=== PATIENT | female | born 1975 | race Two or more races ===

== ENCOUNTER 2020-05-28 09:29 | Outpatient (REF) | payer MEDICARE, MEDICAID, SELFPAY ==
--- NOTE | 2020-05-28 | US_ITS ---
EXAMINATION: US ABDOMEN COMPLETE CLINICAL INFORMATION: Epigastric pain. COMPARISON: Renal ultrasound dated 04/13/2018 and abdominal ultrasound dated 03/16/2017. CT abdomen and pelvis dated 02/19/2017 TECHNIQUE: Real-time imaging of the abdominal viscera. FINDINGS: PANCREAS: Normal. ABDOMINAL AORTA: The proximal, mid, and distal segments are normal in caliber. INFERIOR VENA CAVA: Visualized portions are normal. LIVER: Normal. The liver is normal in size. The liver contour is normal. Parenchymal echogenicity is normal. No focal hepatic lesion. There is no intrahepatic biliary duct dilatation seen. GALLBLADDER: The gallbladder is physiologically distended without evidence of stones, wall thickening or pericholecystic fluid. There are small echogenic lesions along the inner gallbladder wall without shadowing suspicious of adenomyomatosis. COMMON BILE DUCT: Normal in caliber measuring 0.5 cm in diameter. RIGHT KIDNEY: No hydronephrosis or renal calculi. The kidney measures 11.4 cm in maximum dimension. There is an anechoic cyst midpole measuring 1.6 x 1.5 x 1.4 cm. LEFT KIDNEY: Normal. No hydronephrosis. No renal calculi or focal parenchymal lesions. The kidney measures 11.8 cm in maximum dimension. SPLEEN: Normal. The spleen measures 10.4 cm in maximum dimension. FREE FLUID: None. US/US abdomen complete IMPRESSION: Anechoic 1.6 cm cyst midpole right kidney. No echogenic renal calculi on either kidney. Adenomyomatosis of gallbladder.
== END 2020-05-28 09:30 | disposition home or self-care (01) ==
LOC: HO.US 09:29
PROVIDERS: Visit Provider Internal Medicine Geriatric Medicine
DX: R10.13 Epigastric pain (principal); R14.0 Abdominal distension (gaseous)
CPT/HCPCS: 76700

== ENCOUNTER → 2020-07-02 13:37 | Outpatient (BNVA) | payer MEDICARE, MEDICAID, SELFPAY | PROVIDERS: PCP Internal Medicine Geriatric Medicine; Visit Provider Physician Assistant | DX: R10.10 Upper abdominal pain, unspecified (principal) | CPT/HCPCS: Q3014 ==

== ENCOUNTER 2020-12-13 11:31 | Emergency (ER) | payer MEDICARE, MEDICAID, SELFPAY ==
--- NOTE | ~2020-12-13 | CT_ITS ---
EXAMINATION: CT ABDOMEN AND PELVIS WITHOUT CONTRAST CLINICAL INFORMATION: Left lower quadrant abdominal pain COMPARISON: CT of February 19, 2017 TECHNIQUE: Multidetector volumetric imaging was performed from the superior aspect of the liver through the pubic symphysis. Sagittal and coronal reformatted images were obtained on the technologist's workstation. This CT examination was performed using dose optimization techniques as appropriate, variously including the following: *Automated exposure control *Adjustment of mA and/or kV according to patient size (this includes techniques or standardized protocols for targeted exams where dose is matched to indication/reason for exam; i.e. extremities or head) *Use of iterative reconstruction technique DLP: 741 mGy-cm FINDINGS: LUNG BASES: The visualized lung bases are unremarkable. No pleural or pericardial effusion. LIVER, GALLBLADDER, AND BILIARY TREE: The liver is normal in size, shape, and attenuation. No focal hepatic lesion or biliary ductal dilatation is present. The gallbladder is unremarkable with no evidence of radiopaque gallstones, gallbladder wall thickening, or obvious pericholecystic inflammatory changes. PANCREAS: Unremarkable. SPLEEN: Unremarkable. ADRENAL GLANDS: Unremarkable. KIDNEYS AND URETERS: The kidneys are normal in size, shape, and attenuation. No hydronephrosis, hydroureter, or calculi seen. No perinephric stranding. BLADDER: Unremarkable. GASTROINTESTINAL TRACT: No dilated loops of large or small bowel are evident. No free air or free fluid. There is pericolonic inflammatory changes seen along a region of moderate diverticular disease within the sigmoid colon consistent with acute diverticulitis. No drainable fluid collection is identified. There is mild diverticulosis of the remainder of the colon. The appendix is visualized and appears unremarkable. ABDOMINAL WALL: No significant hernia is appreciated. LYMPH NODES: No lymphadenopathy is appreciated. VASCULAR: Small amount of calcified plaque within the aortoiliac system. PELVIC VISCERA: No suspicious pelvic mass appreciated. OSSEOUS STRUCTURES: No suspicious destructive bony lesions identified. Degenerative disc disease is seen at the L4-L5 and L5-S1 levels. CT/CT abdomen pelvis wo con IMPRESSION: Acute sigmoid diverticulitis without drainable abscess.
[2020-12-13 11:44] VITALS: BP 175/99; PULSE 86; RESP 20; TEMP 36.2; O2SAT 98; BMI 31.3
--- NOTE | 2020-12-13 13:00 | ED_ITS ---
HPI - Abdominal Pain General Chief Complaint: Abdominal Pain Stated Complaint: ABD PAIN Time Seen by Provider: 12/13/20 12:33 Source: patient Mode of arrival: ambulatory History of Present Illness HPI narrative: 45-year-old female with a past medical history of hemorrhoidectomy, hypertension, presenting to the ED complaining of 3 days of p eriumbilical/lower abdominal pain > left with radiation to back. Admits to similar symptoms in the past. Denies fever, chills, nausea, vomiting, diarrhea, dysuria/hematuria, vaginal bleeding/discharge, constipation, suspicious food intake MD elicited complaint: abdominal pain Related Data Home Medications Medication Instructions Recorded Confirmed albuterol sulfate 90 mcg/actuation 2 puff INHALATION Q6H PRN 07/02/20 07/02/20 aerosol inhaler lisinopril 10 1 tab PO DAILY 07/02/20 07/02/20 mg-hydrochlorothiazide 12.5 mg tablet oxycodone-acetaminophen 5 mg-325 1 tab PO Q8H PRN 07/02/20 07/02/20 mg tablet simvastatin 10 mg tablet 10 mg PO DAILY 07/02/20 07/02/20 Previous Rx's Medication Instructions Recorded famotidine 40 mg tablet 40 mg PO DAILY #30 tab 07/02/20 ketorolac 10 mg PO Q6H PRN 5 Days #14 tab 12/13/20 levofloxacin 750 mg PO DAILY 7 Days #7 tab 12/13/20 metoclopramide HCl [Reglan] 10 mg PO Q6H PRN #10 tab 12/13/20 metronidazole 500 mg PO Q8H 7 Days #21 tab 12/13/20 Allergies Allergy/AdvReac Type Severity Reaction Status Date / Time amoxicillin [From AUGMENTIN] Allergy Intermediate FACIAL Verified 12/13/20 13:12 SWELLING, HIVES clavulanic acid Allergy Intermediate FACIAL Verified 12/13/20 13:12 [From AUGMENTIN] SWELLING, HIVES Iodinated Contrast Media Allergy Intermediate ITCHING, Verified 12/13/20 13:12 [IV CONTRAST] FACIAL SWELLING, HIVES oral contrast Allergy Unknown facial Uncoded 02/20/20 00:00 swellling Review of Systems Review of Systems Constitutional: No Fever, No Chills Cardiovascular: No Chest Pain, No SOB Respiratory: No Cough, No Dyspnea Gastrointestinal: No Nausea, No Vomiting, No Diarrhea, No Constipation, +Abdominal pain Genitourinary: No irregular bleeding, No Dysuria, No Urinary Frequency, No Hematuria, No Flank Pain, No Urinary Flow Changes Musculoskeletal: No joint pain, No Myalgias Skin: No Skin Lesions, No rash Yes all other systems are reviewed and are negative Physical Exam Vital Signs: Vital Signs: Last Vital Signs Temp 97.2 F 12/13/20 11:44 Pulse 67 12/13/20 15:15 Resp 16 12/13/20 15:15 BP 178/96 H 12/13/20 15:15 Pulse Ox 100 12/13/20 15:15 Body Mass Index 31.3 Const: General: cooperative and healthy appearing Orientation/consciousness: patient oriented x3 Limitations: no limitations HENMT: Head: Yes normal to inspection Ears: hearing grossly normal bilaterally General nose exam: Normal external nose present Face and sinus: Yes normal facial exam Eyes: General: appearance normal, both eyes and all related structures EOM: EOMs intact bilaterally Neck: Neck: Yes normal visual inspection and Yes no meningeal signs Resp: Effort & Inspection: normal respiratory effort Cardio: Rate: regular rate GI: Inspection: Yes normal to inspection Palpation (GI): Soft to palpation, Tenderness to palpation present (GI) in the LLQ, no guarding and not rigid : General: Yes no CVA tenderness Back/Spine/Pelvis: Back: no CVA tenderness Skin: Rashes: no rashes Wounds: no wounds Neuro: General: patient oriented x3 and no meningeal signs Gait exam (Neuro): Normal gait present Extrem: General: Yes normal to inspection Course Course Course Narrative: -1403-- noted leukocytosis of 15.4, labs otherwise unremarkable. UA with wbc's 2+ bacteria and 1+ blood > empiric IV abx ordered. Low concern for severe sepsis > lactic/blood cultures ordered -1443--CT abdomen pelvis wo con IMPRESSION: Acute sigmoid diverticulitis without drainable abscess. > IV Levaquin ordered to cover diverticulitis and UTI -1613--lactic acid negative. Patient tolerating p.o. in the ED without nausea or vomiting. Plan to DC home with p.o. antibiotics and close GI follow-up. Worrisome signs and symptoms and strict return precautions discussed, she verbalized understanding feel safe for discharge home MDM - Abdominal Pain MDM Narrative Medical decision making narrative: 45-year-old female with a past medical history of hemorrhoidectomy, hypertension, presenting to the ED complaining of 3 days of periumbilical/lower abdominal pain > left with radiation to back. On exam VSS, NAD/appearing, abdomen soft with +LLQ ttp, no rebound or guarding, no CVAT. Concern for diverticulitis vs colitis vs ? Renal stone. Lower concern for appendicitis/pancreatitis/cholecystitis/lithiasis or UTI Plan: Labs, UA, CT AP without contrast due to patient's allergy, IVF, reassess Lab Data Result diagrams: 12/13/20 13:24 12/13/20 13:24 Labs: Lab Results 12/13/20 12/13/20 12/13/20 Range/Units 13:24 13:24 13:24 WBC 15.4 H (4.8-10.8) X10*3/uL RBC 5.27 (4.20-5.50) X10*6/uL Hgb 15.9 (12.0-16.0) g/dl Hct 48.7 H (37-47) % MCV 92.4 (80-98) fL MCH 30.2 (27.0-33.0) pg MCHC 32.6 (31.0-35.0) g/dl RDW 14.6 (11.0-16.0) % Plt Count 246 (160-400) X10*3/uL MPV 10.8 (9.4-12.3) fL Immature Gran % (Auto) 0.7 H (0.0-0.4) % Neut % (Auto) 76.1 H (45-73) % Lymph % (Auto) 14.5 L (20-40) % [place] % (Auto) 6.4 (2-11) % Eos % (Auto) 1.6 (0-4) % Baso % (Auto) 0.7 (0-2) % Lymph # (Auto) 2.2 (1.2-4.9) X10*3/uL [place] # (Auto) 1.0 (0.1-1.2) X10*3/uL Eos # (Auto) 0.3 (0.0-0.4) X10*3/uL Baso # (Auto) 0.1 (0.0-0.2) X10*3/uL Abs Immat Gran (auto) 0.10 H (0.00-0.03) X10*3/uL Absolute Neuts (auto) 11.7 H (2.0-8.3) X10*3/uL Absolute Nucleated RBC 0.000 (0.0-0.012) X10*3/uL Nucleated RBC % (auto) 0.0 (0.0-0.2) /100WBC Hold Blue Top SEE NOTE Sodium 134 L (135-145) mmol/L Potassium 4.3 (3.3-5.1) mmol/L Chloride 102 (96-108) mmol/L Carbon Dioxide 22 (22-29) mmol/L Anion Gap 14 (12-20) BUN 10 (9-16) mg/dL Creatinine 0.72 (0.5-1.4) mg/dL Estim Creat Clear Calc 115.3 Estimated GFR > 60 Random Glucose 106 (60-115) mg/dL Lactic Acid (0.5-2.0) mmol/L Calcium 9.4 (8.4-10.2) mg/dL Magnesium 2.2 (1.6-2.6) mg/dL Total Bilirubin 0.5 (0.0-1.0) mg/dL Direct Bilirubin 0.2 (0.0-0.5) mg/dL AST 11 (5-31) U/L ALT 11 (0-31) U/L Alkaline Phosphatase 75 (39-117) U/L Total Protein 7.1 (6.5-8.0) g/dL Albumin 4.3 (3.5-5.0) g/dL Lipase 26 (8-78) U/L Urine Color Urine Appearance Urine pH (5.0-8.0) Ur Specific [place] (1.005-1.025) Urine Protein (NEG-TRACE) MG/DL Urine Glucose (UA) (NEG) MG/DL Urine Ketones (NEG) MG/DL Urine Blood (NEG) Urine Nitrite (NEG) Ur Leukocyte Esterase (NEG) Urine RBC (0) /HPF Urine WBC (0-4) /HPF Ur Squamous Epith Cells /LPF Urine Bacteria /LPF Urine Test (NEGATIVE) 12/13/20 12/13/20 12/13/20 Range/Units 13:24 13:24 14:52 WBC (4.8-10.8) X10*3/uL RBC (4.20-5.50) X10*6/uL Hgb (12.0-16.0) g/dl Hct (37-47) % MCV (80-98) fL MCH (27.0-33.0) pg MCHC (31.0-35.0) g/dl RDW (11.0-16.0) % Plt Count (160-400) X10*3/uL MPV (9.4-12.3) fL Immature Gran % (Auto) (0.0-0.4) % Neut % (Auto) (45-73) % Lymph % (Auto) (20-40) % [place] % (Auto) (2-11) % Eos % (Auto) (0-4) % Baso % (Auto) (0-2) % Lymph # (Auto) (1.2-4.9) X10*3/uL [place] # (Auto) (0.1-1.2) X10*3/uL Eos # (Auto) (0.0-0.4) X10*3/uL Baso # (Auto) (0.0-0.2) X10*3/uL Abs Immat Gran (auto) (0.00-0.03) X10*3/uL Absolute Neuts (auto) (2.0-8.3) X10*3/uL Absolute Nucleated RBC (0.0-0.012) X10*3/uL Nucleated RBC % (auto) (0.0-0.2) /100WBC Hold Blue Top Sodium (135-145) mmol/L Potassium (3.3-5.1) mmol/L Chloride (96-108) mmol/L Carbon Dioxide (22-29) mmol/L Anion Gap (12-20) BUN (9-16) mg/dL Creatinine (0.5-1.4) mg/dL Estim Creat Clear Calc Estimated GFR Random Glucose (60-115) mg/dL Lactic Acid 1.0 (0.5-2.0) mmol/L Calcium (8.4-10.2) mg/dL Magnesium (1.6-2.6) mg/dL Total Bilirubin (0.0-1.0) mg/dL Direct Bilirubin (0.0-0.5) mg/dL AST (5-31) U/L ALT (0-31) U/L Alkaline Phosphatase (39-117) U/L Total Protein (6.5-8.0) g/dL Albumin (3.5-5.0) g/dL Lipase (8-78) U/L Urine Color YELLOW Urine Appearance CLEAR Urine pH 6.0 (5.0-8.0) Ur Specific [place] <= 1.005 (1.005-1.025) Urine Protein NEG (NEG-TRACE) MG/DL Urine Glucose (UA) NEG (NEG) MG/DL Urine Ketones NEG (NEG) MG/DL Urine Blood 1+ H (NEG) Urine Nitrite NEG (NEG) Ur Leukocyte Esterase NEG (NEG) Urine RBC 1-4 (0) /HPF Urine WBC 5-9 H (0-4) /HPF Ur Squamous Epith Cells 2+ /LPF Urine Bacteria 2+ /LPF Urine Test NEGATIVE (NEGATIVE) Discharge Plan Discharge Clinical Impression: Diverticulitis, UTI (urinary tract infection) Patient Disposition: Home, Self-Care Instructions: Diverticulitis (ED), Diverticulitis Diet (ED) Additional Instructions: You have diverticulitis which is an infection of her colon. You also have a urinary tract infection Levaquin and metronidazole are antibiotics, take as prescribed Reglan as an anti nausea medication, take as needed Ketorolac as an anti-inflammatory pain medication, take with food It is important to practice a clear liquid diet for the next 48 hours, avoid spicy, sweet, chocolate, and caffeine Follow up with her doctor and GI If her symptoms persist or worsen, pain becomes unbearable, fevers, are unable to eat or drink please return to the ED immediately Prescriptions: New levofloxacin 750 mg tablet 750 mg PO DAILY 7 Days Qty: 7 RF: 0 metronidazole 500 mg tablet 500 mg PO Q8H 7 Days Qty: 21 RF: 0 metoclopramide HCl [Reglan] 10 mg tablet 10 mg PO Q6H PRN (Reason: nausea and vomiting) Qty: 10 RF: 0 ketorolac 10 mg tablet 10 mg PO Q6H PRN (Reason: pain) 5 Days Qty: 14 RF: 0 No Action simvastatin 10 mg tablet 10 mg PO DAILY RF: 0 lisinopril-hydrochlorothiazide 10-12.5 mg tablet 1 tab PO DAILY RF: 0 oxycodone-acetaminophen [Percocet] 5-325 mg tablet 1 tab PO Q8H PRNRF: 0 albuterol sulfate 90 mcg/actuation HFA aerosol inhaler 2 puff inhalation Q6H PRNRF: 0 famotidine 40 mg tablet 40 mg PO DAILY Qty: 30 RF: 5 Referrals: Surya Torres MD [Physician] - 5 days Name,MD Vincenzo [Primary Care Provider] - 2 days PMF Past Medical History Attestation statement: The following information was validated with the patient. Medical History (Updated 12/13/20 @ 14:49 by ELIZABET Madrigal) Abdominal pain HTN (hypertension) Surgical History (Updated 07/02/20 @ 14:29 by July Whitaker PA-C) H/O hemorrhoidectomy Family History Family History (Updated 07/02/20 @ 14:30 by July Whitaker PA-C) Father Prostate cancer Social History Social History (Updated 07/02/20 @ 14:29 by July Whitaker PA-C) Household Members: Children Household Members Other:: 3 Alcohol intake: current Alcohol intake frequency: holidays/special occasions only Alcohol type: beer Smoking Status: Current every day smoker Smoked in Last 30 Days: Yes Use of substances other than those prescribed or required for medical reasons: No Advance Directives: No Advance Directives Information Provided: No Patient : No Current occupational status: unemployed
[2020-12-13 13:10] VITALS: BP 152/95; PULSE 80; RESP 18; O2SAT 96
[2020-12-13 13:31] LABS: MANUAL DIFF FLAG NO
[2020-12-13 13:37] LABS: Basophils Absolute Auto 0.1 X10*3/uL (0.0-0.2); Basophils Percent Auto 0.7 % (0-2); Eosinophils Absolute Auto 0.3 X10*3/uL (0.0-0.4); Eosinophils Percent Auto 1.6 % (0-4); Hematocrit 48.7 % (37-47); Hemoglobin 15.9 g/dl (12.0-16.0); Imm Gran Pct Auto 0.7 % (0.0-0.4); Lymphocytes Absolute Auto 2.2 X10*3/uL (1.2-4.9); Lymphocytes Percent Auto 14.5 % (20-40); Mean Corpuscular HGB Conc 32.6 g/dl (31.0-35.0); Mean Corpuscular Hemoglobin 30.2 pg (27.0-33.0); Mean Corpuscular Volume 92.4 fL (80-98); Mean Platelet Volume 10.8 fL (9.4-12.3); Monocytes Percent Auto 6.4 % (2-11); Neutrophils Absolute Auto 11.7 X10*3/uL (2.0-8.3); Neutrophils Percent Auto 76.1 % (45-73); Platelet Count 246 X10*3/uL (160-400); Red Blood Count 5.27 X10*6/uL (4.20-5.50); Red Cell Distribution Width 14.6 % (11.0-16.0); White Blood Count 15.4 X10*3/uL (4.8-10.8)
[2020-12-13] MEDS: ondansetron HCL 4 MG/2 ML VIAL IVPUSH (13:37)
[2020-12-13 13:38] LABS: Glucose Urine UA NEG (NEG); Leukocyte Esterase Urine NEG (NEG); Nitrite Urine NEG (NEG); Specific Gravity - Urine <= 1.005 (1.005-1.025); Urine Blood 1+ (NEG); Urine Ketones NEG (NEG); Urine Protein NEG (NEG-TRACE)
[2020-12-13] MEDS: 0.9 % Sodium Chloride 1,000 ML 999 ML IVCONT ×2 (13:38→15:00)
[2020-12-13] MEDS: Ketorolac Tromethamine 15 MG/ML VIAL IVPUSH ×2 (13:39→15:06)
--- NOTE | 2020-12-13 13:40 | PC.NURSE ---
Pt medicated for pain and nausea. IV in place and bloodwork/urine sent to lab. Pt resting in bed at this time.
[2020-12-13 13:41] LABS: Color Urine YELLOW
[2020-12-13 13:42] LABS: Appearance Urine CLEAR; UPreg QC Valid YES; Urine Pregnancy NEGATIVE (NEGATIVE)
[2020-12-13 13:48] LABS: Bacteria Urine 2+ /LPF; Squamous Epithelial Cell Urine 2+ /LPF; UACC CULT YES
[2020-12-13 14:00] LABS: Alanine Aminotransferase 11 U/L (0-31); Albumin Level 4.3 g/dL (3.5-5.0); Alkaline Phosphatase 75 U/L (39-117); Anion Gap 14 (12-20); Aspartate Amino Transferase 11 U/L (5-31); Bilirubin Direct 0.2 mg/dL (0.0-0.5); Bilirubin Total 0.5 mg/dL (0.0-1.0); Blood Urea Nitrogen 10 mg/dL (9-16); Calcium 9.4 mg/dL (8.4-10.2); Carbon Dioxide 22 mmol/L (22-29); Chloride 102 mmol/L (96-108); Creatinine Clr Calc Pharmacy 115.3; Estimated Glomerular Filt Rate > 60; Glucose Random 106 mg/dL (60-115); Lipase 26 U/L (8-78); Magnesium 2.2 mg/dL (1.6-2.6); Potassium 4.3 mmol/L (3.3-5.1); Sodium 134 mmol/L (135-145); Total Protein 7.1 g/dL (6.5-8.0)
[2020-12-13] MEDS: levoFLOXacin/D5W 750 MG/150 ML PIGGYBACK 100 MG IV (15:09)
[2020-12-13] MEDS: Acetaminophen 325 MG TABLET 650 MG PO (15:12)
--- NOTE | 2020-12-13 15:13 | PC.NURSE ---
Pt medicated for pain. Blood cultures drawn and IV antibiotic infusing
[2020-12-13 15:15] VITALS: BP 178/96; PULSE 67; RESP 16; O2SAT 100
[2020-12-13] MEDS: metroNIDAZOLE 500 MG TABLET PO (16:41)
== END 2020-12-13 16:43 | disposition home or self-care (01) ==
PROVIDERS: Physician Assistant; Emergency Provider Emergency Medicine; PCP Internal Medicine Geriatric Medicine
DX: K57.32 Diverticulitis of large intestine without perforation or abscess without bleeding (principal); N39.0 Urinary tract infection, site not specified; R11.0 Nausea; I10 Essential (primary) hypertension
CPT/HCPCS: 36415; 74176; 80048; 80076; 81001; 81025; 83605; 83690; 83735; 85025; 87040; 87086; 87147; 96361; 96365; 96367; 96375; 96376; 99284; J1885; J1956; J2405

== ENCOUNTER 2021-07-09 09:01 | Emergency (ER) | payer MEDICARE, MEDICAID, SELFPAY ==
--- NOTE | ~2021-07-09 | CT_ITS ---
EXAMINATION: CT ABDOMEN AND PELVIS WITHOUT CONTRAST CLINICAL INFORMATION: Abdominal pain centrally and tenderness COMPARISON: Previous CT of the abdomen and pelvis most recent December 2020 and abdominal ultrasound May 2020 TECHNIQUE: Multidetector volumetric imaging was performed from the superior aspect of the liver through the pubic symphysis. Sagittal and coronal reformatted images were obtained on the technologist's workstation. This CT examination was performed using dose optimization techniques as appropriate, variously including the following: *Automated exposure control *Adjustment of mA and/or kV according to patient size (this includes techniques or standardized protocols for targeted exams where dose is matched to indication/reason for exam; i.e. extremities or head) *Use of iterative reconstruction technique DLP: 657 mGy-cm FINDINGS: LUNG BASES: The visualized lung bases are unremarkable. LIVER, GALLBLADDER, AND BILIARY TREE: The liver is normal in size, shape, and attenuation. No focal hepatic lesion or biliary ductal dilatation is present. The gallbladder is unremarkable with no evidence of radiopaque gallstones, gallbladder wall thickening, or obvious pericholecystic inflammatory changes. PANCREAS: Unremarkable. SPLEEN: Unremarkable. ADRENAL GLANDS: Unremarkable. KIDNEYS AND URETERS: The kidneys are normal in size, shape, and attenuation. No hydronephrosis, hydroureter, or calculi seen. No perinephric stranding. BLADDER: Unremarkable. GASTROINTESTINAL TRACT: There is diverticulosis of the colon. There is wall thickening of the splenic for shoulder and proximal left colon and stranding of the surrounding fat suggestive of mild diverticulitis. No evidence of obstruction, perforation or abscess is seen. The small and large bowel is otherwise unremarkable. The appendix is unremarkable. The stomach is unremarkable. ABDOMINAL WALL: There is a small umbilical hernia containing fat. LYMPH NODES: Normal. VASCULAR: Unremarkable. PELVIC VISCERA: Unremarkable. OSSEOUS STRUCTURES: There are degenerative changes of the lower lumbar spine. CT/CT abdomen pelvis wo con IMPRESSION: Diverticulitis of the splenic flexure and proximal left colon. Small umbilical hernia containing fat. Fleischner guidelines were followed.
[2021-07-09 09:08] VITALS: BP 170/98; PULSE 88; RESP 18; TEMP 36.9; O2SAT 100
--- NOTE | 2021-07-09 09:18 | ED_ITS ---
HPI - Abdominal Pain General Chief Complaint: Abdominal Pain Stated Complaint: Abd pain Time Seen by Provider: 07/09/21 09:16 Source: patient Mode of arrival: ambulatory Limitations: no limitations History of Present Illness HPI narrative: 45 yo female with history of diverticulitis, hypertension, hemorrhoids who presents to the ER with 5 days of intermittent sharp stabbing central abdominal pain that comes and goes. She states that the pain feels similar to the last time she had diverticulitis back in December. She had loose stool at 04:00 but no blood in her stool. She has no nausea or vomiting. She has no fever or chills. She denies chance of . She states her last menstrual cycle was 2 weeks ago. She has no pelvic pain or vaginal discharge. She describes the pain as sharp and like someone is twisting her intestines. MD elicited complaint: abdominal pain Pertinent past history: diverticulitis Onset (ago): day(s) (5) Pain Consistency: intermittent Location: periumbilical Severity: severe Pain scale (0-10): 8 Quality: stabbing Radiation: none Migration to: no migration Exacerbating factors: nothing Relieving factors: nothing Context: history of similar episodes Associated symptoms: denies other symptoms Related Data Date of Last Menstrual Period: 06/24/21 Patient : No Home Medications Medication Instructions Recorded Confirmed albuterol sulfate 90 mcg/actuation 2 puff INHALATION Q6H PRN 07/02/20 07/02/20 aerosol inhaler lisinopril 10 1 tab PO DAILY 07/02/20 07/02/20 mg-hydrochlorothiazide 12.5 mg tablet oxycodone-acetaminophen 5 mg-325 1 tab PO Q8H PRN 07/02/20 07/02/20 mg tablet (Percocet) simvastatin 10 mg tablet 10 mg PO DAILY 07/02/20 07/02/20 Previous Rx's Medication Instructions Recorded famotidine 40 mg tablet 40 mg PO DAILY #30 tab 07/02/20 ketorolac 10 mg tablet 10 mg PO Q6H PRN 5 Days #14 tab 12/13/20 levofloxacin 750 mg tablet 750 mg PO DAILY 7 Days #7 tab 12/13/20 metoclopramide HCl 10 mg tablet 10 mg PO Q6H PRN #10 tab 12/13/20 (Reglan) metronidazole 500 mg tablet 500 mg PO Q8H 7 Days #21 tab 12/13/20 ibuprofen 600 mg tablet 600 mg PO Q8H PRN #14 tab 07/09/21 levofloxacin 750 mg tablet 750 mg PO DAILY #9 tab 07/09/21 metronidazole 500 mg tablet 500 mg PO Q8H 10 Days #30 tab 07/09/21 oxycodone 5 mg tablet 5 mg PO Q6H PRN #10 tab 07/09/21 Allergies Allergy/AdvReac Type Severity Reaction Status Date / Time amoxicillin [From AUGMENTIN] Allergy Intermediate FACIAL Verified 07/09/21 09:08 SWELLING, HIVES clavulanic acid Allergy Intermediate FACIAL Verified 07/09/21 09:08 [From AUGMENTIN] SWELLING, HIVES Iodinated Contrast Media Allergy Intermediate ITCHING, Verified 07/09/21 09:08 [IV CONTRAST] FACIAL SWELLING, HIVES oral contrast Allergy Unknown facial Uncoded 02/20/20 00:00 swellling Review of Systems Review of Systems Constitutional: No Fever, No Chills ENT/Mouth: No sore throat, No Rhinorrhea, No Swallowing Difficulty Cardiovascular: No Chest Pain, No SOB, No Orthopnea, No Edema Respiratory: No Cough, No Sputum, No Wheezing, No dyspnea Gastrointestinal: No Nausea, No Vomiting, No Diarrhea, + abdominal Pain, No Hematochezia, No Melena Genitourinary: No Dysuria, No Urinary Frequency, No Hematuria Musculoskeletal: No joint pain, No Myalgias Skin: No Skin Lesions, No rash Neuro: No Weakness, No Numbness, No Dizziness, No Headache Psych: + Anxiety/Panic, No Depression Heme/Lymph: No Bruising, No Lymphadenopathy Endocrine: No Polyuria, No Polydipsia Physical Exam Vital Signs: Vital Signs: Last Vital Signs Temp 98 F 07/09/21 11:52 Pulse 65 07/09/21 11:52 Resp 16 07/09/21 11:52 BP 160/94 H 07/09/21 11:52 Pulse Ox 98 07/09/21 11:52 BMI result Body Mass Index 30.0 Appearance: Alert. Oriented X3. No acute distress. Eyes: Pupils equal, round and reactive to light. ENT: Pharynx normal. Neck: Normal inspection. Neck supple. CVS: Normal heart rate and rhythm. Pulses normal. Respiratory: No respiratory distress. Breath sounds normal. Abdomen: Normal inspection, Soft with periumbilical tenderness and guarding, no rebound tenderness, Normal BS x4 Skin: Skin warm and dry. Normal skin color. Normal skin turgor. No rashes. Extremities: No lower extremity edema. Neuro: Oriented X 3. No motor deficit. No sensory deficit. Course Course Course Narrative: 45 y/o female presenting to the ER with central abdominal pains for the last 5 days. She reports it feels similar to prior episode of diverticulitis. Tenderness and guarding in central abdomen. She is otherwise nontoxic appearing and has no fever or tachycardia on arrival. Will get labs and CT scan for further evaluation. Will give a dose of IV morphine and reassess. Reevaluation(s) Reevaluation #1: Labs show WBC 15K but are otherwise unremarkable. CT scan is showing diverticulitis of the splenic flexure and proximal left colon. Described as mild. No obstruction or abscess seen. She continues to have some abdominal pain but overall improved. Will give a dose of IV Toradol, oxycodone and oral antibiotics in anticipation of discharge home. Will reassess her pain and ability to tolerate p.o.. Reevaluation #2: Patient improved after meds. She is stable for discharge home with supportive care, oral antibiotics, pain control and plan to follow-up with GI. Patient is in agreement with plan and understands she should come back to the ER if she has worsening pain. Stable for DC. MDM - Abdominal Pain Lab Data Result diagrams: 07/09/21 09:56 07/09/21 09:56 Labs: Lab Results 07/09/21 07/09/21 07/09/21 Range/Units 09:56 09:56 09:56 WBC 15.5 H (4.8-10.8) X10*3/uL RBC 4.91 (4.20-5.50) X10*6/uL Hgb 15.1 (12.0-16.0) g/dl Hct 45.1 (37.0-47.0) % MCV 91.9 (80.0-98.0) fL MCH 30.8 (27.0-33.0) pg MCHC 33.5 (31.0-35.0) g/dl RDW 14.7 (11.0-16.0) % Plt Count 231 (160-400) X10*3/uL MPV 10.9 (9.4-12.3) fL Immature Gran % (Auto) 0.5 H (0.0-0.4) % Neut % (Auto) 79.0 H (45-73) % Lymph % (Auto) 12.7 L (20-40) % [place] % (Auto) 6.1 (2-11) % Eos % (Auto) 1.2 (0-4) % Baso % (Auto) 0.5 (0-2) % Lymph # (Auto) 2.0 (1.2-4.9) X10*3/uL [place] # (Auto) 1.0 (0.1-1.2) X10*3/uL Eos # (Auto) 0.2 (0.0-0.4) X10*3/uL Baso # (Auto) 0.1 (0.0-0.2) X10*3/uL Abs Immat Gran (auto) 0.08 H (0.00-0.03) X10*3/uL Absolute Neuts (auto) 12.3 H (2.0-8.3) x10*3/uL Absolute Nucleated RBC 0.000 (0.0-0.012) X10*3/uL Nucleated RBC % (auto) 0.0 (0.0-0.2) /100WBC Sodium 136 (135-145) mmol/L Potassium 3.8 (3.3-5.1) mmol/L Chloride 104 (96-108) mmol/L Carbon Dioxide 22 (22-29) mmol/L Anion Gap 14 (12-20) BUN 9 (9-16) mg/dL Creatinine 0.74 (0.5-1.4) mg/dL Estim Creat Clear Calc 109.9 Estimated GFR > 60 Random Glucose 154 H (60-115) mg/dL Calcium 9.2 (8.4-10.2) mg/dL Magnesium 1.9 (1.6-2.6) mg/dL Total Bilirubin 0.8 (0.0-1.0) mg/dL Direct Bilirubin 0.2 (0.0-0.5) mg/dL AST 10 (5-31) U/L ALT 9 (0-31) U/L Alkaline Phosphatase 77 (39-117) U/L Total Protein 6.8 (6.5-8.0) g/dL Albumin 4.1 (3.5-5.0) g/dL Urine Color YELLOW Urine Appearance HAZY Urine pH 5.5 (5.0-8.0) Ur Specific [place] 1.025 (1.005-1.025) Urine Protein NEG (NEG-TRACE) MG/DL Urine Glucose (UA) NEG (NEG) MG/DL Urine Ketones NEG (NEG) MG/DL Urine Blood 2+ H (NEG) Urine Nitrite NEG (NEG) Ur Leukocyte Esterase NEG (NEG) Urine RBC 5-9 H (0) /HPF Urine WBC 1-4 (0-4) /HPF Ur Squamous Epith Cells 3+ /LPF Urine Bacteria 3+ /LPF Urine Test (NEGATIVE) 07/09/21 Range/Units 09:56 WBC (4.8-10.8) X10*3/uL RBC (4.20-5.50) X10*6/uL Hgb (12.0-16.0) g/dl Hct (37.0-47.0) % MCV (80.0-98.0) fL MCH (27.0-33.0) pg MCHC (31.0-35.0) g/dl RDW (11.0-16.0) % Plt Count (160-400) X10*3/uL MPV (9.4-12.3) fL Immature Gran % (Auto) (0.0-0.4) % Neut % (Auto) (45-73) % Lymph % (Auto) (20-40) % [place] % (Auto) (2-11) % Eos % (Auto) (0-4) % Baso % (Auto) (0-2) % Lymph # (Auto) (1.2-4.9) X10*3/uL [place] # (Auto) (0.1-1.2) X10*3/uL Eos # (Auto) (0.0-0.4) X10*3/uL Baso # (Auto) (0.0-0.2) X10*3/uL Abs Immat Gran (auto) (0.00-0.03) X10*3/uL Absolute Neuts (auto) (2.0-8.3) x10*3/uL Absolute Nucleated RBC (0.0-0.012) X10*3/uL Nucleated RBC % (auto) (0.0-0.2) /100WBC Sodium (135-145) mmol/L Potassium (3.3-5.1) mmol/L Chloride (96-108) mmol/L Carbon Dioxide (22-29) mmol/L Anion Gap (12-20) BUN (9-16) mg/dL Creatinine (0.5-1.4) mg/dL Estim Creat Clear Calc Estimated GFR Random Glucose (60-115) mg/dL Calcium (8.4-10.2) mg/dL Magnesium (1.6-2.6) mg/dL Total Bilirubin (0.0-1.0) mg/dL Direct Bilirubin (0.0-0.5) mg/dL AST (5-31) U/L ALT (0-31) U/L Alkaline Phosphatase (39-117) U/L Total Protein (6.5-8.0) g/dL Albumin (3.5-5.0) g/dL Urine Color Urine Appearance Urine pH (5.0-8.0) Ur Specific [place] (1.005-1.025) Urine Protein (NEG-TRACE) MG/DL Urine Glucose (UA) (NEG) MG/DL Urine Ketones (NEG) MG/DL Urine Blood (NEG) Urine Nitrite (NEG) Ur Leukocyte Esterase (NEG) Urine RBC (0) /HPF Urine WBC (0-4) /HPF Ur Squamous Epith Cells /LPF Urine Bacteria /LPF Urine Test NEGATIVE (NEGATIVE) Critical Care Time Critical Care Time Critical Care Time: Yes Total Critical Care Time: 36 Attestation: I have personally provided critical care time exclusive of time spent on separately billable procedures. Time includes review of lab data, radiology results, discussion with consultants, and monitoring for potential decompensation. Intervention performed as documented. Discharge Plan Discharge Clinical Impression: Diverticulitis Patient Disposition: Home, Self-Care Instructions: Diverticulitis (ED), Diverticulitis Diet (ED) Additional Instructions: Your CT scan showed mild diverticulitis of your colon. Recommend taking the prescribed antibiotics as directed and the pain medication as needed. Do not start the levofloxacin until tomorrow, you were given the 1st dose today in the ER. Start the metronidazole in 8 hours. Stick to a liquid diet for the next 2 days, see information listed below. Recommend following up with GI specialist-name and number below. If you develop new or worsening symptoms call 911 or come back to the ER for further evaluation. Prescriptions: New levofloxacin 750 mg tablet 750 mg PO DAILY Qty: 9 RF: 0 ibuprofen 600 mg tablet 600 mg PO Q8H PRN (Reason: pain) Qty: 14 RF: 0 metronidazole 500 mg tablet 500 mg PO Q8H 10 Days Qty: 30 RF: 0 oxycodone 5 mg tablet 5 mg PO Q6H PRN (Reason: pain) Qty: 10 RF: 0 No Action levofloxacin 750 mg tablet 750 mg PO DAILY 7 Days Qty: 7 RF: 0 metronidazole 500 mg tablet 500 mg PO Q8H 7 Days Qty: 21 RF: 0 metoclopramide HCl [Reglan] 10 mg tablet 10 mg PO Q6H PRN (Reason: nausea and vomiting) Qty: 10 RF: 0 ketorolac 10 mg tablet 10 mg PO Q6H PRN (Reason: pain) 5 Days Qty: 14 RF: 0 simvastatin 10 mg tablet 10 mg PO DAILY RF: 0 lisinopril-hydrochlorothiazide 10-12.5 mg tablet 1 tab PO DAILY RF: 0 oxycodone-acetaminophen [Percocet] 5-325 mg tablet 1 tab PO Q8H PRNRF: 0 albuterol sulfate 90 mcg/actuation HFA aerosol inhaler 2 puff inhalation Q6H PRNRF: 0 famotidine 40 mg tablet 40 mg PO DAILY Qty: 30 RF: 5 Referrals: Yanira Sharp MD [Physician] - 2 days (Recurrent diverticulitis) [facility] Past Medical History Medical History (Updated 07/09/21 @ 11:36 by ELIZABET Leal) Abdominal pain HTN (hypertension) Surgical History (Updated 07/02/20 @ 14:29 by July Whitaker PA-C) H/O hemorrhoidectomy Date of Last Menstrual Period: 06/24/21 Family History Family History (Updated 07/02/20 @ 14:30 by July Whitaker PA-C) Father Prostate cancer Social History Social History (Updated 07/02/20 @ 14:29 by July Whitaker PA-C) Household Members: Children Household Members Other:: 3 Alcohol intake: current Alcohol intake frequency: holidays/special occasions on ly Alcohol type: beer Advance Directives: No Advance Directives Information Provided: Yes Patient : No Current occupational status: unemployed
[2021-07-09 10:04] LABS: MANUAL DIFF FLAG NO
[2021-07-09 10:06] LABS: Appearance Urine HAZY; Color Urine YELLOW; Glucose Urine UA NEG (NEG); Leukocyte Esterase Urine NEG (NEG); Nitrite Urine NEG (NEG); PH 5.5 (5.0-8.0); Specific Gravity - Urine 1.025 (1.005-1.025); UACC Culture Trigger NO; Urine Blood 2+ (NEG); Urine Ketones NEG (NEG); Urine Protein NEG (NEG-TRACE)
[2021-07-09 10:07] LABS: UPreg QC Valid YES
[2021-07-09 10:09] LABS: Urine Pregnancy NEGATIVE (NEGATIVE)
[2021-07-09 10:10] LABS: Basophils Absolute Auto 0.1 X10*3/uL (0.0-0.2); Basophils Percent Auto 0.5 % (0-2); Eosinophils Absolute Auto 0.2 X10*3/uL (0.0-0.4); Eosinophils Percent Auto 1.2 % (0-4); Hematocrit 45.1 % (37.0-47.0); Hemoglobin 15.1 g/dl (12.0-16.0); Imm Gran Abs Auto 0.08 X10*3/uL (0.00-0.03); Imm Gran Pct Auto 0.5 % (0.0-0.4); Lymphocytes Percent Auto 12.7 % (20-40); Mean Corpuscular HGB Conc 33.5 g/dl (31.0-35.0); Mean Corpuscular Hemoglobin 30.8 pg (27.0-33.0); Mean Corpuscular Volume 91.9 fL (80.0-98.0); Mean Platelet Volume 10.9 fL (9.4-12.3); Monocytes Percent Auto 6.1 % (2-11); Neutrophils Absolute Auto 12.3 x10*3/uL (2.0-8.3); Platelet Count 231 X10*3/uL (160-400); Red Blood Count 4.91 X10*6/uL (4.20-5.50); Red Cell Distribution Width 14.7 % (11.0-16.0); White Blood Count 15.5 X10*3/uL (4.8-10.8)
[2021-07-09] MEDS: 0.9 % Sodium Chloride 1,000 ML 999 ML IVCONT (10:12)
[2021-07-09] MEDS: Morphine Sulfate 4 MG/ML CARTRIDGE IVPUSH (10:12)
[2021-07-09 10:13] LABS: Bacteria Urine 3+ /LPF; Squamous Epithelial Cell Urine 3+ /LPF
[2021-07-09 10:22] LABS: Alanine Aminotransferase 9 U/L (0-31); Albumin Level 4.1 g/dL (3.5-5.0); Alkaline Phosphatase 77 U/L (39-117); Anion Gap 14 (12-20); Aspartate Amino Transferase 10 U/L (5-31); Bilirubin Direct 0.2 mg/dL (0.0-0.5); Bilirubin Total 0.8 mg/dL (0.0-1.0); Blood Urea Nitrogen 9 mg/dL (9-16); Calcium 9.2 mg/dL (8.4-10.2); Carbon Dioxide 22 mmol/L (22-29); Chloride 104 mmol/L (96-108); Creatinine Clr Calc Pharmacy 109.9; Estimated Glomerular Filt Rate > 60; Glucose Random 154 mg/dL (60-115); Magnesium 1.9 mg/dL (1.6-2.6); Potassium 3.8 mmol/L (3.3-5.1); Sodium 136 mmol/L (135-145); Total Protein 6.8 g/dL (6.5-8.0)
[2021-07-09] MEDS: metroNIDAZOLE 500 MG TABLET PO (11:48)
[2021-07-09] MEDS: Ketorolac Tromethamine 30 MG/ML VIAL IVPUSH (11:48)
[2021-07-09] MEDS: levoFLOXacin 750 MG TABLET PO (11:48)
[2021-07-09] MEDS: oxyCODONE HCl Immed Release 5 MG TABLET PO (11:48)
--- NOTE | 2021-07-09 11:50 | PC.NURSE ---
MEDICATED FOR PAIN FOR ANTICIPATED DISCHARGE HOME
[2021-07-09 11:52] VITALS: BP 160/94; PULSE 65; RESP 16; TEMP 36.6; O2SAT 98
== END 2021-07-09 12:38 | disposition home or self-care (01) ==
PROVIDERS: Physician Assistant; Emergency Provider Emergency Medicine; PCP Internal Medicine Geriatric Medicine
DX: K57.32 Diverticulitis of large intestine without perforation or abscess without bleeding (principal); R10.33 Periumbilical pain; Z79.899 Other long term (current) drug therapy
CPT/HCPCS: 36415; 74176; 80048; 80076; 81001; 81025; 83735; 85025; 96361; 96374; 96375; 99284; 99291; J1885; J2270

== ENCOUNTER 2021-08-14 10:38 | Emergency (ER) | payer MEDICARE, MEDICAID, SELFPAY ==
[2021-08-14 10:47] VITALS: BP 162/98; PULSE 100; RESP 19; TEMP 37.6; O2SAT 99; BMI 27.3
== END 2021-08-14 14:59 | disposition left against medical advice (07) ==
PROVIDERS: Emergency Provider Emergency Medicine; PCP Internal Medicine Geriatric Medicine
DX: U07.1 COVID-19 (principal); L50.9 Urticaria, unspecified
CPT/HCPCS: 99281; 99282

== ENCOUNTER 2022-01-15 09:12 | Inpatient (IN) | payer MEDICARE, MEDICAID, SELFPAY ==
--- NOTE | ~2022-01-15 | CT_ITS ---
EXAMINATION: CT ABDOMEN AND PELVIS WITHOUT CONTRAST CLINICAL INFORMATION: Lower abdominal pain. History of diverticulitis. COMPARISON: Previous CT of the abdomen and pelvis most recent July 2021 TECHNIQUE: Multidetector volumetric imaging was performed from the superior aspect of the liver through the pubic symphysis. Sagittal and coronal reformatted images were obtained on the technologist's workstation. This CT examination was performed using dose optimization techniques as appropriate, variously including the following: *Automated exposure control *Adjustment of mA and/or kV according to patient size (this includes techniques or standardized protocols for targeted exams where dose is matched to indication/reason for exam; i.e. extremities or head) *Use of iterative reconstruction technique DLP: 622 mGy-cm FINDINGS: LUNG BASES: The visualized lung bases are unremarkable. LIVER, GALLBLADDER, AND BILIARY TREE: The liver is normal in size, shape, and attenuation. No focal hepatic lesion or biliary ductal dilatation is present. The gallbladder is unremarkable with no evidence of radiopaque gallstones, gallbladder wall thickening, or obvious pericholecystic inflammatory changes. PANCREAS: Unremarkable. SPLEEN: Unremarkable. ADRENAL GLANDS: Unremarkable. KIDNEYS AND URETERS: The kidneys are normal in size, shape, and attenuation. No hydronephrosis, hydroureter, or calculi seen. No perinephric stranding. BLADDER: Unremarkable. GASTROINTESTINAL TRACT: There is diverticulosis of the colon. There is a 3.5 x 5 cm fluid collection adjacent to the sigmoid colon with slightly thickened wall and containing small pockets of air suggestive of an abscess. This may represent an intramural abscess. The left ovary is not identified separate from this and it is possible this represents a left adnexal ovarian abscess. ABDOMINAL WALL: No focal hernia containing fat. LYMPH NODES: Normal. VASCULAR: Unremarkable. PELVIC VISCERA: The uterus is normal appearing. The ovaries are not clearly identified. Again it is possible the left pelvic abscess could involve the left ovary/adnexa. There is a small amount of fluid in the pelvis. OSSEOUS STRUCTURES: Degenerative changes of the lower lumbar spine. CT/CT abdomen pelvis wo con IMPRESSION: Diverticulosis. 3.5 x 5 cm focal fluid collection containing some air in the left pelvis suggestive of an abscess adjacent to the sigmoid colon. Differential would include intramural abscess in the sigmoid colon related to diverticulitis and left ovarian/adnexal abscess. Small amount of fluid in the pelvis. Fleischner guidelines were followed. Findings will be communicated by the [facility] work flow plastic press molder.
[2022-01-15 09:38] VITALS: BP 192/95; PULSE 80; RESP 19; TEMP 36.6; O2SAT 98; BMI 27.3
[2022-01-15 10:00] LABS: MANUAL DIFF FLAG NO
[2022-01-15 10:01] LABS: Basophils Absolute Auto 0.1 X10*3/uL (0.0-0.2); Basophils Percent Auto 0.7 % (0-2); Eosinophils Absolute Auto 0.2 X10*3/uL (0.0-0.4); Eosinophils Percent Auto 1.6 % (0-4); Hematocrit 48.8 % (37.0-47.0); Hemoglobin 15.9 g/dl (12.0-16.0); Imm Gran Abs Auto 0.13 X10*3/uL (0.00-0.03); Imm Gran Pct Auto 0.9 % (0.0-0.4); Lymphocytes Absolute Auto 2.2 X10*3/uL (1.2-4.9); Lymphocytes Percent Auto 14.9 % (20-40); Mean Corpuscular HGB Conc 32.6 g/dl (31.0-35.0); Mean Corpuscular Hemoglobin 30.1 pg (27.0-33.0); Mean Corpuscular Volume 92.4 fL (80.0-98.0); Mean Platelet Volume 10.6 fL (9.4-12.3); Monocytes Absolute Auto 0.7 X10*3/uL (0.1-1.2); Monocytes Percent Auto 4.8 % (2-11); Neutrophils Absolute Auto 11.5 x10*3/uL (2.0-8.3); Neutrophils Percent Auto 77.1 % (45-73); Platelet Count 340 X10*3/uL (160-400); Red Blood Count 5.28 X10*6/uL (4.20-5.50); Red Cell Distribution Width 14.2 % (11.0-16.0); White Blood Count 14.9 X10*3/uL (4.8-10.8)
[2022-01-15 10:02] LABS: Appearance Urine HAZY; Color Urine YELLOW; Glucose Urine UA NEG (NEG); Leukocyte Esterase Urine NEG (NEG); Nitrite Urine NEG (NEG); PH 5.5 (5.0-8.0); Specific Gravity - Urine >= 1.030 (1.005-1.025); UACC Culture Trigger NO; Urine Blood 1+ (NEG); Urine Ketones NEG (NEG); Urine Protein NEG (NEG-TRACE)
[2022-01-15 10:04] LABS: UPreg QC Valid YES; Urine Pregnancy NEGATIVE (NEGATIVE)
[2022-01-15 10:16] LABS: Bacteria Urine 2+ /LPF; Squamous Epithelial Cell Urine 3+ /LPF; UACC CULT YES
[2022-01-15 10:23] LABS: Alanine Aminotransferase 15 U/L (0-31); Albumin Level 4.3 g/dL (3.5-5.0); Alkaline Phosphatase 99 U/L (39-117); Anion Gap 15 (12-20); Aspartate Amino Transferase 12 U/L (5-31); Bilirubin Direct 0.2 mg/dL (0.0-0.5); Bilirubin Total 0.6 mg/dL (0.0-1.0); Blood Urea Nitrogen 15 mg/dL (9-16); Calcium 9.5 mg/dL (8.4-10.2); Carbon Dioxide 23 mmol/L (22-29); Chloride 102 mmol/L (96-108); Creatinine Clr Calc Pharmacy 102.7; Estimated Glomerular Filt Rate > 60; Glucose Random 192 mg/dL (60-115); Lipase 19 U/L (8-78); Sodium 136 mmol/L (135-145); Total Protein 7.6 g/dL (6.5-8.0)
--- NOTE | 2022-01-15 10:41 | ED_ITS ---
HPI - Abdominal Pain General Chief Complaint: Abdominal Pain Stated Complaint: abd pain Time Seen by Provider: 01/15/22 10:39 Source: patient and old records reviewed Mode of arrival: ambulatory Limitations: no limitations History of Present Illness MD elicited complaint: abdominal pain Pertinent past history: diverticulitis and other (constipation) Onset (ago): day(s) (4) Pain Consistency: intermittent Location: periumbilical and suprapubic Severity: moderate Quality: aching and fullness Radiation: none Migration to: no migration Exacerbating factors: nothing Relieving factors: nothing Context: history of similar episodes Associated symptoms: nausea and constipation (no BM in 2 days) Related Data Home Medications Medication Instructions Recorded Confirmed albuterol sulfate 90 mcg/actuation 2 puff inhalation Q6H PRN 07/02/20 07/02/20 aerosol inhaler lisinopril 10 1 tab PO DAILY 07/02/20 07/02/20 mg-hydrochlorothiazide 12.5 mg tablet oxycodone-acetaminophen 5 mg-325 1 tab PO Q8H PRN 07/02/20 07/02/20 mg tablet (Percocet) simvastatin 10 mg tablet 10 mg PO DAILY 07/02/20 07/02/20 Previous Rx's Medication Instructions Recorded famotidine 40 mg tablet 40 mg PO DAILY #30 tabs 07/02/20 ketorolac 10 mg tablet 10 mg PO Q6H PRN pain 5 days #14 12/13/20 tabs levofloxacin 750 mg tablet 750 mg PO DAILY 7 days #7 tabs 12/13/20 metoclopramide HCl 10 mg tablet 10 mg PO Q6H PRN nausea and 12/13/20 (Reglan) vomiting #10 tabs metronidazole 500 mg tablet 500 mg PO Q8H 7 days #21 tabs 12/13/20 ibuprofen 600 mg tablet 600 mg PO Q8H PRN pain #14 tabs 07/09/21 levofloxacin 750 mg tablet 750 mg PO DAILY #9 tabs 07/09/21 metronidazole 500 mg tablet 500 mg PO Q8H 10 days #30 tabs 07/09/21 oxycodone 5 mg tablet 5 mg PO Q6H PRN pain #10 tabs 07/09/21 Allergies Allergy/AdvReac Type Severity Reaction Status Date / Time amoxicillin [From AUGMENTIN] Allergy Intermediate FACIAL Verified 07/09/21 09:08 SWELLING, HIVES clavulanic acid Allergy Intermediate FACIAL Verified 07/09/21 09:08 [From AUGMENTIN] SWELLING, HIVES Iodinated Contrast Media Allergy Intermediate ITCHING, Verified 07/09/21 09:08 [IV CONTRAST] FACIAL SWELLING, HIVES oral contrast Allergy Unknown facial Uncoded 02/20/20 00:00 swellling Review of Systems Review of Systems Constitutional : No Weight loss, No Fever, No Chills ENT/Mouth : No sore throat, No Rhinorrhea Eyes: No Swelling, No Redness Cardiovascular : No Chest Pain, No SOB, NoEdema Respiratory : No Cough, No Sputum, No Wheezing Gastrointestinal : Positive Nausea, no Vomiting, no Diarrhea, positive abdominal Pain, No Hematochezia, No Melena, pos constipation Genitourinary : No Dysuria, No Urinary Frequency, No Hematuria, No Urgency Musculoskeletal : No joint pain, No Myalgias, No Joint Swelling Skin : No Skin Lesions, No rash Neuro : No Weakness, No Numbness, No Dizziness, No Headache Psych : No Anxiety/Panic, No Depression Heme/Lymph: No Bruising, No Lymphadenopathy Endocrine : No Polyuria, No Polydipsia All other systems reviewed and are negative. [facility] Past Medical History Attestation statement: The following information was validated with the patient. Medical History Diverticulitis HTN (hypertension) Surgical History H/O hemorrhoidectomy Family History Family History (Updated 07/02/20 @ 14:30 by July Whitaker PA-C) Father Prostate cancer Social History Social History (Updated 01/15/22 @ 10:42 by Virginie Valderrama DO) Household Members: Children Household Members Other:: 3 Alcohol intake: current Alcohol intake frequency: holidays/special occasions only Alcohol type: beer Patient Tobacco Use Status: Current everyday Tobacco user Smoked in Last 30 Days: Yes Advance Directives: No Advance Directives Information Provided: No Current occupational status: unemployed Physical Exam ED Vital Signs: Vital Signs - 24 hr 01/15/22 09:38 01/15/22 11:22 Temperature 98 F 98.5 F Pulse Rate 80 80 Respiratory Rate 19 16 Blood Pressure 192/95 H 159/99 H Pulse Oximetry 98 98 Oxygen Delivery Method Room Air Room Air BMI result Body Mass Index 27.3 Appearance: Alert. Oriented X3. No acute distress. Eyes: Pupils equal, round and reactive to light. ENT: Pharynx normal. Neck: Normal inspection. Neck supple. CVS: Normal heart rate and rhythm. Pulses normal. Respiratory: No respiratory distress. Breath sounds normal. Abdomen: Soft and moderate ttp in lower abdomen no rebound or guarding Skin: Skin warm and dry. Normal skin color. Normal skin turgor. Extremities: No lower extremity edema. No calf ttp Neuro: Oriented X 3. No motor deficit. No sensory deficit. Course Course Course Narrative: at this time infection suspected 1139 am - cultures, lactic acid, levofloxacin/flagyl ordered planned admit message sent to Dr. toño Guzman to admit MDM - Abdominal Pain MDM Narrative Medical decision making narrative: 46 yo female with hx of diverticulitis here with c/o lower abdominal pain and constipation x 2 days at this time will need labs, UA, CT scan for diverticultis - PO medications ordered. Differential Diagnosis Differential diagnosis: Likely abdominal pain, constipation, diverticulitis and renal colic Lab Data Result diagrams: 01/15/22 09:48 01/15/22 09:48 Labs: Lab Results 01/15/22 01/15/22 01/15/22 Range/Units 09:48 09:48 09:48 WBC 14.9 H (4.8-10.8) X10*3/uL RBC 5.28 (4.20-5.50) X10*6/uL Hgb 15.9 (12.0-16.0) g/dl Hct 48.8 H (37.0-47.0) % MCV 92.4 (80.0-98.0) fL MCH 30.1 (27.0-33.0) pg MCHC 32.6 (31.0-35.0) g/dl RDW 14.2 (11.0-16.0) % Plt Count 340 D (160-400) X10*3/uL MPV 10.6 (9.4-12.3) fL Immature Gran % (Auto) 0.9 H (0.0-0.4) % Neut % (Auto) 77.1 H (45-73) % Lymph % (Auto) 14.9 L (20-40) % [place] % (Auto) 4.8 (2-11) % Eos % (Auto) 1.6 (0-4) % Baso % (Auto) 0.7 (0-2) % Lymph # (Auto) 2.2 (1.2-4.9) X10*3/uL [place] # (Auto) 0.7 (0.1-1.2) X10*3/uL Eos # (Auto) 0.2 (0.0-0.4) X10*3/uL Baso # (Auto) 0.1 (0.0-0.2) X10*3/uL Abs Immat Gran (auto) 0.13 H (0.00-0.03) X10*3/uL Absolute Neuts (auto) 11.5 H (2.0-8.3) x10*3/uL Absolute Nucleated RBC 0.000 (0.0-0.012) X10*3/uL Nucleated RBC % (auto) 0.0 (0.0-0.2) /100WBC Sodium 136 (135-145) mmol/L Potassium 4.0 (3.3-5.1) mmol/L Chloride 102 (96-108) mmol/L Carbon Dioxide 23 (22-29) mmol/L Anion Gap 15 (12-20) BUN 15 D (9-16) mg/dL Creatinine 0.80 (0.5-1.4) mg/dL Estim Creat Clear Calc 102.7 Estimated GFR > 60 Random Glucose 192 H (60-115) mg/dL Calcium 9.5 (8.4-10.2) mg/dL Total Bilirubin 0.6 (0.0-1.0) mg/dL Direct Bilirubin 0.2 (0.0-0.5) mg/dL AST 12 (5-31) U/L ALT 15 (0-31) U/L Alkaline Phosphatase 99 D (39-117) U/L Total Protein 7.6 (6.5-8.0) g/dL Albumin 4.3 (3.5-5.0) g/dL Lipase 19 (8-78) U/L Urine Color YELLOW Urine Appearance HAZY Urine pH 5.5 (5.0-8.0) Ur Specific [place] >= 1.030 H (1.005-1.025) Urine Protein NEG (NEG-TRACE) MG/DL Urine Glucose (UA) NEG (NEG) MG/DL Urine Ketones NEG (NEG) MG/DL Urine Blood 1+ H (NEG) Urine Nitrite NEG (NEG) Ur Leukocyte Esterase NEG (NEG) Urine RBC 5-9 H (0) /HPF Urine WBC 5-9 H (0-4) /HPF Ur Squamous Epith Cells 3+ /LPF Urine Bacteria 2+ /LPF Urine Test (NEGATIVE) 01/15/22 Range/Units 09:48 WBC (4.8-10.8) X10*3/uL RBC (4.20-5.50) X10*6/uL Hgb (12.0-16.0) g/dl Hct (37.0-47.0) % MCV (80.0-98.0) fL MCH (27.0-33.0) pg MCHC (31.0-35.0) g/dl RDW (11.0-16.0) % Plt Count (160-400) X10*3/uL MPV (9.4-12.3) fL Immature Gran % (Auto) (0.0-0.4) % Neut % (Auto) (45-73) % Lymph % (Auto) (20-40) % [place] % (Auto) (2-11) % Eos % (Auto) (0-4) % Baso % (Auto) (0-2) % Lymph # (Auto) (1.2-4.9) X10*3/uL [place] # (Auto) (0.1-1.2) X10*3/uL Eos # (Auto) (0.0-0.4) X10*3/uL Baso # (Auto) (0.0-0.2) X10*3/uL Abs Immat Gran (auto) (0.00-0.03) X10*3/uL Absolute Neuts (auto) (2.0-8.3) x10*3/uL Absolute Nucleated RBC (0.0-0.012) X10*3/uL Nucleated RBC % (auto) (0.0-0.2) /100WBC Sodium (135-145) mmol/L Potassium (3.3-5.1) mmol/L Chloride (96-108) mmol/L Carbon Dioxide (22-29) mmol/L Anion Gap (12-20) BUN (9-16) mg/dL Creatinine (0.5-1.4) mg/dL Estim Creat Clear Calc Estimated GFR Random Glucose (60-115) mg/dL Calcium (8.4-10.2) mg/dL Total Bilirubin (0.0-1.0) mg/dL Direct Bilirubin (0.0-0.5) mg/dL AST (5-31) U/L ALT (0-31) U/L Alkaline Phosphatase (39-117) U/L Total Protein (6.5-8.0) g/dL Albumin (3.5-5.0) g/dL Lipase (8-78) U/L Urine Color Urine Appearance Urine pH (5.0-8.0) Ur Specific [place] (1.005-1.025) Urine Protein (NEG-TRACE) MG/DL Urine Glucose (UA) (NEG) MG/DL Urine Ketones (NEG) MG/DL Urine Blood (NEG) Urine Nitrite (NEG) Ur Leukocyte Esterase (NEG) Urine RBC (0) /HPF Urine WBC (0-4) /HPF Ur Squamous Epith Cells /LPF Urine Bacteria /LPF Urine Test NEGATIVE (NEGATIVE) Discharge Plan Discharge Clinical Impression: Colonic diverticular abscess Abdominal pain Qualifiers: Abdominal location: lower abdomen, unspecified Qualified Code(s): R10.30 - Lower abdominal pain, unspecified Patient Disposition: Admitted As Inpatient
[2022-01-15] MEDS: HYDROcodone Bit/Acetam 5/325 TABLET 1 TAB PO (11:19)
[2022-01-15] MEDS: Ondansetron ODT 4 MG TAB.RAPDIS TRANSLINGU (11:19)
[2022-01-15 11:22] VITALS: BP 159/99; PULSE 80; RESP 16; TEMP 36.9; O2SAT 98
[2022-01-15] MEDS: levoFLOXacin/D5W 500 MG/100 ML PIGGYBACK 100 MG IV (12:00)
[2022-01-15] MEDS: Morphine Sulfate 4 MG/ML CARTRIDGE IVPUSH (12:04)
[2022-01-15 12:24] LABS: Lactic Acid 1.2 mmol/L (0.5-2.0)
[2022-01-15 12:32] LABS: COVID-19 Test Negative (Negative); IDNOW Serial# 9DB6401D
--- NOTE | 2022-01-15 13:07 | PM.HPGS ---
History of Present Illness History of Present Illness Date of Service: 01/15/22 Chief complaint: Diverticulitis w abscess Narrative: Laura Pruitt is a 46 year old female presenting with complaints of abdominal pain in the lower abdomen. Pain began approximately 5 days ago and increased in severity over the last 24 hours. She reports nausea without vomiting denies fever or chills. She has had several previous episodes of similar pain was previously diagnosed with sigmoid diverticulitis. The most recent episode of diverticulitis occurred approximately 5 months ago. The episodes generally improved with oral antibiotics. Upon presentation she reported her abdominal pain to be 9 to 10/10 however now she is on approximately 5 to 6/10. Workup in the emergency department revealed an elevated WBC of [address] of the abdomen and pelvis confirmed probable sigmoid diverticulitis with a fluid collection possibly an abscess within the mesentery of the sigmoid colon. Ovarian cyst was also possibility (patient has a history of polycystic ovary disease). Review of Systems Review of Systems: Yes all other systems are reviewed and are negative Constitutional: Constitutional: Denies chills, Denies fever(s), Denies night sweats and Reports poor appetite Eyes: Eyes: Denies change in vision ENT: Reports Normal hearing present Cardiovascular: Cardiovascular: Reports no additional cardiovascular complaints Respiratory: Respiratory: Reports no additional respiratory complaints Gastrointestinal: Gastrointestinal: Reports as per HPI, Reports abdominal pain, Reports nausea and Denies vomiting Neurologic: Reports Normal hearing present [facility] Past Medical History Medical History Diverticulitis HTN (hypertension) Family History Family History Father Prostate cancer Surgical History Surgical History H/O hemorrhoidectomy History of tubal ligation Social History Social History Household Members: Children Household Members Other:: 3 Alcohol intake: current Alcohol intake frequency: holidays/special occasions only Alcohol type: beer Patient Tobacco Use Status: Current everyday Tobacco user Smoked in Last 30 Days: Yes Advance Directives: No Advance Directives Information Provided: No Current occupational status: unemployed Meds Allergies Allergy/AdvReac Type Severity Reaction Status Date / Time amoxicillin [From AUGMENTIN] Allergy Intermediate FACIAL Verified 07/09/21 09:08 SWELLING, HIVES clavulanic acid Allergy Intermediate FACIAL Verified 07/09/21 09:08 [From AUGMENTIN] SWELLING, HIVES Iodinated Contrast Media Allergy Intermediate ITCHING, Verified 07/09/21 09:08 [IV CONTRAST] FACIAL SWELLING, HIVES oral contrast Allergy Unknown facial Uncoded 02/20/20 00:00 swellling Active Medications: Current Medications Hydromorphone HCl (Hydromorphone Hcl 1 Mg/Ml Syringe) 0.5 mg IVPUSH Q4H PRN; Protocol PRN Reason: Pain, Severe (Pain Scale 7-10) Lactated Ringer's (Lr) 1,000 mls @ 125 mls/hr IVCONT .Q8H [facility] Acetaminophen (Ofirmev) 1,000 mg in 100 mls @ 400 mls/hr IV Q6H [facility] Dextrose/Lactated Ringer's (D5lr) 1,000 mls @ 125 mls/hr IVCONT .Q8H [facility] Metronidazole (Flagyl) 500 mg in 100 mls @ 100 mls/hr IV Q8H [facility] Levofloxacin (Levaquin) 500 mg in 100 mls @ 100 mls/hr IV Q24H [facility] Ondansetron HCl (Ondansetron Hcl 4 Mg/2 Ml Vial) 4 mg IVPUSH QID PRN PRN Reason: Nausea Oxycodone HCl (Oxycodone Hcl Immed Release 5 Mg Tablet) 5 mg PO Q6H PRN PRN Reason: Pain, Severe (Pain Scale 7-10) Pharmacy Consult (Consult Rx Perform Med Rec) 1 each MISCELLANE ONCE PRN PRN Reason: Consult order Pharmacy Consult (Consult Rx Perform Med Rec) 1 each MISCELLANE ONCE PRN PRN Reason: Consult order Sodium Chloride (0.9 % Sodium Chloride Flush 3 Ml Syringe) 3 ml IVFLUSH QSHIFT [facility] Zolpidem Tartrate (Zolpidem Tartrate 5 Mg Tablet) 5 mg PO BEDTIME PRN PRN Reason: Insomnia Home Medications Medication Instructions Recorded Confirmed Last Taken Type albuterol sulfate 90 mcg/actuation 2 puff inhalation Q6H PRN Wheezing 07/02/20 01/15/22 Unknown History aerosol inhaler lisinopril 10 1 tab PO DAILY 07/02/20 01/15/2201/14/22 History mg-hydrochlorothiazide 12.5 mg tablet oxycodone-acetaminophen 5 mg-325 1 tab PO Q12H PRN Pain 07/02/20 01/15/22 01/14/22 History mg tablet (Percocet) buspirone 5 mg tablet 1 tab PO BID 01/15/22 01/15/22 01/14/22 History fluticasone propionate 50 1 spray intranasal TID PRN Allergy 01/15/22 01/15/22 01/14/22 History mcg/actuation nasal Symptoms spray,suspension ibuprofen 200 mg tablet 400 mg PO Q6H PRN Pain 01/15/22 01/15/22 Unknown History rosuvastatin 10 mg tablet 1 tab PO BEDTIME 01/15/22 01/15/22 01/14/22 History Physical Exam Vital Signs: Vital Signs: Last Vital Signs Temp 98.5 F 01/15/22 11:22 Pulse 80 01/15/22 11:22 Resp 16 01/15/22 11:22 BP 159/99 H 01/15/22 11:22 Pulse Ox 98 01/15/22 11:22 O2 Del Method 01/15/22 11:22 BMI result Body Mass Index 27.3 Const: General: no acute distress and well developed Nutritional Appearance: well nourished Orientation/consciousness: patient oriented x3 Limitations: no limitations Neck: Neck: Yes full ROM, Yes trachea midline and Yes no JVD Resp: Effort & Inspection: normal respiratory effort, no audible wheezes, no cough and no respiratory distress GI: Inspection: Yes normal to inspection Palpation (GI): Soft to palpation, Tenderness to palpation present (GI) in the LLQ and suprapubicly, no guarding and not rigid Auscultation: normal bowel sounds Rectal Exam - Female: deferred Skin: General skin exam: no rashes or lesions noted Neuro: General: patient oriented x3 Cranial nerves: Yes Normal hearing present Extrem: General: Yes normal to inspection and Yes no clubbing, cyanosis or edema Results Results Labs: Short CBC 01/15/22 Range/Units 09:48 WBC 14.9 H (4.8-10.8) X10*3/uL Hgb 15.9 (12.0-16.0) g/dl Hct 48.8 H (37.0-47.0) % Plt Count 340 D (160-400) X10*3/uL BMP 01/15/22 09:48 Sodium 136 Potassium 4.0 Chloride 102 Carbon Dioxide 23 BUN 15 D Creatinine 0.80 Calcium 9.5 Liver Function 01/15/22 Range/Units 09:48 Total Bilirubin 0.6 (0.0-1.0) mg/dL Direct Bilirubin 0.2 (0.0-0.5) mg/dL AST 12 (5-31) U/L ALT 15 (0-31) U/L Alkaline Phosphatase 99 D (39-117) U/L Albumin 4.3 (3.5-5.0) g/dL Urine 01/15/22 01/15/22 Range/Units 09:48 09:48 Urine Color YELLOW Urine Appearance HAZY Urine pH 5.5 (5.0-8.0) Ur Specific [place] >= 1.030 H (1.005-1.025) Urine Protein NEG (NEG-TRACE) MG/DL Urine Glucose (UA) NEG (NEG) MG/DL Urine Test NEGATIVE (NEGATIVE) Assessment and Plan (1) Colonic diverticular abscess: Status: Acute Plan 46-year-old female presenting with complaints of abdominal pain in the lower abdomen and a previous history of diverticulitis presenting today with a several day history of abdominal pain. Workup revealed tenderness in the left lower quadrant and suprapubic region. Laboratories revealed an elevated WBC and CT of the abdomen and pelvis confirmed a recurrent sigmoid diverticulitis with possible abscess within the mesentery. Patient is admitted to the surgical service for parental antibiotics. She will be kept NPO and laboratories rechecked in a.m.. Patient may require elective sigmoid colectomy for recurrent episodes of diverticulitis. Quality Stroke Does the patient have a stroke diagnosis?: No VTE Prior VTE?: No VTE Risk Level:: Surgical - moderate VTE Device Contraindication: N/A - Device Ordered VTE Drug Contraindication: Treatment Not Indicated Procedures Date of Service Date of Service: 01/15/22
[2022-01-15 13:09] VITALS: BP 133/84; PULSE 64; RESP 18; TEMP 36.7; O2SAT 98
[2022-01-15] MEDS: metroNIDAZOLE/NS 500 MG/100 ML PIGGYBACK 100 MG IV ×2 (13:28→21:13)
--- NOTE | 2022-01-15 13:45 | PHA.MEDREC ---
Pharmacy Consult ? Medication Reconciliation Pharmacy has completed the medication reconciliation. Patient confirmed medications. She thought she was on antoehr medication for anxiety but the only medication in her claim history is buspirone. Sabiha Reyes, Miguel AD
[2022-01-15 15:04] VITALS: BP 145/78; PULSE 63; RESP 20; TEMP 36.8; O2SAT 99
[2022-01-15] MEDS: Dextrose 5 % and Lactated Ring 1,000 ML 125 ML IVCONT (16:06)
[2022-01-15 19:41] VITALS: BP 131/71; PULSE 64; RESP 18; TEMP 37.6; O2SAT 96
[2022-01-15] MEDS: 0.9 % Sodium Chloride Flush 3 ML SYRINGE IVFLUSH (21:13)
[2022-01-16] VITALS: BP 141/69; PULSE 57; RESP 18; TEMP 36.4; O2SAT 99
[2022-01-16] MEDS: Dextrose 5 % and Lactated Ring 1,000 ML 125 ML IVCONT (02:24)
[2022-01-16 04:00] VITALS: BP 135/62; PULSE 60; RESP 18; TEMP 36.4; O2SAT 100
[2022-01-16] MEDS: metroNIDAZOLE/NS 500 MG/100 ML PIGGYBACK 100 MG IV (04:15)
[2022-01-16 06:30] LABS: MANUAL DIFF FLAG NO
[2022-01-16 06:39] LABS: Basophils Absolute Auto 0.1 X10*3/uL (0.0-0.2); Basophils Percent Auto 0.9 % (0-2); Eosinophils Absolute Auto 0.2 X10*3/uL (0.0-0.4); Eosinophils Percent Auto 2.2 % (0-4); Hematocrit 43.4 % (37.0-47.0); Hemoglobin 14.1 g/dl (12.0-16.0); Imm Gran Pct Auto 0.9 % (0.0-0.4); Lymphocytes Absolute Auto 2.4 X10*3/uL (1.2-4.9); Lymphocytes Percent Auto 21.4 % (20-40); Mean Corpuscular HGB Conc 32.5 g/dl (31.0-35.0); Mean Corpuscular Hemoglobin 29.9 pg (27.0-33.0); Mean Corpuscular Volume 92.1 fL (80.0-98.0); Mean Platelet Volume 10.8 fL (9.4-12.3); Monocytes Absolute Auto 0.7 X10*3/uL (0.1-1.2); Monocytes Percent Auto 6.6 % (2-11); Neutrophils Absolute Auto 7.6 x10*3/uL (2.0-8.3); Platelet Count 288 X10*3/uL (160-400); Red Blood Count 4.71 X10*6/uL (4.20-5.50); Red Cell Distribution Width 14.1 % (11.0-16.0); White Blood Count 11.1 X10*3/uL (4.8-10.8)
[2022-01-16 07:06] LABS: Anion Gap 12 (12-20); Blood Urea Nitrogen 10 mg/dL (9-16); Calcium 9.1 mg/dL (8.4-10.2); Carbon Dioxide 25 mmol/L (22-29); Chloride 103 mmol/L (96-108); Creatinine Clr Calc Pharmacy 109.6; Estimated Glomerular Filt Rate > 60; Glucose Random 116 mg/dL (60-115); Potassium 4.3 mmol/L (3.3-5.1); Sodium 136 mmol/L (135-145)
[2022-01-16 08:00] VITALS: BP 146/70; PULSE 60; RESP 18; TEMP 36.3; O2SAT 98
--- NOTE | 2022-01-16 08:19 | P.PNGS_ITS ---
Subjective Subjective Date of Service: 01/16/22 Interval history: Patient reports decreased abdominal pain this morning, was not able to sleep well. Would like to try liquids po this morning. Physical Exam Vital Signs: Vital Signs: Last Vital Signs Temp 97.5 F 01/16/22 04:00 Pulse 60 01/16/22 04:00 Resp 18 01/16/22 04:00 BP 135/62 01/16/22 04:00 Pulse Ox 100 01/16/22 04:00 O2 Del Method 01/16/22 04:00 BMI result Body Mass Index 27.3 Const: General: healthy appearing, comfortable and no acute distress Resp: Effort & Inspection: normal respiratory effort and no respiratory distress GI: Inspection: Yes normal to inspection Palpation (GI): Soft to palpation and Tenderness to palpation present (GI) in the LLQ (less tender this morning) Extrem: General: Yes no pedal edema Objective Data Active Medications Hydromorphone HCl (Hydromorphone Hcl 1 Mg/Ml Syringe) 0.5 mg IVPUSH Q4H PRN; Protocol PRN Reason: Pain, Severe (Pain Scale 7-10) Dextrose/Lactated Ringer's (D5lr) 1,000 mls @ 125 mls/hr IVCONT .Q8H [facility] Last Infusion: 01/16/22 05:23 Dose: 125 mls/hr Documented By: KOFFI Metronidazole (Flagyl) 500 mg in 100 mls @ 100 mls/hr IV Q8H [facility] Last Infusion: 01/16/22 05:23 Dose: 0 mls/hr Documented By: KOFFI Levofloxacin (Levaquin) 500 mg in 100 mls @ 100 mls/hr IV Q24H [facility] Acetaminophen (Ofirmev) 1,000 mg in 100 mls @ 400 mls/hr IV Q6H [facility] Last Infusion: 01/16/22 04:18 Dose: 0 mls/hr Documented By: KOFFI Ondansetron HCl (Ondansetron Hcl 4 Mg/2 Ml Vial) 4 mg IVPUSH QID PRN PRN Reason: Nausea Oxycodone HCl (Oxycodone Hcl Immed Release 5 Mg Tablet) 5 mg PO Q6H PRN PRN Reason: Pain, Severe (Pain Scale 7-10) Pharmacy Consult (Consult Rx Perform Med Rec) 1 each MISCELLANE ONCE PRN PRN Reason: Consult order Sodium Chloride (0.9 % Sodium Chloride Flush 3 Ml Syringe) 3 ml IVFLUSH QSHIFT [facility] Last Admin: 01/16/22 06:37 Dose: Not Given Documented By: KATHRYN Non-Admin Reason: IV Running Zolpidem Tartrate (Zolpidem Tartrate 5 Mg Tablet) 5 mg PO BEDTIME PRN PRN Reason: Insomnia Labs CBC & Chem 7: 01/16/22 06:11 01/16/22 06:11 Labs: Laboratory Results - last 24 hr 01/15/22 01/15/22 01/15/22 09:48 09:48 09:48 MCV 92.4 MCH 30.1 MCHC 32.6 RDW 14.2 Plt Count 340 D MPV 10.6 Immature Gran % (Auto) 0.9 H Neut % (Auto) 77.1 H Lymph % (Auto) 14.9 L [place] % (Auto) 4.8 Eos % (Auto) 1.6 Baso % (Auto) 0.7 Lymph # (Auto) 2.2 [place] # (Auto) 0.7 Eos # (Auto) 0.2 Baso # (Auto) 0.1 Abs Immat Gran (auto) 0.13 H Absolute Neuts (auto) 11.5 H Absolute Nucleated RBC 0.000 Nucleated RBC % (auto) 0.0 Anion Gap 15 Estim Creat Clear Calc 102.7 Estimated GFR > 60 Random Glucose 192 H Lactic Acid Calcium 9.5 Total Bilirubin 0.6 Direct Bilirubin 0.2 AST 12 ALT 15 Alkaline Phosphatase 99 D Total Protein 7.6 Albumin 4.3 Lipase 19 Urine Color YELLOW Urine Appearance HAZY Urine pH 5.5 Ur Specific [place] >= 1.030 H Urine Protein NEG Urine Glucose (UA) NEG Urine Ketones NEG Urine Blood 1+ H Urine Nitrite NEG Ur Leukocyte Esterase NEG Urine RBC 5-9 H Urine WBC 5-9 H Ur Squamous Epith Cells 3+ Urine Bacteria 2+ Urine Test COVID-19 ([facility]I) COVID-19 Clin Com 01/15/22 01/15/22 01/15/22 09:48 11:55 11:56 MCV MCH MCHC RDW Plt Count MPV Immature Gran % (Auto) Neut % (Auto) Lymph % (Auto) [place] % (Auto) Eos % (Auto) Baso % (Auto) Lymph # (Auto) [place] # (Auto) Eos # (Auto) Baso # (Auto) Abs Immat Gran (auto) Absolute Neuts (auto) Absolute Nucleated RBC Nucleated RBC % (auto) Anion Gap Estim Creat Clear Calc Estimated GFR Random Glucose Lactic Acid 1.2 Calcium Total Bilirubin Direct Bilirubin AST ALT Alkaline Phosphatase Total Protein Albumin Lipase Urine Color Urine Appearance Urine pH Ur Specific [place] Urine Protein Urine Glucose (UA) Urine Ketones Urine Blood Urine Nitrite Ur Leukocyte Esterase Urine RBC Urine WBC Ur Squamous Epith Cells Urine Bacteria Urine Test NEGATIVE COVID-19 (NEFTALI) Negative COVID-19 Clin Com See Note 01/16/22 01/16/22 06:11 06:11 MCV 92.1 MCH 29.9 MCHC 32.5 RDW 14.1 Plt Count 288 MPV 10.8 Immature Gran % (Auto) 0.9 H Neut % (Auto) 68.0 Lymph % (Auto) 21.4 [place] % (Auto) 6.6 Eos % (Auto) 2.2 Baso % (Auto) 0.9 Lymph # (Auto) 2.4 [place] # (Auto) 0.7 Eos # (Auto) 0.2 Baso # (Auto) 0.1 Abs Immat Gran (auto) 0.10 H Absolute Neuts (auto) 7.6 Absolute Nucleated RBC 0.000 Nucleated RBC % (auto) 0.0 Anion Gap 12 Estim Creat Clear Calc 109.6 Estimated GFR > 60 Random Glucose 116 H Lactic Acid Calcium 9.1 Total Bilirubin Direct Bilirubin AST ALT Alkaline Phosphatase Total Protein Albumin Lipase Urine Color Urine Appearance Urine pH Ur Specific [place] Urine Protein Urine Glucose (UA) Urine Ketones Urine Blood Urine Nitrite Ur Leukocyte Esterase Urine RBC Urine WBC Ur Squamous Epith Cells Urine Bacteria Urine Test COVID-19 (NEFTALI) COVID-19 Clin Com Procedures Date of Service Date of Service: 01/16/22 Progress Note: A&P Assessment and plan (1) Colonic diverticular abscess: Status: Acute Plan Patient is improved with decreased abdominal pain and improved WBC. She reports passing lots of flatus. Will start clear liquids. Continue IV antibiotics. Anticipate discharge either later today or tomorrow AM. Time Spent With Patient Time: Total time spent is greater than 50% in coordination of care (as documented) at patient's floor/unit and/or counseling patient: Quality Stroke Does the patient have a stroke diagnosis?: No VTE Prior VTE?: No VTE Risk Level:: Surgical - moderate VTE Device Contraindication: N/A - Device Ordered VTE Drug Contraindication: Treatment Not Indicated
--- NOTE | 2022-01-16 11:35 | MHC.CM.PN ---
IMM 01/16/22, EMR REVIEWED, PT ADMITTED W/ DIVERTICULITIS AND POSSIBLE ABSCESS, CM MET W/PT WHO IS A&O, PT REPORTS SHE LIVES W/HER 3 CHILDREN, IS INDEP W/ALL CARE AND NO HOME SERVICES, PT VERIFIES PCP IS TANYA RUIZ, DENIES RECEIVING COVID VACCINE, PT HAS BEEN EDUCATED ON HCP'S AND CURRENTLY DECLINES. D/C PLAN: HOME NO SERVICES W/EITHER FAMILY OR SELF FOR TRANSPORT, CAR IN [facility] LOT.
[2022-01-16 12:00] VITALS: BP 146/84; PULSE 66; RESP 18; TEMP 36.5; O2SAT 99
[2022-01-16] MEDS: levoFLOXacin/D5W 500 MG/100 ML PIGGYBACK 100 MG IV (12:04)
--- NOTE | 2022-01-16 12:56 | P.DS_ITS ---
DS: Providers Provider Date of Service: 01/16/22 Date of admission: 01/15/22 12:50 Date of discharge: 01/16/22 Primary care physician: Vincenzo Fernandez MD Admitting clinician: Kp Guzman Discharging clinician: Kp Guzman DS: Diagnosis Discharge Diagnosis (1) Colonic diverticular abscess: Status: Acute DS: Summary Hospital Course Hospital Course: Laura Pruitt is a 46 year old female presenting with complaints of abdominal pain in the lower abdomen. Pain began approximately 5 days prior to admission and increased in severity over the last 24 hours. She reports nausea without vomiting denies fever or chills. She had several previous episodes of similar pain and was previously diagnosed with sigmoid diverticulitis. The most recent episode of diverticulitis occurred approximately 5 months ago. The episodes generally improved with oral antibiotics. Upon presentation she reported her abdominal pain to be 9 to 10/10. Workup in the emergency department revealed an elevated WBC of [address] of the abdomen and pelvis confirmed probable sigmoid diverticulitis with a fluid collection possibly an abscess within the mesentery of the sigmoid colon. Ovarian cyst was also possibility (patient has a history of polycystic ovary disease). On examination the patient is well-nourished and well-developed in no acute distress. She is breathing comfortably on room air without respiratory distress. Abdominal examination was soft but tender in the right lower and left lower quadrants without rebound, guarding, or rigidity. Palpable masses appreciated. Findings were consistent with acute sigmoid diverticulitis. She was placed on IV antibiotics including Levaquin 500 mg IV Q 24 hours and metronidazole 500 mg IV t.i.d.. She was kept NPO until hospital day 2. When she was started on clear liquids. A hospital day 2. She felt improved with decreased abdominal pain and passing a significant amount of flatus. She reported decreased abdominal distension as well. Repeat WBC revealed improvement down to 11,000. As the patient was awaiting her son's graduation from [employer] school on 01/17/2022 she requested discharge to home with oral antibiotics. She was significantly improved from the previous 24 hours therefore she was discharged to home. She was given a prescription for Levaquin 500 mg p.o. q.day and metronidazole 500 mg t.i.d. for the next 7 days. I have asked her to return to the office in approximately 1 week, sooner p.r.n.. She may resume a normal diet and normal activity. She was given no prescription for pain medication. Status at Discharge Functional status at discharge: independent ambulation Overall status at discharge: patient is back to baseline Time Spent with Patient Time attestation: Total time spent providing and/or coordinating discharge services: Discharge coordination time: Less than 30 minutes Quality: Safe Use of Opioids Does Pt have an Active Cancer Diagnosis on the Problem List?: No Quality: Stroke Does the patient have a stroke diagnosis?: No Physical Exam Vital Signs: Vital Signs: Last Vital Signs Temp 97.7 F 01/16/22 12:00 Pulse 66 01/16/22 12:00 Resp 18 01/16/22 12:00 BP 146/84 H 01/16/22 12:00 Pulse Ox 99 01/16/22 12:00 O2 Del Method 01/16/22 12:00 BMI result Body Mass Index 27.3 Const: General: healthy appearing, comfortable and no acute distress Resp: Effort & Inspection: normal respiratory effort and no respiratory distress GI: Inspection: Yes normal to inspection Palpation (GI): Soft to palpation and Tenderness to palpation present (GI) in the LLQ (less tender this morning) Extrem: General: Yes no pedal edema DS: Data Data Completed and Pending Labs on day of discharge: Laboratory Results - last 24 hr 01/16/22 01/16/22 06:11 06:11 WBC 11.1 H RBC 4.71 Hgb 14.1 Hct 43.4 MCV 92.1 MCH 29.9 MCHC 32.5 RDW 14.1 Plt Count 288 MPV 10.8 Immature Gran % (Auto) 0.9 H Neut % (Auto) 68.0 Lymph % (Auto) 21.4 [place] % (Auto) 6.6 Eos % (Auto) 2.2 Baso % (Auto) 0.9 Lymph # (Auto) 2.4 [place] # (Auto) 0.7 Eos # (Auto) 0.2 Baso # (Auto) 0.1 Abs Immat Gran (auto) 0.10 H Absolute Neuts (auto) 7.6 Absolute Nucleated RBC 0.000 Nucleated RBC % (auto) 0.0 Sodium 136 Potassium 4.3 Chloride 103 Carbon Dioxide 25 Anion Gap 12 BUN 10 Creatinine 0.75 Estim Creat Clear Calc 109.6 Estimated GFR > 60 Random Glucose 116 H Calcium 9.1 Discharge Plan Discharge Patient Disposition: Home, Self-Care Discharge Diagnosis: Sigmoid Diverticulitis with microperforation Referrals: Kp Guzman MD [Physician] - 1 Week Name,MD Vincenzo [Primary Care Provider] - 1 Week Discharge Medications: New levofloxacin 500 mg tablet 500 mg PO DAILY 7 Days Qty: 7 0RF metronidazole 500 mg tablet 500 mg PO Q8H Qty: 21 0RF Continued buspirone 5 mg tablet 1 tab PO BID fluticasone propionate 50 mcg/actuation spray,suspension 1 spray intranasal TID PRN (Reason: Allergy Symptoms) rosuvastatin 10 mg tablet 1 tab PO BEDTIME ibuprofen 200 mg Tablet 400 mg PO Q6H PRN (Reason: Pain) lisinopril-hydrochlorothiazide 10-12.5 mg tablet 1 tab PO DAILY oxycodone-acetaminophen [Percocet] 5-325 mg tablet 1 tab PO Q12H PRN (Reason: Pain) albuterol sulfate 90 mcg/actuation HFA aerosol inhaler 2 puff inhalation Q6H PRN (Reason: Wheezing) Discharge Orders: Discharge Order (Routine); Ordered 01/16/22 Ordered By: Kp Guzman Diet: advance to usual diet Activity on Discharge: As tolerated Stand Alone Forms: Patient Portal Discharge page Care Plan Goals: Return to normal diet and activity Health Concerns: Abdominal pain in lower abdomen Plan of Treatment: IV converted to oral antibiotics Assessment: Sigmoid diverticutlitis with microperforation Discharge Date/Time: 01/16/22 14:01
== END 2022-01-16 14:01 | disposition home or self-care (01) | DRG 392 ==
LOC: HO.ED 11:39 → HO.EDOVER 13:14 → HO.S3 13:58
PROVIDERS: Admitting Provider Surgery; Emergency Provider Emergency Medicine; PCP Internal Medicine Geriatric Medicine; Visit Provider Surgery
DX: K57.20 Diverticulitis of large intestine with perforation and abscess without bleeding (principal); F17.210 Nicotine dependence, cigarettes, uncomplicated; Z71.6 Tobacco abuse counseling; Z20.822 Contact with and (suspected) exposure to COVID-19; Z98.51 Tubal ligation status; Z91.041 Radiographic dye allergy status; Z88.0 Allergy status to penicillin; Z88.1 Allergy status to other antibiotic agents; Z79.51 Long term (current) use of inhaled steroids; Z79.899 Other long term (current) drug therapy
CPT/HCPCS: 36415; 74176; 80048; 80076; 81001; 81003; 81025; 83605; 83690; 85025; 87040; 87086; 87147; 87205; 87635; 96365; 96375; 99285; J0131; J1956; J2270

== ENCOUNTER → 2022-01-21 13:16 | Outpatient (BNVA) | payer MEDICARE, MEDICAID, SELFPAY | PROVIDERS: PCP Internal Medicine Geriatric Medicine; Visit Provider Surgery | DX: K57.20 Diverticulitis of large intestine with perforation and abscess without bleeding (principal); K59.00 Constipation, unspecified | CPT/HCPCS: 99212 ==

== ENCOUNTER 2022-01-27 08:43 | Outpatient (REF) | payer MEDICARE, MEDICAID, SELFPAY ==
--- NOTE | ~2022-01-27 | CT_ITS ---
EXAMINATION: CT ABDOMEN AND PELVIS WITHOUT CONTRAST CLINICAL INFORMATION: Diverticulitis COMPARISON: Previous CT of the abdomen and pelvis most recent 01/15/2022 TECHNIQUE: Multidetector volumetric imaging was performed from the superior aspect of the liver through the pubic symphysis. Sagittal and coronal reformatted images were obtained on the technologist's workstation. This CT examination was performed using dose optimization techniques as appropriate, variously including the following: *Automated exposure control *Adjustment of mA and/or kV according to patient size (this includes techniques or standardized protocols for targeted exams where dose is matched to indication/reason for exam; i.e. extremities or head) *Use of iterative reconstruction technique DLP: 495 mGy-cm FINDINGS: LUNG BASES: The visualized lung bases are unremarkable. LIVER, GALLBLADDER, AND BILIARY TREE: The liver is normal in size, shape, and attenuation. No focal hepatic lesion or biliary ductal dilatation is present. The gallbladder is unremarkable with no evidence of radiopaque gallstones, gallbladder wall thickening, or obvious pericholecystic inflammatory changes. PANCREAS: Unremarkable. SPLEEN: Unremarkable. ADRENAL GLANDS: Unremarkable. KIDNEYS AND URETERS: The kidneys are normal in size, shape, and attenuation. No hydronephrosis, hydroureter, or calculi seen. No perinephric stranding. BLADDER: Unremarkable. GASTROINTESTINAL TRACT: There is diverticulosis of the colon. There is a 3.5 x 5 cm fluid collection to the left of the proximal sigmoid colon. This has a slightly thickened wall and small pockets of air. This is otherwise unchanged from 01/15/2022 exam. No evidence of obstruction. No evidence of free air. Small and large bowel are otherwise normal. The appendix is normal. The stomach is normal. No free air. No obstruction. ABDOMINAL WALL: No significant hernia is appreciated. LYMPH NODES: Normal. VASCULAR: Unremarkable. PELVIC VISCERA: Normal-appearing uterus. Ovaries not clearly visualized. OSSEOUS STRUCTURES: Degenerative disc disease at L4-L5 and L5-S1. CT/CT abdomen pelvis wo con IMPRESSION: Sigmoid diverticulosis. Stable 3.5 x 5 cm left pelvic fluid collection containing a small amount of air adjacent to the lateral proximal sigmoid colon. Differential would include intramural abscess or contained perforation related to sigmoid diverticulitis and ovarian abscess. 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 Fleischner guidelines were followed.
[2022-01-27] MEDS: Diatrizoate Meglumine, Sodium 120 ML SOLUTION PR (10:23)
== END 2022-01-27 08:44 | disposition home or self-care (01) ==
LOC: HO.CT 08:43
PROVIDERS: PCP Internal Medicine Geriatric Medicine; Visit Provider Surgery
DX: K57.20 Diverticulitis of large intestine with perforation and abscess without bleeding (principal); K59.00 Constipation, unspecified
CPT/HCPCS: 74176

== ENCOUNTER → 2022-02-04 13:05 | Outpatient (BNVA) | payer MEDICARE, MEDICAID, SELFPAY | PROVIDERS: PCP Internal Medicine Geriatric Medicine; Visit Provider Surgery | DX: K57.20 Diverticulitis of large intestine with perforation and abscess without bleeding (principal) | CPT/HCPCS: 99212 ==

== ENCOUNTER 2022-04-11 10:35 | Outpatient (REF) | payer MEDICARE, MEDICAID, SELFPAY ==
--- NOTE | ~2022-04-11 | US_ITS ---
EXAMINATION: US PELVIS CLINICAL INFORMATION: Left lower quadrant pain. History of diverticulitis with abscess. COMPARISON: Pelvic CT from 01/27/2022. Pelvic ultrasound from 05/22/2018. TECHNIQUE: Ultrasound of the pelvis is performed using both transabdominal and transvaginal transducers. UTERUS AND CERVIX The anteflexed, anteverted uterus measures approximately 9.7 x 3 x 4.7 cm ([id number] x AP x transverse dimension). No evidence of leiomyoma. There are a few somewhat linear echogenic foci in the junctional zone of myometrium. Query if there is any remote history of dilatation and curettage. The cervix is approximately 2.5 cm in length. The endometrium measures up to 0.8 cm AP. No endometrial mass or endometrial fluid. ADNEXA: Color Doppler images with spectral waveforms show presence of normal arterial and venous flow within each ovary. The right ovary is normal, measures 3.4 x 1.6 x 1.5 cm. The large left ovary is 6.2 x 4.6 x 5.1 cm. Within the left ovary, there is a heterogeneous 5.3 x 4.8 x 3.4 cm focus that lacks internal flow on Doppler imaging. This could represent a hemorrhagic cyst or some debris within a residual cyst in this patient who had imaging findings of a left adnexal abscess on CT exams of 01/15/2022 and 01/27/2022. The area of fluid and gas involving the left ovary measured approximately 3.1 x 4.3 x 3.8 cm on 01/27/2022. Also, there is a 2.3 cm heterogeneous structure without internal flow within the left ovary, suspicious for hemorrhagic cyst. FREE FLUID: No free fluid in the cul-de-sac. US/US pelvic and transvaginal IMPRESSION: The left ovary remains abnormal. More specifically, there are two heterogeneous lesions within the left ovary that could represent hemorrhagic cysts or perhaps residual abscesses that lack internal flow on Doppler imaging. There is no evidence of ovarian torsion. No pelvic free fluid.
== END 2022-04-11 10:36 | disposition home or self-care (01) ==
LOC: HO.US 10:35
PROVIDERS: Visit Provider Surgery
DX: R10.9 Unspecified abdominal pain (principal); K57.20 Diverticulitis of large intestine with perforation and abscess without bleeding
CPT/HCPCS: 76830; 76856

== ENCOUNTER → 2022-04-17 11:01 | Outpatient (BNVA) | payer MEDICARE, MEDICAID, SELFPAY | PROVIDERS: PCP Internal Medicine Geriatric Medicine; Referring Provider Internal Medicine Geriatric Medicine; Visit Provider Surgery | DX: N70.92 Oophoritis, unspecified (principal); K57.20 Diverticulitis of large intestine with perforation and abscess without bleeding | CPT/HCPCS: 99212 ==

== ENCOUNTER 2022-04-22 11:33 | Outpatient (REF) | payer MEDICARE, MEDICAID, SELFPAY | END 2022-04-22 11:34 | disposition home or self-care (01) | LOC: HO.LNP 11:33 | PROVIDERS: Visit Provider Obstetrics & Gynecology | DX: N70.92 Oophoritis, unspecified (principal) | CPT/HCPCS: 85027; 87491; 87591; 99202 ==

== ENCOUNTER 2022-04-22 11:48 | Outpatient (REF) | payer MEDICARE, MEDICAID, SELFPAY ==
[2022-04-22 13:25] LABS: Hematocrit 44.9 % (37.0-47.0); Hemoglobin 14.6 g/dl (12.0-16.0); Mean Corpuscular HGB Conc 32.5 g/dl (31.0-35.0); Mean Corpuscular Volume 92.2 fL (80.0-98.0); Mean Platelet Volume 11.4 fL (9.4-12.3); Platelet Count 354 X10*3/uL (160-400); Red Blood Count 4.87 X10*6/uL (4.20-5.50); Red Cell Distribution Width 14.4 % (11.0-16.0); White Blood Count 18.3 X10*3/uL (4.8-10.8)
[2022-04-22 15:06] LABS: CT PCR NOT DETECTED (Not Detect.); NG PCR NOT DETECTED (Not Detect.)
== END 2022-04-22 11:49 | disposition home or self-care (01) ==
LOC: HO.LAB 11:48
PROVIDERS: PCP Internal Medicine Geriatric Medicine; Visit Provider Obstetrics & Gynecology
DX: Z13.89 Encounter for screening for other disorder (principal)
CPT/HCPCS: 85027; 87491; 87591

== ENCOUNTER 2022-04-23 13:49 | Outpatient (REF) | payer MEDICARE, MEDICAID, SELFPAY ==
--- NOTE | ~2022-04-23 | US_ITS ---
EXAMINATION: US PELVIS CLINICAL INFORMATION: Oophoritis COMPARISON: Previous pelvic ultrasound 04/11/[address] of the abdomen and pelvis January 2022 TECHNIQUE: Ultrasound of the pelvis is performed using both transabdominal and transvaginal transducers along with Doppler. Transvaginal imaging is performed due to inadequate visualization transabdominally. FINDINGS: The uterus is anteverted and measures 7.6 x 4.1 x 4.3 cm in dimension. Endometrial thickness measures 1.1 cm. There are small echogenic foci seen in or adjacent to the endometrium is similar to previous exam. No other focal uterine lesion is seen. There is a small nabothian cyst in the cervix. The right ovary measures 3.8 x 1.7 x 2 cm. There is a 1.2 x 1.5 x 1.4 cm complex cyst in the right ovary that is new. The left ovary is enlarged and measures 6.5 x 5 x 7.2 cm, volume 1 to 3 mL. This is slightly increased from previous exam. There are several complex cystic left ovarian lesions, largest measuring 5.3 x 5.4 x 3.3 cm and 4.7 x 4.1 x 3.2 cm. These appear increased from previous exam. There is no fluid in the pelvis. US/US pelvic and transvaginal IMPRESSION: Interval increase in size in the left ovary and complex cystic left ovarian lesions questionable for abscesses versus complex cysts. New small complex cystic lesion in the right ovary questionable for abscess versus complex cyst.
== END 2022-04-23 13:50 | disposition home or self-care (01) ==
LOC: HO.US 13:49
PROVIDERS: PCP Internal Medicine Geriatric Medicine; Visit Provider Obstetrics & Gynecology
DX: N70.92 Oophoritis, unspecified (principal)
CPT/HCPCS: 76830; 76856

== ENCOUNTER 2022-04-24 14:28 | Outpatient (REF) | payer MEDICARE, MEDICAID, SELFPAY ==
--- NOTE | ~2022-04-24 | CT_ITS ---
EXAMINATION: CT ABDOMEN AND PELVIS WITHOUT CONTRAST CLINICAL INFORMATION: oophoritis COMPARISON: CT abdomen and pelvis 01/27/2022 TECHNIQUE: Multidetector volumetric imaging was performed from the superior aspect of the liver through the pubic symphysis. Sagittal and coronal reformatted images were obtained on the technologist's workstation. Oral contrast was administered. This CT examination was performed using dose optimization techniques as appropriate, variously including the following: *Automated exposure control *Adjustment of mA and/or kV according to patient size (this includes techniques or standardized protocols for targeted exams where dose is matched to indication/reason for exam; i.e. extremities or head) *Use of iterative reconstruction technique DLP: 664 mGy-cm FINDINGS: LUNG BASES: The visualized lung bases are unremarkable. LIVER, GALLBLADDER, AND BILIARY TREE: The liver is normal in size, shape, and attenuation. No focal hepatic lesion or biliary ductal dilatation is present. The gallbladder is unremarkable with no evidence of radiopaque gallstones, gallbladder wall thickening, or obvious pericholecystic inflammatory changes. PANCREAS: Unremarkable. SPLEEN: Unremarkable. ADRENAL GLANDS: Unremarkable. KIDNEYS AND URETERS: 1.5 cm low-density exophytic cyst projecting from the medial right mid to lower pole, unchanged. No other renal lesion. No renal calculi. No hydronephrosis or perinephric stranding/collections. BLADDER: Unremarkable. GASTROINTESTINAL TRACT: Colonic diverticulosis. No evidence of acute diverticulitis. Normal appendix. No dilated bowel loops or bowel wall thickening. No ascites or free air. ABDOMINAL WALL: Tiny fat-containing umbilical hernia. LYMPH NODES: No lymphadenopathy. VASCULAR: Normal caliber abdominal aorta. Mild atherosclerotic vascular calcifications. PELVIC VISCERA: Multi septated thick-walled left adnexal cystic structure measuring approximately 7.4 x 6.7 x 6 cm in size, previously approximately 4 cm in maximal size. No gross right adnexal cystic mass. Uterus is tipped to the right, otherwise grossly unremarkable-limited assessment. No free pelvic fluid. OSSEOUS STRUCTURES: No acute fracture or suspicious osseous lesion. Multilevel degenerative disc disease most advanced at L4-L5. CT/CT abdomen pelvis wo IV con IMPRESSION: 1. Large multiloculated left adnexal cystic mass, significantly enlarged since prior CT, and concerning for tubo-ovarian abscess given the history. The lesion currently measures approximately 7.4 x 6.7 x 6 cm in conglomerate size.
== END 2022-04-24 14:29 | disposition home or self-care (01) ==
LOC: HO.CT 14:28
PROVIDERS: Visit Provider Obstetrics & Gynecology
DX: N70.92 Oophoritis, unspecified (principal)
CPT/HCPCS: 74176; 99212

== ENCOUNTER 2022-06-20 17:21 | Emergency (ER) | payer MEDICARE, MEDICAID, SELFPAY ==
--- NOTE | ~2022-06-20 | CT_ITS ---
EXAMINATION: CT ABDOMEN AND PELVIS WITHOUT CONTRAST CLINICAL INFORMATION: Right lower quadrant abdominal pain and fever COMPARISON: CT abdomen pelvis 04/22/2022 TECHNIQUE: Multidetector volumetric imaging was performed from the superior aspect of the liver through the pubic symphysis. Sagittal and coronal reformatted images were obtained on the technologist's workstation. This CT examination was performed using dose optimization techniques as appropriate, variously including the following: *Automated exposure control *Adjustment of mA and/or kV according to patient size (this includes techniques or standardized protocols for targeted exams where dose is matched to indication/reason for exam; i.e. extremities or head) *Use of iterative reconstruction technique DLP: 671 mGy-cm FINDINGS: LUNG BASES: Unremarkable. ABDOMINAL AND PELVIC WALL: Unremarkable. LIVER AND BILIARY TREE: Unremarkable. GALLBLADDER: Unremarkable. PANCREAS: Unremarkable. SPLEEN: Unremarkable. ADRENAL GLANDS: Unremarkable. KIDNEYS AND URETERS: Mild dilation of the distal left ureter with mild urothelial thickening proximal to the complex left pelvic collection without saúl hydronephrosis. GASTROINTESTINAL TRACT: Colonic diverticulosis without other additional findings to suggest diverticulitis. Normal appendix. VASCULAR: Unremarkable. LYMPH NODES/PERITONEUM: Mildly enlarged left periaortic node measuring 0.8 cm short axis diameter, previously 0.8 cm, and few additional prominent left external iliac chain nodes and internal iliac chain lymph nodes, not pathologically enlarged, which may be reactive in the setting of underlying infection. FREE FLUID: None. BLADDER: Unremarkable. PELVIC VISCERA: Interval increase in size of a thick-walled multiseptated collection in the left adnexa measuring 8.6 x 8.6 cm, previously 7.3 x 6.3 cm and remains suspicious for tubo-ovarian abscess/complex with multiple new foci of intraluminal gas raising suspicion for fistulous communication with the adjacent sigmoid colon, the other potential etiology would be gas forming infection. Right ovary is inseparable from the right aspect of the uterus however may also be increased in size with respect to prior however without saúl fluid collections. OSSEOUS STRUCTURES: Sclerosis of the sacroiliac joints which could be seen in the setting of osteitis condensans ilii. CT/CT abdomen pelvis wo IV con IMPRESSION: Interval increase in size of a thick-walled multiseptated collection in the left adnexa measuring 8.6 cm which remains suspicious for tubo-ovarian abscess/complex with multiple new foci of intraluminal gas raising suspicion for fistulous communication with the adjacent sigmoid colon. The other potential etiology would be gas forming infection. Right ovary is inseparable from the right aspect of the uterus however may also be increased in size with respect to prior however without saúl fluid collections. A pelvic ultrasound may be useful for further elucidation if warranted to assess for any right-sided ovarian pathology. Mild dilation of the distal left ureter and mild urothelial thickening proximal to the complex left pelvic collection without saúl hydronephrosis, for which ascending urinary tract infection or developing obstruction cannot be excluded. Mildly enlarged retroperitoneal nodes which may be reactive in the setting of underlying infection.
[2022-06-20 18:04] VITALS: BP 235/120; PULSE 124; RESP 22; TEMP 38.5; O2SAT 98; BMI 29.5
--- NOTE | 2022-06-20 18:06 | ED.ABDPAIN ---
HPI - Abdominal Pain General Chief Complaint: Abdominal Pain <ELIZABET Higuera - Last Filed: 06/20/22 18:12> Stated Complaint: abd pain <ELIZABET Higuera - Last Filed: 06/20/22 18:12> Time Seen by Provider: 06/20/22 18:18 <ELIZABET Higuera - Last Filed: 06/20/22 18:12> Source: patient <Millicent Rutledge NP - Last Filed: 06/20/22 22:54> Mode of arrival: ambulatory <Millicent Rutledge NP - Last Filed: 06/20/22 22:54> Limitations: no limitations <Millicent Rutledge NP - Last Filed: 06/20/22 22:54> History of Present Illness HPI narrative: 46-year-old female with history of diverticulitis, hypertension here with complaints of abdominal pain since Thursday around the belly button down the right lower quadrant with some nausea and chills. No vomiting, diarrhea, constipation, urinary symptoms. <Millicent Rutledge NP - Last Filed: 06/20/22 22:54> Related Data Home Medications: Home Medications Medication Instructions Recorded Confirmed albuterol sulfate 90 mcg/actuation 2 puff inhalation Q6H PRN Wheezing 07/02/20 04/18/22 aerosol inhaler buspirone 5 mg tablet 1 tab PO BID 01/15/22 02/04/22 fluticasone propionate 50 1 spray intranasal TID PRN Allergy 01/15/22 02/04/22 mcg/actuation nasal Symptoms spray,suspension rosuvastatin 10 mg tablet 1 tab PO BEDTIME 01/15/22 02/04/22 blood pressure test kit-large #1 ea 01/21/22 01/21/22 ibuprofen 800 mg tablet 800 mg PO TID 01/21/22 02/04/22 lisinopril 20 1 tab PO DAILY 01/21/22 02/04/22 mg-hydrochlorothiazide 12.5 mg tablet Previous Rx's Medication Instructions Recorded polyethylene glycol 3350 17 17 g PO DAILY constipation #119 01/21/22 gram/dose oral powder (Miralax) grams levofloxacin 500 mg tablet 500 mg PO DAILY 10 days #10 tabs 04/17/22 metronidazole 500 mg tablet 500 mg PO Q8H #30 tabs 04/17/22 oxycodone-acetaminophen 5 mg-325 1 tab PO Q12H PRN pain (scale 04/17/22 mg tablet (Percocet) score 7-10) #10 tabs levofloxacin 500 mg tablet 500 mg PO DAILY 4 days #4 tabs 04/22/22 metronidazole 500 mg tablet 500 mg PO BID 4 days #8 tabs 04/22/22 <ELIZABET Higuera - Last Filed: 06/20/22 18:12> Allergies/Adverse Reactions: Allergies Allergy/AdvReac Type Severity Reaction Status Date / Time amoxicillin [From AUGMENTIN] Allergy Intermediate FACIAL Verified 06/20/22 18:07 SWELLING, HIVES clavulanic acid Allergy Intermediate FACIAL Verified 06/20/22 18:07 [From AUGMENTIN] SWELLING, HIVES Iodinated Contrast Media Allergy Intermediate ITCHING, Verified 06/20/22 18:07 [IV CONTRAST] FACIAL SWELLING, HIVES oral contrast Allergy Unknown facial Uncoded 06/20/22 18:07 swellling <ELIZABET Higuera - Last Filed: 06/20/22 18:12> Review of Systems Review of Systems Yes all other systems are reviewed and are negative <TEJAL Saeed Last Filed: 06/20/22 22:54> Constitutional: Reports no additional constitutional complaints, Denies body ache(s), Reports chills, Denies fever(s), Denies headache(s) and Denies weakness <TEJAL Saeed Last Filed: 06/20/22 22:54> Eyes: Reports no additional eye complaints and Denies change in vision <Millicent Rutledge NP - Last Filed: 06/20/22 22:54> Reports system reviewed and no additional complaints, except as documented, Denies dizziness, Denies headache(s), Denies nasal congestion, Denies nasal discharge and Denies neck pain <TEJAL Saeed Last Filed: 06/20/22 22:54> Cardiovascular: Reports no additional cardiovascular complaints, Denies chest pain, Denies leg edema and Denies dyspnea <TEJAL Saeed Last Filed: 06/20/22 22:54> Respiratory: Reports no additional respiratory complaints, Denies cough and Denies dyspnea <Millicent Rutledge NP - Last Filed: 06/20/22 22:54> Gastrointestinal: Reports no additional gastrointestinal complaints, Reports abdominal pain, Denies diarrhea, Reports nausea and Denies vomiting <Millicent Rutledge NP - Last Filed: 06/20/22 22:54> Genitourinary: Reports no additional female genitourinary complaints and Denies urinary incontinence <Millicent Rutledge NP - Last Filed: 06/20/22 22:54> Musculoskeletal: Reports no additional musculoskeletal complaints, Denies back pain, Denies arthralgias, Denies joint swelling, Denies neck pain, Denies numbness and Denies tingling <Millicent Rutledge NP - Last Filed: 06/20/22 22:54> Skin/Breast: Reports system reviewed and no additional complaints, except as docu and Denies rash <Millicent Rutledge NP - Last Filed: 06/20/22 22:54> Reports system reviewed and no additional complaints, except as documented, Denies dizziness, Denies headache(s), Denies numbness, Denies tingling and Denies weakness <Millicent Rutledge NP - Last Filed: 06/20/22 22:54> [facility] Past Medical History Attestation statement: The following information was validated with the patient. <Millicent Rutledge NP - Last Filed: 06/20/22 22:54> Source: old records reviewed and nursing notes reviewed <Millicent Rutledge NP - Last Filed: 06/20/22 22:54> Medical History: Medical History Abdominal pain Diverticulitis HTN (hypertension) <ELIZABET Higuera - Last Filed: 06/20/22 18:12> Surgical History: Surgical History H/O hemorrhoidectomy History of tubal ligation Hx of carpal tunnel repair <ELIZABET Higuera - Last Filed: 06/20/22 18:12> Family History Family History: Family History Father Prostate cancer <ELIZABET Higuera - Last Filed: 06/20/22 18:12> Social History Social History: Social History Household Members: Family Household Members Other:: 3 Housing: Apartment Do you presently have visiting nurse or other home services: No Alcohol intake: current Alcohol intake frequency: holidays/special occasions only Alcohol type: beer Patient Tobacco Use Status: Current everyday Tobacco user Tobacco use type: Cigarette Cigarettes Per Day: 7 e-Cigarette/Vaping Use: Former Use Second Hand Smoke Exposure: No Advance Directives: No Advance Directives Information Provided: No service: No Current occupational status: unemployed <ELIZABET Higuera - Last Filed: 06/20/22 18:12> Physical Exam ED Vital Signs: Vital Signs - 24 hr 06/20/22 18:04 06/20/22 19:45 06/20/22 22:23 Temperature 101.3 F H Pulse Rate 124 H Respiratory Rate 22 H 16 18 Blood Pressure 235/120 H Pulse Oximetry 98 Oxygen Delivery Method Room Air 06/20/22 22:33 Temperature 99.2 F Pulse Rate 98 Respiratory Rate 18 Blood Pressure 140/76 H Pulse Oximetry 99 Oxygen Delivery Method Room Air BMI result Body Mass Index 29.5 <ELIZABET Higuera - Last Filed: 06/20/22 18:12> Vital Signs - 24 hr 06/20/22 18:04 06/20/22 19:45 06/20/22 22:23 Temperature 101.3 F H Pulse Rate 124 H Respiratory Rate 22 H 16 18 Blood Pressure 235/120 H Pulse Oximetry 98 Oxygen Delivery Method Room Air 06/20/22 22:33 Temperature 99.2 F Pulse Rate 98 Respiratory Rate 18 Blood Pressure 140/76 H Pulse Oximetry 99 Oxygen Delivery Method Room Air BMI result Body Mass Index 29.5 <Millicent Rutledge NP - Last Filed: 06/20/22 22:54> Const General: cooperative and alert <Millicent Rutledge NP - Last Filed: 06/20/22 22:54> Orientation/consciousness: patient oriented x3 <Millicent Rutledge NP - Last Filed: 06/20/22 22:54> Limitations: no limitations <Millicent Rutledge NP - Last Filed: 06/20/22 22:54> HENMT Head: Yes normal to inspection <Millicent Rutledge NP - Last Filed: 06/20/22 22:54> Ears: hearing grossly normal bilaterally <Millicent Rutledge NP - Last Filed: 06/20/22 22:54> Eyes General: appearance normal, both eyes and all related structures <Millicent Rutledge NP - Last Filed: 06/20/22 22:54> Pupils: Equal, round and reactive pupils present <Millicent Rutledge PUPPY TRAINER - Last Filed: 06/20/22 22:54> Neck Neck: Yes normal visual inspection, Yes full ROM, Yes no lymphadenopathy and Yes no meningeal signs <Millicent Rutledge NP - Last Filed: 06/20/22 22:54> Chest Chest palpation & inspection: normal inspection of the chest <Millicent Rutledge NP - Last Filed: 06/20/22 22:54> Resp Effort & Inspection: normal respiratory effort <Millicent Rutledge NP - Last Filed: 06/20/22 22:54> Auscultation: clear to auscultation bilaterally <Millicent Rutledge NP - Last Filed: 06/20/22 22:54> Cardio Rate: regular rate <Millicent Rutledge NP - Last Filed: 06/20/22 22:54> Rhythm: regular rhythm <Millicent Rutledge NP - Last Filed: 06/20/22 22:54> Peripheral pulses: Peripheral pulses 2+ throughout <Millicent Rutledge NP - Last Filed: 06/20/22 22:54> GI Inspection: Yes normal to inspection <Millicent Rutledge NP - Last Filed: 06/20/22 22:54> Palpation (GI): Soft to palpation, Tenderness to palpation present (GI) in the RLQ and with rebound tenderness and Guarding due to palpation present (GI) <Millicent Rutledge NP - Last Filed: 06/20/22 22:54> Auscultation: normal bowel sounds <Millicent Rutledge NP - Last Filed: 06/20/22 22:54> Other: information technology auditor radio journalist present <Millicent Rutledge NP - Last Filed: 06/20/22 22:54> General: Yes no CVA tenderness <Millicent Rutledge NP - Last Filed: 06/20/22 22:54> External Female Exam: normal external appearance <Millicent Rutledge NP - Last Filed: 06/20/22 22:54> Speculum Exam - Vagina: normal appearance of the vagina <Millicent Rutledge NP - Last Filed: 06/20/22 22:54> Speculum Exam - Cervix: normal appearance of the cervix <Millicent Rutledge NP - Last Filed: 06/20/22 22:54> Back/Spine/Pelvis Back: no CVA tenderness <Millicent Rutledge NP - Last Filed: 06/20/22 22:54> Thoracic/Lumbar Spine: thoracic and lumbar spine normal to inspection <Millicent Rutledge NP - Last Filed: 06/20/22 22:54> Skin General skin exam: no rashes or lesions noted <Millicent Rutledge NP - Last Filed: 06/20/22 22:54> Neuro General: patient oriented x3, moves all extremities and no meningeal signs <Millicent Rutledge NP - Last Filed: 06/20/22 22:54> Cranial nerves: Yes Equal, round and reactive pupils present <TEJAL Saeed Last Filed: 06/20/22 22:54> Cognition (Neuro): normal cognition <Millicent Rutledge NP - Last Filed: 06/20/22 22:54> Gait exam (Neuro): Normal gait present <TEJAL Saeed Last Filed: 06/20/22 22:54> Course Course Course Narrative: RME--46yo w/pmhx HTN, diverticulitis c/o RLQ abd pain since this AM with assoc nausea. Took Motrin at 2pm. Also reports chills and diarrhea. Denies urinary sx, constipation, vomiting, vaginal bleeding/discharge Abdomen soft with right lower quadrant tenderness. No CVA tenderness Patient hypertensive, tachycardic, febrile in triage, tearful, and pain Labs, UA, CT, IVF, lactic/blood cultures and empiric IV cefepime ordered <ELIZABET Higuera - Last Filed: 06/20/22 18:12> Reevaluation(s) Reevaluation #1: 0365- IMPRESSION: ? Interval increase in size of a thick-walled multiseptated collection in the left adnexa measuring 8.6 cm which remains suspicious for tubo-ovarian abscess/complex with multiple new foci of intraluminal gas raising suspicion for fistulous communication with the adjacent sigmoid colon. The other potential etiology would be gas forming infection. ? Right ovary is inseparable from the right aspect of the uterus however may also be increased in size with respect to prior however without saúl fluid collections. A pelvic ultrasound may be useful for further elucidation if warranted to assess for any right-sided ovarian pathology. ? Mild dilation of the distal left ureter and mild urothelial thickening proximal to the complex left pelvic collection without saúl hydronephrosis, for which ascending urinary tract infection or developing obstruction cannot be excluded. ? Mildly enlarged retroperitoneal nodes which may be reactive in the setting of underlying infection. 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 Patient with fever and leukocytosis. Will discuss with rating clerk and General surgery. Additional antibiotics ordered <Millicent Rutledge NP - Last Filed: 06/20/22 22:54> Reevaluation #2: 2140-I did speak to our OBGYN Dr. Dafne King who is on-call. He is familiar with this patient. She has a history of a smaller tubo-ovarian abscess in at that time had been transferred to [facility] but she left against medical advice. He feels the patient should be transferred back to [facility] as she may need IR drainage of this abscess which we cannot perform at [facility] [place] [place] <Millicent Rutledge NP - Last Filed: 06/20/22 22:54> Reevaluation #3: 0175-spoke to Dr. Munoz at [facility]. Accepted transfer <Millicent Rutledge NP - Last Filed: 06/20/22 22:54> Medications Administered Discontinued Medications Generic Name Dose Route Start Last Admin Trade Name Freq PRN Reason Stop Dose Admin Acetaminophen 650 mg 06/20/22 18:09 06/20/22 18:18 Acetaminophen 325 Mg Tablet PO 06/20/22 18:10 650 mg ONCE ONE Administration Hydrochlorothiazide 12.5 mg 06/20/22 18:08 06/20/22 18:18 Hydrochlorothiazide 12.5 Mg Tablet PO 06/20/22 18:09 12.5 mg ONCE ONE Administration Protocol Sodium Chloride 1,000 mls @ 999 mls/hr 06/20/22 18:15 06/20/22 22:34 Ns IV 06/20/22 19:15 Infused .Q1H1M TREVER Infusion Cefepime HCl 2 gm/ Sodium 50 mls @ 100 mls/hr 06/20/22 18:10 06/20/22 20:30 Chloride IV 06/20/22 18:39 Infused ONCE ONE Infusion Metronidazole 500 mg in 100 mls @ 100 mls/hr 06/20/22 21:26 06/20/22 22:24 Flagyl IV 06/20/22 22:25 100 mls/hr ONCE ONE Administration Lisinopril 20 mg 06/20/22 18:08 06/20/22 18:18 Lisinopril 20 Mg Tablet PO 06/20/22 18:09 20 mg ONCE ONE Administration Protocol Morphine Sulfate 2 mg 06/20/22 18:06 06/20/22 19:45 Morphine Sulfate 2 Mg/Ml Cartridge IVPUSH 06/20/22 18:07 2 mg ONCE ONE Administration Protocol Morphine Sulfate 4 mg 06/20/22 21:26 06/20/22 22:23 Morphine Sulfate 4 Mg/Ml Cartridge IVPUSH 06/20/22 21:27 4 mg ONCE ONE Administration Protocol Ondansetron HCl 4 mg 06/20/22 18:06 06/20/22 19:45 Ondansetron Hcl 4 Mg/2 Ml Vial IVPUSH 06/20/22 18:07 4 mg ONCE ONE Administration <ELIZABET Higuera - Last Filed: 06/20/22 18:12> Medications Administered Discontinued Medications Generic Name Dose Route Start Last Admin Trade Name Freq PRN Reason Stop Dose Admin Acetaminophen 650 mg 06/20/22 18:09 06/20/22 18:18 Acetaminophen 325 Mg Tablet PO 06/20/22 18:10 650 mg ONCE ONE Administration Hydrochlorothiazide 12.5 mg 06/20/22 18:08 06/20/22 18:18 Hydrochlorothiazide 12.5 Mg Tablet PO 06/20/22 18:09 12.5 mg ONCE ONE Administration Protocol Sodium Chloride 1,000 mls @ 999 mls/hr 06/20/22 18:15 06/20/22 22:34 Ns IV 06/20/22 19:15 Infused .Q1H1M TREVER Infusion Cefepime HCl 2 gm/ Sodium 50 mls @ 100 mls/hr 06/20/22 18:10 06/20/22 20:30 Chloride IV 06/20/22 18:39 Infused ONCE ONE Infusion Metronidazole 500 mg in 100 mls @ 100 mls/hr 06/20/22 21:26 06/20/22 22:24 Flagyl IV 06/20/22 22:25 100 mls/hr ONCE ONE Administration Lisinopril 20 mg 06/20/22 18:08 06/20/22 18:18 Lisinopril 20 Mg Tablet PO 06/20/22 18:09 20 mg ONCE ONE Administration Protocol Morphine Sulfate 2 mg 06/20/22 18:06 06/20/22 19:45 Morphine Sulfate 2 Mg/Ml Cartridge IVPUSH 06/20/22 18:07 2 mg ONCE ONE Administration Protocol Morphine Sulfate 4 mg 06/20/22 21:26 06/20/22 22:23 Morphine Sulfate 4 Mg/Ml Cartridge IVPUSH 06/20/22 21:27 4 mg ONCE ONE Administration Protocol Ondansetron HCl 4 mg 06/20/22 18:06 06/20/22 19:45 Ondansetron Hcl 4 Mg/2 Ml Vial IVPUSH 06/20/22 18:07 4 mg ONCE ONE Administration <Millicent Rutledge NP - Last Filed: 06/20/22 22:54> MDM - Abdominal Pain MDM Narrative Medical decision making narrative: 46yo w/pmhx HTN, diverticulitis c/o RLQ abd pain since this AM with assoc nausea. Will need labs including blood cultures and lactic acid, UA, CT, COVID screen. Empiric antibiotics already ordered. Consider appendicitis, diverticulitis w/o perf <Millicent Rutledge NP - Last Filed: 06/20/22 22:54> Medical Records Attestation: I reviewed the patient's medical records. <Millicent Rutledge NP - Last Filed: 06/20/22 22:54> Lab Data Attestation: I reviewed the patient's lab results. <Millicent Rutledge NP - Last Filed: 06/20/22 22:54> Result diagrams: : 06/20/22 18:32 06/20/22 19:51 <ELIZABET Higuera - Last Filed: 06/20/22 18:12> Labs: Lab Results 06/20/22 06/20/22 06/20/22 Range/Units 18:32 18:32 18:32 WBC 32.8 H* (4.8-10.8) X10*3/uL RBC 5.15 (4.20-5.50) X10*6/uL Hgb 14.7 (12.0-16.0) g/dl Hct 45.9 (37.0-47.0) % MCV 89.1 (80.0-98.0) fL MCH 28.5 (27.0-33.0) pg MCHC 32.0 (31.0-35.0) g/dl RDW 13.7 (11.0-16.0) % Plt Count 332 (160-400) X10*3/uL MPV 10.7 (9.4-12.3) fL Immature Gran % (Auto) 1.0 H (0.0-0.4) % Neut % (Auto) 90.9 H (45-73) % Lymph % (Auto) 3.8 L (20-40) % [place] % (Auto) 3.6 (2-11) % Eos % (Auto) 0.2 (0-4) % Baso % (Auto) 0.5 (0-2) % Lymph # (Auto) 1.3 (1.2-4.9) X10*3/uL [place] # (Auto) 1.2 (0.1-1.2) X10*3/uL Eos # (Auto) 0.1 (0.0-0.4) X10*3/uL Baso # (Auto) 0.2 (0.0-0.2) X10*3/uL Abs Immat Gran (auto) 0.34 H (0.00-0.03) X10*3/uL Absolute Neuts (auto) 29.8 H (2.0-8.3) x10*3/uL Absolute Nucleated RBC 0.000 (0.0-0.012) X10*3/uL Nucleated RBC % (auto) 0.0 (0.0-0.2) /100WBC Smear Tech's Comments VERIFIED PT 14.0 H (10.0-13.1) SEC INR 1.2 H (0.9-1.1) Sodium (135-145) mmol/L Potassium (3.3-5.1) mmol/L Chloride (96-108) mmol/L Carbon Dioxide (22-29) mmol/L Anion Gap (12-20) BUN (9-16) mg/dL Creatinine (0.5-1.4) mg/dL Estim Creat Clear Calc Estimated GFR Random Glucose (60-115) mg/dL Lactic Acid 1.4 (0.5-2.0) mmol/L Calcium (8.4-10.2) mg/dL Magnesium (1.6-2.6) mg/dL Total Bilirubin (0.0-1.0) mg/dL Direct Bilirubin (0.0-0.5) mg/dL AST (5-31) U/L ALT (0-31) U/L Alkaline Phosphatase (39-117) U/L Total Protein (6.5-8.0) g/dL Albumin (3.5-5.0) g/dL Lipase (8-78) U/L Urine Color Urine Appearance Urine pH (5.0-9.0) Ur Specific [place] (1.005-1.025) Urine Protein (Neg-Trace) mg/dL Urine Glucose (UA) (Negative) mg/dL Urine Ketones (Negative) mg/dL Urine Blood (Negative) Urine Nitrite (Negative) Ur Leukocyte Esterase (Negative) Urine RBC (0-2) /HPF Urine WBC (0-5) /HPF Ur Squamous Epith Cells (0-2) /HPF Urine Bacteria (None Seen) Hyaline Casts (0-2) /LPF Urine Test (NEGATIVE) COVID-19 (NEFTALI) (Negative) COVID-19 Clin Com 06/20/22 06/20/22 06/20/22 Range/Units 19:18 19:20 19:20 WBC (4.8-10.8) X10*3/uL RBC (4.20-5.50) X10*6/uL Hgb (12.0-16.0) g/dl Hct (37.0-47.0) % MCV (80.0-98.0) fL MCH (27.0-33.0) pg MCHC (31.0-35.0) g/dl RDW (11.0-16.0) % Plt Count (160-400) X10*3/uL MPV (9.4-12.3) fL Immature Gran % (Auto) (0.0-0.4) % Neut % (Auto) (45-73) % Lymph % (Auto) (20-40) % [place] % (Auto) (2-11) % Eos % (Auto) (0-4) % Baso % (Auto) (0-2) % Lymph # (Auto) (1.2-4.9) X10*3/uL [place] # (Auto) (0.1-1.2) X10*3/uL Eos # (Auto) (0.0-0.4) X10*3/uL Baso # (Auto) (0.0-0.2) X10*3/uL Abs Immat Gran (auto) (0.00-0.03) X10*3/uL Absolute Neuts (auto) (2.0-8.3) x10*3/uL Absolute Nucleated RBC (0.0-0.012) X10*3/uL Nucleated RBC % (auto) (0.0-0.2) /100WBC Smear Tech's Comments PT (10.0-13.1) SEC INR (0.9-1.1) Sodium (135-145) mmol/L Potassium (3.3-5.1) mmol/L Chloride (96-108) mmol/L Carbon Dioxide (22-29) mmol/L Anion Gap (12-20) BUN (9-16) mg/dL Creatinine (0.5-1.4) mg/dL Estim Creat Clear Calc Estimated GFR Random Glucose (60-115) mg/dL Lactic Acid (0.5-2.0) mmol/L Calcium (8.4-10.2) mg/dL Magnesium (1.6-2.6) mg/dL Total Bilirubin (0.0-1.0) mg/dL Direct Bilirubin (0.0-0.5) mg/dL AST (5-31) U/L ALT (0-31) U/L Alkaline Phosphatase (39-117) U/L Total Protein (6.5-8.0) g/dL Albumin (3.5-5.0) g/dL Lipase (8-78) U/L Urine Color Dark Yellow Urine Appearance Clear Urine pH 5.5 (5.0-9.0) Ur Specific [place] 1.025 (1.005-1.025) Urine Protein 30 (1+) H (Neg-Trace) mg/dL Urine Glucose (UA) Negative (Negative) mg/dL Urine Ketones Negative (Negative) mg/dL Urine Blood Moderate (2+) H (Negative) Urine Nitrite Negative (Negative) Ur Leukocyte Esterase Negative (Negative) Urine RBC 3-5 H (0-2) /HPF Urine WBC 6-10 H (0-5) /HPF Ur Squamous Epith Cells 3-5 (0-2) /HPF Urine Bacteria 2+ (None Seen) Hyaline Casts 0-2 (0-2) /LPF Urine Test NEGATIVE (NEGATIVE) COVID-19 (NEFTALI) Negative (Negative) COVID-19 Clin Com See Note 06/20/22 Range/Units 19:51 WBC (4.8-10.8) X10*3/uL RBC (4.20-5.50) X10*6/uL Hgb (12.0-16.0) g/dl Hct (37.0-47.0) % MCV (80.0-98.0) fL MCH (27.0-33.0) pg MCHC (31.0-35.0) g/dl RDW (11.0-16.0) % Plt Count (160-400) X10*3/uL MPV (9.4-12.3) fL Immature Gran % (Auto) (0.0-0.4) % Neut % (Auto) (45-73) % Lymph % (Auto) (20-40) % [place] % (Auto) (2-11) % Eos % (Auto) (0-4) % Baso % (Auto) (0-2) % Lymph # (Auto) (1.2-4.9) X10*3/uL [place] # (Auto) (0.1-1.2) X10*3/uL Eos # (Auto) (0.0-0.4) X10*3/uL Baso # (Auto) (0.0-0.2) X10*3/uL Abs Immat Gran (auto) (0.00-0.03) X10*3/uL Absolute Neuts (auto) (2.0-8.3) x10*3/uL Absolute Nucleated RBC (0.0-0.012) X10*3/uL Nucleated RBC % (auto) (0.0-0.2) /100WBC Smear Tech's Comments PT (10.0-13.1) SEC INR (0.9-1.1) Sodium 132 L (135-145) mmol/L Potassium 4.3 (3.3-5.1) mmol/L Chloride 103 (96-108) mmol/L Carbon Dioxide 17 L (22-29) mmol/L Anion Gap 16 (12-20) BUN 8 L (9-16) mg/dL Creatinine 0.70 (0.5-1.4) mg/dL Estim Creat Clear Calc 114.0 Estimated GFR > 60 Random Glucose 161 H (60-115) mg/dL Lactic Acid (0.5-2.0) mmol/L Calcium 8.8 (8.4-10.2) mg/dL Magnesium 1.9 (1.6-2.6) mg/dL Total Bilirubin 0.6 (0.0-1.0) mg/dL Direct Bilirubin < 0.2 (0.0-0.5) mg/dL AST 15 (5-31) U/L ALT 12 (0-31) U/L Alkaline Phosphatase 116 (39-117) U/L Total Protein 7.3 (6.5-8.0) g/dL Albumin 3.7 (3.5-5.0) g/dL Lipase 10 (8-78) U/L Urine Color Urine Appearance Urine pH (5.0-9.0) Ur Specific [place] (1.005-1.025) Urine Protein (Neg-Trace) mg/dL Urine Glucose (UA) (Negative) mg/dL Urine Ketones (Negative) mg/dL Urine Blood (Negative) Urine Nitrite (Negative) Ur Leukocyte Esterase (Negative) Urine RBC (0-2) /HPF Urine WBC (0-5) /HPF Ur Squamous Epith Cells (0-2) /HPF Urine Bacteria (None Seen) Hyaline Casts (0-2) /LPF Urine Test (NEGATIVE) COVID-19 (NEFTALI) (Negative) COVID-19 Clin Com <ELIZABET Higuera - Last Filed: 06/20/22 18:12> Lab Results 06/20/22 06/20/22 06/20/22 Range/Units 18:32 18:32 18:32 WBC 32.8 H* (4.8-10.8) X10*3/uL RBC 5.15 (4.20-5.50) X10*6/uL Hgb 14.7 (12.0-16.0) g/dl Hct 45.9 (37.0-47.0) % MCV 89.1 (80.0-98.0) fL MCH 28.5 (27.0-33.0) pg MCHC 32.0 (31.0-35.0) g/dl RDW 13.7 (11.0-16.0) % Plt Count 332 (160-400) X10*3/uL MPV 10.7 (9.4-12.3) fL Immature Gran % (Auto) 1.0 H (0.0-0.4) % Neut % (Auto) 90.9 H (45-73) % Lymph % (Auto) 3.8 L (20-40) % [place] % (Auto) 3.6 (2-11) % Eos % (Auto) 0.2 (0-4) % Baso % (Auto) 0.5 (0-2) % Lymph # (Auto) 1.3 (1.2-4.9) X10*3/uL [place] # (Auto) 1.2 (0.1-1.2) X10*3/uL Eos # (Auto) 0.1 (0.0-0.4) X10*3/uL Baso # (Auto) 0.2 (0.0-0.2) X10*3/uL Abs Immat Gran (auto) 0.34 H (0.00-0.03) X10*3/uL Absolute Neuts (auto) 29.8 H (2.0-8.3) x10*3/uL Absolute Nucleated RBC 0.000 (0.0-0.012) X10*3/uL Nucleated RBC % (auto) 0.0 (0.0-0.2) /100WBC Smear Tech's Comments VERIFIED PT 14.0 H (10.0-13.1) SEC INR 1.2 H (0.9-1.1) Sodium (135-145) mmol/L Potassium (3.3-5.1) mmol/L Chloride (96-108) mmol/L Carbon Dioxide (22-29) mmol/L Anion Gap (12-20) BUN (9-16) mg/dL Creatinine (0.5-1.4) mg/dL Estim Creat Clear Calc Estimated GFR Random Glucose (60-115) mg/dL Lactic Acid 1.4 (0.5-2.0) mmol/L Calcium (8.4-10.2) mg/dL Magnesium (1.6-2.6) mg/dL Total Bilirubin (0.0-1.0) mg/dL Direct Bilirubin (0.0-0.5) mg/dL AST (5-31) U/L ALT (0-31) U/L Alkaline Phosphatase (39-117) U/L Total Protein (6.5-8.0) g/dL Albumin (3.5-5.0) g/dL Lipase (8-78) U/L Urine Color Urine Appearance Urine pH (5.0-9.0) Ur Specific [place] (1.005-1.025) Urine Protein (Neg-Trace) mg/dL Urine Glucose (UA) (Negative) mg/dL Urine Ketones (Negative) mg/dL Urine Blood (Negative) Urine Nitrite (Negative) Ur Leukocyte Esterase (Negative) Urine RBC (0-2) /HPF Urine WBC (0-5) /HPF Ur Squamous Epith Cells (0-2) /HPF Urine Bacteria (None Seen) Hyaline Casts (0-2) /LPF Urine Test (NEGATIVE) COVID-19 (NEFTALI) (Negative) COVID-19 Clin Com 06/20/22 06/20/22 06/20/22 Range/Units 19:18 19:20 19:20 WBC (4.8-10.8) X10*3/uL RBC (4.20-5.50) X10*6/uL Hgb (12.0-16.0) g/dl Hct (37.0-47.0) % MCV (80.0-98.0) fL MCH (27.0-33.0) pg MCHC (31.0-35.0) g/dl RDW (11.0-16.0) % Plt Count (160-400) X10*3/uL MPV (9.4-12.3) fL Immature Gran % (Auto) (0.0-0.4) % Neut % (Auto) (45-73) % Lymph % (Auto) (20-40) % [place] % (Auto) (2-11) % Eos % (Auto) (0-4) % Baso % (Auto) (0-2) % Lymph # (Auto) (1.2-4.9) X10*3/uL [place] # (Auto) (0.1-1.2) X10*3/uL Eos # (Auto) (0.0-0.4) X10*3/uL Baso # (Auto) (0.0-0.2) X10*3/uL Abs Immat Gran (auto) (0.00-0.03) X10*3/uL Absolute Neuts (auto) (2.0-8.3) x10*3/uL Absolute Nucleated RBC (0.0-0.012) X10*3/uL Nucleated RBC % (auto) (0.0-0.2) /100WBC Smear Tech's Comments PT (10.0-13.1) SEC INR (0.9-1.1) Sodium (135-145) mmol/L Potassium (3.3-5.1) mmol/L Chloride (96-108) mmol/L Carbon Dioxide (22-29) mmol/L Anion Gap (12-20) BUN (9-16) mg/dL Creatinine (0.5-1.4) mg/dL Estim Creat Clear Calc Estimated GFR Random Glucose (60-115) mg/dL Lactic Acid (0.5-2.0) mmol/L Calcium (8.4-10.2) mg/dL Magnesium (1.6-2.6) mg/dL Total Bilirubin (0.0-1.0) mg/dL Direct Bilirubin (0.0-0.5) mg/dL AST (5-31) U/L ALT (0-31) U/L Alkaline Phosphatase (39-117) U/L Total Protein (6.5-8.0) g/dL Albumin (3.5-5.0) g/dL Lipase (8-78) U/L Urine Color Dark Yellow Urine Appearance Clear Urine pH 5.5 (5.0-9.0) Ur Specific [place] 1.025 (1.005-1.025) Urine Protein 30 (1+) H (Neg-Trace) mg/dL Urine Glucose (UA) Negative (Negative) mg/dL Urine Ketones Negative (Negative) mg/dL Urine Blood Moderate (2+) H (Negative) Urine Nitrite Negative (Negative) Ur Leukocyte Esterase Negative (Negative) Urine RBC 3-5 H (0-2) /HPF Urine WBC 6-10 H (0-5) /HPF Ur Squamous Epith Cells 3-5 (0-2) /HPF Urine Bacteria 2+ (None Seen) Hyaline Casts 0-2 (0-2) /LPF Urine Test NEGATIVE (NEGATIVE) COVID-19 (NEFTALI) Negative (Negative) COVID-19 Clin Com See Note 06/20/22 Range/Units 19:51 WBC (4.8-10.8) X10*3/uL RBC (4.20-5.50) X10*6/uL Hgb (12.0-16.0) g/dl Hct (37.0-47.0) % MCV (80.0-98.0) fL MCH (27.0-33.0) pg MCHC (31.0-35.0) g/dl RDW (11.0-16.0) % Plt Count (160-400) X10*3/uL MPV (9.4-12.3) fL Immature Gran % (Auto) (0.0-0.4) % Neut % (Auto) (45-73) % Lymph % (Auto) (20-40) % [place] % (Auto) (2-11) % Eos % (Auto) (0-4) % Baso % (Auto) (0-2) % Lymph # (Auto) (1.2-4.9) X10*3/uL [place] # (Auto) (0.1-1.2) X10*3/uL Eos # (Auto) (0.0-0.4) X10*3/uL Baso # (Auto) (0.0-0.2) X10*3/uL Abs Immat Gran (auto) (0.00-0.03) X10*3/uL Absolute Neuts (auto) (2.0-8.3) x10*3/uL Absolute Nucleated RBC (0.0-0.012) X10*3/uL Nucleated RBC % (auto) (0.0-0.2) /100WBC Smear Tech's Comments PT (10.0-13.1) SEC INR (0.9-1.1) Sodium 132 L (135-145) mmol/L Potassium 4.3 (3.3-5.1) mmol/L Chloride 103 (96-108) mmol/L Carbon Dioxide 17 L (22-29) mmol/L Anion Gap 16 (12-20) BUN 8 L (9-16) mg/dL Creatinine 0.70 (0.5-1.4) mg/dL Estim Creat Clear Calc 114.0 Estimated GFR > 60 Random Glucose 161 H (60-115) mg/dL Lactic Acid (0.5-2.0) mmol/L Calcium 8.8 (8.4-10.2) mg/dL Magnesium 1.9 (1.6-2.6) mg/dL Total Bilirubin 0.6 (0.0-1.0) mg/dL Direct Bilirubin < 0.2 (0.0-0.5) mg/dL AST 15 (5-31) U/L ALT 12 (0-31) U/L Alkaline Phosphatase 116 (39-117) U/L Total Protein 7.3 (6.5-8.0) g/dL Albumin 3.7 (3.5-5.0) g/dL Lipase 10 (8-78) U/L Urine Color Urine Appearance Urine pH (5.0-9.0) Ur Specific [place] (1.005-1.025) Urine Protein (Neg-Trace) mg/dL Urine Glucose (UA) (Negative) mg/dL Urine Ketones (Negative) mg/dL Urine Blood (Negative) Urine Nitrite (Negative) Ur Leukocyte Esterase (Negative) Urine RBC (0-2) /HPF Urine WBC (0-5) /HPF Ur Squamous Epith Cells (0-2) /HPF Urine Bacteria (None Seen) Hyaline Casts (0-2) /LPF Urine Test (NEGATIVE) COVID-19 (NEFTALI) (Negative) COVID-19 Clin Com <Millicent Rutledge NP - Last Filed: 06/20/22 22:54> Imaging Data CT scan - abdomen: Attestation: I personally reviewed and interpreted this imaging study as follows: <Millicent Rutledge NP - Last Filed: 06/20/22 22:54> Radiologist's impression: FINDINGS: LUNG BASES: Unremarkable.? ABDOMINAL AND PELVIC WALL:? Unremarkable.? LIVER AND BILIARY TREE: Unremarkable.? GALLBLADDER: Unremarkable.? PANCREAS: Unremarkable.? SPLEEN: Unremarkable.? ADRENAL GLANDS: Unremarkable.? KIDNEYS AND URETERS: Mild dilation of the distal left ureter with mild urothelial thickening proximal to the complex left pelvic collection without saúl hydronephrosis.? GASTROINTESTINAL TRACT: Colonic diverticulosis without other additional findings to suggest diverticulitis.? Normal appendix. VASCULAR: Unremarkable. LYMPH NODES/PERITONEUM: Mildly enlarged left periaortic node measuring 0.8 cm short axis diameter, previously 0.8 cm, and few additional prominent left external iliac chain nodes and internal iliac chain lymph nodes, not pathologically enlarged, which may be reactive in the setting of underlying infection. FREE FLUID: None. BLADDER: Unremarkable.? PELVIC VISCERA: Interval increase in size of a thick-walled multiseptated collection in the left adnexa measuring 8.6 x 8.6 cm, previously 7.3 x 6.3 cm and remains suspicious for tubo-ovarian abscess/complex with multiple new foci of intraluminal gas raising suspicion for fistulous communication with the adjacent sigmoid colon, the other potential etiology would be gas forming infection. Right ovary is inseparable from the right aspect of the uterus however may also be increased in size with respect to prior however without saúl fluid collections. OSSEOUS STRUCTURES: Sclerosis of the sacroiliac joints which could be seen in the setting of osteitis condensans ilii.? CT/CT abdomen pelvis wo IV con IMPRESSION: ? Interval increase in size of a thick-walled multiseptated collection in the left adnexa measuring 8.6 cm which remains suspicious for tubo-ovarian abscess/complex with multiple new foci of intraluminal gas raising suspicion for fistulous communication with the adjacent sigmoid colon. The other potential etiology would be gas forming infection. ? Right ovary is inseparable from the right aspect of the uterus however may also be increased in size with respect to prior however without saúl fluid collections. A pelvic ultrasound may be useful for further elucidation if warranted to assess for any right-sided ovarian pathology. ? Mild dilation of the distal left ureter and mild urothelial thickening proximal to the complex left pelvic collection without saúl hydronephrosis, for which ascending urinary tract infection or developing obstruction cannot be excluded. ? Mildly enlarged retroperitoneal nodes which may be reactive in the setting of underlying infection. <Millicent Rutledge NP - Last Filed: 06/20/22 22:54> Critical Care Time Critical Care Time Critical Care Time: Yes <Millicent Rutledge NP - Last Filed: 06/20/22 22:54> Total Critical Care Time: 45 <Millicent Rutledge NP - Last Filed: 06/20/22 22:54> Attestation: Discussion was specialist, transfer to tertiary care center <Millicent Rutledge NP - Last Filed: 06/20/22 22:54> Discharge Plan Discharge Clinical Impression: Tubo-ovarian abscess, Fistula, Leukocytosis, Fever <ELIZABET Higuera - Last Filed: 06/20/22 18:12> Patient Disposition: [facility] <ELIZABET Higuera Last Filed: 06/20/22 18:12> Transfer Details: [facility] <ELIZABET Higuera Last Filed: 06/20/22 18:12> [facility] <Millicent Rutledge NP - Last Filed: 06/20/22 22:54> Prescriptions: No Action buspirone 5 mg tablet 1 tab PO BID fluticasone propionate 50 mcg/actuation spray,suspension 1 spray intranasal TID PRN (Reason: Allergy Symptoms) rosuvastatin 10 mg tablet 1 tab PO BEDTIME albuterol sulfate 90 mcg/actuation HFA aerosol inhaler 2 puff inhalation Q6H PRN (Reason: Wheezing) lisinopril-hydrochlorothiazide 20-12.5 mg tablet 1 tab PO DAILY ibuprofen 800 mg tablet 800 mg PO TID (DME) blood pressure test kit-large Kit See Rx Instructions .ROUTE BID Qty: 1 Rx Instructions: As directed polyethylene glycol 3350 [Miralax] 17 gram/dose powder 17 g PO DAILY Qty: 119 0RF levofloxacin 500 mg tablet 500 mg PO DAILY 10 Days Qty: 10 0RF metronidazole 500 mg tablet 500 mg PO Q8H Qty: 30 0RF oxycodone-acetaminophen [Percocet] 5-325 mg tablet 1 tab PO Q12H PRN (Reason: pain (scale score 7-10)) Qty: 10 0RF levofloxacin 500 mg tablet 500 mg PO DAILY 4 Days Qty: 4 0RF metronidazole 500 mg tablet 500 mg PO BID 4 Days Qty: 8 0RF <ELIZABET Higuera - Last Filed: 06/20/22 18:12>
[2022-06-20] MEDS: hydroCHLOROthiazide 12.5 MG TABLET PO (18:18)
[2022-06-20] MEDS: Acetaminophen 325 MG TABLET 650 MG PO (18:18)
[2022-06-20] MEDS: lisinopriL 20 MG TABLET PO (18:18)
[2022-06-20 18:42] LABS: Basophils Absolute Auto 0.2 X10*3/uL (0.0-0.2); Basophils Percent Auto 0.5 % (0-2); Eosinophils Absolute Auto 0.1 X10*3/uL (0.0-0.4); Eosinophils Percent Auto 0.2 % (0-4); Hematocrit 45.9 % (37.0-47.0); Hemoglobin 14.7 g/dl (12.0-16.0); Imm Gran Abs Auto 0.34 X10*3/uL (0.00-0.03); Lymphocytes Absolute Auto 1.3 X10*3/uL (1.2-4.9); Lymphocytes Percent Auto 3.8 % (20-40); MANUAL DIFF FLAG SCAN; Mean Corpuscular Hemoglobin 28.5 pg (27.0-33.0); Mean Corpuscular Volume 89.1 fL (80.0-98.0); Mean Platelet Volume 10.7 fL (9.4-12.3); Monocytes Absolute Auto 1.2 X10*3/uL (0.1-1.2); Monocytes Percent Auto 3.6 % (2-11); Neutrophils Absolute Auto 29.8 x10*3/uL (2.0-8.3); Neutrophils Percent Auto 90.9 % (45-73); Platelet Count 332 X10*3/uL (160-400); Red Blood Count 5.15 X10*6/uL (4.20-5.50); Red Cell Distribution Width 13.7 % (11.0-16.0); SCAN SMEAR FLAG 1
[2022-06-20 18:47] LABS: INTERNATIONAL NORM RATIO 1.2 (0.9-1.1); White Blood Count 32.8 X10*3/uL (4.8-10.8)
[2022-06-20 18:51] LABS: Lactic Acid 1.4 mmol/L (0.5-2.0)
[2022-06-20 19:04] LABS: SLIDE REVIEW VERIFIED
[2022-06-20 19:33] LABS: Appearance Urine Clear; Color Urine Dark Yellow; Glucose Urine UA Negative (Negative); Leukocyte Esterase Urine Negative (Negative); Nitrite Urine Negative (Negative); PH 5.5 (5.0-9.0); Specific Gravity - Urine 1.025 (1.005-1.025); UMIC TRIGGER UACC YES; Urine Blood Moderate (2+) (Negative); Urine Ketones Negative (Negative); Urine Protein 30 (1+) mg/dL (Neg-Trace)
[2022-06-20 19:36] LABS: UPreg QC Valid YES; Urine Pregnancy NEGATIVE (NEGATIVE)
[2022-06-20 19:45] VITALS: RESP 16
[2022-06-20] MEDS: Morphine Sulfate 2 MG/ML CARTRIDGE IVPUSH (19:45)
[2022-06-20] MEDS: ondansetron HCL 4 MG/2 ML VIAL IVPUSH (19:45)
[2022-06-20] MEDS: 0.9 % Sodium Chloride 1,000 ML 999 ML IV (19:46)
[2022-06-20] MEDS: cefEPime HCl 2 GM in 0.9 % Sodium Chloride 50 ML IV (19:46)
[2022-06-20 19:49] LABS: COVID-19 Test Negative (Negative); IDNOW Serial# 55D5AD1C
[2022-06-20 19:56] LABS: Bacteria Urine 2+ (None Seen); Hyaline Casts Urine 0-2 /LPF (0-2); UACC Culture Trigger YES
[2022-06-20 20:16] LABS: Alanine Aminotransferase 12 U/L (0-31); Albumin Level 3.7 g/dL (3.5-5.0); Alkaline Phosphatase 116 U/L (39-117); Anion Gap 16 (12-20); Aspartate Amino Transferase 15 U/L (5-31); Bilirubin Direct < 0.2 mg/dL (0.0-0.5); Bilirubin Total 0.6 mg/dL (0.0-1.0); Blood Urea Nitrogen 8 mg/dL (9-16); Calcium 8.8 mg/dL (8.4-10.2); Carbon Dioxide 17 mmol/L (22-29); Chloride 103 mmol/L (96-108); Estimated Glomerular Filt Rate > 60; Glucose Random 161 mg/dL (60-115); Lipase 10 U/L (8-78); Magnesium 1.9 mg/dL (1.6-2.6); Potassium 4.3 mmol/L (3.3-5.1); Sodium 132 mmol/L (135-145); Total Protein 7.3 g/dL (6.5-8.0)
--- NOTE | 2022-06-20 21:38 | P.CONOB_ITS ---
WINDCHILL ADMINISTRATOR - CN: HPI Data of Consult Consult date: 06/20/22 Primary Care Provider: Vincenzo Fernandez MD Consult Narrative Narrative: I was consulted on Laura Pruitt who is a 46 year old female who presented emergency room complaining of abdominal pain over the last 5 days mainly in right lower quadrant associated with some nausea, fever and chills.? No vomiting, diarrhea, constipation, urinary symptoms. The patient history dates back to few months ago when she was admitted in January 2022 for sigmoid diverticulitis with mesenteric abscess, and was treated with IV Levaquin and Flagyl and was discharged home on p.o. antibiotics, she was seen in April in the office with worsening abdominal pain, a pelvic ultrasound showed: Interval increase in size in the left ovary and complex cystic left ovarian lesions questionable for abscesses versus complex cysts. New small complex cystic lesion in the right ovary questionable for abscess versus complex cyst. Repeat CBC few days afterwards showed increase in leukocytosis and a CT scan of abdomen pelvis showed the following: Multi septated thick-walled left adnexal cystic structure measuring approximately 7.4 x 6.7 x 6 cm in size, previously approximately 4 cm in maximal size. No gross right adnexal cystic mass. Uterus is tipped to the right, otherwise grossly unremarkable-limited assessment. No free pelvic fluid.? Interventional radiology service was consulted regarding this case and felt that patient needed resources available at a tertiary care center, so the patient was sent to [facility], where she was admitted on the resource recovery engineer service, she was started IV antibiotic, CT scan was interpreted as a possible adnexal mass, a pelvic ultrasound was requested it but the patient signed against medical advise. The patient was contacted afterwards and was referred for [facility] OBGYN for an outpatient appointment which was scheduled on 05/28/22. No records are available regarding this visit and any additional workup /treatment done. cc:: CC: OB [facility] Past Medical History Medical History Abdominal pain Diverticulitis HTN (hypertension) Family History Family History Father Prostate cancer Surgical History Surgical History H/O hemorrhoidectomy History of tubal ligation Hx of carpal tunnel repair Social History Social History Household Members: Family Household Members Other:: 3 Housing: Apartment Do you presently have visiting nurse or other home services: No Alcohol intake: current Alcohol intake frequency: holidays/special occasions only Alcohol type: beer Patient Tobacco Use Status: Current everyday Tobacco user Tobacco use type: Cigarette Cigarettes Per Day: 7 e-Cigarette/Vaping Use: Former Use Second Hand Smoke Exposure: No Advance Directives: No Advance Directives Information Provided: No service: No Current occupational status: unemployed Meds Allergies Allergy/AdvReac Type Severity Reaction Status Date / Time amoxicillin [From AUGMENTIN] Allergy Intermediate FACIAL Verified 06/20/22 18:07 SWELLING, HIVES clavulanic acid Allergy Intermediate FACIAL Verified 06/20/22 18:07 [From AUGMENTIN] SWELLING, HIVES Iodinated Contrast Media Allergy Intermediate ITCHING, Verified 06/20/22 18:07 [IV CONTRAST] FACIAL SWELLING, HIVES oral contrast Allergy Unknown facial Uncoded 06/20/22 18:07 swellling Active Medications: Current Medications Metronidazole (Flagyl) 500 mg in 100 mls @ 100 mls/hr IV ONCE ONE Stop: 06/20/22 22:25 Doxycycline Hyclate 100 mg/ (Sodium Chloride) 250 mls @ 166.67 mls/hr IV ONCE ONE Stop: 06/20/22 22:55 Home Medications Medication Instructions Recorded Confirmed Last Taken Type albuterol sulfate 90 mcg/actuation 2 puff inhalation Q6H PRN Wheezing 07/02/20 04/18/22 Unknown History aerosol inhaler buspirone 5 mg tablet 1 tab PO BID 01/15/22 02/04/22 01/14/22 History fluticasone propionate 50 1 spray intranasal TID PRN Allergy 01/15/22 02/04/22 01/14/22 History mcg/actuation nasal Symptoms spray,suspension rosuvastatin 10 mg tablet 1 tab PO BEDTIME 01/15/22 02/04/22 01/14/22 History blood pressure test kit-large #1 ea 01/21/22 01/21/22 Unknown History ibuprofen 800 mg tablet 800 mg PO TID 01/21/22 02/04/22 Unknown History lisinopril 20 1 tab PO DAILY 01/21/22 02/04/22 Unknown History mg-hydrochlorothiazide 12.5 mg tablet WINDCHILL ADMINISTRATOR Physical Exam Vitals Vital signs: Temp Pulse Resp BP Pulse Ox O2 Del Method 101.3 F H 124 H 16 235/120 H 98 06/20/22 18:04 06/20/22 18:04 06/20/22 19:45 06/20/22 18:04 06/20/22 18:04 06/20/22 18:04 BMI result Body Mass Index 29.5 Additional Comments: Abdominal exam reported by Millicent Rutledge NP as the following: Soft , right lower quadrant tenderness with rebound tenderness and Guarding Pelvic exam : Cervix and vagina within normal WINDCHILL ADMINISTRATOR - Results Labs CBC & Chem 7: 06/20/22 18:32 06/20/22 19:51 Labs: Short CBC 06/20/22 Range/Units 18:32 WBC 32.8 H* (4.8-10.8) X10*3/uL Hgb 14.7 (12.0-16.0) g/dl Hct 45.9 (37.0-47.0) % Plt Count 332 (160-400) X10*3/uL BMP 06/20/22 19:51 Sodium 132 L Potassium 4.3 Chloride 103 Carbon Dioxide 17 L BUN 8 L Creatinine 0.70 Calcium 8.8 Liver Function 06/20/22 Range/Units 19:51 Total Bilirubin 0.6 (0.0-1.0) mg/dL Direct Bilirubin < 0.2 (0.0-0.5) mg/dL AST 15 (5-31) U/L ALT 12 (0-31) U/L Alkaline Phosphatase 116 (39-117) U/L Albumin 3.7 (3.5-5.0) g/dL Urine 06/20/22 06/20/22 Range/Units 19:20 19:20 Urine Color Dark Yellow Urine Appearance Clear Urine pH 5.5 (5.0-9.0) Ur Specific [place] 1.025 (1.005-1.025) Urine Protein 30 (1+) H (Neg-Trace) mg/dL Urine Glucose (UA) Negative (Negative) mg/dL Urine Test NEGATIVE (NEGATIVE) Imaging CT scan - pelvis: Radiologist's impression: ITS Impressions Abdomen/Pelvis CT 06/20/22 20:11 IMPRESSION: Interval increase in size of a thick-walled multiseptated collection in the left adnexa measuring 8.6 cm which remains suspicious for tubo-ovarian abscess/complex with multiple new foci of intraluminal gas raising suspicion for fistulous communication with the adjacent sigmoid colon. The other potential etiology would be gas forming infection. Right ovary is inseparable from the right aspect of the uterus however may also be increased in size with respect to prior however without saúl fluid collections. A pelvic ultrasound may be useful for further elucidation if warranted to assess for any right-sided ovarian pathology. Mild dilation of the distal left ureter and mild urothelial thickening proximal to the complex left pelvic collection without saúl hydronephrosis, for which ascending urinary tract infection or developing obstruction cannot be excluded. Mildly enlarged retroperitoneal nodes which may be reactive in the setting of underlying infection. Assessment and Plan (1) Tubo-ovarian abscess: Status: Acute Suspicious of fistulous communication with the adjacent colon Plan Recommended to Millicent Rutledge NP the following : Sepsis protocol, GC/CT, BV panel and Trichomonas to be collected, Ceftriaxone 1 g Q 24, Flagyl 500 mg q. 12 and doxycycline 100 IV q.12 or Triple antibiotic: ampicillin/gentamicin/gentamicin Consult general surgery and Urology Since the finding of on CT scan shows a large abscess, the patient would benefit from interventional radiology drainage of the abscess in addition to IV antibiotics; interventional radiology was previously consulted on that case in April of 2022 and felt that this patient's case would benefit more from expertise of a tertiary care center IR service rather than at [facility], therefore, I recommend transfer to [facility]. I spent a total of 20 minutes reviewing the chart, communicating with the emergency room provider a nd documenting in the medical record
[2022-06-20 22:23] VITALS: RESP 18
[2022-06-20] MEDS: Morphine Sulfate 4 MG/ML CARTRIDGE IVPUSH (22:23)
[2022-06-20] MEDS: metroNIDAZOLE/NS 500 MG/100 ML PIGGYBACK 100 MG IV (22:24)
[2022-06-20 22:33] VITALS: BP 140/76; PULSE 98; RESP 18; TEMP 37.3; O2SAT 99
--- NOTE | 2022-06-20 23:50 | PC.NURSE ---
Doxyxycline V not administered d/t patient taken to [facility] via [facility].
--- NOTE | 2022-06-21 00:10 | PC.NURSE ---
Nurse to nurse report given to [facility] ANGELICA Holman, RN. Patient taken to [facility] via [facility].
[2022-06-21 15:02] LABS: BV Int Neg Control Negative (Negative); BV Int Pos Control Positive (Positive)
[2022-06-21 16:51] LABS: CT PCR NOT DETECTED (Not Detect.); NG PCR NOT DETECTED (Not Detect.)
== END 2022-06-21 00:17 | disposition short-term general hospital (02) ==
PROVIDERS: Nurse Practitioner Family; Physician Assistant; Emergency Provider Emergency Medicine; PCP Internal Medicine Geriatric Medicine
DX: N70.93 Salpingitis and oophoritis, unspecified (principal); R10.9 Unspecified abdominal pain; R50.9 Fever, unspecified; D72.829 Elevated white blood cell count, unspecified; F17.210 Nicotine dependence, cigarettes, uncomplicated; I10 Essential (primary) hypertension; Z20.822 Contact with and (suspected) exposure to COVID-19; Z71.6 Tobacco abuse counseling; Z79.899 Other long term (current) drug therapy
CPT/HCPCS: 36415; 74176; 80048; 80076; 81001; 81025; 83605; 83690; 83735; 85025; 85610; 87040; 87086; 87480; 87491; 87510; 87591; 87635; 87660; 96361; 96365; 96375; 96376; 99285; J0692; J2270; J2405

== ENCOUNTER 2022-09-10 22:04 | Emergency (ER) | payer MEDICARE, MEDICAID, SELFPAY ==
--- NOTE | ~2022-09-10 | XR_ITS ---
EXAMINATION: XR CHEST CLINICAL INFORMATION: vfib COMPARISON: 08/11/2018 TECHNIQUE: Frontal view of the chest was obtained. FINDINGS: Lung volumes are low with bibasilar atelectasis. No consolidation, pneumothorax, or pleural effusion. Cardiac and meniscal contours are normal. Pulmonary vasculature is unremarkable. No acute osseous findings. Defibrillator pad overlies the right hemithorax. XR/XR chest 1V IMPRESSION: Low lung volumes with bibasilar atelectasis. No acute pulmonary findings.
[2022-09-10 22:05] VITALS: BP 146/106; PULSE 87; RESP 22; O2SAT 100; BMI 26.2
--- NOTE | 2022-09-10 22:09 | ECG_ITS ---
Test Reason : CHEST PAIN Blood Pressure : / mmHG Vent. 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
[2022-09-10 22:32] VITALS: BP 155/91; PULSE 85; RESP 20
[2022-09-10 22:35] LABS: Glucose, Whole Blood 171 mg/dL (60-115)
[2022-09-10 22:44] VITALS: BMI 28.1
[2022-09-10] MEDS: Aspirin 81 MG TAB.CHEW 324 MG PO (22:44)
[2022-09-10] MEDS: fentaNYL citrate/PF 100 MCG/2 ML VIAL 50 MCG IVPUSH ×2 (22:46→22:54)
[2022-09-10] MEDS: Atorvastatin Calcium 80 MG TABLET PO (22:47)
[2022-09-10] MEDS: Heparin Sodium,Porcine 5,000 UNIT/ML VIAL 4000 UNIT IVPUSH (22:47)
--- NOTE | 2022-09-10 22:47 | MHC.EDTECH ---
[facility]'s Stemi-Line called at [phone] per awaiting a call back. [facility] called at [phone] for a Stemi-[place] per . Client Service And Consulting Manager called at [phone] accepted by , patient going straight to the Client Service And Consulting Manager.Rn aware
[2022-09-10 22:49] VITALS: BMI 28.2
--- NOTE | 2022-09-10 22:53 | ED.CHESTPAIN ---
HPI - Chest Pain General Chief Complaint: Chest Pain Stated Complaint: chest pain Time Seen by Provider: 09/10/22 22:21 Source: patient Mode of arrival: ambulatory Limitations: no limitations History of Present Illness HPI narrative: 47-year-old female who presents emergency department for evaluation of chest pain. The patient states she developed chest pain on her birthday 08/30/2021. She states that she was at [facility] overnight and was discharged home. The patient did not have a cardiac catheterization at that time since she has an allergy to IV contrast-she states she gets a rash and hives. The patient followed up with her doctor and she is continuing to have chest pain and was started on nitroglycerin. She states that today at 14:00 hours she developed pain in her chest. She points to her center of her chest when asked to localize the pain. She states the pain is a pressure-like pain which was 8/10 at its worst. She initially went back to [facility] but apparently there was a very long line and it is unclear to me if she was even triage. She went home and took a shower and was feeling better however the pain came back therefore her brought her to [facility] for evaluation. At triage the patient had an EKG which appeared to be abnormal, the patient had ST segment depression in [address] segment elevation the to through V4. After seen is EKG I asked the nursing staff to bring the patient back to the emergency department. The patient was brought to a room by wheelchair pain. The nurse noted that the patient was very diaphoretic and the patient was placed on a site monitor. The nurse then states that the patient's eyes rolled back in her head and on the monitor she was in ventricular fibrillation. When I came into the room the patient was on oxygen and CPR was in progress. The patient was ordered to get amiodarone 300 mg IV and leak cardiac pads were placed on the patient's chest. Patient's ventilations were being assisted by a bag-valve mask. The patient was defibrillated with 200 joules and came back with a sinus rhythm. Patient was awake and able to talk after defibrillation. Related Data Home Medications Medication Instructions Recorded Confirmed albuterol sulfate 90 mcg/actuation 2 puff inhalation Q6H PRN Wheezing 07/02/20 04/18/22 aerosol inhaler buspirone 5 mg tablet 1 tab PO BID 01/15/22 02/04/22 fluticasone propionate 50 1 spray intranasal TID PRN Allergy 01/15/22 02/04/22 mcg/actuation nasal Symptoms spray,suspension rosuvastatin 10 mg tablet 1 tab PO BEDTIME 01/15/22 02/04/22 blood pressure test kit-large #1 ea 01/21/22 01/21/22 ibuprofen 800 mg tablet 800 mg PO TID 01/21/22 02/04/22 lisinopril 20 1 tab PO DAILY 01/21/22 02/04/22 mg-hydrochlorothiazide 12.5 mg tablet Previous Rx's Medication Instructions Recorded polyethylene glycol 3350 17 17 g PO DAILY constipation #119 01/21/22 gram/dose oral powder (Miralax) grams levofloxacin 500 mg tablet 500 mg PO DAILY 10 days #10 tabs 04/17/22 metronidazole 500 mg tablet 500 mg PO Q8H #30 tabs 04/17/22 oxycodone-acetaminophen 5 mg-325 1 tab PO Q12H PRN pain (scale 04/17/22 mg tablet (Percocet) score 7-10) #10 tabs levofloxacin 500 mg tablet 500 mg PO DAILY 4 days #4 tabs 04/22/22 metronidazole 500 mg tablet 500 mg PO BID 4 days #8 tabs 04/22/22 Allergies Allergy/AdvReac Type Severity Reaction Status Date / Time amoxicillin [From AUGMENTIN] Allergy Intermediate FACIAL Verified 06/20/22 18:07 SWELLING, HIVES clavulanic acid Allergy Intermediate FACIAL Verified 06/20/22 18:07 [From AUGMENTIN] SWELLING, HIVES Iodinated Contrast Media Allergy Intermediate ITCHING, Verified 06/20/22 18:07 [IV CONTRAST] FACIAL SWELLING, HIVES oral contrast Allergy Unknown facial Uncoded 06/20/22 18:07 swellling Review of Systems Review of Systems: Yes Unobtainable due to mental condition PMFSH Past Medical History [facility] Narrative: Past medical history: Reviewed below, patient also states she has hyperlipidemia. Medical History Abdominal pain Diverticulitis HTN (hypertension) Surgical History H/O hemorrhoidectomy History of tubal ligation Hx of carpal tunnel repair Family History Family History Father Prostate cancer Social History Social History Household Members: Family Household Members Other:: 3 Housing: Apartment Do you presently have visiting nurse or other home services: No Alcohol intake: current Alcohol intake frequency: holidays/special occasions only Alcohol type: beer Patient Tobacco Use Status: Current everyday Tobacco user Tobacco use type: Cigarette Cigarettes Per Day: 7 e-Cigarette/Vaping Use: Former Use Second Hand Smoke Exposure: No Advance Directives: No Advance Directives Information Provided: No service: No Current occupational status: unemployed Physical Exam Vital Signs: Vital Signs: Last Vital Signs Pulse 85 09/10/22 22:32 Resp 20 09/10/22 22:32 BP 155/91 H 09/10/22 22:32 Pulse Ox 100 09/10/22 22:05 O2 Del Method 09/10/22 22:05 BMI result Body Mass Index 28.2 Vital signs were normal General: Diaphoretic, ill-appearing female patient, awake, answering questions appropriately, in distress secondary to her chest HEENT: Head normal cephalic, atraumatic, pupils equal round reactive light, sclera contact however normal, mouth throat moist member Neck: Supple, no adenopathy Lungs: Clear to auscultation breath sounds symmetric bilateral Heart: Regular rate rhythm, normal S1-S2 Abdomen: Soft, nontender nondistended, obese Back: No CVA tender Extremities: Normal Neuro: Nonfocal Medications Administered Discontinued Medications Generic Name Dose Route Start Last Admin Trade Name Pawanq PRN Reason Stop Dose Admin Aspirin 324 mg 09/10/22 22:33 09/10/22 22:44 Aspirin 81 Mg Tab.Chew PO 09/10/22 22:34 324 mg ONCE ONE Administration Atorvastatin Calcium 80 mg 09/10/22 22:33 09/10/22 22:47 Atorvastatin Calcium 80 Mg Tablet PO 09/10/22 22:34 80 mg ONCE ONE Administration Fentanyl 50 mcg 09/10/22 22:33 09/10/22 22:46 Fentanyl Citrate/Pf 100 Mcg/2 Ml Vial IVPUSH 09/10/22 22:34 50 mcg ONCE ONE Administration Protocol Heparin Sodium (Porcine) 4,000 unit 09/10/22 22:41 09/10/22 22:47 Heparin Sodium,Porcine 5,000 Unit/Ml Vial IVPUSH 09/10/22 22:42 4,000 unit ONCE ONE Administration Medical Decision Making Medical Decision Making [facility] Narrative: 47-year-old female who presents emergency department for evaluation of intermittent chest pain since 08/30/2022, pain started today at 16:00 hours. On presentation to the emergency department the patient was diaphoretic and her EKG was abnormal. When she was brought back to in ED room she had a ventricular fibrillation cardiac arrest which was treated with amiodarone 300 mg IV and she was defibrillated with 200 joules. The patient did have CPR for approximately 2 minutes prior to being defibrillated. Patient's EKG is concerning for an anterior wall myocardial infarction. I did discuss the patient's presentation with the day camp counselor, Dr. Juárez and he was able to review the patient's EKGs and rhythm strip. He was concerned that the patient was having anterior wall myocardial infarction any did accept the patient as a transfer from our ED to the [facility] for emergent cardiac catheterization The patient was treated with aspirin 324 mg to chew, atorvastatin 80 mg orally, heparin 4000 unit bolus, heparin drip, amiodarone drip, fentanyl 50 mcg IV x2, fentanyl 100 mcg IV x1. She is also given Benadryl 50 mg IV and Solu-Medrol 125 mg IV pre cardiac catheterization to try to prevent an allergic reaction from the contrast dye. The patient was transferred by ALS ambulance to [facility] for further management. 2322: My independent interpretation of the patient's labs: WBC elevated 24,000, H&H normal 13.9 and 42.6, platelet count elevated 429,000. Potassium low 3.1, bicarb low 15, glucose elevated 163. PT/INR, PTT pending. Troponin pending. Chest x-ray revealed low lung volumes with bibasilar atelectasis no acute pulmonary findings. The mediastinum does not appear to be wide on my interpretation of this x-ray Differential Diagnosis Differential diagnosis includes but is not limited to acute myocardial infarction, ventricular fibrillation Consult Healthcare Provider Management of the patient was discussed with: Lapidary Apprentice (supervisor carpenters at [facility]) Lab Data [facility] Lab Attestation statement: I reviewed the patient's lab results. Please see [facility] for my interpretation 09/10/22 22:35 09/10/22 22:35 Labs: Lab Results 09/10/22 Range/Units 22:31 POC Glucose 171 H (60-115) mg/dL Independent Interpretation I performed an independent interpretation of an: Plain X-Ray Interpretation: My independent interpretation of the patient's one-view chest x-ray: No widening of the mediastinum no acute process My independent interpretation of the patient's EKGs are as follows: 2213: Sinus rhythm with a rate of 78, normal CO, QRS and QTC durations, [address] segment depression leads 1 and 2, ST segment elevation V1, V2, V3 and V4 with peaked T-waves in these leads. 2228: EKG obtained after the patient was defibrillated. Wide complex rhythm with a rate of 67, new right bundle-branch block. 2226: Rhythm strip-ventricular fibrillation Radiology Impression Discussion of test interpretation with radiology: I have reviewed the radiologist's reading. Radiologist Impression: EXAMINATION: XR CHEST CLINICAL INFORMATION: vfib COMPARISON: 08/11/2018 TECHNIQUE: Frontal view of the chest was obtained. FINDINGS: Lung volumes are low with bibasilar atelectasis. No consolidation, pneumothorax, or pleural effusion. Cardiac and meniscal contours are normal. Pulmonary vasculature is unremarkable. No acute osseous findings. Defibrillator pad overlies the right hemithorax. XR/XR chest 1V IMPRESSION: Low lung volumes with bibasilar atelectasis. No acute pulmonary findings. Dictated By:nSigned By:<Electronically signed by n in OV>09/10/22 2248 Critical Care Time Critical Care Time Total Critical Care Time: 45 Attestation: Critical Care: The patient was critically ill with a high probability of imminent or life threatening deterioration. I spent greater than 30 minutes of discontinuous time evaluating the patient,delivering critical care at the bedside, discussing and evaluating pertinent data with consultants. Critical care time does not include time spent performing separately billable procedures or teaching. Total time spent performing critical care was 45 minutes. Discharge Plan Discharge Clinical Impression: Acute anterior myocardial infarction, Cardiac arrest with ventricular fibrillation Patient Disposition: [facility] Transfer Details: [facility] cardiac catheterization lab Prescriptions: No Action buspirone 5 mg tablet 1 tab PO BID fluticasone propionate 50 mcg/actuation spray,suspension 1 spray intranasal TID PRN (Reason: Allergy Symptoms) rosuvastatin 10 mg tablet 1 tab PO BEDTIME albuterol sulfate 90 mcg/actuation HFA aerosol inhaler 2 puff inhalation Q6H PRN (Reason: Wheezing) lisinopril-hydrochlorothiazide 20-12.5 mg tablet 1 tab PO DAILY ibuprofen 800 mg tablet 800 mg PO TID (DME) blood pressure test kit-large Kit See Rx Instructions .ROUTE BID Qty: 1 Rx Instructions: As directed polyethylene glycol 3350 [Miralax] 17 gram/dose powder 17 g PO DAILY Qty: 119 0RF levofloxacin 500 mg tablet 500 mg PO DAILY 10 Days Qty: 10 0RF metronidazole 500 mg tablet 500 mg PO Q8H Qty: 30 0RF oxycodone-acetaminophen [Percocet] 5-325 mg tablet 1 tab PO Q12H PRN (Reason: pain (scale score 7-10)) Qty: 10 0RF levofloxacin 500 mg tablet 500 mg PO DAILY 4 Days Qty: 4 0RF metronidazole 500 mg tablet 500 mg PO BID 4 Days Qty: 8 0RF
[2022-09-10] MEDS: diphenhydrAMINE HCL 50 MG/ML VIAL IVPUSH (22:54)
[2022-09-10 22:55] LABS: Basophils Absolute Auto 0.2 X10*3/uL (0.0-0.2); Basophils Percent Auto 0.8 % (0-2); Eosinophils Absolute Auto 0.3 X10*3/uL (0.0-0.4); Eosinophils Percent Auto 1.4 % (0-4); Hematocrit 42.6 % (37.0-47.0); Hemoglobin 13.9 g/dl (12.0-16.0); Imm Gran Abs Auto 0.78 X10*3/uL (0.00-0.03); Imm Gran Pct Auto 3.2 % (0.0-0.4); Lymphocytes Percent Auto 31.7 % (20-40); MANUAL DIFF FLAG SCAN; Mean Corpuscular HGB Conc 32.6 g/dl (31.0-35.0); Mean Corpuscular Hemoglobin 28.1 pg (27.0-33.0); Mean Corpuscular Volume 86.2 fL (80.0-98.0); Mean Platelet Volume 10.6 fL (9.4-12.3); Monocytes Absolute Auto 1.3 X10*3/uL (0.1-1.2); Monocytes Percent Auto 5.6 % (2-11); NRBC Pct Auto 0.1 /100WBC (0.0-0.2); Neutrophils Absolute Auto 13.8 x10*3/uL (2.0-8.3); Neutrophils Percent Auto 57.3 % (45-73); Platelet Count 429 X10*3/uL (160-400); Red Blood Count 4.94 X10*6/uL (4.20-5.50); Red Cell Distribution Width 15.9 % (11.0-16.0); SCAN SMEAR FLAG 1
[2022-09-10] MEDS: methylPREDNISolone Sod Succ 125 MG/2 ML VIAL IVPUSH (22:55)
[2022-09-10] MEDS: Amiodarone HCL 900 MG in 0.9 % Sodium Chloride 500 ML 34.53 MG IVCONT (22:58)
[2022-09-10 23:02] LABS: Lymphocytes Absolute Auto 7.6 X10*3/uL (1.2-4.9)
[2022-09-10] MEDS: Heparin Sodium,Porcine/1/2NS 25,000 UNIT/250 ML IV.SOLN 8.64 UNIT IVCONT (23:02)
[2022-09-10] MEDS: fentaNYL citrate/PF 100 MCG/2 ML VIAL IVPUSH (23:11)
[2022-09-10 23:14] LABS: SLIDE REVIEW VERIFIED
[2022-09-10 23:18] LABS: Anion Gap 19 (12-20); Blood Urea Nitrogen 14 mg/dL (9-16); Calcium 8.1 mg/dL (8.4-10.2); Carbon Dioxide 15 mmol/L (22-29); Chloride 106 mmol/L (96-108); Creatinine Clr Calc Pharmacy 100.6; Estimated Glomerular Filt Rate > 60; Glucose Random 163 mg/dL (60-115); Potassium 3.1 mmol/L (3.3-5.1); Sodium 137 mmol/L (135-145)
--- NOTE | 2022-09-10 23:32 | PC.NURSE ---
Addendum entered by Gabby Horan RN 09/10/22 23:53: Rosc was acheived at 2228. Addendum entered by Gabby Horan RN 09/10/22 23:46: Veronica at [facility] called for Nurse to Nurse report at [phone]. Cardiac laborer mine RN called HH for report at [phone]. Trop-121.9- K-3.1, CA-8.1, WBC 24.0, Plts- 429. Original Note: Patient arrived to ed 11 at 2220pm. Patient crying and diaphoretic c/o 10/10 chest pain. Patient put on quality assurance monitor final was in VFIB when I look at her face she had become unresponsive. Called Code at 2225, CPR started at 2224, applied pads at 6. Amiodarone 300mg given at 0. 2 ivs placed in both AC's 20g. Patient placed on Non-rebreather 2226. POC-171 223. tele: sinus rythym 80's
[2022-09-10 23:38] LABS: Troponin-I High Sensitivity 121.9 ng/L (<3.5-17.0)
== END 2022-09-10 23:53 | disposition short-term general hospital (02) ==
PROVIDERS: Internal Medicine; Emergency Provider Emergency Medicine Emergency Medical Services
DX: I21.9 Acute myocardial infarction, unspecified (principal); I46.2 Cardiac arrest due to underlying cardiac condition; I49.01 Ventricular fibrillation; I10 Essential (primary) hypertension; F17.210 Nicotine dependence, cigarettes, uncomplicated; Z79.899 Other long term (current) drug therapy; Z79.02 Long term (current) use of antithrombotics/antiplatelets
CPT/HCPCS: 36415; 71045; 80048; 82947; 84484; 85025; 92960; 93005; 96365; 96375; 96376; 99285; J0171; J0282; J1200; J1643; J2930; J3010

== ENCOUNTER 2023-01-13 15:06 | Emergency (ER) | payer MEDICARE, MEDICAID, SELFPAY ==
--- NOTE | ~2023-01-13 | XR_ITS ---
EXAMINATION: XR CHEST CLINICAL INFORMATION: Chest pain. COMPARISON: Chest radiograph 09/10/2022. TECHNIQUE: AP view of the chest was obtained. FINDINGS: No significant abnormality is noted involving the heart, lungs, mediastinum, bony thorax or soft tissues. XR/XR chest 1V IMPRESSION: Unremarkable examination.
--- NOTE | 2023-01-13 15:08 | ECG_ITS ---
Test Reason : CP Blood Pressure : / mmHG Vent. Rate : 069 BPM Atrial Rate : 069 BPM P-R Int : 154 ms QRS Dur : 088 ms QT Int : 396 ms P-R-T Axes : 039 -22 110 degrees QTc Int : 424 ms Normal sinus rhythm Possible Left atrial enlargement Left ventricular hypertrophy ( R in aVL , Ivan product ) Cannot rule out Septal infarct , age undetermined T wave abnormality, consider lateral ischemia Abnormal ECG When compared with ECG of 10-SEP-2022 22:13, Minimal criteria for Septal infarct are now Present ST no longer elevated in Anterior leads T wave inversion now evident in Lateral leads Referred By: Josi Arroyo Electronically Signed By:WHITNEY COOPER MD
[2023-01-13 15:17] VITALS: BP 143/83; PULSE 65; RESP 16; TEMP 36; O2SAT 95; BMI 28.1
--- NOTE | 2023-01-13 15:17 | ED_ITS ---
HPI - Chest Pain General Chief Complaint: Chest Pain Stated Complaint: chest pain since this morning Time Seen by Provider: 01/13/23 16:14 Source: patient and family Mode of arrival: ambulatory Limitations: no limitations History of Present Illness HPI narrative: [age] year female history of acute NE complicated with vFib cardiac arrest presented with left-sided chest pain started 11:00 this morning pain has intermittent feels pressure,, patient admitted that the pain is similar to the pain when she had NE, declined any recent travel, no lower extremity swelling or edema, no shortness of breath but patient feels her breathing is heavier than normal. Pain is not radiating, no other associated symptoms. Related Data Home Medications Medication Instructions Recorded Confirmed albuterol sulfate 90 mcg/actuation 2 puff inhalation Q6H PRN Wheezing 07/02/20 04/18/22 aerosol inhaler buspirone 5 mg tablet 1 tab PO BID 01/15/22 02/04/22 fluticasone propionate 50 1 spray intranasal TID PRN Allergy 01/15/22 02/04/22 mcg/actuation nasal Symptoms spray,suspension rosuvastatin 10 mg tablet 1 tab PO BEDTIME 01/15/22 02/04/22 blood pressure test kit-large #1 ea 01/21/22 01/21/22 ibuprofen 800 mg tablet 800 mg PO TID 01/21/22 02/04/22 lisinopril 20 1 tab PO DAILY 01/21/22 02/04/22 mg-hydrochlorothiazide 12.5 mg tablet Previous Rx's Medication Instructions Recorded polyethylene glycol 3350 17 17 g PO DAILY constipation #119 01/21/22 gram/dose oral powder (Miralax) grams levofloxacin 500 mg tablet 500 mg PO DAILY 10 days #10 tabs 04/17/22 metronidazole 500 mg tablet 500 mg PO Q8H #30 tabs 04/17/22 oxycodone-acetaminophen 5 mg-325 1 tab PO Q12H PRN pain (scale 04/17/22 mg tablet (Percocet) score 7-10) #10 tabs levofloxacin 500 mg tablet 500 mg PO DAILY 4 days #4 tabs 04/22/22 metronidazole 500 mg tablet 500 mg PO BID 4 days #8 tabs 04/22/22 Allergies Allergy/AdvReac Type Severity Reaction Status Date / Time amoxicillin [From AUGMENTIN] Allergy Intermediate FACIAL Verified 01/13/23 15:17 SWELLING, HIVES clavulanic acid Allergy Intermediate FACIAL Verified 01/13/23 15:17 [From AUGMENTIN] SWELLING, HIVES Iodinated Contrast Media Allergy Intermediate ITCHING, Verified 01/13/23 15:17 [IV CONTRAST] FACIAL SWELLING, HIVES oral contrast Allergy Unknown facial Uncoded 06/20/22 18:07 swellling Review of Systems Review of Systems: All other systems are reviewed and are negative Constitutional: Reports as per HPI and Reports no additional constitutional complaints Eyes: Reports as per HPI and Reports no additional eye complaints Reports system reviewed and no additional complaints, except as documented Cardiovascular: Reports as per HPI and Reports no additional cardiovascular complaints Respiratory: Reports as per HPI and Reports no additional respiratory complaints Gastrointestinal: Reports as per HPI and Reports no additional gastrointestinal complaints Genitourinary: Reports no additional female genitourinary complaints Musculoskeletal: Reports no additional musculoskeletal complaints Skin/Breast: Reports system reviewed and no additional complaints, except as docu Psychiatric: Reports no additional psychiatric complaints Endocrine: Reports no additional endocrine complaints Hematologic/Lymphatic: Reports no additional hematologic/lymphatic complaints Allergic/Immunologic: Reports no additional allergic/immunologic complaints Reports system reviewed and no additional complaints, except as documented and Reports Abnormal speech present [facility] Past Medical History Medical History Abdominal pain Diverticulitis HTN (hypertension) Surgical History H/O hemorrhoidectomy History of tubal ligation Hx of carpal tunnel repair Family History Family History Father Prostate cancer Social History Social History Household Members: Family Household Members Other:: 3 Housing: Apartment Do you presently have visiting nurse or other home services: No Alcohol intake: current Alcohol intake frequency: a few times a week Alcohol type: beer Patient Tobacco Use Status: Current everyday Tobacco user Tobacco use type: Cigarette Cigarettes Per Day: 7 Smoked in Last 30 Days: Yes e-Cigarette/Vaping Use: Former Use Second Hand Smoke Exposure: No Use of substances other than those prescribed or required for medical reasons: No Advance Directives: No Advance Directives Information Provided: Yes service: No Current occupational status: unemployed Physical Exam Vital Signs: Vital Signs: Last Vital Signs Temp 97.7 F 01/13/23 18:00 Pulse 51 01/13/23 18:32 Resp 18 01/13/23 18:00 BP 127/78 01/13/23 18:32 Pulse Ox 99 01/13/23 18:00 O2 Del Method Room Air 01/13/23 18:00 BMI result Body Mass Index 28.1 Vital signs have been reviewed as appeared to be correct. Blood pressure normal. Heart rate normal. Respiration rate normal. Temperature normal. Oxygen saturation normal. Appearance: Alert. Oriented X3. No acute distress. Head: Normal external exam. Normocephalic. Atraumatic. No Lau signs noted. No raccoon eyes noted Eyes: PERRLA. EOMI. Conjunctiva and sclera normal. Eyelids normal. ENT: TM's Normal. Pharynx normal. Uvula midline. Moist mucous membranes. No trismus noted. No drooling noted. No muffled voice noted. Neck: Normal inspection. Neck supple. FROM. No adenopathy. Thyroid Normal. No meningeal signs. No neck mass noted. CVS: Normal heart rate and rhythm. Heart sound normal. No murmurs noted. Pulses normal throughout. Respiratory: No respiratory distress. Painless inspiration. Breath sounds normal. No wheezes/rales/rhonchi noted. Chest nontender. No accessory muscle usage noted or decreased air movement noted. Abdomen: Soft and nontender. Bowel sounds normal in all 4 quadrants. No distention noted. No organomegaly noted. No visible injury noted. Back: No CVA tenderness. Full range of motion noted. Skin: Skin warm and dry. Normal skin color. Normal skin turgor. No rashes/lesions/lacerations noted. Extremities: No lower extremity edema. Extremities exhibit normal range of motion. Extremities nontender. Neuro: Oriented X 3. Cranial nerve exam: II-XII are grossly intact No motor deficit. No sensory deficit. Reflexes normal. Course Course Course Narrative: RME: 47-year-old female with a past medical history NE with VFib arrest s/p stent and balloon placement in September presenting to the ED complaining of inte rmittent substernal/left-sided chest pain since 10:30. Admits symptoms are similar to prior NE EKG, labs ordered. Charge nurse aware Full HPI, ROS and PE to be performed by primary ED provider. Reevaluation(s) Reevaluation #1: 47-year-old female with history of MIs that require 1 stent placed, came in with chest pain that is intermittent since this morning, patient has unremarkable/unchanged EKG with negative serial troponin. Patient also at low risk for pulmonary embolism with negative D-dimer. Discharge home to follow-up with PCP. Time: 19:11 Medications Administered Discontinued Medications Generic Name Dose Route Start Last Admin Trade Name Freumesh PRN Reason Stop Dose Admin Acetaminophen 650 mg 01/13/23 17:15 01/13/23 17:51 Acetaminophen 325 Mg Tablet PO 01/13/23 17:16 650 mg ONCE ONE Administration Morphine Sulfate 1 mg 01/13/23 16:46 01/13/23 17:51 Morphine Sulfate 2 Mg/Ml Cartridge IVPUSH 01/13/23 16:47 Not Given ONCE ONE Protocol Nitroglycerin 0.5 inch 01/13/23 16:46 01/13/23 18:32 Nitroglycerin 2 % Oint 1 Gm Packet TRANSDERMA 01/13/23 16:47 0.5 inch ONCE ONE Administration Medical Decision Making Differential Diagnosis Differential Diagnoses: The differential diagnosis associated with the presentation includes (ACS, pneumonia, pneumothorax, rib fracture, pulmonary embolism, electrolytes abnormalities, severe anemia.) Admission/Observation Consideration of admission/observation: Escalation of care including admi ssion/observation considered Lab Data MDM Lab Attestation statement: I reviewed the patient's lab results. 01/13/23 15:26 01/13/23 15:26 Labs: Lab Results 01/13/23 01/13/23 01/13/23 Range/Units 15:26 15:26 15:26 WBC 11.3 H (4.8-10.8) X10*3/uL RBC 5.15 (4.20-5.50) X10*6/uL Hgb 15.5 (12.0-16.0) g/dl Hct 47.7 H (37.0-47.0) % MCV 92.6 (80.0-98.0) fL MCH 30.1 (27.0-33.0) pg MCHC 32.5 (31.0-35.0) g/dl RDW 14.7 (11.0-16.0) % Plt Count 310 D (160-400) X10*3/uL MPV 11.0 (9.4-12.3) fL Immature Gran % (Auto) 0.4 (0.0-0.4) % Neut % (Auto) 73.1 H (45-73) % Lymph % (Auto) 20.0 (20-40) % [place] % (Auto) 3.9 (2-11) % Eos % (Auto) 1.8 (0-4) % Baso % (Auto) 0.8 (0-2) % Lymph # (Auto) 2.3 (1.2-4.9) X10*3/uL [place] # (Auto) 0.4 (0.1-1.2) X10*3/uL Eos # (Auto) 0.2 (0.0-0.4) X10*3/uL Baso # (Auto) 0.1 (0.0-0.2) X10*3/uL Abs Immat Gran (auto) 0.05 H (0.00-0.03) X10*3/uL Absolute Neuts (auto) 8.2 (2.0-8.3) x10*3/uL Absolute Nucleated RBC 0.000 (0.0-0.012) X10*3/uL Nucleated RBC % (auto) 0.0 (0.0-0.2) /100WBC PT (10.0-13.1) SEC INR (0.9-1.1) D-Dimer High Sensitivty NG/ML Sodium 138 (135-145) mmol/L Potassium 4.2 D (3.3-5.1) mmol/L Chloride 106 (96-108) mmol/L Carbon Dioxide 22 (22-29) mmol/L Anion Gap 14 (12-20) BUN 13 (9-16) mg/dL Creatinine 0.80 (0.5-1.4) mg/dL Estim Creat Clear Calc 102.9 Estimated GFR > 60 Random Glucose 155 H (60-115) mg/dL Calcium 9.8 D (8.4-10.2) mg/dL Magnesium 2.1 (1.6-2.6) mg/dL Total Bilirubin 0.7 (0.0-1.0) mg/dL Direct Bilirubin 0.2 (0.0-0.5) mg/dL AST 12 (5-31) U/L ALT 13 (0-31) U/L Alkaline Phosphatase 97 (39-117) U/L Troponin I High Sens 10.6 D (<3.5-17.0) ng/L B-Natriuretic Peptide (<100) pg/mL Total Protein 7.9 (6.5-8.0) g/dL Albumin 4.4 (3.5-5.0) g/dL 01/13/23 01/13/23 01/13/23 Range/Units 15:26 15:26 Unknown WBC (4.8-10.8) X10*3/uL RBC (4.20-5.50) X10*6/uL Hgb (12.0-16.0) g/dl Hct (37.0-47.0) % MCV (80.0-98.0) fL MCH (27.0-33.0) pg MCHC (31.0-35.0) g/dl RDW (11.0-16.0) % Plt Count (160-400) X10*3/uL MPV (9.4-12.3) fL Immature Gran % (Auto) (0.0-0.4) % Neut % (Auto) (45-73) % Lymph % (Auto) (20-40) % [place] % (Auto) (2-11) % Eos % (Auto) (0-4) % Baso % (Auto) (0-2) % Lymph # (Auto) (1.2-4.9) X10*3/uL [place] # (Auto) (0.1-1.2) X10*3/uL Eos # (Auto) (0.0-0.4) X10*3/uL Baso # (Auto) (0.0-0.2) X10*3/uL Abs Immat Gran (auto) (0.00-0.03) X10*3/uL Absolute Neuts (auto) (2.0-8.3) x10*3/uL Absolute Nucleated RBC (0.0-0.012) X10*3/uL Nucleated RBC % (auto) (0.0-0.2) /100WBC PT 11.3 (10.0-13.1) SEC INR 1.0 (0.9-1.1) D-Dimer High Sensitivty < 150 NG/ML Sodium (135-145) mmol/L Potassium (3.3-5.1) mmol/L Chloride (96-108) mmol/L Carbon Dioxide (22-29) mmol/L Anion Gap (12-20) BUN (9-16) mg/dL Creatinine (0.5-1.4) mg/dL Estim Creat Clear Calc Estimated GFR Random Glucose (60-115) mg/dL Calcium (8.4-10.2) mg/dL Magnesium (1.6-2.6) mg/dL Total Bilirubin (0.0-1.0) mg/dL Direct Bilirubin (0.0-0.5) mg/dL AST (5-31) U/L ALT (0-31) U/L Alkaline Phosphatase (39-117) U/L Troponin I High Sens (<3.5-17.0) ng/L B-Natriuretic Peptide 238 H (<100) pg/mL Total Protein (6.5-8.0) g/dL Albumin (3.5-5.0) g/dL 01/13/23 Range/Units Unknown WBC (4.8-10.8) X10*3/uL RBC (4.20-5.50) X10*6/uL Hgb (12.0-16.0) g/dl Hct (37.0-47.0) % MCV (80.0-98.0) fL MCH (27.0-33.0) pg MCHC (31.0-35.0) g/dl RDW (11.0-16.0) % Plt Count (160-400) X10*3/uL MPV (9.4-12.3) fL Immature Gran % (Auto) (0.0-0.4) % Neut % (Auto) (45-73) % Lymph % (Auto) (20-40) % [place] % (Auto) (2-11) % Eos % (Auto) (0-4) % Baso % (Auto) (0-2) % Lymph # (Auto) (1.2-4.9) X10*3/uL [place] # (Auto) (0.1-1.2) X10*3/uL Eos # (Auto) (0.0-0.4) X10*3/uL Baso # (Auto) (0.0-0.2) X10*3/uL Abs Immat Gran (auto) (0.00-0.03) X10*3/uL Absolute Neuts (auto) (2.0-8.3) x10*3/uL Absolute Nucleated RBC (0.0-0.012) X10*3/uL Nucleated RBC % (auto) (0.0-0.2) /100WBC PT (10.0-13.1) SEC INR (0.9-1.1) D-Dimer High Sensitivty NG/ML Sodium (135-145) mmol/L Potassium (3.3-5.1) mmol/L Chloride (96-108) mmol/L Carbon Dioxide (22-29) mmol/L Anion Gap (12-20) BUN (9-16) mg/dL Creatinine (0.5-1.4) mg/dL Estim Creat Clear Calc Estimated GFR Random Glucose (60-115) mg/dL Calcium (8.4-10.2) mg/dL Magnesium (1.6-2.6) mg/dL Total Bilirubin (0.0-1.0) mg/dL Direct Bilirubin (0.0-0.5) mg/dL AST (5-31) U/L ALT (0-31) U/L Alkaline Phosphatase (39-117) U/L Troponin I High Sens 13.5 (<3.5-17.0) ng/L B-Natriuretic Peptide (<100) pg/mL Total Protein (6.5-8.0) g/dL Albumin (3.5-5.0) g/dL Independent Interpretation I performed an independent interpretation of an: EKG (Normal sinus rhythm at 69 beats per minutes, left axis deviation, no ST-T changes.) and Plain X-Ray (Chest: Unremarkable exam.) Radiology Impression Discussion of test interpretation with radiology: I have reviewed the radiologist's reading. Discharge Plan Discharge Clinical Impression: Atypical chest pain Patient Disposition: Home, Self-Care Instructions: Chest Pain (ED) Prescriptions: No Action buspirone 5 mg tablet 1 tab PO BID fluticasone propionate 50 mcg/actuation spray,suspension 1 spray intranasal TID PRN (Reason: Allergy Symptoms) rosuvastatin 10 mg tablet 1 tab PO BEDTIME albuterol sulfate 90 mcg/actuation HFA aerosol inhaler 2 puff inhalation Q6H PRN (Reason: Wheezing) lisinopril-hydrochlorothiazide 20-12.5 mg tablet 1 tab PO DAILY ibuprofen 800 mg tablet 800 mg PO TID (DME) blood pressure test kit-large Kit See Rx Instructions .ROUTE BID Qty: 1 Rx Instructions: As directed polyethylene glycol 3350 [Miralax] 17 gram/dose powder 17 g PO DAILY Qty: 119 0RF levofloxacin 500 mg tablet 500 mg PO DAILY 10 Days Qty: 10 0RF metronidazole 500 mg tablet 500 mg PO Q8H Qty: 30 0RF oxycodone-acetaminophen [Percocet] 5-325 mg tablet 1 tab PO Q12H PRN (Reason: pain (scale score 7-10)) Qty: 10 0RF levofloxacin 500 mg tablet 500 mg PO DAILY 4 Days Qty: 4 0RF metronidazole 500 mg tablet 500 mg PO BID 4 Days Qty: 8 0RF Referrals: Name,MD Vincenzo [Primary Care Provider] -
[2023-01-13 15:32] LABS: MANUAL DIFF FLAG NO
[2023-01-13 15:38] LABS: Basophils Absolute Auto 0.1 X10*3/uL (0.0-0.2); Basophils Percent Auto 0.8 % (0-2); Eosinophils Absolute Auto 0.2 X10*3/uL (0.0-0.4); Eosinophils Percent Auto 1.8 % (0-4); Hematocrit 47.7 % (37.0-47.0); Hemoglobin 15.5 g/dl (12.0-16.0); Imm Gran Abs Auto 0.05 X10*3/uL (0.00-0.03); Imm Gran Pct Auto 0.4 % (0.0-0.4); Lymphocytes Absolute Auto 2.3 X10*3/uL (1.2-4.9); Mean Corpuscular HGB Conc 32.5 g/dl (31.0-35.0); Mean Corpuscular Hemoglobin 30.1 pg (27.0-33.0); Mean Corpuscular Volume 92.6 fL (80.0-98.0); Monocytes Absolute Auto 0.4 X10*3/uL (0.1-1.2); Monocytes Percent Auto 3.9 % (2-11); Neutrophils Absolute Auto 8.2 x10*3/uL (2.0-8.3); Neutrophils Percent Auto 73.1 % (45-73); Platelet Count 310 X10*3/uL (160-400); Red Blood Count 5.15 X10*6/uL (4.20-5.50); Red Cell Distribution Width 14.7 % (11.0-16.0); White Blood Count 11.3 X10*3/uL (4.8-10.8)
[2023-01-13 15:40] VITALS: BP 141/84; PULSE 61; RESP 15; TEMP 36.6; O2SAT 100
[2023-01-13 15:41] LABS: Prothrombin Time 11.3 SEC (10.0-13.1)
[2023-01-13 15:50] LABS: Alanine Aminotransferase 13 U/L (0-31); Albumin Level 4.4 g/dL (3.5-5.0); Alkaline Phosphatase 97 U/L (39-117); Anion Gap 14 (12-20); Aspartate Amino Transferase 12 U/L (5-31); Bilirubin Direct 0.2 mg/dL (0.0-0.5); Bilirubin Total 0.7 mg/dL (0.0-1.0); Blood Urea Nitrogen 13 mg/dL (9-16); Calcium 9.8 mg/dL (8.4-10.2); Carbon Dioxide 22 mmol/L (22-29); Chloride 106 mmol/L (96-108); Creatinine Clr Calc Pharmacy 102.9; Estimated Glomerular Filt Rate > 60; Glucose Random 155 mg/dL (60-115); Magnesium 2.1 mg/dL (1.6-2.6); Potassium 4.2 mmol/L (3.3-5.1); Sodium 138 mmol/L (135-145); Total Protein 7.9 g/dL (6.5-8.0)
[2023-01-13 15:57] LABS: B Type Natriuretic Peptide 238 pg/mL (<100)
[2023-01-13 15:58] LABS: Troponin-I High Sensitivity 10.6 ng/L (<3.5-17.0)
[2023-01-13 17:04] LABS: D Dimer High Sensitivity < 150 NG/ML
[2023-01-13 17:25] LABS: Troponin-I High Sensitivity 13.5 ng/L (<3.5-17.0)
[2023-01-13] MEDS: Acetaminophen 325 MG TABLET 650 MG PO (17:51)
[2023-01-13 18:00] VITALS: BP 127/78; PULSE 51; RESP 18; TEMP 36.5; O2SAT 99
[2023-01-13 18:32] VITALS: BP 127/78; PULSE 51
[2023-01-13] MEDS: Nitroglycerin 2 % Oint 1 GM Packet 0.5 INCH TRANSDERMA (18:32)
[2023-01-13 19:16] LABS: Troponin-I High Sensitivity 13.8 ng/L (<3.5-17.0)
[2023-01-13 19:45] VITALS: BP 131/81; PULSE 51; RESP 12; TEMP 36.7
--- NOTE | 2023-01-13 19:47 | PC.NURSE ---
patient in the process of being discharged patient vitals are stable at this time patient will be realeased after receiving paperwork
== END 2023-01-13 19:50 | disposition home or self-care (01) ==
PROVIDERS: Physician Assistant; Emergency Provider Emergency Medicine; PCP Internal Medicine Geriatric Medicine
DX: R07.89 Other chest pain (principal); R06.02 Shortness of breath; F17.210 Nicotine dependence, cigarettes, uncomplicated; Z71.6 Tobacco abuse counseling; Z79.899 Other long term (current) drug therapy
CPT/HCPCS: 36415; 71045; 80048; 80076; 83735; 83880; 84484; 85025; 85379; 85610; 93005; 99283; 99285

== ENCOUNTER 2023-03-10 14:13 | Outpatient (AMB) | payer MEDICARE, MEDICAID, SELFPAY ==
--- NOTE | 2023-03-10 14:15 | MHC.OFFVIS ---
Intake Vital Signs 03/10/23 14:23 Height 5 ft 9 in Weight 191 lb 8 oz BMI 28.3 BP 174/101 H Blood Pressure Location Lt brachial Position Sitting Intake Visit Reasons: left breast nipple discharge Intake Note: Patient is seen in office for nipple discharge of the left breast. Patient c/o: admits to discharge for the past year and a half, left breast, for the last 3 weeks bloody greenish discharge from the nipple when squeezing, denies any odor, breast is sore [employer] Supervisor Required: No Accompanied by: Family/Other Allergies amoxicillin [From AUGMENTIN] Allergy (Intermediate, Verified 03/10/23 14:22) FACIAL SWELLING, HIVES clavulanic acid [From AUGMENTIN] Allergy (Intermediate, Verified 03/10/23 14:22) FACIAL SWELLING, HIVES Iodinated Contrast Media [IV CONTRAST] Allergy (Intermediate, Verified 03/10/23 14:22) ITCHING, FACIAL SWELLING, HIVES oral contrast Allergy (Unknown, Uncoded 03/10/23 14:22) facial swellling Medication List - Last Reconciled 03/10/23 by Kp Guzman MD albuterol sulfate 90 mcg/actuation 2 puffs inhalation Q6H PRN blood pressure test kit-large As directed buspirone 1 tab PO BID fluticasone propionate 50 mcg/actuation 1 spray intranasal TID PRN ibuprofen 800 mg PO TID levofloxacin 500 mg PO DAILY 4 days levofloxacin 500 mg PO DAILY 10 days lisinopril-hydrochlorothiazide 20-12.5 mg 1 tab PO DAILY metronidazole 500 mg PO Q8H metronidazole 500 mg PO BID 4 days oxycodone-acetaminophen 5-325 mg (Percocet) 1 tab PO Q12H PRN polyethylene glycol 3350 (Miralax) 17 grams PO DAILY rosuvastatin 1 tab PO BEDTIME HPI HPI Comments History of Present Illness Details 47-year-old female patient presenting for evaluation of left nipple discharge. Discharge started initially as pain around the nipple with sensation of fullness. She subsequently squeeze the nipple and noted a large collection of fluid which initially was bloody. She also noted green and white discharge from several areas in the left nipple. She occasionally has discharge from the right nipple but not to the extent seen in the left nipple. She now reports less pain and no further bleeding but continues to be able to express cloudy in green discharge. Her last mammogram at the [facility] was performed in 2020. Her family history is significant for breast cancer in her maternal aunt. She is and denies breast-feeding her children. [facility] Medical History Abdominal pain Diverticulitis HTN (hypertension) Surgical History H/O hemorrhoidectomy History of tubal ligation Hx of carpal tunnel repair Family History Father Prostate cancer Social History Household Members: Family Household Members Other:: 3 Housing: Apartment Do you presently have visiting nurse or other home services: No Alcohol intake: current Alcohol intake frequency: a few times a week Alcohol type: beer Patient Tobacco Use Status: Current everyday Tobacco user Tobacco use type: Cigarette Cigarettes Per Day: 7 e-Cigarette/Vaping Use: Former Use Second Hand Smoke Exposure: No service: No Current occupational status: unemployed Review of Systems Const All systems reviewed & are unremarkable except as noted in HPI and below Denies chills, Denies fever(s), Denies headache(s), Denies poor appetite and Denies weakness ENT Denies headache(s) Card Denies chest pain, Denies irregular heart rhythm, Denies palpitations and Denies dyspnea Resp Denies cough, Denies excessive phlegm production and Denies dyspnea GI Denies abdominal pain, Denies bloating, Denies change in bowel habits, Denies constipation, Denies heartburn, Denies diarrhea, Denies nausea and Denies vomiting Denies urinary frequency and Reports nipple discharge Musc Denies back pain, Denies muscle weakness and Denies numbness Skin/Breast Reports breast pain, Reports breast mass, Denies changing lesions, Reports nipple discharge and Denies unusual bruising Neuro Denies headache(s), Denies numbness, Denies paresthesias and Denies weakness Psych Denies anxiety and Denies depression Endo Denies palpitations Aki/Lymph Denies lymphadenopathy Physical Exam Vital Signs: Last Vital Signs BP 174/101 H 03/10/23 14:23 BMI result Body Mass Index 28.3 Const General: cooperative and no acute distress Nutritional Appearance: well nourished Orientation/consciousness: patient oriented x3 Limitations: no limitations HEENT Head: Yes normocephalic and Yes atraumatic Ears: hearing grossly normal bilaterally Chest Other: Mild fibrocystic pattern bilaterally. Patient is able to express a small amount of greenish discharge noted in 2 different ducts. No palpable masses associated with the area of discharge. No skin redness or dimpling. No tenderness to palpation. Axillary lymph nodes are not appreciated. Right breast reveals no skin change, nipple discharge, palpable mass or enlarged lymph nodes. Resp Effort & Inspection: normal respiratory effort, no audible wheezes, no cough and no respiratory distress Cardio Jugular venous distension: no JVD GI Inspection: Yes normal to inspection Skin Other: Warm, dry, no rash Neuro General: patient oriented x3 Extrem General: Yes no clubbing, cyanosis or edema Assessment & Plan Assessment & Plan (1) Discharge from left nipple: Code(s): N64.52 - Nipple discharge Plan 47-year-old female patient reports of bloody discharge now with persistent greenish discharge left greater than right. Examination revealed no suspicious findings in either breast with bilateral fibrocystic changes. I recommended further evaluation with a mammogram and ultrasound. These will be scheduled at the [facility] at her earliest convenience. I recommended she return following the studies to review the results and discuss treatment options. She expressed understanding and agrees with the plan. Orders: Orders MM diagnostic mammo BI Today N64.52 - Nipple discharge US breast LT limited Today N64.52 - Nipple discharge Coding Level of Care Code Est Pt Level 3 (22170) Diagnoses Discharge from left nipple N64.52
[2023-03-10 14:23] VITALS: BP 174/101; BMI 28.3
== END 2023-03-10 14:48 | disposition home or self-care (01) ==
PROVIDERS: PCP Internal Medicine Geriatric Medicine; Referring Provider Registered Nurse; Visit Provider Surgery
DX: N64.52 Nipple discharge (principal); Z80.3 Family history of malignant neoplasm of breast
CPT/HCPCS: 99213

== ENCOUNTER → 2023-03-10 14:13 | Outpatient (BNVA) | payer MEDICARE, MEDICAID, SELFPAY | PROVIDERS: PCP Internal Medicine Geriatric Medicine; Referring Provider Registered Nurse; Visit Provider Surgery | DX: N64.52 Nipple discharge (principal); I10 Essential (primary) hypertension; Z80.3 Family history of malignant neoplasm of breast; Z80.42 Family history of malignant neoplasm of prostate | CPT/HCPCS: 99212 ==

== ENCOUNTER 2023-04-08 08:12 | Outpatient (REF) | payer MEDICARE, MEDICAID, SELFPAY ==
--- NOTE | ~2023-04-08 | US_ITS ---
EXAMINATION: MM DIAGNOSTIC DIGITAL BREAST TOMOSYNTHESIS, BILATERAL US BREAST LIMITED, BILATERAL MAMMOGRAPHY: CLINICAL INFORMATION: 47-year-old female complaining of left nipple discharge. Also due for screening. Was due for six-month follow-up of anterior right breast calcifications which were evaluated last 10/06/2019, however the patient never returned further follow-up. COMPARISON: Mammography: 10/06/2019, 09/29/2019, and 07/29/2016. TECHNIQUE: Digital breast tomosynthesis is performed in both the craniocaudal and mediolateral oblique views along with computer-aided detection (CAD). Synthesized 2D images are generated from the tomosynthesis. In addition, 3-D spot compression right CC and MLO views were obtained, as well as 3-D spot compression left cc view. FINDINGS: There are scattered areas of fibroglandular density (ACR BI-RADS breast composition Category b). The previously questioned calcifications in the anterior medial right breast, have significantly decreased in conspicuity, and number, consistent with benign etiology. No further follow-up recommended. There is an oval focal asymmetry in the right breast, lower inner quadrant, middle one third, which persists on spot compression views, and will be evaluated with ultrasound. There is no mammographic abnormality identified in the left breast, and particular related to the retroareolar region. No suspicious masses, developing suspicious calcifications, or developing foci of architectural distortion in either breast. No skin changes noted. ULTRASOUND: CLINICAL INFORMATION: 47-year-old female complaining of left nipple discharge. Also, evaluating oval focal asymmetry right breast, lower inner quadrant, middle one third depth. COMPARISON: None relevant. TECHNIQUE: Targeted sonographic evaluation was performed using a high frequency linear transducer. Specific attention paid to the left retroareolar region secondary to complaint of nipple discharge, and attention also paid to the right breast lower inner quadrant where there is a focal asymmetry seen which persists. Selected archived documentation. FINDINGS: RIGHT BREAST: There is a mixture of fatty and fibroglandular tissue. No suspicious mass is seen. There is no pathologic acoustic shadowing. No sonographic abnormality could be identified in the lower inner quadrant right breast to correlate with the focal asymmetry seen on mammography. LEFT BREAST: There is a mixture of fatty and fibroglandular tissue. No suspicious mass is seen. There is no pathologic acoustic shadowing. Mild duct ectasia is noted without intraductal filling defect or mass. US/US breast BI limited mamm only IMPRESSION: There are no findings suspicious for malignancy. Benign breast calcifications anterior medial right breast require no further follow-up as detailed. No sonographic correlate to the focal asymmetry right breast lower inner quadrant. Recommend follow-up diagnostic right mammogram in 6 months to ensure stability to include standard tomographic right CC and MLO views. No mammographic or sonographic abnormality in the retroareolar left breast to explain nipple discharge. Recommend clinical management of this finding. OVERALL ASSESSMENT: Mammography: BI-RADS 3 - Probably benign finding(s) - 6 month follow-up suggested Ultrasound: BI-RADS 3 - Probably benign finding(s) - 6 month follow-up suggested RECOMMENDATION: 6 Month F/U This patient's information was entered into a reminder system with a target due date for their next mammogram.
== END 2023-04-08 08:13 | disposition home or self-care (01) ==
LOC: HO.MAMMO 08:12
PROVIDERS: PCP Internal Medicine Geriatric Medicine; Visit Provider Surgery
DX: N64.52 Nipple discharge (principal)
CPT/HCPCS: 76642; 77062; 77066

== ENCOUNTER → 2023-04-08 08:30 | Outpatient (BNV) | payer MEDICARE, MEDICAID, SELFPAY | PROVIDERS: PCP Internal Medicine Geriatric Medicine; Visit Provider Radiology Diagnostic Radiology | DX: R92.1 Mammographic calcification found on diagnostic imaging of breast (principal); R92.8 Other abnormal and inconclusive findings on diagnostic imaging of breast; N64.52 Nipple discharge | CPT/HCPCS: 76642; 77062; 77066; G0279 ==

== ENCOUNTER 2023-05-08 10:21 | Outpatient (AMB) | payer MEDICARE, MEDICAID, SELFPAY ==
--- NOTE | 2023-05-08 10:28 | A.OFFVIS_ITS ---
Intake Vital Signs 05/08/23 10:34 Height 5 ft 9 in Weight 188 lb 4.396 oz BMI 27.8 Pulse 60 Intake Visit Reasons: mammo and ultrasound results Intake Note: Patient is seen in office for mammogram and ultrasound results. Patient c/o: admits to sore and tender and very lumpy around the left breast Corrections Corporal Required: No Accompanied by: Family/Other Allergies amoxicillin [From AUGMENTIN] Allergy (Intermediate, Verified 05/08/23 10:34) FACIAL SWELLING, HIVES clavulanic acid [From AUGMENTIN] Allergy (Intermediate, Verified 05/08/23 10:34) FACIAL SWELLING, HIVES Iodinated Contrast Media [IV CONTRAST] Allergy (Intermediate, Verified 05/08/23 10:34) ITCHING, FACIAL SWELLING, HIVES oral contrast Allergy (Unknown, Uncoded 05/08/23 10:34) facial swellling HPI HPI Comments History of Present Illness Details 47-year-old female patient returning for follow-up examination after her recent mammogram and ultrasound of bilateral breast. She initially presented for evaluation of left nipple discharge. Discharge started initially as pain around the nipple with sensation of fullness. She subsequently squeeze the nipple and noted a large collection of fluid which initially was bloody. She also noted green and white discharge from several areas in the left nipple. She occasionally has discharge from the right nipple but not to the extent seen in the left nipple. She now reports less pain and no further bleeding but continues to be able to express cloudy in green discharge. Her last mammogram at the [facility] was performed in 2020. Her family history is significant for breast cancer in her maternal aunt. She is and denies breast-feeding her children. Mammogram and ultrasound revealed no suspicious findings to explain the nipple discharge pain. There is a low suspicion density noted on the right breast for which six-month follow-up is recommended. She continues to note pain and swelling behind the left nipple which is occurring today. This seems to wax and wane from day today. [facility] Medical History Diverticulitis Abdominal pain HTN (hypertension) Surgical History Hx of carpal tunnel repair History of tubal ligation H/O hemorrhoidectomy Family History Father Prostate cancer Social History Household Members: Family Household Members Other:: 3 Housing: Apartment Do you presently have visiting nurse or other home services: No Alcohol intake: current Alcohol intake frequency: a few times a week Alcohol type: beer Patient Tobacco Use Status: Current everyday Tobacco user Tobacco use type: Cigarette Cigarettes Per Day: 7 e-Cigarette/Vaping Use: Former Use Second Hand Smoke Exposure: No service: No Current occupational status: unemployed Review of Systems Const All systems reviewed & are unremarkable except as noted in HPI and below Denies chills, Denies fever(s), Denies headache(s), Denies poor appetite and Denies weakness ENT Denies headache(s) Card Denies chest pain, Denies irregular heart rhythm, Denies palpitations and Denies dyspnea Resp Denies cough, Denies excessive phlegm production and Denies dyspnea GI Denies abdominal pain, Denies bloating, Denies change in bowel habits, Denies constipation, Denies heartburn, Denies diarrhea, Denies nausea and Denies vomiting Denies urinary frequency and Reports nipple discharge Musc Denies back pain, Denies muscle weakness and Denies numbness Skin/Breast Reports breast pain, Reports breast mass, Denies changing lesions, Reports nipple discharge and Denies unusual bruising Neuro Denies headache(s), Denies numbness, Denies paresthesias and Denies weakness Psych Denies anxiety and Denies depression Endo Denies palpitations Aki/Lymph Denies lymphadenopathy Physical Exam Vital Signs: Last Vital Signs Pulse 60 05/08/23 10:34 BMI result Body Mass Index 27.8 Const General: cooperative and no acute distress Nutritional Appearance: well nourished Orientation/consciousness: patient oriented x3 Limitations: no limitations HEENT Head: Yes normocephalic and Yes atraumatic Ears: hearing grossly normal bilaterally Chest Other: Left breast with a palpable subareolar density in the 3 o'clock position measuring approximately 2 cm, very tender to palpation suggestive of an underl pablo infected lactiferous duct. Minimal to no erythema is noted in the overlying skin. Right breast reveals no skin change, nipple discharge, palpable mass or enlarged lymph nodes. Resp Effort & Inspection: normal respiratory effort, no audible wheezes, no cough and no respiratory distress Cardio Jugular venous distension: no JVD GI Inspection: Yes normal to inspection Skin Other: Warm, dry, no rash Neuro General: patient oriented x3 Extrem General: Yes no clubbing, cyanosis or edema Assessment & Plan Assessment & Plan (1) Discharge from left nipple: Code(s): N64.52 - Nipple discharge (2) Breast abscess: Code(s): N61.1 - Abscess of the breast and nipple Plan Patient presents with a probable developing left breast abscess. I recommended starting antibiotics for the next 2 weeks. She should follow-up in approximately 1 month for repeat examination. If lump is still present, she may benefit from an excision. Medications: New doxycycline hyclate 100 mg PO BID 28 tabs 1RF Discontinued polyethylene glycol 3350 (Miralax) Discontinued Reason: Patient Completed Course 17 grams PO DAILY 119 grams 0RF constipation K59.00 - Constipation, unspecified metronidazole Discontinued Reason: Patient Completed Course 500 mg PO Q8H 30 tabs 0RF K57.20 - Diverticulitis of large intestine with perforation and abscess without bleeding oxycodone-acetaminophen 5-325 mg (Percocet) Discontinued Reason: Patient Completed Course 1 tab PO Q12H PRN 10 tabs 0RF pain (scale score 7-10) N70.92 - Oophoritis, unspecified levofloxacin Discontinued Reason: Patient Completed Course 500 mg PO DAILY 4 days 4 tabs 0RF levofloxacin Discontinued Reason: Patient Completed Course 500 mg PO DAILY 10 days 10 tabs 0RF N70.92 - Oophoritis, unspecified metronidazole Discontinued Reason: Patient Completed Course 500 mg PO BID 4 days 8 tabs 0RF Coding Level of Care Code Est Pt Level 3 (28254) Diagnoses Discharge from left nipple N64.52 Breast abscess N61.1
[2023-05-08 10:34] VITALS: PULSE 60; BMI 27.8
== END 2023-05-08 10:47 | disposition home or self-care (01) ==
PROVIDERS: PCP Internal Medicine Geriatric Medicine; Visit Provider Surgery
DX: N64.52 Nipple discharge (principal); N61.1 Abscess of the breast and nipple
CPT/HCPCS: 99213

== ENCOUNTER → 2023-05-08 10:21 | Outpatient (BNVA) | payer MEDICARE, MEDICAID, SELFPAY | PROVIDERS: PCP Internal Medicine Geriatric Medicine; Visit Provider Surgery | DX: N61.1 Abscess of the breast and nipple (principal); N64.52 Nipple discharge | CPT/HCPCS: 99212 ==

== ENCOUNTER 2023-11-04 10:22 | Outpatient (REF) | payer MEDICARE, MEDICAID, SELFPAY ==
[2023-11-04 11:18] LABS: MANUAL DIFF FLAG NO
[2023-11-04 11:26] LABS: Basophils Absolute Auto 0.1 X10*3/uL (0.0-0.2); Basophils Percent Auto 0.9 % (0-2); Eosinophils Absolute Auto 0.2 X10*3/uL (0.0-0.4); Eosinophils Percent Auto 2.1 % (0-4); Hematocrit 51.8 % (37.0-47.0); Hemoglobin 16.9 g/dl (12.0-16.0); Imm Gran Abs Auto 0.08 X10*3/uL (0.00-0.03); Imm Gran Pct Auto 0.7 % (0.0-0.4); Lymphocytes Absolute Auto 2.6 X10*3/uL (1.2-4.9); Mean Corpuscular HGB Conc 32.6 g/dl (31.0-35.0); Mean Corpuscular Hemoglobin 31.4 pg (27.0-33.0); Mean Corpuscular Volume 96.1 fL (80.0-98.0); Mean Platelet Volume 11.2 fL (9.4-12.3); Monocytes Absolute Auto 0.4 X10*3/uL (0.1-1.2); Neutrophils Absolute Auto 7.4 x10*3/uL (2.0-8.3); Neutrophils Percent Auto 68.3 % (45-73); Platelet Count 273 X10*3/uL (160-400); Red Blood Count 5.39 X10*6/uL (4.20-5.50); Red Cell Distribution Width 14.6 % (11.0-16.0); White Blood Count 10.9 X10*3/uL (4.8-10.8)
[2023-11-04 11:54] LABS: Alanine Aminotransferase 27 U/L (0-31); Albumin Level 4.1 g/dL (3.5-5.0); Alkaline Phosphatase 110 U/L (39-117); Anion Gap 10 (12-20); Aspartate Amino Transferase 25 U/L (5-31); Bilirubin Total 0.2 mg/dL (0.0-1.0); Blood Urea Nitrogen 16 mg/dL (9-16); Calcium 9.9 mg/dL (8.4-10.2); Carbon Dioxide 26 mmol/L (22-29); Chloride 106 mmol/L (96-108); Cholesterol 212 mg/dL (<200); Estimated Glomerular Filt Rate > 60; Glucose Random 139 mg/dL (60-115); HDL Cholesterol 36 mg/dL (>40); LDL Cholesterol Calculated 135 mg/dL (<100); Potassium 4.2 mmol/L (3.3-5.1); Sodium 138 mmol/L (135-145); Total Protein 7.8 g/dL (6.5-8.0); Triglycerides 206 mg/dL (<150)
== END 2023-11-04 10:23 | disposition home or self-care (01) ==
LOC: HO.HHCL 10:22
PROVIDERS: Visit Provider Internal Medicine Geriatric Medicine
DX: I25.10 Atherosclerotic heart disease of native coronary artery without angina pectoris (principal); I50.20 Unspecified systolic (congestive) heart failure; F17.200 Nicotine dependence, unspecified, uncomplicated
CPT/HCPCS: 36415; 80053; 80061; 85025

== ENCOUNTER 2023-11-25 06:55 | Emergency (ER) | payer MEDICARE, MEDICAID, SELFPAY ==
--- NOTE | ~2023-11-25 | XR_ITS ---
EXAMINATION: XR CHEST 728 CLINICAL INFORMATION: Chest pain COMPARISON: 01/13/2023 TECHNIQUE: Frontal view of the chest was obtained. FINDINGS: No significant abnormality is noted involving the heart, lungs, mediastinum, bony thorax or soft tissues. XR/XR chest 1V IMPRESSION: Unremarkable examination.
--- NOTE | 2023-11-25 06:57 | ECG_ITS ---
Test Reason : CHEST PAIN Blood Pressure : / mmHG Vent. Rate : 069 BPM Atrial Rate : 069 BPM P-R Int : 168 ms QRS Dur : 088 ms QT Int : 390 ms P-R-T Axes : 025 -19 126 degrees QTc Int : 417 ms Normal sinus rhythm Moderate voltage criteria for LVH, may be normal variant ( R in aVL , Ivan product ) ST & T wave abnormality, consider lateral ischemia or repolarization abnormality Abnormal ECG When compared with ECG of 13-JAN-2023 15:08, No significant change was found Referred By: Generic ED Physician Electronically Signed By:WHITNEY COOPER MD
[2023-11-25 07:03] VITALS: BP 157/87; PULSE 71; RESP 18; TEMP 36.3; O2SAT 93; BMI 29.1
--- NOTE | 2023-11-25 07:25 | ED.CHESTPAIN ---
HPI - Chest Pain General Chief Complaint: Chest Pain Stated Complaint: Chest Pain Time Seen by Provider: 11/25/23 07:20 Source: patient, RN notes reviewed and old records reviewed Mode of arrival: ambulatory Limitations: no limitations History of Present Illness HPI narrative: 48 year old female with pmhx significant for HTN, acute MA complicated with vFib cardiac arrest, presents to the ED today for evaluation of substernal chest pain that began yesterday afternoon while she was in her kitchen cooking. Pain is located substernally with radiation into her left shoulder/neck. No exacerbating or relieving factors. Present both on exertion and at rest. Admits to similar discomfort when she had an MA last year. She reports taking Tylenol last night with little improvement in pain. Denies recent travel or long car rides. Denies known sick contacts. Denies fever, chills, diaphoresis, sore throat, cough, sputum production, hemoptysis, nausea vomiting, calf pain/tenderness. Related Data Home Medications ?Medication ?Instructions ?Recorded ?Confirmed albuterol sulfate 90 mcg/actuation 2 puff inhalation Q6H PRN Wheezing 07/02/20 03/10/23 aerosol inhaler buspirone 5 mg tablet 1 tab PO BID 01/15/22 03/10/23 fluticasone propionate 50 1 spray intranasal TID PRN Allergy 01/15/22 03/10/23 mcg/actuation nasal Symptoms spray,suspension rosuvastatin 10 mg tablet 1 tab PO BEDTIME 01/15/22 03/10/23 blood pressure test kit-large #1 ea 01/21/22 03/10/23 ibuprofen 800 mg tablet 800 mg PO TID 01/21/22 03/10/23 lisinopril 20 1 tab PO DAILY 01/21/22 03/10/23 mg-hydrochlorothiazide 12.5 mg tablet Previous Rx's ?Medication ?Instructions ?Recorded doxycycline hyclate 100 mg tablet 100 mg PO BID #28 tabs 05/08/23 Allergies Allergy/AdvReac Type Severity Reaction Status Date / Time amoxicillin [From AUGMENTIN] Allergy Intermediate FACIAL Verified 11/25/23 07:04 SWELLING, HIVES clavulanic acid Allergy Intermediate FACIAL Verified 11/25/23 07:04 [From AUGMENTIN] SWELLING, HIVES Iodinated Contrast Media Allergy Intermediate ITCHING, Verified 11/25/23 07:04 [IV CONTRAST] FACIAL SWELLING, HIVES oral contrast Allergy Unknown facial Uncoded 05/08/23 10:34 hasmukh Review of Systems Review of Systems: Constitutional: No fever, chills, fatigue, night sweats, weight changes ENT/Mouth: No ear pain, hearing loss, nasal congestion, sinus pain, rhinorrhea, sore throat Eyes: No eye pain, swelling, redness, vision changes, discharge Cardio: No palpitations, BLEDSOE, orthopnea, peripheral edema, +chest pain Pulm: No SOB, cough, sputum, wheezing, dyspnea, hemoptysis GI: No nausea, vomiting, hematemesis, abdominal pain, diarrhea, constipation, hematochezia, melena : No irregular bleeding, dysuria, frequency, urgency, hesitancy, hematuria, flank pain, urinary flow changes, urinary incontinence or retention MSK: No back pain, neck pain, joint pain, myalgias Skin: No lesions, rashes Neuro: No weakness, numbness, paresthesias, LOC, dizziness, headache Psych: No anxiety/panic, depression, SI/HI, AH/VH All other systems reviewed and are negative. [facility] Past Medical History Attestation statement: The following information was validated with the patient. Source: old records reviewed and nursing notes reviewed Medical History Diverticulitis Abdominal pain HTN (hypertension) Surgical History Hx of carpal tunnel repair History of tubal ligation H/O hemorrhoidectomy Family History Family History Father Prostate cancer Social History Social History Household Members: Family Household Members Other:: 3 Housing: Apartment Do you presently have visiting nurse or other home services: No Alcohol intake: current Alcohol intake frequency: a few times a week Alcohol type: beer Patient Tobacco Use Status: Current everyday Tobacco user Tobacco use type: Cigarette Cigarettes Per Day: 7 e-Cigarette/Vaping Use: Former Use Second Hand Smoke Exposure: No Advance Directives: No Advance Directives Information Provided: No Do you have a plan to hurt others: No Plan service: No Current occupational status: unemployed Physical Exam Vital Signs: Vital Signs: Last Vital Signs Temp 97.9 F 11/25/23 11:28 Pulse 94 11/25/23 11:28 Resp 16 11/25/23 11:28 BP 126/79 11/25/23 11:28 Pulse Ox 94 11/25/23 11:28 O2 Del Method Room Air 11/25/23 11:28 BMI result Body Mass Index 29.1 Vital signs stable, afebrile. Const: General: cooperative, healthy appearing, comfortable and no acute distress Orientation/consciousness: patient oriented x3 Limitations: no limitations HEENT: Head: Yes normal to inspection, Yes No palpable skull fracture present, Yes normocephalic and Yes atraumatic Eyes: General: appearance normal, both eyes and all related structures Conjunctivae: conjunctivae normal Sclerae: sclerae normal Pupils: Equal, round and reactive pupils present EOM: EOMs intact bilaterally Neck: Neck: Yes normal visual inspection, Yes full ROM, Yes no lymphadenopathy and Yes no JVD Chest: Chest palpation & inspection: normal inspection of the chest and normal palpation of entire chest wall Resp: Effort & Inspection: normal respiratory effort and able to speak in complete sentences Auscultation: clear to auscultation bilaterally Cardio: Other: + 2+ radial pulses Jugular venous distension: no JVD Rate: regular rate Rhythm: regular rhythm GI: Inspection: Yes normal to inspection Skin: General skin exam: no rashes or lesions noted Neuro: General: patient oriented x3 and gait normal Cranial nerves: Yes Equal, round and reactive pupils present Extrem: General: Yes normal to inspection Course Course Course Narrative: 0737-- EKG showing normal sinus rhythm at a rate of 69 beats per minute QT 390, QTC 417. There are T wave abnormalities in V5 and V6, new when compared to previous EKG obtained in January of 2023. Discussed findings with my attending, Dr. Valderrama. Given hx of MA, will administer sublingual nitro. Troponin pending. 0757-- initial troponin 4.1. Will repeat in 2 hours given history. Chemistry with slight leukocytosis to 11.6 without left shift > viral serology ordered. No anemia. H&H stable. Chemistry without acute electrolyte abnormality requiring intervention. Lipase WNL. Normal renal and liver function. Chest x-ray without consolidation or infiltrate to suggest pneumonia. No fluid. 0910-- PERC 1 (O2 93% on room air). No signs of acute respiratory distress. D dimer ordered to r/o PE. 1033-- Patient has tested negative for COVID, flu, RSV. Ddimer negative - PE unlikely. Delta trop 4.6. Discussed case with my attending Dr. Valderrama along with on-call modern and contemporary art curator Dr. Squires. New EKG findings are not suspicious for ACS. Dr. Squires recommending admission to medicine for cardiac stress test in the morning. > on re-evaluation, patient well-appearing, sleeping calmly in bed. I discussed all results and disposition with patient. She is agreeable with admission for stress test in the morning. Will reach out to hospitalist. 1050-- After discussion with hospitalist (Dr. Younger) patient has been accepted for admission. I was called to patient's bedside her guarding admission. She now states that she would like to be discharged home as she feels more comfortable following up with her modern and contemporary art curator at [facility]. She states that on discharge today she will call them. Discussed this with my attending who states that this is acceptable given patient is stable and work up is essentially unremarkable. Patient has remained stable throughout ED visit today. Discussed worrisome signs and symptoms and when to return to the ED. All questions answered at this time. Patient is agreeable with disposition and stable for discharge. Medications Administered Discontinued Medications Generic Name Dose Route Start Last Admin Trade Name Freq PRN Reason Stop Dose Admin Acetaminophen 975 mg 11/25/23 09:02 11/25/23 10:23 Acetaminophen 325 Mg Tablet PO 11/25/23 09:03 975 mg ONCE ONE Administration Nitroglycerin 0.4 mg 11/25/23 07:37 11/25/23 09:05 Nitroglycerin 0.4 Mg Tab.Subl SUBLINGUAL 11/25/23 07:38 0.4 mg ONCE ONE Administration Medical Decision Making Medical Decision Making MDM Narrative: 48 year old female with pmhx significant for HTN, acute MA complicated with vFib cardiac arrest, presents to the ED today for evaluation of substernal chest pain that began yesterday afternoon while she was in her kitchen cooking. Patient hypertensive satting 93% on room air. Vitals otherwise WNL. She is nontoxic-appearing and in no acute distress. Not diaphoretic. Skin warm, dry, intact. RRR. No JVD or peripheral edema. Lungs are cta b/l. No calf tenderness or overlying erythema/ edema. Differential diagnosis includes ACS, arrhythmia, costochondritis, pleuritis, msk sprain/ strain, viral syndrome, pneumonia, PE. Lower suspicion for effusion, aneurysm. Plan for labs, ekg, cxr, and re-evaluation. Differential Diagnosis Differential Diagnoses: The differential diagnosis associated with the presentation includes as above. Admission/Observation Consideration of admission/observation: Escalation of care including admission/observation considered In this patient with acute substernal chest pain with history of MA, admission was considered. Consult Healthcare Provider Management of the patient was discussed with: Hospitalist (Dr. Younger) and Independent Agent Music Education (Dr. Squires (cardiology)) Lab Data MDM Lab Attestation statement: I reviewed the patient's lab results. as above. 11/25/23 07:26 11/25/23 07:26 Labs: Lab Results 11/25/23 11/25/23 11/25/23 Range/Units 07:26 08:23 09:35 WBC 11.6 H (4.8-10.8) X10*3/uL RBC 5.15 (4.20-5.50) X10*6/uL Hgb 16.3 H (12.0-16.0) g/dl Hct 47.5 H (37.0-47.0) % MCV 92.2 (80.0-98.0) fL MCH 31.7 (27.0-33.0) pg MCHC 34.3 (31.0-35.0) g/dl RDW 13.6 (11.0-16.0) % Plt Count 264 (160-400) X10*3/uL MPV 10.7 (9.4-12.3) fL Immature Gran % (Auto) 0.6 H (0.0-0.4) % Neut % (Auto) 63.8 (45-73) % Lymph % (Auto) 26.2 (20-40) % [place] % (Auto) 5.8 (2-11) % Eos % (Auto) 2.5 (0-4) % Baso % (Auto) 1.1 (0-2) % Lymph # (Auto) 3.1 (1.2-4.9) X10*3/uL [place] # (Auto) 0.7 (0.1-1.2) X10*3/uL Eos # (Auto) 0.3 (0.0-0.4) X10*3/uL Baso # (Auto) 0.1 (0.0-0.2) X10*3/uL Abs Immat Gran (auto) 0.07 H (0.00-0.03) X10*3/uL Absolute Neuts (auto) 7.4 (2.0-8.3) x10*3/uL Absolute Nucleated RBC 0.000 (0.0-0.012) X10*3/uL Nucleated RBC % (auto) 0.0 (0.0-0.2) /100WBC PT 11.7 (11.1-13.3) SEC INR 1.0 (0.9-1.1) D-Dimer High Sensitivty < 150 NG/ML Sodium 136 (135-145) mmol/L Potassium 4.0 (3.3-5.1) mmol/L Chloride 105 (96-108) mmol/L Carbon Dioxide 24 (22-29) mmol/L Anion Gap 11 L (12-20) BUN 9 (9-16) mg/dL Creatinine 0.74 (0.5-1.4) mg/dL Estim Creat Clear Calc 111.9 Estimated GFR > 60 Random Glucose 111 (60-115) mg/dL Calcium 9.6 (8.4-10.2) mg/dL Total Bilirubin 0.4 (0.0-1.0) mg/dL Direct Bilirubin 0.1 (0.0-0.5) mg/dL AST 14 (5-31) U/L ALT 15 (0-31) U/L Alkaline Phosphatase 86 (39-117) U/L Troponin I High Sens 4.1 D 4.6 (<3.5-17.0) ng/L Total Protein 7.6 (6.5-8.0) g/dL Albumin 4.2 (3.5-5.0) g/dL Lipase 23 (8-78) U/L Beta HCG, Quant < 2 mIU/mL Urine Color Yellow Urine Appearance Clear Urine pH 5.5 (5.0-9.0) Ur Specific [place] 1.010 (1.005-1.025) Urine Protein Negative (Neg-Trace) mg/dL Urine Glucose (UA) >=1000 H (Negative) mg/dL Urine Ketones Negative (Negative) mg/dL Urine Blood Large (3+) H (Negative) Urine Nitrite Negative (Negative) Ur Leukocyte Esterase Negative (Negative) Urine RBC 0-2 (0-2) /HPF Urine WBC 0-5 (0-5) /HPF Ur Squamous Epith Cells 6-10 (0-2) /HPF Urine Bacteria None Seen (None Seen) Hyaline Casts 0-2 (0-2) /LPF Urine Test NEGATIVE (NEGATIVE) Influenza Type A (PCR) (Negative) Influenza Type B (PCR) (Negative) RSV RNA Qual (PCR) (Negative) SARS-CoV-2 RNA (RT-PCR) (Negative) 11/25/23 Range/Units 10:55 WBC (4.8-10.8) X10*3/uL RBC (4.20-5.50) X10*6/uL Hgb (12.0-16.0) g/dl Hct (37.0-47.0) % MCV (80.0-98.0) fL MCH (27.0-33.0) pg MCHC (31.0-35.0) g/dl RDW (11.0-16.0) % Plt Count (160-400) X10*3/uL MPV (9.4-12.3) fL Immature Gran % (Auto) (0.0-0.4) % Neut % (Auto) (45-73) % Lymph % (Auto) (20-40) % [place] % (Auto) (2-11) % Eos % (Auto) (0-4) % Baso % (Auto) (0-2) % Lymph # (Auto) (1.2-4.9) X10*3/uL [place] # (Auto) (0.1-1.2) X10*3/uL Eos # (Auto) (0.0-0.4) X10*3/uL Baso # (Auto) (0.0-0.2) X10*3/uL Abs Immat Gran (auto) (0.00-0.03) X10*3/uL Absolute Neuts (auto) (2.0-8.3) x10*3/uL Absolute Nucleated RBC (0.0-0.012) X10*3/uL Nucleated RBC % (auto) (0.0-0.2) /100WBC PT (11.1-13.3) SEC INR (0.9-1.1) D-Dimer High Sensitivty NG/ML Sodium (135-145) mmol/L Potassium (3.3-5.1) mmol/L Chloride (96-108) mmol/L Carbon Dioxide (22-29) mmol/L Anion Gap (12-20) BUN (9-16) mg/dL Creatinine (0.5-1.4) mg/dL Estim Creat Clear Calc Estimated GFR Random Glucose (60-115) mg/dL Calcium (8.4-10.2) mg/dL Total Bilirubin (0.0-1.0) mg/dL Direct Bilirubin (0.0-0.5) mg/dL AST (5-31) U/L ALT (0-31) U/L Alkaline Phosphatase (39-117) U/L Troponin I High Sens (<3.5-17.0) ng/L Total Protein (6.5-8.0) g/dL Albumin (3.5-5.0) g/dL Lipase (8-78) U/L Beta HCG, Quant mIU/mL Urine Color Urine Appearance Urine pH (5.0-9.0) Ur Specific [place] (1.005-1.025) Urine Protein (Neg-Trace) mg/dL Urine Glucose (UA) (Negative) mg/dL Urine Ketones (Negative) mg/dL Urine Blood (Negative) Urine Nitrite (Negative) Ur Leukocyte Esterase (Negative) Urine RBC (0-2) /HPF Urine WBC (0-5) /HPF Ur Squamous Epith Cells (0-2) /HPF Urine Bacteria (None Seen) Hyaline Casts (0-2) /LPF Urine Test (NEGATIVE) Influenza Type A (PCR) NEGATIVE (Negative) Influenza Type B (PCR) NEGATIVE (Negative) RSV RNA Qual (PCR) NEGATIVE (Negative) SARS-CoV-2 RNA (RT-PCR) NEGATIVE (Negative) Independent Interpretation I performed an independent interpretation of an: EKG and Plain X-Ray Interpretation: EKG showing normal sinus rhythm at a rate of 69 beats per minute, QT 390, QTC 417. When compared to EKG from () there are now ST and T-wave abnormalities in V5, V6 which were not present previously. Chest x-ray without consolidation or infiltrate, agree with radiologist's interpretation. Radiology Impression Discussion of test interpretation with radiology: I have reviewed the radiologist's reading. Radiologist Impression: EXAMINATION: XR CHEST 728 CLINICAL INFORMATION: Chest pain COMPARISON: 01/13/2023 TECHNIQUE: Frontal view of the chest was obtained. FINDINGS: No significant abnormality is noted involving the heart, lungs, mediastinum, bony thorax or soft tissues. XR/XR chest 1V IMPRESSION: Unremarkable examination. Independent Historian Clinical information obtained from an independent historian. History obtained from or confirmed by: Spouse () External Record Review External record reviewed: Inpatient record, Office record, Outpatient record, Prior outpatient labs, Prior outpatient radiology, Primary care record and Outside ED record Prescription Management I considered prescription management with: Pain Medication Chronic Conditions Patient?s care impacted by: Hypertension and Other (MA) Social Determinants Patient?s care significantly limited by Social Determinants of Health including: Other Social Determinant of Health Critical Care Time Critical Care Time Critical Care Time: Yes Total Critical Care Time: 40 Attestation: Critical care time in the amount of 40 minutes has been provided to the patient in terms of direct patient care, frequent reevaluation, consultation with Cardiology review and interpretation of medical data and results, and management of potentially life-threatening conditions. This is all outside of any medical procedures. Discharge Plan Discharge Clinical Impression: Atypical chest pain Patient Disposition: Home, Self-Care Instructions: Chest Pain (ED) Additional Instructions: Your labs today are reassuring. Your chest xray does not show pneumonia or fluid. We discussed new findings on your EKG. This was discussed with our on-call modern and contemporary art curator's who is recommending admission for stress test tomorrow morning. You are declining admission at this time and instead would like to follow up with your modern and contemporary art curator's at [facility]. Please call them today upon discharge from ED. Take tylenol and ibuprofen for pain/ discomfort. return with new or worsening symptoms. In the case of an emergency call 911. Prescriptions: No Action buspirone 5 mg tablet 1 tab PO BID fluticasone propionate 50 mcg/actuation spray,suspension 1 spray intranasal TID PRN (Reason: Allergy Symptoms) rosuvastatin 10 mg tablet 1 tab PO BEDTIME albuterol sulfate 90 mcg/actuation HFA aerosol inhaler 2 puff inhalation Q6H PRN (Reason: Wheezing) lisinopril-hydrochlorothiazide 20-12.5 mg tablet 1 tab PO DAILY ibuprofen 800 mg tablet 800 mg PO TID (DME) blood pressure test kit-large Kit See Rx Instructions .ROUTE BID Qty: 1 Rx Instructions: As directed doxycycline hyclate 100 mg tablet 100 mg PO BID Qty: 28 1RF Referrals: [facility] Cardiovascular Services [Provider Group] Discharge Date/Time: 11/25/23 11:29 Print Language: Kinyarwanda
[2023-11-25 07:30] LABS: MANUAL DIFF FLAG NO
[2023-11-25 07:45] LABS: Basophils Absolute Auto 0.1 X10*3/uL (0.0-0.2); Basophils Percent Auto 1.1 % (0-2); Eosinophils Absolute Auto 0.3 X10*3/uL (0.0-0.4); Eosinophils Percent Auto 2.5 % (0-4); Hematocrit 47.5 % (37.0-47.0); Hemoglobin 16.3 g/dl (12.0-16.0); Imm Gran Abs Auto 0.07 X10*3/uL (0.00-0.03); Imm Gran Pct Auto 0.6 % (0.0-0.4); Lymphocytes Absolute Auto 3.1 X10*3/uL (1.2-4.9); Lymphocytes Percent Auto 26.2 % (20-40); Mean Corpuscular HGB Conc 34.3 g/dl (31.0-35.0); Mean Corpuscular Hemoglobin 31.7 pg (27.0-33.0); Mean Corpuscular Volume 92.2 fL (80.0-98.0); Mean Platelet Volume 10.7 fL (9.4-12.3); Monocytes Absolute Auto 0.7 X10*3/uL (0.1-1.2); Monocytes Percent Auto 5.8 % (2-11); Neutrophils Absolute Auto 7.4 x10*3/uL (2.0-8.3); Neutrophils Percent Auto 63.8 % (45-73); Platelet Count 264 X10*3/uL (160-400); Red Blood Count 5.15 X10*6/uL (4.20-5.50); Red Cell Distribution Width 13.6 % (11.0-16.0); White Blood Count 11.6 X10*3/uL (4.8-10.8)
[2023-11-25 07:46] LABS: Alanine Aminotransferase 15 U/L (0-31); Albumin Level 4.2 g/dL (3.5-5.0); Alkaline Phosphatase 86 U/L (39-117); Anion Gap 11 (12-20); Aspartate Amino Transferase 14 U/L (5-31); Bilirubin Direct 0.1 mg/dL (0.0-0.5); Bilirubin Total 0.4 mg/dL (0.0-1.0); Blood Urea Nitrogen 9 mg/dL (9-16); Calcium 9.6 mg/dL (8.4-10.2); Carbon Dioxide 24 mmol/L (22-29); Chloride 105 mmol/L (96-108); Creatinine Clr Calc Pharmacy 111.9; Estimated Glomerular Filt Rate > 60; Glucose Random 111 mg/dL (60-115); Lipase 23 U/L (8-78); Sodium 136 mmol/L (135-145); Total Protein 7.6 g/dL (6.5-8.0)
[2023-11-25 07:52] LABS: Troponin-I High Sensitivity 4.1 ng/L (<3.5-17.0)
[2023-11-25 08:43] LABS: HCG Quantitative < 2 mIU/mL
[2023-11-25 08:53] LABS: Appearance Urine Clear; Color Urine Yellow; Glucose Urine UA >=1000 mg/dL (Negative); Leukocyte Esterase Urine Negative (Negative); Nitrite Urine Negative (Negative); PH 5.5 (5.0-9.0); UMIC TRIGGER UACC YES; UPreg QC Valid YES; Urine Blood Large (3+) (Negative); Urine Ketones Negative (Negative); Urine Pregnancy NEGATIVE (NEGATIVE); Urine Protein Negative (Neg-Trace)
[2023-11-25 08:56] LABS: Prothrombin Time 11.7 SEC (11.1-13.3)
[2023-11-25 09:03] LABS: Bacteria Urine None Seen (None Seen); Hyaline Casts Urine 0-2 /LPF (0-2); RBC Urine 0-2 /HPF (0-2); WBC Urine 0-5 /HPF (0-5)
[2023-11-25] MEDS: Nitroglycerin 0.4 MG TAB.SUBL SUBLINGUAL (09:05)
[2023-11-25 09:35] LABS: D Dimer High Sensitivity < 150 NG/ML
[2023-11-25 10:11] LABS: Troponin-I High Sensitivity 4.6 ng/L (<3.5-17.0)
[2023-11-25] MEDS: Acetaminophen 325 MG TABLET 975 MG PO (10:23)
[2023-11-25 11:28] VITALS: BP 126/79; PULSE 94; RESP 16; TEMP 36.6; O2SAT 94
[2023-11-25 11:43] LABS: Influenza A PCR NEGATIVE (Negative); Influenza B PCR NEGATIVE (Negative); Resp Syncy Virus RNA Qual PCR NEGATIVE (Negative); SARS COV2 PCR INHOUSE NEGATIVE (Negative)
== END 2023-11-25 11:29 | disposition home or self-care (01) ==
PROVIDERS: Physician Assistant Medical; Emergency Provider Emergency Medicine; PCP Internal Medicine Geriatric Medicine
DX: R07.89 Other chest pain (principal); I10 Essential (primary) hypertension; I25.2 Old myocardial infarction; Z86.74 Personal history of sudden cardiac arrest; Z03.818 Encounter for observation for suspected exposure to other biological agents ruled out
CPT/HCPCS: 0241U; 36415; 71045; 80048; 80076; 81001; 81025; 83690; 84484; 84702; 85025; 85379; 85610; 93005; 99283; 99284

== ENCOUNTER → 2023-11-25 06:57 | Outpatient (BNV) | payer MEDICARE, MEDICAID, SELFPAY | PROVIDERS: Emergency Provider Emergency Medicine; PCP Internal Medicine Geriatric Medicine; Visit Provider Internal Medicine Cardiovascular Disease | DX: R94.31 Abnormal electrocardiogram [ECG] [EKG] (principal) | CPT/HCPCS: 93010 ==

== ENCOUNTER 2024-10-06 20:20 | Observation (INO) | payer MEDICARE, MEDICAID, SELFPAY ==
--- NOTE | 2024-10-06 | ECG_ITS ---
Test Reason : chest pain Blood Pressure : */* mmHG Vent. Rate : 89 BPM Atrial Rate : 89 BPM P-R Int : 148 ms QRS Dur : 86 ms QT Int : 336 ms P-R-T Axes : 41 -8 102 degrees QTcB Int : 408 ms Normal sinus rhythm Moderate voltage criteria for LVH, may be normal variant ( R in aVL , [place] product ) ST & T wave abnormality, consider lateral ischemia Abnormal ECG When compared with ECG of 25-Nov-2023 06:58, No significant change was found Referred By: Generic ED Physician Electronically Signed By: WHITNEY COOPER MD
--- NOTE | ~2024-10-06 | XR_ITS ---
CLINICAL HISTORY: CP 2 view chest x-ray. Comparison: CR/SR - XR CHEST 1V - 11/25/23 07:28 EDT Findings: The lungs are adequately expanded. No focal consolidation. No effusion or pneumothorax. Cardiac and mediastinal contours are within normal limits. No acute osseous abnormality Impression: No acute process. This document has been electronically signed by: Aric Fay MD on 10/06/2024 21:00:27
[2024-10-06 20:34] VITALS: BP 133/82; PULSE 94; RESP 16; TEMP 37; O2SAT 97; BMI 29.0
[2024-10-06 20:34] LABS: MANUAL DIFF FLAG NO
--- OUTSIDE RECORDS SUMMARY | 2024-10-06 20:35 | XMS_ITS | Clinical Summary ---
Author Organization [employer] Address [address] [place] [address] [address] [place] [address] Care Team Providers Care Research Methods Instructor Name Role Phone Name, Vincenzo MYRICK Primary Care Provider [phone] Allergies Active Allergy Reactions Criticality Noted Date Comments Amoxicillin High 01/28/2016 Other reaction(s): FACIAL SWELLING, HIVES Amoxicillin-Pot Clavulanate 09/03/19 Other reaction(s): Hives, Swelling Clavulanic Acid High 01/28/2016 Other reaction(s): FACIAL SWELLING, HIVES Iodinated Contrast Media Swelling High 06/20/2022 Other reaction(s): facial swellling Other reaction(s): ITCHING, FACIAL SWELLING, HIVES Penicillin G 09/03/2022 Other reaction(s): Hives Medications * This document contains information received from the source organization and may not represent a complete record from that organization. aluminum chloride (Drysol) 20 % external solution use on the axillary area as directed 03/19/20 18 Active omeprazole (PriLOSEC) [address] capsule Take 1 capsule by mouth at bed time. 07/25/20 20 Active topiramate (Topamax) 100 MG tablet Take 1 tablet by mouth every 12 (twelve) hours. 10/26/19 22 Active nitroglycerin (Nitrostat) 0.4 MG SL tabletIndicati ons:Chest pain, unspecified type Place 1 tablet (0.4 mg) under the tongue every 5 (five) minutes if needed for chest pain. Proceed to ED for chest pain. 30 tablet 09/09/19 23 Active clopidogrel (Plavix) 75 MG tablet TAKE 1 TABLET BY MOUTH EVERY DAY FOR 90 DAYS 11/26/19 23 Active metoprolol succinate XL (Toprol-XL) 50 MG 24 hr tabletIndicati ons:ST elevation myocardial infarction (STEMI), unspecified artery (CMS/HCC),Acut e systolic congestive heart failure (CMS/HCC),Musc uloskeletal chest pain TAKE 1 TABLET BY MOUTH EVERY DAY IN THE MORNING 90 tablet 1 01/03/20 23 Active Jardiance 10 MG 05/02/20 23 Active atorvastatin (Lipitor) 80 MG tablet Take 1 tablet (80 mg) by mouth at bedtime. 90 tablet 3 05/04/20 23 Active fluticasone (Flonase) 50 MCG/ACT nasal spray SPRAY 2 SPRAYS INTO EACH NOSTRIL EVERY DAY 48 mL 1 06/23/20 23 Active amLODIPine (Norvasc) 2.5 MG tablet Take 1 tablet (2.5 mg) by mouth in the morning. 30 tablet 11 11/04/19 24 025 Active Blood Pressure kit Check blood pressure twice a day 1 kit 11/04/19 24 Active fluticasone furoate (Arnuity Ellipta) 200 MCG/ACT inhaler Inhale 1 puff in the morning. Rinse mouth with water after use to reduce aftertaste and incidence of candidiasis. Do not swallow. 1 each 11/04/19 24 025 Active albuterol (2.5 MG/3ML) 0.083% nebulizer solution INHALE 1 VIAL BY NEBULIZER 3 TIMES EVERY DAY NEEDED FOR SHORTNESS OF BREATH /ASTHMA 75 mL 11 11/04/19 24 Active ezetimibe (Zetia) 10 MG tablet Take 1 tablet (10 mg) by mouth in the morning. 30 tablet 11/10/19 24 025 Active losartan (Cozaar) 100 MG tablet Take 1 tablet (100 mg) by mouth Once per day. 30 tablet 11 02/17/20 24 025 Active Aspirin Low Dose 81 MG EC tablet TAKE 1 TABLET BY MOUTH EVERY DAY FOR 90 DAYS 01/28/20 24 Active mometasone (Elocon) 0.1 % ointment APPLY TOPICALLY IN THE MORNING 45 g 07/19/20 24 Active albuterol 108 (90 Base) MCG/ACT inhaler TAKE 1 PUFF BY MOUTH EVERY 4 TO 6 HOURS NEEDED 8.5 g 3 08/30/19 25 Active oxyCODONE-acet aminophen (Percocet) 5-325 MG tabletIndicati ons:Chronic pain syndrome Take 1 tablet by mouth every 12 (twelve) hours if needed for severe pain for up to 28 days. 56 tablet 09/21/19 25 025 Active oxyCODONE-acet aminophen (Percocet) 5-325 MG tabletIndicati ons:Chronic pain syndrome Take 1 tablet by mouth every 12 (twelve) hours if needed for severe pain for up to 7 days. 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 -Encouraged multifactorial approach to pain control including pharm and non- pharm modalities -UTOX and Pill count as expected Recurrent major depressive disorder 02/24/2024 Assessment & Plan (10/03/2024 4:11 PM EST): During IBH Consult Laura presenting with depressed mood, Tearful, crying spells , hopelessness, irritable mood, loss of interests/pleasure , sense of isolation/loneliness , isolating, changes in sleep difficulty falling asleep and difficulty staying asleep , psychomotor retardation, fatigue/loss of energy, worthlessness, inappropriate/excessive guilt , difficulty concentrating, indecisiveness and excessive worry/anxiety, difficulty controlling worry, anxiety/worry associated to restlessness and/or feeling keyed-up/On edge , easily fatigued , difficulty concentrating and/or mind going blank , irritability, muscle tension , and sleep disturbance difficulty falling asleep and difficulty staying asleep , Fear , and sense of dread ; for a period of 18+ mo, for most or all symptoms in the context of stress and untreated mental health. Laura reported experiencing symptoms over the last years. She used to enjoy life in the past and now finds no motivation. Sleeping problem is trigger for sxs. Pt reports positive support received by her family. Pt is aware of importance of self-care and challenging negative thinking. clinician engaged patient with active/reflective listening. Reviewed and assessed for risk, current stressors and protective factors. Pt will be referred out for OP individual therapy. clinician will provide additional support. Next BE scheduled for 10/24. Pt agreed with plan. Anxiety 02/24/2024 Assessment & Plan (10/03/2024 4:11 PM EST): During IBH Consult Laura presenting with depressed mood, Tearful, crying spells , hopelessness, irritable mood, loss of interests/pleasure , sense of isolation/loneliness , isolating, changes in sleep difficulty falling asleep and difficulty staying asleep , psychomotor retardation, fatigue/loss of energy, worthlessness, inappropriate/excessive guilt , difficulty concentrating, indecisiveness and excessive worry/anxiety, difficulty controlling worry, anxiety/worry associated to restlessness and/or feeling keyed-up/On edge , easily fatigued , difficulty concentrating and/or mind going blank , irritability, muscle tension , and sleep disturbance difficulty falling asleep and difficulty staying asleep , Fear , and sense of dread ; for a period of 18+ mo, for most or all symptoms in the context of stress and untreated mental health. Laura reported experiencing symptoms over the last years. She used to enjoy life in the past and now finds no motivation. Sleeping problem is trigger for sxs. Pt reports positive support received by her family. Pt is aware of importance of self-care and challenging negative thinking. clinician engaged patient with active/reflective listening. Reviewed and assessed for risk, current stressors and protective factors. Pt will be referred out for OP individual therapy. clinician will provide additional support. Next BE scheduled for 10/24. Pt agreed with plan. Insomnia 02/24/2024 Colonic diverticular abscess 05/04/2023 Constipation 05/04/2023 Tubo-ovarian abscess 05/04/2023 Coronary artery disease invo lving cahuilla heart without angina pectoris 05/04/2023 ST elevation myocardial infarction (STEMI) 09/24 Overview (09/24/2022): 09/2021 Pt had left heart catheterization and is s/p PCI with KEVIN to proximal LAD. Also had successful balloon [place] at [facility] [place]. Echocardiogram showed LVEF 25 - 30%. Systolic congestive heart failure 09/24/2022 History of tubal ligation 09/24/2022 Seasonal allergic reaction 12/22/2018 Moderate persistent asthma 08/11/2018 Depressive disorder 03/19/2018 Elevated hemoglobin 06/22/2017 Rectal hemorrhage 01/15/2017 Discharge from [facility] 07/23/2016 Assessment & Plan (02/26/2023 1:51 PM EDT): -Physiologic vs pathologic discharge -Reassuring that discharge is bilateral, although high concern given suspicion for bloody discharge -Similar presentation and initial evaluation in [id number]. Breast MRI had been ordered through [facility] Surgery dept, although does not appear was completed -1st or 2nd gen antipsychotic: none -Prolactin WNL 2016 -Diagnostic mammo and ultrasound ordered for initial eval -Referral to re-establish with Surgery -ED/urgent care precautions reviewed Essential hypertension 08/27/2015 Overview (09/14/2022): -Continue lisinopril-hydrochlorothiazide 20-12.5mg daily -Encourage daily exercise, tobacco cessation, low salt diet History of depressed bipolar disorder 08/27/2015 Hypercholesterolemia 08/27/2015 Overview (09/14/2022): -Lipids 09/01/22: TC 232, LDL 175, HDL 35, TG 111 -Increase rosuvastatin to 20mg nightly, reviewed med safety and SE -Consider repeat lipid and LFT 4-12 weeks after dose increase -Lifestyle interventions encouraged Lumbar spondylosis 08/27/2015 Assessment & Plan (10/02/2024 8:30 PM EST): May benefit from individual consult regarding pain management for consideration of updated imaging and trial of physical therapy or other non-pharm tx -Good engagement and participation with Group Medical Visit model -Encouraged multifactorial approach to pain control including pharm and non- pharm modalities -UTOX and Pill count as expected Assessment & Plan (06/28/2024 6:25 PM EST): May benefit from individual consult regarding pain management for consideration of updated imaging and trial of physical therapy or other non-pharm tx -Good engagement and participation with Group Medical Visit model -Encouraged multifactorial approach to pain control including pharm and non- pharm modalities -UTOX and Pill count as expected Assessment & Plan (04/26/2024 2:56 PM EDT): May benefit from individual consult regarding pain management for consideration of updated imaging and trial of physical therapy or other non-pharm tx Migraine 08/27/2015 Tobacco dependence syndrome 08/27/2015 Resolved Problems Problem Noted Date Diagnosed Date Resolved Date Atypical chest pain 05/04/2023 11/04/19 24 Viral upper respiratory tract infection 08/11/2018 09/09/2022 Pain in female pelvis 03/19/20182022 Abdominal pain 07/01/2017 02/17/2024 Cough 05/13/2016 09/09/2022 Wheezing 05/13/2016 09/14/2022 Encounters * This document contains information received from the source organization and may not represent a complete record from that organization. Date Type Department Care Team Description 09/27/2024 11:00 AM EST Office Visit [facility] [address] [place] [phone] Mariluz Cuellar, HOLLAND Lumbar spondylosis (Primary Dx); Long-term current use of opiate analgesic 09/27/2024 Telephone [facility] [address] [place] [phone] Elly Car MA november recalls 09/27/2024 Telephone [facility] [address] [place] [address] Erika Krishna RN DATA PROCESSING OPERATOR Renewal today 09/27/2024 Travel 09/21/2024 Refill [facility] [address] [facility] [place] [address] Vincenzo Fernandez MD Chronic pain syndrome 09/02/2024 Refill [facility] [address] [facility] [place] [address] Vincenzo Fernandez MD Chronic pain syndrome 08/31/2024 Telephone [facility] [address] [place] [address] Vincenzo Fernandez MD MAMMO DIAGNOSTIC ORDER 2024 9:15 AM EST Office Visit [facility] [address] [facility] [place] [address] NameVincenzo MD Essential hypertension (Primary Dx); Coronary artery disease involving cahuilla coronary artery of cahuilla heart without angina pectoris; Depression with anxiety; Discharge from [facility] 2024 Travel 2024 Refill [facility] [address] [place] [address] Vincenzo Fernandez MD 08/29/2024 Telephone [facility] [address] [place] [phone] Elly Car [place] chart prep 08/16/2024 Telephone [facility] [address] [place] [phone] Vincenzo Fernandez MD Appointment Request 08/15/2024 Telephone [facility] [address] [place] [phone] Vincenzo Fernandez MD Nurse Triage 08/01/2024 Refill [facility] [address] [place] [phone] Vincenzo Fernandez MD Chronic pain syndrome 07/17/2024 Refill [facility] [address] [place] [phone] Vincenzo Fernandez MD from Last 3 Months Immunizations Name Administration Dates Next Due Influenza injectable quadriv alent IIV4 with preservative 05/20/2016,05/30/2015,06/28/2014,2012,04/10/2011,06/07/2010,05/01/2009,1 08/27/2007 Influenza injectable quadriv alent preservative free 05/04/2023,04/25/2022 Influenza, IIV3, injectable 05/20/2016,1 ,06/28/2014,2012,04/10/2011,06/07/2010,05/01/2009,1 08/27/2007 Influenza, seasonal, injecta ble, preservative free 04/26/2024 Novel [id number], preservative-free 07/16/2009 Pneumococcal Conjugate PCV 20 11/04/2023 Tdap 05/04/2023,02/01/2013 Social History Tobacco Use Types Packs/Day Years Used Date Smoking Tobacco: Every Day Cigarettes Passive Smoke Exposure: Current Smokeless Tobacco: Never Tobacco Cessation:Ready to Q uit: Not Asked; Counseling Given: Not Answered Alcohol Use Standard Drinks/Week Comments Yes 0 (1 standard drink = 0.6 oz pur e alcohol) Occassionally Depression Answer Date Recorded Patient Health Questionnaire-9 Score 8 10/03/2024 Patient Health Questionnaire-9 Score 8 10/03/2024 Last PHQ-9: Questionnaire Data Not on file 0 10/03/2024 Housing Stability Answer Date Recorded What is your housing situation today? I have keshav naylor [address] you li ve. Do you have problems with any of the following? None of the above 2024 Food Insecurity Answer Date Recorded Within the past 12 months, y ou worried that your food would run out before you got money to buy more: Never True 2024 Within the past 12 months,th e food you bought just didn't last and you didn't have enough money to get more: Never True Transportation Answer Date Recorded In the past 12 months, has l ack of transportation kept you from medical appts, meetings, work or from getting things needed for daily living? No 2024 Utilities Answer Date Recorded In the past 12 months, has t he electric, gas, oil or water company threatened to shut off services in your home? No 2024 Depression Answer Date Recorded Patient Health Questionnaire-2 Score 2 10/03/2024 Internet Access Answer Date Recorded Internet Access Q1 Yes 2024 Internet Access Q2 Not on file 2024 Comments No Sex and Gender Information Value Date Recorded Sex Assigned at Female 06/02/2022 10:29 AM EDT Legal Sex Female 10:29 AM EDT Gender Identity Female 06/02/2022 10:29 AM EDT Sexual Orientation Straight 06/02/2022 10 :29 AM EDT Last Filed Vital Signs Vital Sign Reading Time Taken Comments Blood Pressure 124/76 2024 9:05 AM EST Pulse 68 2024 9:05 AM EST Temperature 36.6 ??C (97.8 ??F) 2024 9:05 AM ES T Respiratory Rate 17 2024 9:05 AM EST Oxygen Saturation 98% 04/26/2024 9:35 AM EDT Inhaled Oxygen Concentration - - Weight 90 kg (198 lb 8 oz) 2024 9:05 AM ES T Height 175.3 cm (5' 9 ) 2024 9:05 AM EST Body Mass Index 29.31 2024 9:05 AM EST Plan of Treatment Upcoming Encounters Date Type Department Care Team (Late st Contact Info) Description 11/22/2024 11:00 AM EDT Office Visit [facility] [address] [place] [address] Health Maintenance Due Date Last Done Comments CT Colonography 1975 Colonoscopy 1975 Colorectal Cancer Screening 1975 FIT DNA/Cologuard 1976 FIT 1975 FOBT 1975 HIV Screening 1975 Sigmoidoscopy 1975 Family Planning (PISQ) 1991 Hepatitis C Screening 1994 Hepatitis A Vaccines (1 of 2 - Risk 2-dose series) 1995 Hepatitis B Vaccines (1 of 3 - 19+ 3-dose series) 1995 COVID-19 Vaccine ( season) 2024 Mammogram 04/08/2025 04/08/2023, 0901/2023, 09/29/2019, Additional history exists Alcohol/Substance Use Screening 2025 2024 SDOH Screening 2025 2024 Tobacco Screening 2025 2024 Depression Screening 10/03/2025 10/03/2024, 10/04/19 Zoster Vaccines (1 of 2) 2026 Cervical Cancer Screening 11/20/2027 HPV/Cotest 11/20/2027 11/19/2022, 11/09/2020 Pap Smear 11/20/2027 11/19/2022, 04/0 04/2021, 11/07/2020 Lipid Panel 11/03/2028 11/04/2023 DTaP/Tdap/Td Vaccines (3 - Td or Tdap) 05/04/2033 05/04/2023, 02/01/2013 RSV Patients and Patients Aged 60 years or older (1 - 1-dose 75+ series) 2051 Pneumococcal Vaccine: Pediatrics (0 to 5 Years) and At-Risk Patients (6 to 49) Years) Completed 11/04/2023 Influenza Vaccine Completed 04/26/2024, , 04/25/2022, Additional history exists HIB Vaccines Aged Out No longer eligi ble based on patient's age to complete this topic HPV Vaccines Aged Out No longer eligi ble based on patient's age to complete this topic IPV Vaccines Aged Out No longer eligi ble based on patient's age to complete this topic Meningococcal Vaccine Aged Out No faiza rodney eligible based on patient's age to complete this topic RSV under 20 months Aged Out No longe r eligible based on patient's age to complete this topic Rotavirus Vaccines Aged Out No longer eligible based on patient's age to complete this topic Goals Goal Patient Goal Type Associated Problems Recent Progress Patient-Stated? Author Record your blood pressure once per day Blood Pressure No Milagros Rawls, PharmD Blood Pressure < 140/90 Blood Pressure 124/76( 025 9:05 AM EST) No Milagros Rawls, PharmD Procedures Procedure Name Priority Date/Time Associated Diagnosis Comments POCT DEN-14 URINE DRUG SCREEN Routine 09/27/2024 1:20 PM EST Long-term current use of opiate analgesic LIPID PANEL, STANDARD Routine 11/04/2023 10:27 AM EDT Coronary artery disease involving cahuilla coronary artery of cahuilla heart without angina pectoris Systolic congestive heart failure, unspecified HF chronicity (CMS/HCC) Tobacco dependence syndrome Screen for colon cancer BI US BREAST LIMITED BILATERAL Routine 04/08/2023 9:30 AM EDT HM PAP/HPV Routine 11/19/2022 12:00 AM EDT from Last 3 Months or Most Recently Relevant to Health Maintenance Results * POCT DEN-14 Urine Drug Screen (09/27/2024 1:20 PM EST) Oxycodone Screen, Urine Positive Urine Urine specimen obtained by clean catch procedure / Unknown 09/27/2024 1:20 PM EST Erika Choi RN - 09/27/2024 1:20 PM EST UTOX cup Lot#[id number] Exp. 03/22/26 Internal Pass Control Mariluz Cuellar CORN HUSKER MACHINE OPERATOR POINT OF CARE TEST ENTER/EDIT ORDERABLES Final Result * (ABNORMAL) Lipid Panel, Standard (11/04/2023 10:27 AM EDT) Triglycerides 206(H) <150 mg/dL [facility] Comment:Desirable Triglyceri de: less than 150 mg/dLBorderline High Triglyceride 150-199 mg/dLHigh Triglyceride: 200-499 mg/dLVery High Triglyceride: greater than or equal to 5OO mg/dL Cholesterol 212(H) <200 mg/dL [facility] Comment:Desirable Cholestero l: less than 200 mg/dLBorderline High Cholesterol: 200-239 mg/dLHigh Cholesterol: greater than 239 mg/dL LDL Cholesterol Calculated 135(H) <100 mg/dL [facility] Comment:Desirable LDL: less than 100 mg/dLNear Optimal/Above Optimal LDL: 110- 129 mg/dLBorderline High LDL: 130-159 mg/dLHigh LDL: 160-189 mg/dLVery High LDL: greater than or equal to 190 mg/dL HDL Cholesterol 36(L) >40 mg/dL [facility] Comment:Desirable HDL: great er than 40 mg/dL Note: This HDL assay may give artificially low results in patients with liver disease. Blood Venous blood specimen / Unknown 11/04/2023 10:27 AM EDT 11/04/2023 11:14 AM EDT us Vincenzo Name MD LAB BLOOD ORDERABLES Final Resul t [facility] [address] [facility] [place] [address] [phone] * BI US Breast Limited Bilateral (04/08/2023 9:30 AM EDT) Anatomical Region Laterality Modality Breast Bilateral Ultrasound 04/08/2023 9:30 AM EDT Narrative 04/08/2023 10:02 AM EDT ? [facility] ? [address] ?[place] [id number] ? Ultrasound Report ? Signed ? Patient: Pruitt,Laura M ?MR#: [id number] ?? [id number] ? : 1975 ?Acct:[id number] ? Age/Sex: 47 / F ?ADM Date: 04/08/23 ? Loc: HO.MAMMO ? Attending Dr: Kp Guzman MD ? Ordering Physician: Kp Guzman MD ?? Date of Service: 04/08/23 ?? Procedure(s): US breast BI limited mamm only ?? Accession Number(s): [id number] ? cc: Kp Guzman MD; Name,Vincenzo MYRICK ? EXAMINATION: ?? MM DIAGNOSTIC DIGITAL BREAST TOMOSYNTHESIS, BILATERAL ?? US BREAST LIMITED, BILATERAL ? MAMMOGRAPHY: ?? CLINICAL INFORMATION: ? 47-year-old female complaining of left nipple discharge. Also due for ?? screening. Was due for six-month follow-up of anterior right breast ?? calcifications which were evaluated last 10/06/2019, however the ?? patient never returned further follow-up. ? COMPARISON: ?? Mammography: 10/06/2019, 09/29/2019, and 07/29/2016. ? TECHNIQUE: ?? Digital breast tomosynthesis is performed in both the craniocaudal and ?? mediolateral oblique views along with computer-aided detection (CAD). ?? Synthesized 2D images are generated from the tomosynthesis. In ?? addition, 3-D spot compression right CC and MLO views were obtained, as ?? well as 3-D spot compression left cc view. ? FINDINGS: ?? There are scattered areas of fibroglandular density (ACR BI-RADS breast ?? composition Category b). ? The previously questioned calcifications in the anterior medial right ?? breast, have significantly decreased in conspicuity, and number, ?? consistent with benign etiology. No further follow-up recommended. ? There is an oval focal asymmetry in the right breast, lower inner ?? quadrant, middle one third, which persists on spot compression views, ?? and will be evaluated with ultrasound. ? There is no mammographic abnormality identified in the left breast, and ?? particular related to the retroareolar region. ? No suspicious masses, developing suspicious calcifications, or ?? developing foci of architectural distortion in either breast. No skin ?? changes noted. ? ULTRASOUND: ?? CLINICAL INFORMATION: ?? 47-year-old female complaining of left nipple discharge. Also, ?? evaluating oval focal asymmetry right breast, lower inner quadrant, ?? middle one third depth. ? COMPARISON: ?? None relevant. ? TECHNIQUE: ?? Targeted sonographic evaluation was performed using a high frequency ?? linear transducer. Specific attention paid to the left retroareolar ?? region secondary to complaint of nipple discharge, and attention also ?? paid to the right breast lower inner quadrant where there is a focal ?? asymmetry seen which persists. Selected archived documentation. ? FINDINGS: ? RIGHT BREAST: There is a mixture of fatty and fibroglandular tissue. ?? No suspicious mass is seen. ??There is no pathologic acoustic shadowing. ?? No sonographic abnormality could be identified in the lower inner ?? quadrant right breast to correlate with the focal asymmetry seen on ?? mammography. ? LEFT BREAST: There is a mixture of fatty and fibroglandular tissue. ??No ?? suspicious mass is seen. ??There is no pathologic acoustic shadowing. ?? Mild duct ectasia is noted without intraductal filling defect or mass. ? US/US breast BI limited mamm only ?? IMPRESSION: ?? There are no findings suspicious for malignancy. Benign breast ?? calcifications anterior medial right breast require no further ?? follow-up as detailed. ? No sonographic correlate to the focal asymmetry right breast lower ?? inner quadrant. Recommend follow-up diagnostic right mammogram in 6 ?? months to ensure stability to include standard tomographic right CC and ?? MLO views. ? No mammographic or sonographic abnormality in the retroareolar left ?? breast to explain nipple discharge. Recommend clinical management of ?? this finding. ? OVERALL ASSESSMENT: ?? Mammography: BI-RADS 3 - Probably benign finding(s) - 6 month follow-up ?? suggested ?? Ultrasound: BI-RADS 3 - Probably benign finding(s) - 6 month follow-up ?? suggested ? RECOMMENDATION: ?? 6 Month F/U ? This patient's information was entered into a reminder system with a ?? target due date for their next mammogram. ? Dictated By: ?Marco A Husain MD ? Signed By: ?<Electronically signed by Marco A Husain MD in OV> ?04/08/23 0958 ? DD/ 0930 ? TD/TT: ? Powder Truck Driver: ? Procedure Note Dongenevainterpreter, Image - 04/08/2023 [place] [address] [place] [address] Ultrasound Report Signed Patient: Laura Pruitt MMR#: [id number] : 1975Acct:[id number] Age/Sex: 47 / FADM Date: 04/08/23 Loc: [facility] Attending Dr: Kp Guzman MD Ordering Physician: Kp Guzman MD Date of Service: 04/08/23 Procedure(s): US breast BI limited mamm only Accession Number(s): [id number] cc: Kp Guzman MD; Name,Vincenzo MYRICK EXAMINATION: MM DIAGNOSTIC DIGITAL BREAST TOMOSYNTHESIS, BILATERAL US BREAST LIMITED, BILATERAL MAMMOGRAPHY: CLINICAL INFORMATION: 47-year-old female complaining of left nipple discharge. Also due for screening. Was due for six-month follow-up of anterior right breast calcifications which were evaluated last 10/06/2019, however the patient never returned further follow-up. COMPARISON: Mammography: 10/06/2019, 09/29/2019, and 07/29/2016. TECHNIQUE: Digital breast tomosynthesis is performed in both the craniocaudal and mediolateral oblique views along with computer-aided detection (CAD). Synthesized 2D images are generated from the tomosynthesis. In addition, 3-D spot compression right CC and MLO views were obtained, as well as 3-D spot compression left cc view. FINDINGS: There are scattered areas of fibroglandular density (ACR BI-RADS breast composition Category b). The previously questioned calcifications in the anterior medial right breast, have significantly decreased in conspicuity, and number, consistent with benign etiology. No further follow-up recommended. There is an oval focal asymmetry in the right breast, lower inner quadrant, middle one third, which persists on spot compression views, and will be evaluated with ultrasound. There is no mammographic abnormality identified in the left breast, and particular related to the retroareolar region. No suspicious masses, developing suspicious calcifications, or developing foci of architectural distortion in either breast. No skin changes noted. ULTRASOUND: CLINICAL INFORMATION: 47-year-old female complaining of left nipple discharge. Also, evaluating oval focal asymmetry right breast, lower inner quadrant, middle one third depth. COMPARISON: None relevant. TECHNIQUE: Targeted sonographic evaluation was performed using a high frequency linear transducer. Specific attention paid to the left retroareolar region secondary to complaint of nipple discharge, and attention also paid to the right breast lower inner quadrant where there is a focal asymmetry seen which persists. Selected archived documentation. FINDINGS: RIGHT BREAST: There is a mixture of fatty and fibroglandular tissue. No suspicious mass is seen. There is no pathologic acoustic shadowing. No sonographic abnormality could be identified in the lower inner quadrant right breast to correlate with the focal asymmetry seen on mammography. LEFT BREAST: There is a mixture of fatty and fibroglandular tissue. No suspicious mass is seen. There is no pathologic acoustic shadowing. Mild duct ectasia is noted without intraductal filling defect or mass. US/US breast BI limited mamm only IMPRESSION: There are no findings suspicious for malignancy. Benign breast calcifications anterior medial right breast require no further follow-up as detailed. No sonographic correlate to the focal asymmetry right breast lower inner quadrant. Recommend follow-up diagnostic right mammogram in 6 months to ensure stability to include standard tomographic right CC and MLO views. No mammographic or sonographic abnormality in the retroareolar left breast to explain nipple discharge. Recommend clinical management of this finding. OVERALL ASSESSMENT: Mammography: BI-RADS 3 - Probably benign finding(s) - 6 month follow-up suggested Ultrasound: BI-RADS 3 - Probably benign finding(s) - 6 month follow-up suggested RECOMMENDATION: 6 Month F/U This patient's information was entered into a reminder system with a target due date for their next mammogram. Dictated By: Marco A Husain MD Signed By: <Electronically signed by Marco A Husain MD in OV> 04/08/23957 DD/ 9 TD/TT: Powder Truck Driver: [facility] External Provider IMG US PROCEDURES Final Result * HM PAP/HPV (11/19/2022 12:00 AM EDT) Pap Smear 1. NILM 1. NILM HPV Not Detected Undetected, Indeterminat e, Quantitative , Not Detected Historical Provider HEALTH MAINTENANCE Edited Result - Final from Last 3 Months or Most Recently Relevant to Health Maintenance Insurance STANDARD [place] [id number] Care Teams Research Methods Instructor Relationship Specialty Start Date End Date Name, MD Vincenzo [address] [place] [id number] PCP - General Family Medicine 08/03/18
--- OUTSIDE RECORDS SUMMARY | 2024-10-06 20:35 | XMS_ITS | Encounter Summary ---
Author Organization [employer] Address [address] [facility] 7t [place] [address] Care Team Providers Care Loft Worker Name Role Phone Name, Vincenzo MYRICK Primary Care Provider [phone] Reason for Visit * Reason Onset Date Comments Appointment Request 08/16/2024 Encounter Details Date Type Department Care Team ([facility] st Contact Info) Description 08/16/2024 Telephone [facility] MED[facility]INE [address] [place] [address] Name, MD Vincenzo [address] [place], [place] [phone] Appointment Request Social History Tobacco Use Types Packs/Day Years Used Date Smoking Tobacco: Every Day Cigarettes Smokeless Tobacco: Never Alcohol Use Standard Drinks/Week Comments Yes 0 (1 standard drink = 0.6 oz pur e alcohol) Occassionally Depression Answer Date Recorded Patient Health Questionnaire-9 Score 17 02/24/2024 Patient Health Questionnaire-9 Score 17 02/24/2024 Last PHQ-9: Questionnaire Data Not on file 0 02/24/2024 Housing Stability Answer Date Recorded What is your housing situation today? I have keshav naylor 05/20/[address] you li ve. Do you have problems with any of the following? None of the above 05/20/2023 Food Insecurity Answer Date Recorded Within the past 12 months, y ou worried that your food would run out before you got money to buy more: Never True 05/20/2023 Within the past 12 months,th e food you bought just didn't last and you didn't have enough money to get more: Never True Transportation Answer Date Recorded In the past 12 months, has l ack of transportation kept you from medical appts, meetings, work or from getting things needed for daily living? No 05/20/2023 Utilities Answer Date Recorded In the past 12 months, has t he electric, gas, oil or water company threatened to shut off services in your home? No 05/20/2023 Depression Answer Date Recorded Patient Health Questionnaire-2 Score 6 02/24/2024 Comments No Sex and Gender Information Value Date Recorded Sex Assigned at Female 06/02/2022 10:29 AM EDT Legal Sex Female 10:29 AM EDT Gender Identity Female 06/02/2022 10:29 AM EDT Sexual Orientation Straight 06/02/2022 10 :29 AM EDT documented as of this encounter Miscellaneous Notes * Telephone Encounter - Rachel Grimes - 08/16/2024 8:44 AM EST Tc from pt requesting reschedule 08/16 appt. documented in this encounter Plan of Treatment Upcoming Encounters Date Type Department Care Team (Late st Contact Info) Description 11/22/2024 11:00 AM EDT Office Visit [facility] [address] [place] [address] documented as of this encounter Goals Goal Patient Goal Type Associated Problems Recent Progress Patient-Stated? Author Record your blood pressure once per day Blood Pressure No Puia, Milagros, PharmD Blood Pressure < 140/90 Blood Pressure 124/76( 025 9:05 AM EST) No Puia, Milagros, PharmD documented as of this encounter Visit Diagnoses Not on filedocumented in this encounter Additional Health Concerns Assessment Noted Time PHQ-9 Depression Total Score: 17 024 9:41 AM EDT documented as of this encounter Care Teams Loft Worker Relationship Specialty Start Date End Date Name, MD Vincenzo [address] [place] [address] PCP - General Family Medicine 08/03/18 documented as of this encounter
--- OUTSIDE RECORDS SUMMARY | 2024-10-06 20:35 | XMS_ITS | Encounter Summary ---
Author Organization [employer] Address [address] [facility] 7t [place] [address] Care Team Providers Care Wood Die Maker Name Role Phone Name, Vincenzo MYRICK Primary Care Provider [phone] Reason for Visit * Reason Onset Date Comments november recalls 09/27/2024 Encounter Details Date Type Department Care Team (Late st Contact Info) Description 09/27/2024 Telephone [facility] MED[facility]INE [address] [place], [place] [phone] Elly Car MA november recalls Social History Tobacco Use Types Packs/Day Years Used Date Smoking Tobacco: Every Day Cigarettes Passive Smoke Exposure: Current Smokeless Tobacco: Never Alcohol Use Standard Drinks/Week Comments Yes 0 (1 standard drink = 0.6 oz pur e alcohol) Occassionally Depression Answer Date Recorded Patient Health Questionnaire-9 Score 8 2024 Patient Health Questionnaire-9 Score 8 2024 Last PHQ-9: Questionnaire Data Not on file 0 2024 Housing Stability Answer Date Recorded What is [...] Date Recorded Patient Health Questionnaire-2 Score 2 2024 Internet Access Answer Date Recorded Internet Access [...] encounter Miscellaneous Notes * Telephone Encounter - Elly Car MA - 09/27/2024 3:14 PM EST Telephone call to patient to schedule a recall appointment. No answer, Left voicemail to return call to clinic.. Recall letter sent. Visit type: Follow up Appointment notes: DM,HTN Month due: November With: Name Please schedule appointment above if patient returns call documented in this encounter Plan of Treatment Upcoming Encounters Date Type Department Care Team ([facility] st Contact Info) Description 11/22/2024 11:00 AM EDT Office Visit [facility] MED[facility] [address] [place] [address] documented as of this encounter Goals Goal [...] Assessment Noted Time PHQ-9 Depression Total Score: 8 08/30/19 9:08 AM EST documented as of this encounter Care Teams Wood Die Maker Relationship Specialty Start Date End Date Name, MD Vincenzo [address] [place] [address] PCP - General Family Medicine 08/03/18 documented as of this encounter
--- OUTSIDE RECORDS SUMMARY | 2024-10-06 20:35 | XMS_ITS | Encounter Summary ---
Author Organization [employer] Address [address] [facility] 7t [place] [address] Care Team Providers Care Residential Substance Abuse Counselor Name Role Phone Name, Vincenzo MYRICK Primary Care Provider [phone] Reason for Visit * Reason Onset Date Comments Med Refill 09/21/2024 Encounter Details Date Type Department Care Team (Late st Contact Info) Description 09/21/2024 Refill [facility] MEDICINE [address] [place], [place] [phone] Name, MD Vincenzo [address] [place], [place] [phone] Chronic pain syndrome Social History Tobacco Use Types Packs/Day Years [...] encounter Miscellaneous Notes * Telephone Encounter - Erika Krishna RN - 09/21/2024 3:01 PM EST Return TC to patient, confirmed chronic pain group appt 09/27/24 @ 11am. * Telephone Encounter - Austin Bertrand - 09/21/2024 1:14 PM EST TC from pt requesting medication refill. Medications needing refill : oxyCODONE-acetaminophen (Percocet) 5-325 MG tablet To be sent to: [facility]/pharmacy #[id number] - [place], [place] - [address] [place] [address] *pt requesting for TYPEWRITER MECHANIC nurse to call her . documented in this encounter Plan of Treatment Upcoming Encounters Date Type Department Care Team (Late st Contact Info) Description 11/22/2024 11:00 AM EDT Office Visit [facility] MEDICINE [address] [place] [address] documented as of this encounter Goals Goal Patient Goal Type Associated Problems Recent Progress Patient-Stated? Author Record your blood pressure once per day Blood Pressure No Milagros Rawls, PharmD Blood Pressure < 140/90 Blood Pressure 124/76( 025 9:05 AM EST) No Milagros Rawls, Dai documented as of this encounter Visit Diagnoses Diagnosis Chronic pain syndrome documented in this encounter Additional Health Concerns Assessment Noted Time PHQ-9 Depression Total Score: 8 08/30/19 25 9:08 AM EST documented as of this encounter Care Teams Residential Substance Abuse Counselor Relationship Specialty Start Date End Date Name, MD Vincenzo [address] [place] [address] PCP - General Family Medicine 08/03/18 documented as of this encounter
--- OUTSIDE RECORDS SUMMARY | 2024-10-06 20:35 | XMS_ITS | Encounter Summary ---
Author Organization [employer] Address [address] [facility] 7t [place] [address] Care Team Providers Care City Sanitarian Name Role Phone Name, Vincenzo MYRICK Primary Care Provider [phone] Encounter Details Date Type Department Care Team (Latest Contact Info) Description 09/27/2024 Travel Social History Tobacco Use Types Packs/Day Years [...] AM EDT documented as of this encounter Plan of Treatment Upcoming Encounters Date Type Department Care Team (Late st Contact Info) Description 11/22/2024 11:00 AM EDT Office Visit [facility] MEDICINE [address] [place] [address] documented as of this encounter Goals Goal [...] documented as of this encounter Care Teams City Sanitarian Relationship Specialty Start Date End Date Name, MD Vincenzo [address] [place] [address] PCP - General Family Medicine 08/03/18 documented as of this encounter
--- OUTSIDE RECORDS SUMMARY | 2024-10-06 20:35 | XMS_ITS | Encounter Summary ---
Author Organization [employer] Address [address] [facility] 7t [place] [address] Care Team Providers Care Gift Shop Clerk Name Role Phone Name, Vincenzo MYRICK Primary Care Provider [phone] Milagros Rawls PharmD Unavailable [phone] Reason for Visit * Reason Comments Med Refill Encounter Details Date Type Department Care Team (Late st Contact Info) Description 06/29/2023 Refill [facility] MED[facility]INE [address] [place], [place] [phone] Name, MD Vincenzo [address] [place] [address] ST elevation myocardial infarction (STEMI), unspecified artery (CMS/HCC); Acute systolic congestive heart failure (CMS/HCC); Musculoskeletal chest pain Social History Tobacco Use Types Packs/Day Years Used Date Smoking Tobacco: Every Day Cigarettes Smokeless Tobacco: Never Alcohol Use Standard Drinks/Week Comments Yes 0 (1 standard drink = 0.6 oz pur e alcohol) Occassionally Depression Answer Date Recorded Patient Health Questionnaire-9 Score 0 12/23/2022 Housing Stability Answer Date Recorded What is [...] Answer Date Recorded Patient Health Questionnaire-2 Score 0 12/23/2022 Comments Unknown Sex and Gender Information Value Date Recorded Sex Assigned at Female 06/02/2022 10:29 AM EDT Legal Sex Female 10:29 AM EDT Gender Identity Female 06/02/2022 10:29 AM EDT Sexual Orientation Straight 06/02/2022 10 :29 AM EDT documented as of this encounter Plan of Treatment Upcoming Encounters Date Type Department Care Team (Late st Contact Info) Description 11/22/2024 11:00 AM EDT Office Visit [facility] MEDICINE [address] [place] [address] documented as of this encounter Visit Diagnoses Diagnosis ST elevation myocardial infarction (STEMI), unspecified artery (CMS/HCC) Acute systolic congestive heart failure (CMS/HCC) Musculoskeletal chest pain Other chest pain documented in this encounter Additional Health Concerns Assessment Noted Time PHQ-9 Depression Total Score: 0 12/24/19 23 10:58 AM EDT documented as of this encounter Care Teams Gift Shop Clerk Relationship Specialty Start Date End Date Name, MD Vincenzo [address] [place] [address] PCP - General Family Medicine 08/03/18 Milagros Rawls PharmD [address] [place] [address] Pharmacist Internal Medicine 12/02/23 06/27/24 documented as of this encounter
--- OUTSIDE RECORDS SUMMARY | 2024-10-06 20:35 | XMS_ITS | Encounter Summary ---
Author Organization [employer] Address [address] [facility] 7t [place] [address] Care Team Providers Care Patient Admitting Clerk Name Role Phone Name, Vincenzo MYRICK Primary Care Provider [phone] Reason for Visit * Reason Onset Date Comments Nurse Triage 08/15/2024 Encounter Details Date Type Department Care Team (Late st Contact Info) Description 08/15/2024 Telephone [facility] MEDICINE [address] [place] [address] Name, MD Vincenzo [address] [place], [place] [phone] Nurse Triage Social History Tobacco Use Types Packs/Day Years [...] encounter Miscellaneous Notes * Telephone Encounter - Leta Johnson RN - 08/15/2024 10:03 AM EST Triage call Pt reports son came home from school Thursday08/12/24 and began to have sx of vomiting/diarrhea. Pt reports last night began to have vomiting/ diarrhea as well. Vomited x4 and diarrhea x3. Pt reports headache on and off and slight dry cough. Pt is advised to rest, drink adequate liquids warm decaf tea, juices, water. No eating until vomiting has stopped for 8 hours, Pt does report eating an egg this morning with toast and some soup. Pt is advised to do home Covid test and if positive to call back for further instruction. Pt agrees with home care disposition at this time and will call back if fever develops or further symptoms occur. Insurance is verified as active. Protocol Used: Vomiting (Adult) Protocol-Based Disposition: Home Care Positive Triage Question: * Mild vomiting with diarrhea * All higher-acuity triage questions were negative Care Advice Discussed: * Reassurance and Education * Clear Liquids * Solid Food * Expected Course * Reasons To Call Back - Vomiting lasts for more than 2 days (48 hours) - Diarrhea lasts more than 7 days - Signs of dehydration occur - You become worse * Telephone Encounter - Maikel Borrego - 08/15/2024 9:31 AM EST Symptoms: Diarrhea, Vomiting, Headache, Runny Nose Outcome: Schedule an urgent appointment (within 1 hour) or talk to a nurse or provider soon Reason: Caller denied all higher acuity questions The caller accepted this outcome. documented in this encounter Plan of Treatment Upcoming Encounters Date Type Department Care Team (Late st Contact Info) Description 11/22/2024 11:00 AM EDT Office Visit [facility] MEDICINE [address] [place] [address] documented as of this encounter Goals Goal [...] documented as of this encounter Care Teams Patient Admitting Clerk Relationship Specialty Start Date End Date Name, MD Vincenzo [address] [place] [address] PCP - General Family Medicine 08/03/18 documented as of this encounter
--- OUTSIDE RECORDS SUMMARY | 2024-10-06 20:35 | XMS_ITS | Encounter Summary ---
Author Organization [employer] Address [address] [facility] 7t [place] [address] Care Team Providers Care Optometry Assistant Name Role Phone Name, Vincenzo MYRICK Primary Care Provider [phone] Encounter Details Date Type Department Care Team ([facility] st Contact Info) Description 07/04/2024 Telephone [facility] MEDICINE [address] [place], [place] [phone] Name, MD Vincenzo [address] [place], [place] [phone] Social History Tobacco Use Types Packs/Day Years [...] Description 11/22/2024 11:00 AM EDT Office Visit [facility] MED[facility]INE [address] [place] [address] documented as of this encounter Goals Goal [...] documented as of this encounter Care Teams Optometry Assistant Relationship Specialty Start Date End Date Name, MD Vincenzo [address] [place] [address] PCP - General Family Medicine 08/03/18 documented as of this encounter
--- OUTSIDE RECORDS SUMMARY | 2024-10-06 20:35 | XMS_ITS | Encounter Summary ---
Author Organization [employer] Address [address] [place] [address] [address]t [place] [address] Care Team Providers Care Rose Grower Name Role Phone Name, Vincenzo MYRICK Primary Care Provider [phone] Reason for Visit * Reason Onset Date Comments TOBACCO HANGER Renewal today 09/27/2024 Encounter Details Date Type Department Care Team (Late st Contact Info) Description 09/27/2024 Telephone [facility] MEDICINE [address] [place] [address] Erika Krishna RN TOBACCO HANGER Renewal today Social History Tobacco Use Types Packs/Day Years [...] Telephone Encounter - Erika Krishna RN - 09/27/2024 1:23 PM EST Pt attended chronic pain group today TOBACCO HANGER Agreement reviewed and signed BPI updated today. Pain severity score of 6.8, activity interference score of 8. Previous BPI completed 02/24/24 with pain severity score of 7, activity interference score of 7. documented in this encounter Plan of Treatment Upcoming Encounters Date Type Department Care Team (Late st Contact Info) Description 11/22/2024 11:00 AM EDT Office Visit [facility] MEDICINE [address] [place] [address] documented as of this encounter Goals Goal [...] documented as of this encounter Care Teams Rose Grower Relationship Specialty Start Date End Date Name, MD Vincenzo [address] [place] [address] PCP - General Family Medicine 08/03/18 documented as of this encounter
[2024-10-06 20:36] LABS: Basophils Absolute Auto 0.1 X10*3/uL (0.0-0.2); Basophils Percent Auto 0.8 % (0-2); Eosinophils Absolute Auto 0.3 X10*3/uL (0.0-0.4); Hematocrit 46.9 % (37.0-47.0); Hemoglobin 16.2 g/dl (12.0-16.0); Imm Gran Abs Auto 0.08 X10*3/uL (0.00-0.03); Imm Gran Pct Auto 0.5 % (0.0-0.4); Lymphocytes Absolute Auto 3.9 X10*3/uL (1.2-4.9); Lymphocytes Percent Auto 24.4 % (20-40); Mean Corpuscular HGB Conc 34.5 g/dl (31.0-35.0); Mean Corpuscular Hemoglobin 31.6 pg (27.0-33.0); Mean Corpuscular Volume 91.4 fL (80.0-98.0); Mean Platelet Volume 10.1 fL (9.4-12.3); Monocytes Absolute Auto 1.1 X10*3/uL (0.1-1.2); Monocytes Percent Auto 6.8 % (2-11); Neutrophils Absolute Auto 10.4 x10*3/uL (2.0-8.3); Neutrophils Percent Auto 65.5 % (45-73); Platelet Count 266 X10*3/uL (160-400); Red Blood Count 5.13 X10*6/uL (4.20-5.50); White Blood Count 15.9 X10*3/uL (4.8-10.8)
--- OUTSIDE RECORDS SUMMARY | 2024-10-06 20:36 | XMS_ITS | Encounter Summary ---
Author Organization [employer] Address [address] [place] [address] 7t [place] [address] Care Team Providers Care Laborer/Grade Check Name Role Phone Name, Vincenzo MYRICK Primary Care Provider Milagros Rawls PharmD Unavailable [phone] Reason for Visit * Reason Comments Med Refill Encounter Details Date Type Department Care Team (Late st Contact Info) Description 03/21/2023 Refill [facility] MEDICINE [address] [place] [address] [phone] Name, MD Vincenzo [address] [place] [phone] Social History Tobacco Use Types Packs/Day Years Used Date Smoking Tobacco: Every Day Cigarettes Smokeless Tobacco: Never Alcohol Use Standard Drinks/Week Comments Yes 0 (1 standard drink = 0.6 oz pur e alcohol) Occassionally Depression Answer Date Recorded Patient Health Questionnaire-9 Score 0 12/23/2022 Depression Answer Date Recorded Patient Health Questionnaire-2 [...] Description 11/22/2024 11:00 AM EDT Office Visit [facility] [address] [place] [phone] documented as of this encounter Visit Diagnoses Not on filedocumented in this encounter Additional Health Concerns Assessment Noted Time PHQ-9 Depression Total Score: 0 12/24/19 23 10:58 AM EDT documented as of this encounter Care Teams Laborer/Grade Check Relationship Specialty Start Date End Date Name, MD Vincenzo [address] [place] [address] PCP - General Family Medicine 08/03/18 Milagros Rawls PharmD [address] [place] [address] Pharmacist Internal Medicine 12/02/23 06/27/24 documented as of this encounter
--- OUTSIDE RECORDS SUMMARY | 2024-10-06 20:36 | XMS_ITS | Encounter Summary ---
Author Organization [employer] Address [address] [place] [address] 7[address] [place] [address] Care Team Providers Care Recording Studio Internship Name Role Phone Name, Vincenzo MYRICK Primary Care Provider Milagros Rawls PharmD Unavailable Reason for Visit * Reason Comments Med Refill Encounter Details Date Type Department Care Team (Late st Contact Info) Description 03/21/2023 Refill [facility] [address] [place] [phone] Gregoria Hardin MD [address] [place] [address] ST elevation myocardial infarction (STEMI), unspecified artery [...] 11:00 AM EDT Office Visit [facility] [address] [place] [address] documented as of this encounter Visit Diagnoses Diagnosis ST elevation myocardial infarction (STEMI), unspecified artery (CMS/HCC) Acute systolic congestive heart failure (CMS/[facility]) Musculoskeletal chest pain Other chest pain documented in this encounter Additional Health Concerns Assessment Noted Time PHQ-9 Depression Total Score: 0 12/24/19 23 10:58 AM EDT documented as of this encounter Care Teams Recording Studio Internship Relationship Specialty Start Date End Date Name, MD Vincenzo [address] [place] [address] PCP - General Family Medicine 08/03/18 Milagros Rawls PharmD [address] [place] [address] Pharmacist Internal Medicine 12/02/23 06/27/24 documented as of this encounter
--- OUTSIDE RECORDS SUMMARY | 2024-10-06 20:36 | XMS_ITS | Encounter Summary ---
Author Organization [employer] Address [address] [place] [address] 7[address] [place] [address] Care Team Providers Care Green Chain Marker Name Role Phone Name, Vincenzo MYRICK Primary Care Provider [phone] Milagros Rawls PharmD Unavailable [phone] Reason for Visit * Reason Onset Date Comments Med Refill 02/04/2023 Encounter Details Date Type Department Care Team (Late st Contact Info) Description 02/04/2023 Telephone [facility] [address] [place], [place] [phone] Name, MD Vincenzo [address] [place] [address] Med Refill Social History Tobacco Use Types Packs/Day Years [...] encounter Miscellaneous Notes * Telephone Encounter - Indira Peterson - 02/04/2023 1:17 PM EDT Tc from pt requesting medication refill on oxyCODONE-acetaminophen (Percocet) 5- 325 MG tablet documented in this encounter Plan of Treatment Upcoming Encounters Date Type Department Care Team (Late st Contact Info) Description 11/22/2024 11:00 AM EDT Office Visit [facility] [address] [place] [address] documented as of this encounter Visit Diagnoses Not on filedocumented in this encounter Additional Health Concerns Assessment Noted Time PHQ-9 Depression Total Score: 0 12/24/19 10:58 AM EDT documented as of this encounter Care Teams Green Chain Marker Relationship Specialty Start Date End Date Name, MD Vincenzo [address] [place] [phone] PCP - General Family Medicine 08/03/18 Milagros Rawls PharmD [address] [place] [phone] Pharmacist Internal Medicine 12/02/23 06/27/24 documented as of this encounter
--- OUTSIDE RECORDS SUMMARY | 2024-10-06 20:36 | XMS_ITS | Clinical Summary ---
Author Organization [facility] Address [id number] [place] [id number] Care Team Providers Care Land Surveying Party Chief Name Role Phone Name, Vincenzo MYRICK Primary Care Provider [phone] Surgical History Surgery Date Site/Laterality Comments OTHER SURGICAL HISTORY PROCEDURE: HISTORICAL ARM SURGERY; COMMENT: surgery for cubital tunnel syndrome L OTHER SURGICAL HISTORY PROCEDURE: ---- OTHER ----; COMMENT: ovary surgery TUBAL LIGATION PROCEDURE: HISTORICAL TUBAL LIGATION Medical History Medical History Date Comments HTN (hypertension) DX:HTN (hyper tension) Asthma DX:Asthma Family History Medical History Relation Name Comments Asthma Father Hyperlipidemia Father Hypertension Father Hypertension Mother Throat cancer Mother Relation Name Status Comments Brother Alive Daughter 1 Alive adhd Daughter 2 Alive Father Alive cholesterol Mother Alive anxiety and dep ression Sister 1 Alive depression, bip olar Sister 2 Alive depression Sister 3 Alive Sister 4 Alive Sister 5 Alive Sister 6 Alive Son Alive developmental d elay Social History Tobacco Use Types Packs/Day Years Used Date Smoking Tobacco: Every Day Cigarettes Smokeless Tobacco: Never Alcohol Use Standard Drinks/Week Comments No 0 (1 standard drink = 0.6 oz pur e alcohol) Comments Unknown Sex and Gender Information Value Date Recorded Sex Assigned at Not on file Legal Sex Female 12:53 PM EST Gender Identity Not on file Sexual Orientation Not on file Obstetrics History Plan of Treatment Health Maintenance Due Date Last Done Comments Breast Cancer Screening 1976 Hepatitis B Vaccines (1 of 3 - 19+ 3-dose series) 1995 Cervical Cancer Screening: Pap Smear 1997 DTaP,Tdap,and Td Vaccines (2 - Td or Tdap) 02/01/2023 02/01/2013 COVID-19 Vaccine ( - season) 2024 Influenza Vaccine (#1) 2024 5, 06/28/2014, 06/23/2013, Additional history exists HIB Vaccines Aged Out No longer eligi ble based on patient's age to complete this topic HPV Vaccines Aged Out No longer eligi ble based on patient's age to complete this topic Hepatitis A Vaccines Aged Out No long er eligible based on patient's age to complete this topic IPV Vaccines Aged Out No longer eligi ble based on patient's age to complete this topic MMR Vaccines Aged Out No longer eligi ble based on patient's age to complete this topic Meningococcal ACWY Vaccine Aged Out N o longer eligible based on patient's age to complete this topic Meningococcal B Vacine Aged Out No lo nger eligible based on patient's age to complete this topic Pneumococcal Vaccine: Pediatrics (0 to 5 Years) and At-Risk Patients (6 to 64 Years) Aged Out No longer eligible based on patient's age to complete this topic RSV Immunization Patients Under 20 months Aged Out No longer eligible based on patient's age to complete this topic Varicella Vaccines Aged Out No longer eligible based on patient's age to complete this topic Care Teams Land Surveying Party Chief Relationship Specialty Start Date End Date Name, MD Vincenzo [address] [place] [address] PCP - General Internal Medicine 06/06/08
[2024-10-06 21:01] LABS: Alanine Aminotransferase 21 U/L (0-31); Albumin Level 4.3 g/dL (3.5-5.0); Anion Gap 13 (12-20); Aspartate Amino Transferase 22 U/L (5-31); Bilirubin Direct 0.1 mg/dL (0.0-0.5); Bilirubin Total 0.3 mg/dL (0.0-1.0); Blood Urea Nitrogen 13 mg/dL (9-16); Calcium 9.8 mg/dL (8.4-10.2); Carbon Dioxide 21 mmol/L (22-29); Chloride 107 mmol/L (96-108); Creatinine Clr Calc Pharmacy 98.5; Estimated Glomerular Filt Rate > 60; Glucose Random 159 mg/dL (60-115); Magnesium 2.2 mg/dL (1.6-2.6); Potassium 3.7 mmol/L (3.3-5.1); Sodium 137 mmol/L (135-145); Total Protein 8.2 g/dL (6.5-8.0); Troponin-I High Sensitivity 4.1 ng/L (<3.5-17.0)
[2024-10-06 21:11] LABS: Alkaline Phosphatase 91 U/L (39-117)
--- NOTE | 2024-10-06 21:15 | ED_ITS ---
HPI - Chest Pain General Chief Complaint: Chest Pain Stated Complaint: chest pain Time Seen by Provider: 10/06/24 22:01 Source: patient and old records reviewed Mode of arrival: ambulatory Limitations: no limitations History of Present Illness ED Provider: DAWNA SHARMA narrative: 49 yo female with PMH of HLD, DM, CAD s/p Vfib arrest and STEMI 2022 s/p stent and angioplasty on aspirin and plavix, she is compliant with all of her medications - she follows regularly with Dr. Anderson. She has had chest pain on and off since the procedure but tonight was different. She developed some intermittent stabbing on R side with pain to R arm and central chest pressure. She felt short of breath. She denies recent travel/procedures. She has not had any exertional symptoms recently. Her R arm pain is new. She had a recent normal ECHO in September per her reports. MD complaint: chest pain Pertinent past history: prior [place] Onset (ago): day(s) (7pm today) Timing of current episode: constant Prior episodes: Yes Onset: during rest Pain location: left chest and right chest Pain radiation: right arm Severity: moderate Quality: other (pressure) Relieving factors: nothing Exacerbating factors: nothing Associated symptoms: dyspnea Treatment prior to arrival: none Related Data Home Medications ?Medication ?Instructions ?Recorded ?Confirmed albuterol sulfate 90 mcg/actuation 2 puff inhalation Q6H PRN Wheezing 07/02/20 03/10/23 aerosol inhaler buspirone 5 mg tablet 1 tab PO BID 01/15/22 03/10/23 fluticasone propionate 50 1 spray intranasal TID PRN Allergy 01/15/22 03/10/23 mcg/actuation nasal Symptoms spray,suspension rosuvastatin 10 mg tablet 1 tab PO BEDTIME 01/15/22 03/10/23 blood pressure test kit-large #1 ea 01/21/22 03/10/23 ibuprofen 800 mg tablet 800 mg PO TID 01/21/22 03/10/23 lisinopril 20 1 tab PO DAILY 01/21/22 03/10/23 mg-hydrochlorothiazide 12.5 mg tablet Previous Rx's ?Medication ?Instructions ?Recorded doxycycline hyclate 100 mg tablet 100 mg PO BID #28 tabs 05/08/23 Allergies Allergy/AdvReac Type Severity Reaction Status Date / Time amoxicillin [From AUGMENTIN] Allergy Intermediate FACIAL Verified 10/06/24 20:42 SWELLING, HIVES clavulanic acid Allergy Intermediate FACIAL Verified 10/06/24 20:42 [From AUGMENTIN] SWELLING, HIVES Iodinated Contrast Media Allergy Intermediate ITCHING, Verified 10/06/24 20:42 [IV CONTRAST] FACIAL SWELLING, HIVES oral contrast Allergy Unknown facial Uncoded 10/06/24 20:42 swellling Review of Systems 2 Review of Systems: Constitutional : No Weight loss, No Fever, No Chills ENT/Mouth : No sore throat, No Rhinorrhea Eyes: No Eye Pain, No Swelling Cardiovascular : pos Chest Pain, pos SOB, no Dyspnea on Exertion, No Orthopnea, No Edema, No Palpitations Respiratory : No Cough, No Sputum Gastrointestinal : no Nausea, No Vomiting, No Diarrhea, No abdominal Pain, No Hematochezia, No Melena Genitourinary : No Dysuria, No Urinary Frequency Musculoskeletal : No joint pain, No Myalgias, No Joint Swelling Skin : No Skin Lesions, No rash Neuro : No Weakness, No Numbness, No Dizziness, No Headache All other systems reviewed and are negative [facility] Past Medical History Attestation statement: The following information was validated with the patient. Source: old records reviewed Medical History Diverticulitis Abdominal pain HTN (hypertension) Surgical History Hx of carpal tunnel repair History of tubal ligation H/O hemorrhoidectomy Family History Family History Father Prostate cancer Social History Social History Household Members: Family Household Members Other:: 3 Housing: Apartment Do you presently have visiting nurse or other home services: No Alcohol intake: current Alcohol intake frequency: holidays/special occasions only Alcohol type: beer Patient Tobacco Use Status: Current everyday Tobacco user Tobacco use type: Cigarette Cigarettes Per Day: 7 Smoked in Last 30 Days: Yes e-Cigarette/Vaping Use: Former Use Second Hand Smoke Exposure: No Use of substances other than those prescribed or required for medical reasons: No Advance Directives: No Advance Directives Information Provided: No service: No Current occupational status: unemployed Physical Exam 2 Vital Signs: Vital Signs: Last Vital Signs Temp 98.7 F 10/06/24 22:14 Pulse 75 10/06/24 23:37 Resp 16 10/06/24 22:14 BP 105/72 10/06/24 23:37 Pulse Ox 96 10/06/24 22:14 O2 Del Method Room Air 10/06/24 22:14 BMI result Body Mass Index 29.0 Course Course Course Narrative: This is an RME: Additional HPI, ROS, PE not included below will be deferred to primary provider. RME assessment and note performed by: Viky Kaur PA-C This is a 49-year-old female, with past medical history of [place] and cardiac arrest 1.5 years ago, who presents emergency department for evaluation of chest pain. She states that she has a history of [place] and went into cardiac arrest. Two hours ago she developed sternal chest pressure stabbing radiating to her right arm. She had a stent placed from her 1st heart attack, recent echo, and has been taking all of her medications as prescribed. Reporting some shortness for breath. Plan: Labs, EKG, chest x-ray, further ER evaluation needed. Reevaluation(s) Reevaluation #1: CP improved with nitro already took her aspirin and plavix today will hold repeat dose Medications Administered Discontinued Medications Generic Name Dose Route Start Last Admin Trade Name Freq PRN Reason Stop Dose Admin Nitroglycerin 0.4 mg 10/06/24 22:07 10/06/24 22:12 Nitroglycerin 0.4 Mg Tab.Subl SUBLINGUAL 10/06/24 22:08 0.4 mg ONCE ONE Administration Nitroglycerin 0.4 mg 10/06/24 22:57 10/06/24 23:37 Nitroglycerin 0.4 Mg Tab.Subl SUBLINGUAL 10/06/24 22:58 0.4 mg ONCE ONE Administration Medical Decision Making Medical Decision Making MDM Narrative: 49 yo female with PMH of HLD, DM, CAD s/p Vfib arrest and STEMI 2022 s/p stent and angioplasty on aspirin and plavix, she presents with chest pain central chest pressure with dyspnea given her history I am going to obtain basic labs, EKG, troponin x 2. BPs are symmetric and pulses intact doubt dissection. Could be ACS, chest pain. I have also ordered nitro SL. She already took her aspirin and plavix Differential Diagnosis Differential Diagnoses: The differential diagnosis associated with the presentation includes ACS, atypical chest pain, VTE, doubt dissection BPs symmetric Admission/Observation Consideration of admission/observation: Escalation of care including admission/observation considered chest pain resolved with 2 SL nitro at this time given hx and her heart score of Consult Healthcare Provider Management of the patient was discussed with: Hospitalist (will admit) Lab Data MDM Lab Attestation statement: I reviewed the patient's lab results. 10/06/24 20:30 10/06/24 20:30 Labs: Lab Results 10/06/24 10/06/24 Range/Units 20:30 23:01 WBC 15.9 H (4.8-10.8) X10*3/uL RBC 5.13 (4.20-5.50) X10*6/uL Hgb 16.2 H (12.0-16.0) g/dl Hct 46.9 (37.0-47.0) % MCV 91.4 (80.0-98.0) fL MCH 31.6 (27.0-33.0) pg MCHC 34.5 (31.0-35.0) g/dl RDW 14.0 (11.0-16.0) % Plt Count 266 (160-400) X10*3/uL MPV 10.1 (9.4-12.3) fL Immature Gran % (Auto) 0.5 H (0.0-0.4) % Neut % (Auto) 65.5 (45-73) % Lymph % (Auto) 24.4 (20-40) % [place] % (Auto) 6.8 (2-11) % Eos % (Auto) 2.0 (0-4) % Baso % (Auto) 0.8 (0-2) % Lymph # (Auto) 3.9 (1.2-4.9) X10*3/uL [place] # (Auto) 1.1 (0.1-1.2) X10*3/uL Eos # (Auto) 0.3 (0.0-0.4) X10*3/uL Baso # (Auto) 0.1 (0.0-0.2) X10*3/uL Abs Immat Gran (auto) 0.08 H (0.00-0.03) X10*3/uL Absolute Neuts (auto) 10.4 H (2.0-8.3) x10*3/uL Absolute Nucleated RBC 0.000 (0.0-0.012) X10*3/uL Nucleated RBC % (auto) 0.0 (0.0-0.2) /100WBC D-Dimer High Sensitivty < 150 NG/ML Sodium 137 (135-145) mmol/L Potassium 3.7 (3.3-5.1) mmol/L Chloride 107 (96-108) mmol/L Carbon Dioxide 21 L (22-29) mmol/L Anion Gap 13 (12-20) BUN 13 (9-16) mg/dL Creatinine 0.83 (0.5-1.4) mg/dL Estim Creat Clear Calc 98.5 Estimated GFR > 60 Random Glucose 159 H (60-115) mg/dL Calcium 9.8 (8.4-10.2) mg/dL Magnesium 2.2 (1.6-2.6) mg/dL Total Bilirubin 0.3 (0.0-1.0) mg/dL Direct Bilirubin 0.1 (0.0-0.5) mg/dL AST 22 (5-31) U/L ALT 21 (0-31) U/L Alkaline Phosphatase 91 (39-117) U/L Troponin I High Sens 4.1 5.6 (<3.5-17.0) ng/L B-Natriuretic Peptide 33 (<100) pg/mL Total Protein 8.2 H (6.5-8.0) g/dL Albumin 4.3 (3.5-5.0) g/dL Influenza Type A (PCR) NEGATIVE (Negative) Influenza Type B (PCR) NEGATIVE (Negative) RSV RNA Qual (PCR) NEGATIVE (Negative) SARS-CoV-2 RNA (RT-PCR) NEGATIVE (Negative) Independent Interpretation I performed an independent interpretation of an: EKG and Plain X-Ray (normal ) Interpretation: Rate: 89 Rhythm: NSR [place]: normal, LVH Normal P waves. Normal PEGGY. Normal QRS complex. ST T wave : nonspecific ST T wave changes anterior and lateral leads no RHETT qTC: 408 prior studies: hx of same in past The study has been interpreted contemporaneously by me. EKG #2 Rate: 70 Rhythm: NSR [place]: left, LVH Normal P waves. Normal PEGGY. Normal QRS complex. ST T wave : inverted t waves I, aVL, V4-V6, no RHETT qTC: 408 prior studies: similar to november 2023 The study has been interpreted contemporaneously by me. . Radiology Impression Discussion of test interpretation with radiology: I have reviewed the radiologist's reading. Independent Historian Clinical information obtained from an independent historian. History obtained from or confirmed by: Other External Record Review External record reviewed: Outpatient record Discharge Plan Discharge Clinical Impression: Chest pain Patient Disposition: Admitted As Inpatient Prescriptions: No Action buspirone 5 mg tablet 1 tab PO BID fluticasone propionate 50 mcg/actuation spray,suspension 1 spray intranasal TID PRN (Reason: Allergy Symptoms) rosuvastatin 10 mg tablet 1 tab PO BEDTIME albuterol sulfate 90 mcg/actuation HFA aerosol inhaler 2 puff inhalation Q6H PRN (Reason: Wheezing) lisinopril-hydrochlorothiazide 20-12.5 mg tablet 1 tab PO DAILY ibuprofen 800 mg tablet 800 mg PO TID (DME) blood pressure test kit-large Kit See Rx Instructions .ROUTE BID Qty: 1 Rx Instructions: As directed doxycycline hyclate 100 mg tablet 100 mg PO BID Qty: 28 1RF Print Language: Hungarian
[2024-10-06 21:31] LABS: Influenza A PCR NEGATIVE (Negative); Influenza B PCR NEGATIVE (Negative); Resp Syncy Virus RNA Qual PCR NEGATIVE (Negative); SARS COV2 PCR INHOUSE NEGATIVE (Negative)
--- NOTE | 2024-10-06 21:59 | ECG_ITS ---
Test Reason : CHEST PAIN Blood Pressure : */* mmHG Vent. Rate : 70 BPM Atrial Rate : 70 BPM P-R Int : 162 ms QRS Dur : 90 ms QT Int : 378 ms P-R-T Axes : 13 -13 132 degrees QTcB Int : 408 ms Normal sinus rhythm Moderate voltage criteria for LVH, may be normal variant ( R in aVL , [place] product ) ST & T wave abnormality, consider lateral ischemia Abnormal ECG When compared with ECG of 06-Oct-2024 20:23, No significant change was found Referred By: Elisha Valderrama Electronically Signed By: WHITNEY COOPER MD
[2024-10-06] MEDS: Nitroglycerin 0.4 MG TAB.SUBL SUBLINGUAL ×2 (22:12→23:37)
[2024-10-06 22:14] VITALS: BP 118/76; BP 121/81; PULSE 73; PULSE 88; RESP 16; TEMP 37.1; O2SAT 96
--- NOTE | 2024-10-06 22:19 | PC.NURSE ---
PT in from triage. reports intermittent chest pain radiating to right arm. Denies dizziness, syncope, palpations, N/V, or any recent illness. PT has hx of PR. 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 Awaiting repeat lab results. Saftey precautions in place. Plan of care ongoing
[2024-10-06 22:40] LABS: B Type Natriuretic Peptide 33 pg/mL (<100)
[2024-10-06 23:28] LABS: D Dimer High Sensitivity < 150 NG/ML
[2024-10-06 23:30] LABS: Troponin-I High Sensitivity 5.6 ng/L (<3.5-17.0)
[2024-10-06 23:37] VITALS: BP 105/72; PULSE 75
[2024-10-07] VITALS (8 sets, daily range): BP systolic 96–136; BP diastolic 55–79; PULSE 59–84; RESP 15–22; TEMP 36.4–37.2; O2SAT 93–98
--- NOTE | 2024-10-07 01:13 | MHC.EDTECH ---
This pct assumed care of Patient at 2300 ,vitals taken ,Patient belongings list done ,Patient was up walking to bathroom ,void and walk back to bed Patient belonging list done .call vivas within Pt reach .Plan of care continue .
--- NOTE | 2024-10-07 01:42 | PM.IMHP ---
History of Present Illness Date of Service: 10/07/24 Attending physician on admission: Jese Suarez Chief Complaint: Chest pain since around 7 PM tonight Patient is a 49-year-old female with history of coronary artery disease , VFib arrest & STEMI in 2022 (s/p PCI with angioplasty & stent placement), Type 2 diabetes mellitus, hypertension, and hyperlipidemia who presents to the emergency room from home complaining of chest pressure since around 7:00 p.m. this evening while she was at rest watching TV. She describes a pressure-like sensation in the right chest radiating to the right arm and with associated shortness of breath but no nausea, vomiting or diaphoresis. Pain intensity was 8/10 at its worst. She states that she has had similar pains intermittently in the recent past. However, this pain is not similar to what she experienced when she had a STEMI in 2022. She received 2 sublingual nitroglycerin in the ER with improvement in the pain which is now down to around a 3-4/10. She currently feels much better. Initial blood work done revealed a mild leukocytosis of 15.9 K (appears to be chronic from review of her EMR). EKG showed normal sinus rhythm at 70 beats per minute with T-wave inversions in the lateral leads but otherwise with no acute ischemic changes. Admission was requested for continued care. Review of Systems Review of Systems: Yes all other systems are reviewed and are negative [facility] Medical History (Updated 10/07/24 @ 02:12 by Jese Suarez MD) Leukocytosis Type 2 diabetes mellitus Hyperlipidemia Essential hypertension Diverticulitis Abdominal pain HTN (hypertension) Functional capacity: independent ambulation Patient : No Family History Father Prostate cancer Surgical History Hx of carpal tunnel repair History of tubal ligation H/O hemorrhoidectomy Social History Household Members: Family Household Members Other:: 3 Housing: Apartment Do you presently have visiting nurse or other home services: No Alcohol intake: current Alcohol intake frequency: holidays/special occasions only Alcohol type: beer Patient Tobacco Use Status: Current everyday Tobacco user Tobacco use type: Cigarette Cigarettes Per Day: 7 Smoked in Last 30 Days: Yes e-Cigarette/Vaping Use: Former Use Second Hand Smoke Exposure: No Use of substances other than those prescribed or required for medical reasons: No Advance Directives: No Advance Directives Information Provided: No service: No Current occupational status: unemployed Meds Allergies Allergy/AdvReac Type Severity Reaction Status Date / Time amoxicillin [From AUGMENTIN] Allergy Intermediate FACIAL Verified 10/06/24 20:42 SWELLING, HIVES clavulanic acid Allergy Intermediate FACIAL Verified 10/06/24 20:42 [From AUGMENTIN] SWELLING, HIVES Iodinated Contrast Media Allergy Intermediate ITCHING, Verified 10/06/24 20:42 [IV CONTRAST] FACIAL SWELLING, HIVES oral contrast Allergy Unknown facial Uncoded 10/06/24 20:42 swellling Home Medications ?Medication ?Instructions ?Recorded ?Confirmed ?Last Taken ?Type albuterol sulfate 90 mcg/actuation 2 puff inhalation Q6H PRN Wheezing 07/02/20 03/10/23 Unknown History aerosol inhaler buspirone 5 mg tablet 1 tab PO BID 01/15/22 03/10/23 01/14/22 History fluticasone propionate 50 1 spray intranasal TID PRN Allergy 01/15/22 03/10/23 01/14/22 History mcg/actuation nasal Symptoms spray,suspension rosuvastatin 10 mg tablet 1 tab PO BEDTIME 01/15/22 03/10/23 01/14/22 History blood pressure test kit-large #1 ea 01/21/22 03/10/23 Unknown History ibuprofen 800 mg tablet 800 mg PO TID 01/21/22 03/10/23 Unknown History lisinopril 20 1 tab PO DAILY 01/21/22 03/10/23 Unknown History mg-hydrochlorothiazide 12.5 mg tablet Physical Exam Vital Signs and Narrative: Vital Signs: Last Vital Signs Temp 98.9 F 10/07/24 00:41 Pulse 69 10/07/24 00:41 Resp 20 10/07/24 00:41 BP 107/63 10/07/24 00:41 Pulse Ox 93 10/07/24 00:41 O2 Del Method Room Air 10/07/24 00:41 BMI result Body Mass Index 29.0 General: Well nourished. Awake, alert and oriented x 4. No apparent distress Eyes: No pallor or jaundice. PERRLA, EOMI HENT: Moist oral mucus membranes. No oropharyngeal lesions. Neck: Supple. No cervical adenopathy. No JVD Cardiovascular: Regular rate and rhythm. Normal heart sounds. No murmurs, rubs or gallops. No JVD. No peripheral edema. Respiratory: Normal respiratory effort with no accessory muscle use. CTAB. Gastrointestinal: Abdomen is soft, non-tender, non-distended. Normoactive bowel sounds in all quadrants. No hepatosplenomegaly Extremities: No edema. No calf tenderness. Good peripheral pulses Skin: Warm/Dry. No rashes. No mottling. Capillary refill is < 2 seconds Neurological: AAOx4. Intact speech & cognition. Normal gait & balance. CN II - XII grossly intact but not individually tested. No motor or sensory deficits Hematologic: No bleeding. No ecchymosis. No swollen or tender lymph nodes. Psychiatric: Cooperative. Appropriate mood and affect Results Labs 10/06/24 20:30 10/06/24 20:30 Labs: Laboratory Results - last 24 hr 10/06/24 10/06/24 20:30 23:01 MCV 91.4 MCH 31.6 MCHC 34.5 RDW 14.0 Plt Count 266 MPV 10.1 Immature Gran % (Auto) 0.5 H Neut % (Auto) 65.5 Lymph % (Auto) 24.4 [place] % (Auto) 6.8 Eos % (Auto) 2.0 Baso % (Auto) 0.8 Lymph # (Auto) 3.9 [place] # (Auto) 1.1 Eos # (Auto) 0.3 Baso # (Auto) 0.1 Abs Immat Gran (auto) 0.08 H Absolute Neuts (auto) 10.4 H Absolute Nucleated RBC 0.000 Nucleated RBC % (auto) 0.0 D-Dimer High Sensitivty < 150 Anion Gap 13 Estim Creat Clear Calc 98.5 Estimated GFR > 60 Random Glucose 159 H Calcium 9.8 Magnesium 2.2 Total Bilirubin 0.3 Direct Bilirubin 0.1 AST 22 ALT 21 Alkaline Phosphatase 91 B-Natriuretic Peptide 33 Total Protein 8.2 H Albumin 4.3 Influenza Type A (PCR) NEGATIVE Influenza Type B (PCR) NEGATIVE RSV RNA Qual (PCR) NEGATIVE SARS-CoV-2 RNA (RT-PCR) NEGATIVE Assessment and Plan (1) Chest pain: Qualifiers: Chest pain type: unspecified Qualified Code(s): R07.9 - Chest pain, unspecified Status: Acute (2) Leukocytosis: Qualifiers: Leukocytosis type: unspecified Qualified Code(s): D72.829 - Elevated white blood cell count, unspecified Status: Chronic (3) Essential hypertension: Status: Acute (4) Hyperlipidemia: Qualifiers: Hyperlipidemia type: unspecified Qualified Code(s): E78.5 - Hyperlipidemia, unspecified Status: Chronic (5) Type 2 diabetes mellitus: Qualifiers: Diabetes mellitus middle or intermediate school principal insulin use: without nursing home use Diabetes mellitus complication status: with circulatory complication Diabetes mellitus complication detail: with other circulatory complications Qualified Code(s): E11.59 - Type 2 diabetes mellitus with other circulatory complications Status: Chronic Plan Patient is a 49-year-old female with history of coronary artery disease , VFib arrest & STEMI in 2022 (s/p PCI with angioplasty & stent placement), Type 2 diabetes mellitus, hypertension, and hyperlipidemia here with: # Chest pain - concerning for unstable angina - admit and resume aspirin, plavix and rosuvastatin & beta blockers - add transdermal nitroglycerine for pain control - start on Lovenox - consult Cardiology in AM # Leukocytosis - WBC count of 15.9 K - appears to have chronically elevated WBC counts - currently with no obvious foci of infection - however could be due to stress de-margination - will monitor off antibiotics # Essential Hypertension - BP control is fair - resume Zestoretic # Hyperlipidemia - resume Rosuvastatin # Type 2 Diabetes Mellitus - BS are fair off treatment DVT: SC Lovenox CODE STATUS: Full code Admission for at least 1 midnights for management of chest pain that is concerning for unstable angina This note is constructed using voice recognition software. While every effort has been made to ensure accuracy, oral health therapist errors may have been included. Total time managing care of this patient today: 60 minutes. Quality Stroke Does the patient have a stroke diagnosis?: No VTE Prior VTE?: No VTE Risk Level:: Medical - moderate - high VTE Device Contraindication: Treatment Not Indicated VTE Drug Contraindication: N/A - Med Ordered
--- NOTE | 2024-10-07 02:07 | MHC.EDTECH ---
0200 rounding done ,vitals taken ,Patient awake on her Phone ,no apparent distress noted Plan of care continue .Call vivas within Pt reach .
[2024-10-07] MEDS: Nitroglycerin 2 % Oint 1 GM Packet 1 INCH TRANSDERMA (02:39)
--- NOTE | 2024-10-07 02:39 | PC.NURSE ---
manual entry d/t computer issues in ED13
[2024-10-07] MEDS: Enoxaparin Sodium 100 MG/ML SYRINGE 90 MG SUBCUT (03:25)
[2024-10-07] MEDS: Metoprolol Tartrate 25 MG TABLET PO ×2 (03:25→09:59)
[2024-10-07 06:40] LABS: MANUAL DIFF FLAG NO
[2024-10-07 06:53] LABS: Basophils Absolute Auto 0.1 X10*3/uL (0.0-0.2); Basophils Percent Auto 0.8 % (0-2); Eosinophils Absolute Auto 0.3 X10*3/uL (0.0-0.4); Eosinophils Percent Auto 2.2 % (0-4); Hematocrit 43.5 % (37.0-47.0); Hemoglobin 14.9 g/dl (12.0-16.0); Imm Gran Abs Auto 0.07 X10*3/uL (0.00-0.03); Imm Gran Pct Auto 0.6 % (0.0-0.4); Mean Corpuscular HGB Conc 34.3 g/dl (31.0-35.0); Mean Corpuscular Hemoglobin 31.5 pg (27.0-33.0); Mean Platelet Volume 10.7 fL (9.4-12.3); Monocytes Absolute Auto 0.8 X10*3/uL (0.1-1.2); Monocytes Percent Auto 6.3 % (2-11); Neutrophils Absolute Auto 8.2 x10*3/uL (2.0-8.3); Neutrophils Percent Auto 66.1 % (45-73); Platelet Count 226 X10*3/uL (160-400); Red Blood Count 4.73 X10*6/uL (4.20-5.50); Red Cell Distribution Width 14.2 % (11.0-16.0); White Blood Count 12.4 X10*3/uL (4.8-10.8)
[2024-10-07 07:05] LABS: Anion Gap 12 (12-20); Blood Urea Nitrogen 13 mg/dL (9-16); Calcium 8.8 mg/dL (8.4-10.2); Carbon Dioxide 19 mmol/L (22-29); Chloride 109 mmol/L (96-108); Cholesterol 152 mg/dL (<200); Creatinine Clr Calc Pharmacy 123.9; Estimated Glomerular Filt Rate > 60; Glucose Random 119 mg/dL (60-115); HDL Cholesterol 34 mg/dL (>40); LDL Cholesterol Calculated 101 mg/dL (<100); Magnesium 2.1 mg/dL (1.6-2.6); Potassium 3.9 mmol/L (3.3-5.1); Sodium 136 mmol/L (135-145); Triglycerides 88 mg/dL (<150)
--- NOTE | 2024-10-07 09:08 | MHC.CM.PN ---
CM met with Patient at bedside, in the ED and addressed TRIPATHI with her (original was given to Patient and a copy has been placed on the chart). Patient lives in an apartment with her Son & Daughter, ages 13 & 19 years of age and home/self care is Patient's goal.CM has initiated and will follow for dc planning. PCP is Dr. Vincenzo Fernandez and Boyfriend will transport to home.
--- NOTE | 2024-10-07 10:10 | PHA.MEDREC ---
Addendum entered by Shahnaz Sanabria RPh 10/07/24 10:36: reviewed by [facility]. Original Note: Pharmacy Consult ? Medication Reconciliation Pharmacy has completed the medication reconciliation. Spoke to patient to confirm med list. Patient states she is no longer taking Buspirone 5 mg, Arnuity Elipta, Ibuprofen 800 mg, Lisinopril-HCTZ 20mg/25mg, losartan 100 mg, Rosuvastatin 10 mg (now on Atorvastatin 80mg) and Varenicline tart 0.5 mg.
--- NOTE | 2024-10-07 11:21 | PM.DS ---
DS: Providers Provider Date of Service: 10/07/24 Date of admission: 10/07/24 01:48 Date of discharge: 10/07/24 Primary care physician: Vincenzo Fernandez MD Consults: 10/07/24 02:22 Consult to Cardiology Routine Consulting Provider: [facility] Reason for consultation: Chest pain Has provider been notified: No DS: Diagnosis Discharge Diagnosis (1) Chest pain: Status: Acute (2) Leukocytosis: Status: Chronic (3) Essential hypertension: Status: Acute (4) Hyperlipidemia: Status: Chronic (5) Type 2 diabetes mellitus: Status: Chronic DS: Summary Hospital Course Hospital Course: admission hpi Chief Complaint: Chest pain since around 7 PM tonight Patient is a 49-year-old female with history of coronary artery disease , VFib arrest & STEMI in 2022 (s/p PCI with angioplasty & stent placement), Type 2 diabetes mellitus, hypertension, and hyperlipidemia who presents to the emergency room from home complaining of chest pressure since around 7:00 p.m. this evening while she was at rest watching TV. She describes a pressure-like sensation in the right chest radiating to the right arm and with associated shortness of breath but no nausea, vomiting or diaphoresis. Pain intensity was 8/10 at its worst. She states that she has had similar pains intermittently in the recent past. However, this pain is not similar to what she experienced when she had a STEMI in 2022. She received 2 sublingual nitroglycerin in the ER with improvement in the pain which is now down to around a 3-4/10. She currently feels much better. Initial blood work done revealed a mild leukocytosis of 15.9 K (appears to be chronic from review of her EMR). EKG showed normal sinus rhythm at 70 beats per minute with T-wave inversions in the lateral leads but otherwise with no acute ischemic changes. Admission was requested for continued care. Hospital coure: The patient was admitted for ACS evaluation and cardiology assessment. ECG and cardiac enzymes were negative for ACS. However, she left against medical advice (AMA) before being seen by cardiology. She acknowledged the risks, including potential worsening of her condition, heart attack, and even . She was deemed to be of sound mind, with her significant other present, and proceeded to sign the AMA form. She was advised to follow up with her dietary services director and to call 911 or return to the ED if her symptoms recurred. Time Attestation Discharge Coordination Time (in mins): 45 Quality: Safe Use of Opioids Does Pt have an Active Cancer Diagnosis on the Problem List?: No Quality: Stroke Does the patient have a stroke diagnosis?: No Physical Exam Vital Signs: Vital Signs: Last Vital Signs Temp 98.3 F 10/07/24 11:04 Pulse 59 10/07/24 11:04 Resp 15 10/07/24 11:04 BP 107/55 L 10/07/24 11:04 Pulse Ox 98 10/07/24 11:04 O2 Del Method Room Air 10/07/24 11:04 BMI result Body Mass Index 29.0 General: AO X 3, no acute distress Resp: CTA bilateral CVS: S1,S2,RRR GI: +BS, NT, no distention Skin: No rash Neuro: motor grossly intact Psych: appropriate affect DS: Data Data Completed and Pending Labs on day of discharge: Laboratory Results - last 24 hr 10/06/24 10/06/24 10/07/24 20:30 23:01 05:53 WBC 15.9 H 12.4 H RBC 5.13 4.73 Hgb 16.2 H 14.9 Hct 46.9 43.5 MCV 91.4 92.0 MCH 31.6 31.5 MCHC 34.5 34.3 RDW 14.0 14.2 Plt Count 266 226 MPV 10.1 10.7 Immature Gran % (Auto) 0.5 H 0.6 H Neut % (Auto) 65.5 66.1 Lymph % (Auto) 24.4 24.0 [place] % (Auto) 6.8 6.3 Eos % (Auto) 2.0 2.2 Baso % (Auto) 0.8 0.8 Lymph # (Auto) 3.9 3.0 [place] # (Auto) 1.1 0.8 Eos # (Auto) 0.3 0.3 Baso # (Auto) 0.1 0.1 Abs Immat Gran (auto) 0.08 H 0.07 H Absolute Neuts (auto) 10.4 H 8.2 Absolute Nucleated RBC 0.000 0.000 Nucleated RBC % (auto) 0.0 0.0 D-Dimer High Sensitivty < 150 Sodium 137 136 Potassium 3.7 3.9 Chloride 107 109 H Carbon Dioxide 21 L 19 L Anion Gap 13 12 BUN 13 13 Creatinine 0.83 0.66 Estim Creat Clear Calc 98.5 123.9 Estimated GFR > 60 > 60 Random Glucose 159 H 119 H Calcium 9.8 8.8 D Magnesium 2.2 2.1 Total Bilirubin 0.3 Direct Bilirubin 0.1 AST 22 ALT 21 Alkaline Phosphatase 91 Troponin I High Sens 4.1 5.6 6.0 B-Natriuretic Peptide 33 Total Protein 8.2 H Albumin 4.3 Triglycerides 88 Cholesterol 152 LDL Cholesterol, Calc 101 H HDL Cholesterol 34 L Influenza Type A (PCR) NEGATIVE Influenza Type B (PCR) NEGATIVE RSV RNA Qual (PCR) NEGATIVE SARS-CoV-2 RNA (RT-PCR) NEGATIVE Discharge Plan Discharge Anticipated Discharge Date/Time: 10/07/24 11:19 Patient Disposition: Left Against Medical Advice Discharge Diagnosis: Chest pain, leukocytosis Referrals: Vincenzo Fernandez MD [Primary Care Provider] - 1 Week Discharge Medications: Continued fluticasone propionate 50 mcg/actuation spray,suspension 1 spray intranasal TID PRN (Reason: Allergy Symptoms) atorvastatin 80 mg tablet 80 mg PO BEDTIME metoprolol succinate 50 mg tablet extended release 24 hr 50 mg PO DAILY amlodipine 2.5 mg tablet 2.5 mg PO DAILY clopidogrel 75 mg tablet 75 mg PO DAILY aspirin 81 mg tablet,delayed release (DR/EC) 81 mg PO DAILY oxycodone-acetaminophen 5-325 mg tablet 1 tab PO Q12H PRN (Reason: severe pain) losartan 100 mg tablet 100 mg PO DAILY ezetimibe 10 mg tablet 10 mg PO DAILY Jardiance 10 mg tablet 10 mg PO DAILY albuterol sulfate 90 mcg/actuation HFA aerosol inhaler 2 puff inhalation Q6H PRN (Reason: Wheezing) (DME) blood pressure test kit-large Kit See Rx Instructions .ROUTE BID Qty: 1 Rx Instructions: As directed Discharge Orders: Discharge Order (Routine); Ordered 10/07/24 Ordered By: Zack Dyer Diet: Advance to usual diet Activity on Discharge: As tolerated Stand Alone Forms: Against Medical Advice Print Language: B[place]an Care Plan Goals: chest pain work up Health Concerns: chest pain Plan of Treatment: you left against medical advise to go see your own heart Doctor call 911 if your chest pain comes back Assessment: see above
--- NOTE | 2024-10-07 11:43 | MHC.CM.PN ---
Patient has left AMA.
== END 2024-10-07 11:40 | disposition left against medical advice (07) ==
LOC: HO.ED 23:53 → HO.EDOVER 10-07 01:53
PROVIDERS: Physician Assistant Medical; Admitting Provider Internal Medicine; Emergency Provider Emergency Medicine; PCP Internal Medicine Geriatric Medicine; Visit Provider Internal Medicine
DX: R07.9 Chest pain, unspecified (principal); D72.829 Elevated white blood cell count, unspecified; I10 Essential (primary) hypertension; E78.5 Hyperlipidemia, unspecified; E11.59 Type 2 diabetes mellitus with other circulatory complications; I25.10 Atherosclerotic heart disease of native coronary artery without angina pectoris; I25.2 Old myocardial infarction; Z53.29 Procedure and treatment not carried out because of patient's decision for other reasons; Z95.5 Presence of coronary angioplasty implant and graft; Z79.899 Other long term (current) drug therapy; Z03.818 Encounter for observation for suspected exposure to other biological agents ruled out
CPT/HCPCS: 0241U; 36415; 71046; 80048; 80061; 80076; 83735; 83880; 84484; 85025; 85379; 93005; 96372; 99222; 99285; J1650

== ENCOUNTER → 2024-10-06 20:23 | Outpatient (BNV) | payer MEDICARE, MEDICAID, SELFPAY | PROVIDERS: Admitting Provider Internal Medicine; Emergency Provider Emergency Medicine; PCP Internal Medicine Geriatric Medicine; Visit Provider Internal Medicine Cardiovascular Disease | DX: R07.9 Chest pain, unspecified (principal); R94.31 Abnormal electrocardiogram [ECG] [EKG] | CPT/HCPCS: 93010 ==

== ENCOUNTER → 2024-10-06 20:26 | Outpatient (BNV) | payer MEDICARE, MEDICAID, SELFPAY | PROVIDERS: Emergency Provider Emergency Medicine; PCP Internal Medicine Geriatric Medicine; Visit Provider Radiology Vascular & Interventional Radiology | DX: R07.9 Chest pain, unspecified (principal) | CPT/HCPCS: 71046 ==

== ENCOUNTER → 2024-10-07 01:48 | Outpatient (BNV) | payer MEDICARE, MEDICAID, SELFPAY | PROVIDERS: Admitting Provider Internal Medicine; Emergency Provider Emergency Medicine; PCP Internal Medicine Geriatric Medicine; Visit Provider Internal Medicine | DX: R07.9 Chest pain, unspecified (principal); D72.829 Elevated white blood cell count, unspecified; I10 Essential (primary) hypertension; E78.5 Hyperlipidemia, unspecified; E11.59 Type 2 diabetes mellitus with other circulatory complications; Z53.29 Procedure and treatment not carried out because of patient's decision for other reasons | CPT/HCPCS: 99235; 99499 ==

== ENCOUNTER 2025-03-03 21:01 | Emergency (ER) | payer MEDICARE, MEDICAID, SELFPAY ==
[2025-03-03 21:04] VITALS: BP 186/79; PULSE 102; RESP 18; TEMP 36.6; O2SAT 95; BMI 28.3
--- OUTSIDE RECORDS SUMMARY | 2025-03-03 21:41 | XMS_ITS | Clinical Summary ---
Author Organization [facility] Address [id number] [place] [id number] Care Team Providers Care Commercial Loan Manager Name Role Phone Name, Vincenzo MYRICK Primary Care Provider [phone] Surgical History Surgery Date Site/Laterality Comments OTHER [...] or Tdap) 02/01/2023 02/01/2013 COVID-19 Vaccine ( season) 2024 Depression Screening 08/03/2024 Influenza Vaccine (#1) 2025 5, 06/28/2014, 06/23/2013, Additional history exists HIB [...] age to complete this topic Meningococcal B Vaccine Aged Out No l onger eligible based on patient's age to complete this topic Pneumococcal Vaccine: Pediatrics (0 to 5 Years) and At-Risk Patients (6 to 49 Years) Aged Out No longer eligible based on patient's age to complete this topic RSV Immunization Patients Under 20 months Aged Out No longer eligible based on patient's age to complete this topic Varicella Vaccines Aged Out No longer eligible based on patient's age to complete this topic Care Teams Commercial Loan Manager Relationship Specialty Start Date End Date Name, MD Vincenzo [address] [place], [place] PCP - General Internal Medicine 06/06/08
--- NOTE | 2025-03-03 22:43 | ED.EXTPRO ---
HPI - Extremity Problem General Chief complaint: Extremity Problem Stated complaint: Left leg pain and swelling Time Seen by Provider: 03/03/25 22:19 Source: patient Mode of arrival: ambulatory Limitations: no limitations History of Present Illness ED Provider: HPI Narrative: 49-year-old woman presenting with nontraumatic left hip pain over the greater trochanter area, no fevers or chills no redness, she perceived some swelling of the leg. Has a history of back pain takes Percocet. Related Data Home Medications ?Medication ?Instructions ?Recorded ?Confirmed albuterol sulfate 90 mcg/actuation 2 puff inhalation Q6H PRN Wheezing 07/02/20 10/07/24 aerosol inhaler fluticasone propionate 50 1 spray intranasal TID PRN Allergy 01/15/22 10/07/24 mcg/actuation nasal Symptoms spray,suspension blood pressure test kit-large #1 ea 01/21/22 03/10/23 amlodipine 2.5 mg tablet 2.5 mg PO DAILY 10/07/24 10/07/24 aspirin 81 mg tablet,delayed 81 mg PO DAILY 10/07/24 10/07/24 release atorvastatin 80 mg tablet 80 mg PO BEDTIME 10/07/24 10/07/24 clopidogrel 75 mg tablet 75 mg PO DAILY 10/07/24 10/07/24 empagliflozin 10 mg tablet 10 mg PO DAILY 10/07/24 10/07/24 (Jardiance) ezetimibe 10 mg tablet 10 mg PO DAILY 10/07/24 10/07/24 losartan 100 mg tablet 100 mg PO DAILY 10/07/24 10/07/24 metoprolol succinate 50 mg 50 mg PO DAILY 10/07/24 10/07/24 tablet,extended release 24 hr oxycodone-acetaminophen 5 mg-325 1 tab PO Q12H PRN severe pain 10/07/24 10/07/24 mg tablet Previous Rx's ?Medication ?Instructions ?Recorded capsaicin 0.025 % topical patch 1 patch topical BID #10 ea 03/03/25 methylprednisolone 4 mg tablets in 4 mg PO DAILY #21 ea 03/03/25 a dose pack (Medrol (Venancio)) Allergies Allergy/AdvReac Type Severity Reaction Status Date / Time amoxicillin (From AUGMENTIN) Allergy Intermediate FACIAL Verified 03/03/25 21:06 SWELLING, HIVES clavulanic acid (From Allergy Intermediate FACIAL Verified 03/03/25 21:06 AUGMENTIN) SWELLING, HIVES Iodinated Contrast Media (IV Allergy Intermediate ITCHING, Verified 03/03/25 21:06 CONTRAST) FACIAL SWELLING, HIVES oral contrast Allergy Unknown facial Uncoded 03/03/25 21:06 swellling Review of Systems Constitutional: Constitutional: Reports as per [facility] Past Medical History Medical History (Updated 03/03/25 @ 22:44 by Jose Knapp DO) Leukocytosis Type 2 diabetes mellitus Hyperlipidemia Essential hypertension Diverticulitis Abdominal pain HTN (hypertension) Surgical History Hx of carpal tunnel repair History of tubal ligation H/O hemorrhoidectomy Family History Family History Father Prostate cancer Social History Social History Household Members: Family Household Members Other:: 3 Housing: Apartment Do you presently have visiting nurse or other home services: No Alcohol intake: current Alcohol intake frequency: holidays/special occasions only Alcohol type: beer Patient Tobacco Use Status: Never used Tobacco Tobacco use type: Cigarette Cigarettes Per Day: 7 e-Cigarette/Vaping Use: Former Use Second Hand Smoke Exposure: No Advance Directives: No Advance Directives Information Provided: No Do you have a plan to hurt others: No Plan service: No Current occupational status: unemployed Physical Exam Vital Signs: Vital Signs: Last Vital Signs Temp 97.9 F 03/03/25 21:04 Pulse 102 H 03/03/25 21:04 Resp 18 03/03/25 21:04 BP 186/79 H 03/03/25 21:04 Pulse Ox 95 03/03/25 21:04 O2 Del Method Room Air 03/03/25 21:04 BMI result Body Mass Index 28.3 Const: Other: Examination of the patient bilateral lower extremities reveals distal pulses intact, proximal and distal compartments soft, non swollen, full range of motion both knees both hips, she is tender over left greater trochanter without rashes without bruising, pelvis is stable, she is also tender all along her ITB band Medical Decision Making Medical Decision Making MDM Narrative: Patient is presenting with greater trochanteric bursitis and ITB band syndrome on the left side without any evidence for trauma, DVT or arterial insufficiency Differential Diagnosis Differential Diagnoses: The differential diagnosis associated with the presentation includes (See above) Tests considered The following testing was considered but not selected: Ultrasound of the lower extremity to evaluate for DVT Prescription Management I considered prescription management with: Pain Medication Discharge Plan Discharge Clinical Impression: Greater trochanteric bursitis of left hip Patient Disposition: Home, Self-Care Additional Instructions: Please look up stretching exercises for greater trochanteric bursitis/ITB syndrome, continue steroids starting tomorrow, and I recommend you case picker [id number] capsaicin ointment patches, and apply the patch right over the most tender area of the hip For pain I recommend Tylenol 975 mg every 6 hours as needed Give it a few days this will improve with steroids, if it does not you can follow up with orthopedic doctor for steroid injection to the area Prescriptions: New methylprednisolone [Medrol (Venancio)] 4 mg tablets,dose pack 4 mg PO DAILY Qty: 21 0RF Rx Instructions: Day 1: 24 mg on day 1 administered as 8 mg before breakfast, 4 mg after lunch, 4 mg after supper, and 8 mg at bedtime or 24 mg as a single dose or divided into 2 or 3 doses upon initiation. Day 2: 20 mg on day 2 administered as 4 mg before breakfast, 4 mg after lunch, 4 mg after supper, and 8 mg at bedtime. Day 3: 16 mg on day 3 administered as 4 mg before breakfast, 4 mg after lunch, 4 mg after supper, and 4 mg at bedtime. Day 4: 12 mg on day 4 administered as 4 mg before breakfast, 4 mg after lunch, and 4 mg at bedtime. Day 5: 8 mg on day 5 administered as 4 mg before breakfast and 4 mg at bedtime. Day 6: 4 mg on day 6 administered as 4 mg before breakfast. capsaicin 0.025 % adhesive patch,medicated 1 patch topical BID Qty: 10 0RF Rx Instructions: do not leave patch on for more than 8 hrs No Action fluticasone propionate 50 mcg/actuation spray,suspension 1 spray intranasal TID PRN (Reason: Allergy Symptoms) atorvastatin 80 mg tablet 80 mg PO BEDTIME metoprolol succinate 50 mg tablet extended release 24 hr 50 mg PO DAILY amlodipine 2.5 mg tablet 2.5 mg PO DAILY clopidogrel 75 mg tablet 75 mg PO DAILY aspirin 81 mg tablet,delayed release (DR/EC) 81 mg PO DAILY oxycodone-acetaminophen 5-325 mg tablet 1 tab PO Q12H PRN (Reason: severe pain) losartan 100 mg tablet 100 mg PO DAILY ezetimibe 10 mg tablet 10 mg PO DAILY Jardiance 10 mg tablet 10 mg PO DAILY albuterol sulfate 90 mcg/actuation HFA aerosol inhaler 2 puff inhalation Q6H PRN (Reason: Wheezing) (DME) blood pressure test kit-large Kit See Rx Instructions .ROUTE BID Qty: 1 Rx Instructions: As directed Print Language: Setswana
[2025-03-03] MEDS: Lidocaine 4 % Patch ADH..PATCH 1 PATCH TRANSDERMA (22:48)
[2025-03-03 22:59] VITALS: BP 141/82; PULSE 76; RESP 18; TEMP 36.6; O2SAT 98
== END 2025-03-03 23:00 | disposition home or self-care (01) ==
PROVIDERS: Emergency Provider Emergency Medicine; PCP Internal Medicine Geriatric Medicine
DX: M70.62 Trochanteric bursitis, left hip (principal); M25.552 Pain in left hip; E11.8 Type 2 diabetes mellitus with unspecified complications; I10 Essential (primary) hypertension; Z79.899 Other long term (current) drug therapy
CPT/HCPCS: 96372; 99284; J1885; J8540

== ENCOUNTER 2025-04-14 09:14 | Outpatient (REF) | payer MEDICARE, MEDICAID, SELFPAY ==
--- OUTSIDE RECORDS SUMMARY | 2025-03-31 13:00 | XMS_ITS | Encounter Summary ---
Author Organization [employer] Address [address] [facility] 7t [place] [address] Care Team Providers Care Window Dresser Name Role Phone Vincenzo Fernandez MD Primary Care Provider [phone] Reason for Referral * Imaging (Routine) - Authorized Specialty Diagnoses / Procedures Referred By Contac t Referred To Contact Radiology Diagnoses Subareolar mass of left breast Procedures BI US Breast Limited Right Vincenzo Fernandez MD [address] [place] [address] Phone: tel: fax: [facility] Referral ID Status Reason Start Date Expiration Date V isits Requested Visits Authorized [id number] Authorized 04/11/2025 04/11/2026 1 1 * Imaging (Routine) - Authorized Specialty Diagnoses / Procedures Referred By Contac t Referred To Contact Radiology Diagnoses Subareolar mass of left breast Procedures BI US Breast Limited Left Vincenzo Fernandez MD [address] [place] [address] Phone: tel: fax: [facility] Referral ID Status Reason Start Date Expiration Date V isits Requested Visits Authorized [id number] Authorized 04/11/2025 04/11/2026 1 1 * Consultation (Routine) - Authorized Specialty Diagnoses / Procedures Referred By Contac t Referred To Contact Gastroenterology Diagnoses Discharge from nipple Vincenzo Fernandez MD [address] [place] [address] Phone: tel: fax: [facility] [address]rd [place] [address] Phone: tel: fax: Referral ID Status Reason Start Date Expiration Date Visits Requested Visits Authorized [id number] Authorized Specialty Services Required 03/31/2025 03/31/2026 1 1 * Consultation (Routine) - Authorized Specialty Diagnoses / Procedures Referred By Enrrique t Referred To Contact General Surgery Diagnoses Subareolar mass of left breast Discharge from nipple Vincenzo Fernandez MD [address] [place] [address] Phone: tel: fax: [facility] [address] [facility] 3rd [address] [place], [place] Phone: tel: fax: Referral ID Status Reason Start Date Expiration Date Visits Requested Visits Authorized [id number] Authorized Specialty Services Required 03/31/2025 03/31/2026 1 1 * Imaging (Routine) - Authorized Specialty Diagnoses / Procedures Referred By Enrrique t Referred To Contact Radiology Diagnoses Subareolar mass of left breast Discharge from nipple Procedures BI Mammogram Diagnostic Tomosynthesis Bilateral Vincenzo Fernandez MD [address] [place] [address] Phone: tel: fax: [facility] [address] [place] [address] Phone: tel: fax: Referral ID Status Reason Start Date Expiration Date V isits Requested Visits Authorized [id number] Authorized 03/31/2025 03/31/2026 1 1 Reason for Visit * Reason Comments Follow-up Encounter Details Date Type Department Care Team (Late st Contact Info) Description 03/31/2025 1:00 PM EDT Office Visit [facility] [place] [address] Name, MD Vincenzo [address] [place] [address] Discharge from nipple (Primary Dx); Subareolar mass of left breast; Coronary artery disease involving chick[place]ominy indian tribe coronary artery of chickahominy indian tribe heart without angina pectoris; Tobacco dependence syndrome; Screen for colon cancer Social History Tobacco Use Types Packs/Day Years [...] AM EDT documented as of this encounter Last Filed Vital Signs Vital Sign Reading Time Taken Comments Blood Pressure 142/82 03/31/2025 1:00 PM EDT Pulse 78 03/31/2025 1:00 PM EDT Temperature 36.3 C (97.4 F) 03/31/2025 1:00 PM EDT Respiratory Rate 12 03/31/2025 1:00 PM EDT Oxygen Saturation - - Inhaled Oxygen Concentration - - Weight 86.1 kg (189 lb 12.8 oz) 03/31/2025 1:00 PM EDT Height 175.3 cm (5' 9 ) 03/31/2025 1:00 PM EDT Body Mass Index 28.03 03/31/2025 1:00 PM EDT documented in this encounter Progress Notes * Vincenzo Fernandez, - 03/31/2025 1:00 PM EDT Images from the original note were not included. Subjective Patient ID: Laura Pruitt is a 49 y.o. female who presents for Follow-up. Patient comes for follow-up visit. She continues smoking cigarettes, she is using her cardioprotective regimen as prescribed, she is following with her acetylene cylinder packing mixer regularly, she denies any chest pains or shortness of breath, she is due to recheck her lipid profile Today she complains of bilateral nipple discharge, green in color, and a palpable lump adjacent to the left nipple. All of the symptoms are recurrent. She had problems with nipple discharge and breast lumps in the past. She does not have any headaches, no visual problems, no amenorrhea. Review of Systems Constitutional: Negative for chills and fever. HENT: Negative for sore throat. Respiratory: Negative for cough, shortness of breath and wheezing. Cardiovascular: Negative for chest pain, palpitations and leg swelling. Gastrointestinal: Negative for abdominal pain. Objective Vitals: 03/31/25 1300 BP: (!) 142/82 BP Location: Left arm Patient Position: Sitting BP Cuff Size: Adult Pulse: 78 Resp: 12 Temp: 97.4 ??F (36.3 ??C) TempSrc: Temporal Weight: 189 lb 12.8 oz (86.1 kg) Height: 5' 9 (1.753 m) Physical Exam Exam conducted with a facilities and grounds director present. Constitutional: Appearance: Normal appearance. Cardiovascular: Rate and Rhythm: Normal rate and regular rhythm. Heart sounds: No murmur heard. No gallop. Pulmonary: Effort: Pulmonary effort is normal. No respiratory distress. Breath sounds: Normal breath sounds. No wheezing. Chest: Comments: She had a small palpable lump adjacent to the left nipple on the area pictured above. I did not palpate any axillary lymphadenopathy. She had bilateral green nipple discharge Musculoskeletal: Right lower leg: No edema. Left lower leg: No edema. Neurological: Mental Status: She is alert. Assessment/Plan Diagnoses and all orders for this visit: Discharge from nipple Comments: Bilateral green nipple discharge. She has this problem on and off for years. She had negative workup in the past including negative imaging studies for malignancy and negative prolactin. Most likely benign. I recommended evaluation with diagnostic mammogram and ultrasounds I will repeat her prolactin level I will refer her back to breast surgery Orders: - BI Mammogram Diagnostic Tomosynthesis Bilateral; Future - BI US Breast Complete Right; Future - BI US Breast Complete Left; Future - Referral to General Surgery; Future - Prolactin, Dilution Study; Future - Referral to Gastroenterology; Future Subareolar mass of left breast - BI Mammogram Diagnostic Tomosynthesis Bilateral; Future - BI US Breast Complete Right; Future - BI US Breast Complete Left; Future - Referral to General Surgery; Future Coronary artery disease involving chickahominy indian tribe coronary artery of chickahominy indian tribe heart without angina pectoris Comments: Asymptomatic. I will scan copies of most recent cardiology notes, continue current cardioprotectiveregimen, quit smoking and check lipids Orders: - Lipid Panel, Standard; Future Tobacco dependence syndrome Screen for colon cancer Comments: Referral to screening colonoscopy Future Appointments Date Time Provider Department Center 05/30/2025 11:00 AM [facility] documented in this encounter Miscellaneous Notes * Addendum Note - Shira Higginbotham - 03/31/2025 1:00 PM EDTAddended by: SHIRA HIGGINBOTHAM on: 04/11/2025 10:29 AM Modules accepted: Orders documented in this encounter Plan of Treatment Upcoming Encounters Date Type Department Care Team (Late st Contact Info) Description 05/30/2025 11:00 AM EDT Office Visit [facility] [place] [address] 06/26/2025 2:30 PM EST Office Visit [facility] [place] [address] Name, [place] [address] Scheduled Orders Name Type Priority Associated Diagnoses Orde r Schedule Lipid Panel, Standard Lab Routine Coronary artery disease involving chickahominy indian tribe coronary artery of chickahominy indian tribe heart without angina pectoris Expected: 03/31/2025 (Approximate), Expires: 03/31/2026 BI Mammogram Diagnostic Tomosynthesis Bilateral Imaging Routine Subareolar mass of left breast Discharge from nipple Expected: 03/31/2025, Expires: 05/31/2026 Prolactin, Dilution Study Lab Routine Discharge from nipple Expected: 03/31/2025 (Approximate), Expires: 03/31/2026 BI US Breast Limited Left Imaging Routine Subareolar mass of left breast Expected: 04/11/2025, Expires: 04/11/2026 BI US Breast Limited Right Imaging Routine Subareolar mass of left breast Expected: 04/11/2025, Expires: 04/11/2026 Scheduled Referrals Name Type Priority Associated Diagnoses Order Schedule Referral to General Surgery Outpatient Referral Routine Subareolar mass of left breast Discharge from nipple Expected: 03/31/2025 (Approximate), Expires: 03/31/2026 Referral to Gastroenterology Outpatient Referral Routine Discharge from nipple Expected: 03/31/2025 (Approximate), Expires: 03/31/2026 documented as of this encounter Goals Goal Patient Goal Type Associated Problems Recent Progress Patient-Stated? Author Record your blood pressure once per day Blood Pressure No Puia, Milagros, PharmD Blood Pressure < 140/90 Blood Pressure 142/82( 025 1:00 PM EDT) No Puia, Milagros, PharmD documented as of this encounter Visit Diagnoses Diagnosis Discharge from nipple- Primary Other sign and symptom in breast Subareolar mass of left breast Coronary artery disease involving chickahominy indian tribe coronary artery of chickahominy indian tribe heart without angina pectoris Tobacco dependence syndrome Tobacco use disorder Screen for colon cancer Special screening for malignant neoplasms, colon documented in this encounter Additional Health Concerns Assessment Noted Time PHQ-9 Depression Total Score: 8 10/04/19 25 3:21 PM EST documented as of this encounter Care Teams Window Dresser Relationship Specialty Start Date End Date Name, MD Vincenzo [address] [place] [address] PCP - General Family Medicine 08/03/18 documented as of this encounter
--- NOTE | ~2025-04-14 | US_ITS ---
EXAMINATION: MM DIAGNOSTIC DIGITAL BREAST TOMOSYNTHESIS, BILATERAL Limited bilateral ultrasound. CLINICAL INFORMATION: Bilateral nipple discharge green clear brown for many years. Patient did not return for six-month follow-up recommended for a focal asymmetry in the right breast in 2022. COMPARISON: Mammography: Comparison is made with relevant prior exams. TECHNIQUE: Digital breast mammography with tomosynthesis is performed in both the craniocaudal and mediolateral oblique views along with computer-aided detection (CAD). FINDINGS: There are scattered areas of fibroglandular density (ACR BI-RADS breast composition Category b). Right: The previously seen focal asymmetry lower inner breast is no longer seen. No suspicious calcifications masses or other abnormal findings. Targeted color Doppler ultrasound scanning in the retroareolar region area of patient's discharge demonstrates normal fibroglandular breast tissue. There is no sonographic abnormal finding. Left: Focal asymmetry circumscribed oval mass upper inner breast anterior to middle depth. No suspicious calcifications or abnormal findings. Targeted color Doppler ultrasound scanning in the retroareolar region demonstrates normal fibroglandular breast tissue. There is no sonographic abnormal finding. Targeted color Doppler ultrasound scanning in the upper inner quadrant demonstrates normal fibronodular breast tissue. There is no sonographic abnormal finding to account for the circumscribed oval mass seen on mammography. US/US breast BI limited mamm only IMPRESSION: Right: No mammographic or sonographic abnormal finding to account for the nipple discharge. Recommend clinical evaluation and follow-up. Left: 1. Circumscribed oval mass upper inner breast anterior to middle depth without sonographic correlate. Recommend six-month follow-up mammography for further evaluation of stability. 2. No mammographic or sonographic abnormal finding to account for the nipple discharge. Recommend clinical evaluation follow-up. ASSESSMENT: BI-RADS BI-RADS 3 - Probably benign finding(s) - 6 month follow-up suggested RECOMMENDATION: 6 Month F/U This patient's information was entered into a reminder system with a target due date for their next mammogram. Electronically signed by: Dena Haq DO 04/14/2025 01:25 PM EDT
--- OUTSIDE RECORDS SUMMARY | 2025-04-14 10:10 | XMS_ITS | Encounter Summary ---
Author Organization [employer] Address [address] [facility] 7t [place] [address] Care Team Providers Care Newspaper Managing Editor Name Role Phone Name, Vincenzo MYRICK Primary Care Provider [phone] Milagros Rawls PharmD Unavailable Reason for Visit * Reason Comments Med Refill Encounter Details Date Type Department Care Team (Late st Contact Info) Description 03/21/[address] [facility] [address] [place] [phone] Gregoria Hardin MD [address] [place] [address] ST elevation myocardial infarction (STEMI), unspecified artery [...] Description 05/30/2025 11:00 AM EDT Office Visit [facility] [address] [place] [address] 06/26/2025 2:30 PM EST Office [facility] [place] [address] Name, [place] [address] documented as of this encounter Visit Diagnoses Diagnosis ST elevation myocardial infarction (STEMI), unspecified artery (CMS/HCC) Acute systolic congestive heart failure (CMS/HCC) Musculoskeletal chest pain Other chest pain documented in this encounter Additional Health Concerns Assessment Noted Time PHQ-9 Depression Total Score: 0 12/24/19 23 10:58 AM EDT documented as of this encounter Care Teams Newspaper Managing Editor Relationship Specialty Start Date End Date Name, [place] [address] PCP - General Family Medicine 08/03/18 Milagros Rawls PharmD [address] [place] [phone] Pharmacist Internal Medicine 12/02/23 06/27/24 documented as of this encounter
--- OUTSIDE RECORDS SUMMARY | 2025-04-14 10:10 | XMS_ITS | Encounter Summary ---
Author Organization [employer] Address [address] [facility] 7t [place] [address] Care Team Providers Care Commissioning Editor Name Role Phone Vincenzo Fernandez MD Primary Care Provider [phone] Milagros Rawls PharmD Unavailable Reason for Visit * Reason Onset Date Comments Med Refill 02/04/2023 Encounter Details Date Type Department Care Team ([facility] st Contact Info) Description 02/04/2023 Telephone [facility] MEDICINE [address] [place], [place] [phone] Name, MD Vincenzo [address] [place] [address] Med Refill Social History Tobacco Use Types [...] Miscellaneous Notes * Telephone Encounter - Indira Nicholas - 02/04/2023 1:17 PM EDT Tc from pt requesting medication refill on oxyCODONE-acetaminophen (Percocet) 5- 325 MG tablet documented in this encounter Plan of Treatment Upcoming Encounters Date Type Department Care Team (Late st Contact Info) Description 05/30/2025 11:00 AM EDT Office Visit [facility] MEDICINE [address] [place] [phone] 06/26/2025 2:30 PM EST Office Visit [address] [address] Name, MD Vincenzo [address] [place] [address] documented as of this encounter Visit Diagnoses Not on filedocumented in this encounter Additional Health Concerns Assessment Noted Time PHQ-9 Depression Total Score: 0 12/24/19 10:58 AM EDT documented as of this encounter Care Teams Commissioning Editor Relationship Specialty Start Date End Date Name, MD Vincenzo [address] [place] [address] PCP - General Family Medicine 08/03/18 Milagros Rawls PharmD [address] [place] [address] Pharmacist Internal Medicine 12/02/23 06/27/24 documented as of this encounter
--- OUTSIDE RECORDS SUMMARY | 2025-04-14 10:10 | XMS_ITS | Encounter Summary ---
Author Organization [employer] Address [address] [facility] 7t [place] [address] Care Team Providers Care Home Health Lvn Name Role Phone NameVincenzo MD Primary Care Provider Milagros Rawls PharmD Unavailable [phone] Reason for Visit * Reason Comments Med Refill Encounter Details Date Type Department Care Team ([facility] Contact Info) Description 03/21/2023 Refill [facility] [address] [place] [phone] Name, MD Vincenzo [address] [place] [phone] Social History Tobacco Use Types Packs/Day Years [...] Encounters Date Type Department Care Team (Late Contact Info) Description 05/30/2025 11:00 AM EDT Office Visit [facility] [address] [place] [address] [phone] 06/26/2025 2:30 PM EST Office Visit [facility] [address] [place] [address] Name, MD Vincenzo [address] [place] [address] documented as of this encounter Visit Diagnoses Not on filedocumented in this encounter Additional Health Concerns Assessment Noted Time PHQ-9 Depression Total Score: 0 12/24/19 10:58 AM EDT documented as of this encounter Care Teams Home Health Lvn Relationship Specialty Start Date End Date Name, MD Vincenzo [address] [place] [address] PCP - General Family Medicine 08/03/18 Milagros Rawls, Dai [address] [place] [phone] Pharmacist Internal Medicine 12/02/23 06/27/24 documented as of this encounter
--- OUTSIDE RECORDS SUMMARY | 2025-04-14 10:10 | XMS_ITS | Clinical Summary ---
Author Organization [facility] Address [address] [place] [id number] Care Team Providers Care Endless Bed Drum Sander Name Role Phone Name, Vincenzo MYRICK Primary Care Provider [phone] Surgical History Surgery Date Site/Laterality Comments OTHER [...] (2 - Td or Tdap) 02/01/2023 02/01/2013 Depression Screening 08/03/2024 COVID-19 Vaccine ( season) 2025 Influenza Vaccine (#1) 2025 5, 06/28/2014, 06/23/2013, [...] age to complete this topic Care Teams Endless Bed Drum Sander Relationship Specialty Start Date End Date Name, MD Vincenzo [address] [place], [place] PCP - General Internal Medicine 06/06/08
--- OUTSIDE RECORDS SUMMARY | 2025-04-14 10:10 | XMS_ITS | Encounter Summary ---
Author Organization [employer] Address [address] [facility] 7t [place] [address] Care Team Providers Care Bullard Operator Name Role Phone Name, Vincenzo MYRICK Primary Care Provider [phone] Reason for Visit * Reason Onset Date Comments Med Refill 04/12/2025 Encounter Details Date Type Department Care Team (Late st Contact Info) Description 04/12/2025 Refill [facility] [address] [place], [place] [phone] Name, MD Vincenzo [address] [place] [address] Chronic pain syndrome Social History Tobacco Use [...] encounter Miscellaneous Notes * Telephone Encounter - Nestor Bojorquez - 04/12/2025 2:16 PM EDT TC from pt requesting medication refill. Medications needing refill : oxyCODONE-acetaminophen (Percocet) 5-325 MG tablet To be sent to: [id number] documented in this encounter Plan of Treatment Upcoming Encounters Date Type Department Care Team (Late st Contact Info) Description 05/30/2025 11:00 AM EDT Office Visit [facility] [address] [place] [address] 06/26/2025 2:30 PM EST Office Visit [facility] [address] [place] [phone] Name, MD Vincenzo [address] [place] [address] documented as of this encounter Goals Goal Patient Goal Type Associated Problems Recent Progress Patient-Stated? Author Record your blood pressure once per day Blood Pressure No Milagros Rawls, PharmD Blood Pressure < 140/90 Blood Pressure 142/82( 025 1:00 PM EDT) No Milagros Rawls, Dai documented as of this encounter Visit Diagnoses Diagnosis Chronic pain syndrome documented in this encounter Additional Health Concerns Assessment Noted Time PHQ-9 Depression Total Score: 8 10/04/19 25 3:21 PM EST documented as of this encounter Care Teams Bullard Operator Relationship Specialty Start Date End Date Name, MD Vincenzo [address] [place] [address] PCP - General Family Medicine 08/03/18 documented as of this encounter
--- OUTSIDE RECORDS SUMMARY | 2025-04-14 10:10 | XMS_ITS | Encounter Summary ---
Author Organization [email or web address] Address [address] [facility] 7t [place] [address] Care Team Providers Care Extruder Operator Multiple Name Role Phone Name, Vincenzo MYRICK Primary Care Provider [phone] Reason for Visit * Reason Onset Date Comments Nurse Triage 08/15/2024 Encounter Details Date Type Department Care Team ([facility] st Contact Info) Description 08/15/2024 Telephone [facility] [address] [place], [place] [phone] Name, MD Vincenzo [address] [place] [address] Nurse Triage Social History Tobacco Use Types [...] is your housing situation today? I have keshavsara naylor 05/20/[address] you [...] become worse * Telephone Encounter - Maikel Elmo - 08/15/2024 9:31 AM EST Symptoms: Diarrhea, [...] Description 05/30/2025 11:00 AM EDT Office Visit [address] [address] 06/26/2025 2:30 PM EST Office Visit [address] [address] Name, MD Vincenzo [address] [place] [address] documented as of this encounter Goals Goal [...] documented as of this encounter Care Teams Extruder Operator Multiple Relationship Specialty Start Date End Date Vincenzo Fernandez MD [address] [place] [address] PCP - General Family Medicine 08/03/18 documented as of this encounter
--- OUTSIDE RECORDS SUMMARY | 2025-04-14 10:10 | XMS_ITS | Encounter Summary ---
Author Organization [employer] Address [address] [facility] 7t [place] [address] Care Team Providers Care Deployment Specialist Name Role Phone Vincenzo Fernandez MD Primary Care Provider Milagros Rawls PharmD Unavailable [phone] Reason for Visit * Reason Comments Med Refill Encounter Details Date Type Department Care Team (Late st Contact Info) Description 06/29/2023 Refill [facility] [address] [place], [place] [phone] Name, MD Vincenzo [address] [place] [address] ST elevation myocardial infarction (STEMI), unspecified artery [...] Description 05/30/2025 11:00 AM EDT Office Visit [address] [address] 06/26/2025 2:30 PM EST Office Visit [address] [address] Name, MD Vincenzo [address] [place] [address] documented as of this encounter Visit Diagnoses Diagnosis ST elevation myocardial infarction (STEMI), unspecified artery (CMS/HCC) Acute systolic congestive heart failure (CMS/HCC) Musculoskeletal chest pain Other chest pain documented in this encounter Additional Health Concerns Assessment Noted Time PHQ-9 Depression Total Score: 0 12/24/19 23 10:58 AM EDT documented as of this encounter Care Teams Deployment Specialist Relationship Specialty Start Date End Date Name, MD Vincenzo [address] [place] [address] PCP - General Family Medicine 08/03/18 Milagros Rawls PharmD [address] [place] [address] Pharmacist Internal Medicine 12/02/23 06/27/24 documented as of this encounter
--- OUTSIDE RECORDS SUMMARY | 2025-04-14 10:10 | XMS_ITS | Clinical Summary ---
Author Organization [employer] Address [address] [facility] 7[address] [place] [address] Care Team Providers Care Platform Beater Name Role Phone Name, Vincenzo MYRICK Primary Care Provider [phone] Allergies Active Allergy Reactions Criticality Noted Date Comments Amoxicillin High 01/28/2016 Other reaction(s): FACIAL SWELLING, HIVES Amoxicillin-Pot Clavulanate 09/03/19 23 Other reaction(s): Hives, Swelling Clavulanic Acid High [...] every 12 (twelve) hours. 10/26/19 22 Active metoprolol succinate XL (Toprol-XL) 50 MG [...] DAY 48 mL 1 06/23/20 23 Active Blood Pressure kit Check blood pressure twice a day 1 kit 11/04/19 24 Active fluticasone furoate (Arnuity Ellipta) 200 MCG/ACT inhaler Inhale 1 puff in the morning. Rinse mouth with water after use to reduce aftertaste and incidence of candidiasis. Do not swallow. 1 each 11 11/04/19 24 Active losartan (Cozaar) 100 MG tablet Take 1 tablet (100 mg) by mouth Once per day. 30 tablet 11 02/17/20 24 Active Aspirin Low Dose 81 MG EC tablet TAKE 1 TABLET BY MOUTH EVERY DAY FOR 90 DAYS 01/28/20 24 Active mometasone (Elocon) 0.1 % ointment APPLY TOPICALLY IN THE MORNING 45 g 07/19/20 24 Active ezetimibe (Zetia) 10 MG tablet TAKE 1 TABLET BY MOUTH EVERY DAY IN THE MORNING 90 tablet 3 10/29/19 25 Active albuterol 108 (90 Base) MCG/ACT inhaler TAKE 1 PUFF BY MOUTH EVERY 4 TO 6 HOURS NEEDED 8.5 g 3 11/16/19 25 Active albuterol (2.5 MG/3ML) 0.083% nebulizer solution INHALE 1 VIAL BY NEBULIZER 3 TIMES EVERY DAY NEEDED FOR SHORTNESS OF BREATH /ASTHMA 75 mL 1 01/12/20 25 Active nitroglycerin (Nitrostat) 0.4 MG SL tabletIndicati ons:Coronary artery disease involving [place] heart with angina pectoris, unspecified vessel or lesion type (CMS/[facility]) Place 1 tablet (0.4 mg) under the tongue every 5 (five) minutes if needed for chest pain. May administer up to 3 tablets in 15-minute period. Proceed to ED for chest pain. 30 tablet 01/25/20 25 026 Active amLODIPine (Norvasc) 5 MG tablet Take 1 tablet by mouth Once per day. 02/10/20 25 Active oxyCODONE-acet aminophen (Percocet) 5-325 MG tabletIndicati ons:Chronic pain syndrome Take 1 tablet by mouth every 12 (twelve) hours if needed for severe pain for up to 28 days. 56 tablet 04/12/20 25 025 Active clopidogrel (Plavix) 75 MG tablet TAKE 1 TABLET BY MOUTH EVERY DAY FOR 90 DAYS 11/26/19 025 Discontinued(Th erapy completed) amLODIPine (Norvasc) 2.5 MG tablet TAKE 1 TABLET BY MOUTH IN THE MORNING 90 tablet 3 10/22/19 025 Discontinued(Do se adjustment) oxyCODONE-acet aminophen (Percocet) 5-325 MG tabletIndicati ons:Chronic pain syndrome Take 1 tablet by mouth every 12 (twelve) hours if needed for severe pain for up to 28 days. 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 Agreement: 09/27/24 Tier 2 (Ivf Embryologist visits Q3 months) Assessment & Plan (01/24/2025 6:06 PM EDT): Timeline: - 06/28/24: Group Visit, Utox/pill count as expected - 09/27/24: Group visit, Utox/pill count as expected - 11/22/24: Group visit, Utox/pill count as expected - 01/24/25: Group visit, utox as expected, pill count off by 1 Assessment & Plan (10/02/2024 8:30 PM EST): [...] abscess 05/04/2023 Constipation 05/04/2023 Tubo-ovarian abscess 05/04/2023 Overview (03/31/2025): Patient had left ovary/tube removed Coronary artery disease invo lving [place] heart without angina pectoris 05/04/2023 ST elevation myocardial infarction (STEMI) 09/24 Overview (09/24/2022): 09/2021 Pt had left heart catheterization and is s/p PCI with KEVIN to proximal LAD. Also had successful balloon angioplasty at [facility]. Echocardiogram showed LVEF 25 - 30%. Systolic congestive heart failure 09/24/2022 History of tubal ligation 09/24/2022 Seasonal allergic reaction 12/22/2018 Moderate persistent asthma 08/11/2018 Depressive disorder 03/19/2018 Elevated hemoglobin 06/22/2017 Rectal hemorrhage 01/15/2017 Discharge from nipple 07/23/2016 Assessment & Plan (02/26/2023 1:51 PM EDT): -Physiologic vs pathologic discharge -Reassuring that discharge is bilateral, although high concern given suspicion for bloody discharge -Similar presentation and initial evaluation in [id number]. Breast MRI had been ordered through [facility] Surgery dept, although does not appear was [...] encouraged Lumbar spondylosis 08/27/2015 Assessment & Plan (03/28/2025 2:18 PM EDT): May benefit from individual consult regarding pain management for consideration of updated imaging and trial of physical therapy or other tx options -Good engagement and participation with Group Medical Visit model -Encouraged multifactorial approach to pain control including pharm and non- pharm modalities -UTOX and pill count as expected. Assessment & Plan (01/24/2025 6:06 PM EDT): May benefit from individual consult regarding pain management for consideration of updated imaging and trial of physical therapy or other non-pharm tx -Good engagement and participation with Group Medical Visit model -Encouraged multifactorial approach to pain control including pharm and non- pharm modalities -UTOX as expected, pill count 1 short. See custodian. Assessment & Plan (10/02/2024 8:30 PM EST): [...] Resolved Date Atypical chest pain 05/04/2023 11/04/19 Viral upper respiratory tract infection 08/11/2018 09/09/2022 Pain in female pelvis 03/19/20182022 Abdominal pain 07/01/2017 02/17/2024 Cough 05/13/2016 09/09/2022 Wheezing 05/13/2016 09/14/2022 Encounters * This document contains information received from the source organization and may not represent a complete record from that organization. Date Type Department Care Team Description 04/12/[address] [address] Vincenzo Fernandez MD Chronic pain syndrome 03/31/2025 1:00 PM EDT Office Visit [address] [address] Vincenzo Fernandez MD Discharge from nipple (Primary Dx); Subareolar mass of left breast; Coronary artery disease involving [place] coronary artery of [place] heart without angina pectoris; Tobacco dependence syndrome; Screen for colon cancer 03/31/2025 Travel 03/30/2025 Telephone [facility] [address] [place] [address] Valencia Suarez MA CHARTPREP 03/28/2025 11:00 AM EDT Office Visit [facility] [address] [place] [address] Mariluz Cuellar FNP Lumbar spondylosis (Primary Dx); Long-term current use of opiate analgesic 03/28/2025 Telephone [facility] [address] [place] [address] Erika Krishna RN BPI Scoring 03/28/2025 Travel 03/14/2025 Refill [facility] [address] [place] [address] Vincenzo Fernandez MD Chronic pain syndrome 02/27/[address] [address] Elly Car [place] Appointment Request 02/27/[address] [address] Vincenzo Fernandez MD Appointment Request 02/14/2025 Refill [facility] [address] [place] [address] Vincenzo Fernandez MD Chronic pain syndrome 01/24/2025 11:00 AM EDT Office Visit [address] [address] Mariluz Cuellar FNP Lumbar spondylosis (Primary Dx); Long-term current use of opiate analgesic; Coronary artery disease involving [place] heart with angina pectoris, unspecified vessel or lesion type ([facility]) 01/24/2025 Travel 01/12/[address] [phone] Erika Krishna, RN Recommend [employer] MECHAN[employer] Tier 2 from Last 3 Months Immunizations Immunization Administration Dates Next Due Influenza injectable quadriv alent IIV4 with preservative 05/20/2016,05/30/2015,06/28/2014,2012,04/10/2011,06/07/2010,05/01/2009,1 08/27/2007 Influenza injectable quadriv alent preservative free 05/04/2023,04/25/2022 Influenza, IIV3, injectable 05/20/2016,1 ,06/28/2014,2012,04/10/2011,06/07/2010,05/01/2009,1 08/27/2007 Influenza, seasonal, injecta ble, preservative free 04/26/2024 Novel [id number], preservative-free 07/16/2009 Pneumococcal Conjugate PCV 20 11/04/2023 [...] housing situation today? I have keshavsara naylor [address] you [...] 12 03/31/2025 1:00 PM EDT Oxygen Saturation 98% 04/26/2024 9:35 AM EDT Inhaled Oxygen Concentration - - Weight 86.1 kg (189 lb 12.8 oz) 03/31/2025 1:00 PM EDT Height 175.3 cm (5' 9 ) 03/31/2025 1:00 PM EDT Body Mass Index 28.03 03/31/2025 1:00 PM EDT Plan of Treatment Upcoming Encounters Date Type Department Care Team (Late st Contact Info) Description 05/30/2025 11:00 AM EDT Office Visit [facility] [address] [place] [address] 06/26/2025 2:30 PM EST Office Visit [facility] [address] [place] [phone] Name, MD Vincenzo [address] [place] [address] Health Maintenance Due Date Last Done Comments CT Colonography 1975 Colonoscopy 1975 Colorectal Cancer Screening 1975 FIT DNA/Cologuard 1976 FIT 1975 FOBT 1975 HIV Screening 1975 Sigmoidoscopy 1975 Family Planning (PISQ) 1991 Hepatitis C Screening 1994 Hepatitis B Vaccines (1 of 3 - 19+ 3-dose series) 1995 COVID-19 Vaccine ( season) 2025 Influenza Vaccine (#1) 2025 , 05/04/2023, 04/25/2022, Additional history exists Mammogram 04/08/2025 04/08/2023, 09/0 01/2023, 09/29/2019, Additional history exists Alcohol/Substance Use Screening 2025 2024 SDOH Screening 2025 2024 Depression Screening 10/03/2025 10/03/2024, 10/04/19 25 Disability Screening 03/31/2026 03/31/2025 Tobacco Screening 03/31/2026 03/31/2025 Zoster Vaccines (1 of 2) 2026 Cervical Cancer Screening 11/20/2027 HPV/Cotest 11/20/2027 11/19/2022, 11/09/2020 Pap Smear 11/20/2027 11/19/2022, 04/0 04/2021, 11/07/2020 Lipid Panel 11/03/2028 11/04/2023 DTaP/Tdap/Td Vaccines (3 - Td or Tdap) 05/04/2033 05/04/2023, 02/01/2013 RSV Patients and Patients Aged 60 years or older (1 - 1-dose 75+ series) 2051 Pneumococcal Vaccine: Pediatrics (0 to 5 Years) and At-Risk Patients (6 to 49) Years Completed 11/04/2023 HIB Vaccines Aged Out No longer eligi [...] 142/82( 025 1:00 PM EDT) No Milagros Rawls [employer]akiya Procedures Procedure Name Priority Date/Time Associated Diagnosis Comments POCT DEN-14 URINE DRUG SCREEN Routine 03/28/2025 11:33 AM EDT Long-term current use of opiate analgesic POCT DEN-14 URINE DRUG SCREEN Routine 01/24/2025 2:20 PM EDT Long-term current use of opiate analgesic LIPID PANEL, STANDARD Routine 11/04/2023 10:27 AM EDT Coronary artery disease involving [place] coronary artery of [place] heart without angina pectoris Systolic congestive heart failure, unspecified HF chronicity (CMS/HCC) Tobacco dependence syndrome Screen for colon cancer BI US BREAST LIMITED BILATERAL Routine 04/08/2023 9:30 AM EDT HM PAP/HPV Routine 11/19/2022 12:00 AM EDT from Last 3 Months or Most Recently Relevant to Health Maintenance Results * POCT DEN-14 Urine Drug Screen (03/28/2025 11:33 AM EDT) Only the most recent of2 resultswithin the time period is included. THC Negative Negative Cocaine Screen, Urine Negative Negative Opiate Screen, Urine Negative Negative Methamphetamine Screen Urine Negative Negative Amphetamine Screen, Urine Negative Negative Benzodiazepines Screen, Urine Negative Negative Barbiturate Screen, Urine Negative Negative Methadone Screen, Urine Negative Negative Buprenophine Screen, Urine Negative Negative TCA, Urine Negative Negative MDMA Urine Negative Negative ng/mL Oxycodone Screen, Urine Positive Negative Phencyclidine (PCP), Urine Negative Negative Propoxyphene, Urine Negative Negative Fentanyl, Urine Negative Negative Urine Urine specimen obtained by clean catch procedure / Unknown 03/28/2025 11:33 AM EDT Erika Choi RN - 03/28/2025 11:33 AM EDT UTOX cup Lot#[id number] Exp. 05/09/26 Internal Pass Control Mariluz Cuellar SALES ATTENDANT BUILDING [employer]S POINT OF CARE TEST ENTER/EDIT ORDERABLES Final Result * (ABNORMAL) Lipid Panel, Standard (11/04/2023 10:27 AM EDT) Triglycerides 206(H) <150 mg/dL [facility] Comment:Desirable Triglyceri de: less than 150 mg/dLBorderline High Triglyceride 150-199 mg/dLHigh Triglyceride: 200-499 mg/dLVery High Triglyceride: greater than or equal to 5OO mg/dL Cholesterol 212(H) <200 mg/dL [facility] Comment:Desirable Cholestero l: less than 200 mg/dLBorderline High Cholesterol: 200-239 mg/dLHigh Cholesterol: greater than 239 mg/dL LDL Cholesterol Calculated 135(H) <100 mg/dL [facility] Comment:Desirable LDL: less than 100 mg/dLNear Optimal/Above Optimal LDL: 110- 129 mg/dLBorderline High LDL: 130-159 mg/dLHigh LDL: 160-189 mg/dLVery High LDL: greater than or equal to 190 mg/dL HDL Cholesterol 36(L) >40 mg/dL [facility] Comment:Desirable HDL: great er than 40 mg/dL Note: This HDL assay may give artificially low results in patients with liver disease. Blood Venous blood specimen / Unknown 11/04/2023 10:27 AM EDT 11/04/2023 11:14 AM EDT Vincenzo Fernandez MD LAB BLOOD ORDERABLES Final Resul t [facility] [address] [place] [phone] * BI US Breast Limited Bilateral (04/08/2023 9:30 AM EDT) Anatomical Region Laterality Modality Breast Bilateral Ultrasound 04/08/2023 9:30 AM EDT Narrative 04/08/2023 10:02 AM EDT [facility] [address] [place] [address] Ultrasound Report Signed Patient: Laura Pruitt MR#: [id number] : 1975 Acct:[id number] Age/Sex: 47 / F ADM Date: 04/08/23 Loc: HO.MAMMO Attending Dr: Kp Guzman MD Ordering Physician: Kp Guzman MD Date of Service: 04/08/23 Procedure(s): US breast BI limited mamm only Accession Number(s): [id number] cc: Kp Guzman MD; Name,Vincenzo MYRICK EXAMINATION: [...] MD in OV> 04/08/23957 DD/ 9 TD/TT: Manufacturing Project Manager: Procedure Note Donotuseinterpreter, Image - 04/08/2023 [facility] [address] [place] [address] Ultrasound Report Signed Patient: Laura Pruitt [facility]#: [id number] : 1975Acct:[id number] Age/Sex: 47 / FADM Date: 04/08/23 Loc: HO.MAMMO Attending Dr: Kp Guzman MD Ordering Physician: Kp Guzman MD Date of Service: 04/08/23 Procedure(s): US breast BI limited mamm only Accession Number(s): [id number] cc: Kp Guzman MD; Name,Vincenzo MYRICK EXAMINATION: [...] MD in OV> 04/08/23957 DD/ 9 TD/TT: Manufacturing Project Manager: [facility] External Provider IMG US PROCEDURES Final Result * HM PAP/HPV (11/19/2022 12:00 AM EDT) Pap Smear 1. NILM 1. NILM HPV Not Detected Undetected, Indeterminat e, Quantitative , Not Detected Historical Provider HEALTH MAINTENANCE Edited Result - Final from Last 3 Months or Most Recently Relevant to Health Maintenance Insurance ST[place] [address] [place] [id number] Care Teams Platform Beater Relationship Specialty Start Date End Date Name, MD Vincenzo [address] [place] [id number] PCP - General Family Medicine 08/03/18
--- OUTSIDE RECORDS SUMMARY | 2025-04-14 10:10 | XMS_ITS | Encounter Summary ---
Author Organization [employer] Address [address] [facility] [address] [place] [address] Care Team Providers Care Meter Engineer Name Role Phone NameVincenzo MD Primary Care Provider [phone] Reason for Visit * Reason Onset Date Comments Appointment Request 02/27/2025 Encounter Details Date Type Department Care Team ([facility] st Contact Info) Description 02/27/2025 Telephone [facility] [address] [place] [address] Name, MD Vincenzo [address] [place] [address] Appointment Request Social History Tobacco Use Types [...] encounter Miscellaneous Notes * Telephone Encounter - Vincenzo Wood - 02/27/2025 12:56 PM EDT Tc from pt requesting to be contacted with a follow up date with PCP. Contact pt at [phone] documented in this encounter Plan of Treatment Upcoming Encounters Date Type Department Care Team (Late st Contact Info) Description 05/30/2025 11:00 AM EDT Office Visit [facility] [address] [place] [phone] 06/26/2025 2:30 PM EST Office Visit [address] [address] Name, MD Vincenzo [address] [place] [phone] documented as of this encounter Goals Goal [...] documented as of this encounter Care Teams Meter Engineer Relationship Specialty Start Date End Date Name, MD Vincenzo [address] [place] [address] PCP - General Family Medicine 08/03/18 documented as of this encounter
--- OUTSIDE RECORDS SUMMARY | 2025-04-14 10:10 | XMS_ITS | Encounter Summary ---
Author Organization [employer] Address [address] [facility] 7[address] [place] [address] Care Team Providers Care Veterans' Counselor Name Role Phone Name, Vincenzo MYRICK Primary Care Provider [phone] Reason for Visit * Reason Onset Date Comments Appointment Request 08/16/2024 Encounter Details Date Type Department Care Team ([facility] st Contact Info) Description 08/16/2024 Telephone [facility] [address] [place] [address] Name, MD Vincenzo [address] [place] [address] Appointment Request Social History Tobacco Use Types [...] Description 05/30/2025 11:00 AM EDT Office Visit [facility] [address] [place] [phone] 06/26/2025 2:30 PM EST Office Visit [facility] [address] [place] [phone] Vincenzo Fernandez MD [address] [place] [address] documented as of this encounter Goals Goal Patient Goal Type Associated Problems Recent Progress Patient-Stated? Author Record your blood pressure once per day Blood Pressure No Puia, Milagros, PharmD Blood Pressure < 140/90 Blood Pressure 142/82( 025 1:00 PM EDT) No Puia Milagros, PharmD documented as of this encounter Visit Diagnoses Not on filedocumented in this encounter Additional Health Concerns Assessment Noted Time PHQ-9 Depression Total Score: 17 024 9:41 AM EDT documented as of this encounter Care Teams Veterans' Counselor Relationship Specialty Start Date End Date Vincenzo Fernandez MD [address] [place] [address] PCP - General Family Medicine 08/03/18 documented as of this encounter
== END 2025-04-14 09:15 | disposition home or self-care (01) ==
LOC: HO.MAMMO 09:14
PROVIDERS: PCP Internal Medicine Geriatric Medicine; Visit Provider Internal Medicine Geriatric Medicine
DX: N64.52 Nipple discharge (principal); N63.42 Unspecified lump in left breast, subareolar
CPT/HCPCS: 76642; 77062; 77066

== ENCOUNTER → 2025-04-14 09:30 | Outpatient (BNV) | payer MEDICARE, MEDICAID, SELFPAY | PROVIDERS: PCP Internal Medicine Geriatric Medicine; Visit Provider Internal Medicine | DX: N63.22 Unspecified lump in the left breast, upper inner quadrant (principal); R92.323 Mammographic fibroglandular density, bilateral breasts | CPT/HCPCS: 76642; 77066; G0279 ==

== ENCOUNTER 2025-05-08 10:33 | Outpatient (AMB) | payer MEDICARE, MEDICAID, SELFPAY ==
--- NOTE | 2025-05-08 10:30 | A.OFFVIS_ITS ---
Vital Signs 05/08/25 10:46 Height 5 ft 9 in Weight 190 lb BMI 28.1 BP 136/79 Blood Pressure Location Lt brachial Position Sitting Pulse 83 Intake Visit Reasons: L brst nipple discharge Intake Note: Patient is seen in office for recurrent left breast nipple discharge. 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 Present Accompanied by: Self / Same As Patient Allergies amoxicillin (From AUGMENTIN) Allergy (Intermediate, Verified 03/03/25 21:06) FACIAL SWELLING, HIVES clavulanic acid (From AUGMENTIN) Allergy (Intermediate, Verified 03/03/25 21:06) FACIAL SWELLING, HIVES Iodinated Contrast Media (IV CONTRAST) Allergy (Intermediate, Verified 03/03/25 21:06) ITCHING, FACIAL SWELLING, HIVES oral contrast Allergy (Unknown, Uncoded 03/03/25 21:06) facial swellling Medication List - Last Reconciled 05/08/25 by Kp Guzman MD albuterol sulfate 90 mcg/actuation 2 puffs inhalation Q6H PRN amlodipine 2.5 mg PO DAILY aspirin 81 mg PO DAILY atorvastatin 80 mg PO BEDTIME blood pressure test kit-large As directed capsaicin 0.025% 1 patch topical BID clopidogrel 75 mg PO DAILY empagliflozin (Jardiance) 10 mg PO DAILY ezetimibe 10 mg PO DAILY fluticasone propionate 50 mcg/actuation 1 spray intranasal TID PRN losartan 100 mg PO DAILY methylprednisolone (Medrol (Venancio)) 4 mg PO DAILY metoprolol succinate ER 50 mg PO DAILY oxycodone-acetaminophen 5-325 mg 1 tab PO Q12H PRN HPI Comments Details: 49-year-old female patient returning to the office with continued left nipple discharge, pain and now a palpable lump located in the upper outer portion of the nipple-areolar complex. She was previously evaluated on 03/10/2023 for similar complaint. She does report a history of polycystic ovary disease in his concerned that it may be associated. The discharge is noted spontaneously on her clothing but can easily be expressed with palpation of the nipple. The pain seems to come and go usually lasting approximately 10 days and generally occurring monthly. Her last mammogram dated 04/14/2025 which included ultrasound did reveal a focal asymmetric circumscribed oval mass in the upper inner left breast anterior to mid depth. This was felt to be low suspicion for malignancy and a six-month follow-up recommended no sonographic abnormality was noted to account for the nipple discharge (BI-RADS 3). [facility] Medical History Leukocytosis Type 2 diabetes mellitus Hyperlipidemia Essential hypertension Diverticulitis Abdominal pain HTN (hypertension) Surgical History Hx of carpal tunnel repair History of tubal ligation H/O hemorrhoidectomy Family History Father Prostate cancer Social History Household Members: Family Household Members Other:: 3 Housing: Apartment Do you presently have visiting nurse or other home services: No Alcohol intake: current Alcohol intake frequency: holidays/special occasions only Alcohol type: beer Patient Tobacco Use Status: Never used Tobacco Tobacco use type: Cigarette Cigarettes Per Day: 7 e-Cigarette/Vaping Use: Former Use Second Hand Smoke Exposure: No service: No Current occupational status: unemployed Review of Systems Const All systems reviewed & are unremarkable except as noted in HPI and below Resp Reports cough Physical Exam Const General: cooperative and no acute distress Nutritional Appearance: well nourished Orientation/consciousness: patient oriented x3 Limitations: no limitations HEENT Head: Yes normocephalic and Yes atraumatic Ears: hearing grossly normal bilaterally Chest Other: Examination of the left breast revealed some mild fibrocystic changes but no discrete mass throughout the breast. Nipple discharge is noted from the 02:00 and 07:00 portions of the nipple in his brownish green in color. No skin changes are appreciated. No enlarged lymph nodes are palpable. Resp Effort & Inspection: normal respiratory effort, no audible wheezes, no cough and no respiratory distress Cardio Jugular venous distension: no JVD GI Inspection: Yes normal to inspection Skin Other: Warm, dry, no rash Neuro General: patient oriented x3 Extrem General: Yes no clubbing, cyanosis or edema Assessment & Plan Assessment & Plan (1) Discharge from left nipple: Code(s): N64.52 - Nipple discharge Category: Medical Plan 41-year-old female patient presenting with a continued history of left nipple discharge which is spontaneous and now associated with intermittent lumpiness in the upper outer quadrant of the left breast. On examination there are fibrocystic changes noted no significant skin changes. Nipple discharge is easily expressed with light pressure. No other suspicious findings were identified. I recommended an excision of this lactiferous duct for diagnostic purposes and after discussion of the procedure, risks, and alternatives, she consents to the surgery. This will be scheduled as a short-stay surgery. Coding Level of Care Code Est Pt Level 4 (89566) Diagnoses Discharge from left nipple N64.52
[2025-05-08 10:46] VITALS: BP 136/79; PULSE 83; BMI 28.1
--- OUTSIDE RECORDS SUMMARY | 2025-05-08 12:31 | XMS_ITS | Encounter Summary ---
Author Organization [employer] Address [address] [place] [address] Care Team Providers Care Chart Reader Name Role Phone Name, Vincenzo MYRICK Primary Care Provider [phone] Milagros Rawls PharmD Unavailable Reason for Visit * Reason Comments Med Refill Encounter Details Date Type Department Care Team (Late st Contact Info) Description 03/21/2023 Refill [facility] [address] [place] [place] [id number] Gregoria Hardin MD [address] [place] [address] ST elevation myocardial infarction (STEMI), unspecified artery [...] Description 05/30/2025 11:00 AM EDT Office Visit [facility] [address] [place] [address] 06/26/2025 2:30 PM EST Office Visit [facility] [place] [address] Name, [place] [address] documented as of this encounter Visit Diagnoses Diagnosis ST elevation myocardial infarction (STEMI), unspecified artery (HCC) Acute systolic congestive heart failure (HCC) Musculoskeletal chest pain Other chest pain documented in this encounter Additional Health Concerns Assessment Noted Time PHQ-9 Depression Total Score: 0 12/24/19 23 10:58 AM EDT documented as of this encounter Care Teams Chart Reader Relationship Specialty Start Date End Date Name, [place] [address] PCP - General Family Medicine 08/03/18 Milagros Rawls, [place] [address] Pharmacist Internal Medicine 12/02/23 06/27/24 documented as of this encounter
--- OUTSIDE RECORDS SUMMARY | 2025-05-08 12:31 | XMS_ITS | Clinical Summary ---
Author Organization [email or web address] Address [address] [facility] 7[address] [place] [address] Care Team Providers Care Geophysical Support Specialist Name Role Phone Name, Vincenzo MYRICK Primary Care Provider [phone] Allergies Active Allergy Reactions Criticality Noted Date [...] ons:ST elevation myocardial infarction (STEMI), unspecified artery (HCC),Acute systolic congestive heart failure (HCC),Musculos keletal chest pain TAKE 1 TABLET BY MOUTH [...] MG SL tabletIndicati ons:Coronary artery disease involving [place] heart with angina pectoris, unspecified vessel or lesion type Place 1 tablet (0.4 mg) under [...] days. 56 tablet 04/12/20 25 025 Active oxyCODONE-acet aminophen (Percocet) 5-325 MG tabletIndicati ons:Chronic pain syndrome Take 1 tablet by mouth every 12 (twelve) hours if needed for severe pain for up to 28 days. 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 Also had successful balloon angioplasty at [facility]. Echocardiogram showed LVEF 25 - 30%. Systolic congestive heart failure 09/24/2022 History of tubal ligation 09/24/2022 Seasonal allergic reaction 12/22/2018 Moderate persistent asthma 08/11/2018 Depressive disorder 03/19/2018 Elevated hemoglobin 06/22/2017 Rectal hemorrhage 01/15/2017 [address] [facility] 07/23/2016 Assessment & Plan (02/26/2023 1:51 PM EDT): -Physiologic vs pathologic discharge -Reassuring that discharge is bilateral, although high concern given suspicion for bloody discharge -Similar presentation and initial evaluation in [id number]. Breast MRI had been ordered through [facility] [place] Surgery dept, although does not appear was [...] as expected, pill count 1 short. See single needle operator. Assessment & Plan (10/02/2024 8:30 PM EST): [...] Cough 05/13/2016 09/09/2022 Wheezing 05/13/2016 09/14/2022 Encounters Date Type Department Care Team Description 04/12/2025 Refill [facility] [address] [place] [address] Vincenzo Fernandez MD Chronic pain syndrome 03/31/2025 1:00 PM EDT Office Visit [address] [address] Vincenzo Fernandez MD Discharge from nipple (Primary Dx); Subareolar mass of left breast; Coronary artery disease involving [place] coronary artery of [place] heart without angina pectoris; Tobacco dependence syndrome; Screen for colon cancer 03/31/2025 Travel 03/30/2025 Telephone [facility] [address] [place] [address] Valencia Suarez MA CHARTPREP 03/28/2025 11:00 AM EDT Office Visit [facility] [address] [place] [address] Mariluz Cuellar, HOLLAND Lumbar spondylosis (Primary Dx); Long-term current use of opiate analgesic 03/28/2025 Telephone [facility] [address] [place] [address] Erika Krishna RN BPI Scoring 03/28/2025 Travel 03/14/2025 Refill [facility] [address] [place] [address] Vincenzo Fernandez MD Chronic pain syndrome 02/27/2025 Telephone [facility] [address] [place] [address] Elly Car MA Appointment Request 02/27/2025 Telephone [facility] [address] [place] [address] Vincenzo Fernandez MD Appointment Request 02/14/2025 Refill [facility] [address] [place] [address] Name, MD Vincenzo Chronic pain syndrome from Last 3 Months Immunizations Immunization Administration Dates Next Due Influenza injectable quadriv alent IIV4 with preservative 05/20/2016,05/30/2015,06/28/2014,2012,04/10/2011,06/07/2010,05/01/2009,1 08/27/2007 Influenza injectable quadriv alent preservative free 05/04/2023,04/25/2022 Influenza, IIV3, injectable 05/20/2016,1 ,06/28/2014,2012,04/10/2011,06/07/2010,05/01/2009,1 08/27/2007 Influenza, seasonal, injecta ble, preservative free 04/26/2024 Novel [id number], preservative-free 07/16/2009 Pneumococcal Conjugate PCV 20 11/04/2023 [...] Description 05/30/2025 11:00 AM EDT Office Visit [facility] [address] [place] [address] 06/26/2025 2:30 PM EST Office Visit [facility] [address] [place] [address] Name, MD Vincenzo [address] [place] [address] Health Maintenance Due Date Last Done Comments CT Colonography 1975 Colonoscopy 1975 Colorectal Cancer Screening 1975 FIT DNA/Cologuard 1976 FIT 1975 FOBT 1975 HIV Screening 1975 Sigmoidoscopy 1975 Family Planning (PISQ) 1991 Hepatitis C Screening 1994 Hepatitis B Vaccines (1 of 3 - 19+ 3-dose series) 1995 COVID-19 Vaccine ( - season) 2025 Influenza Vaccine (#1) 2025 , 05/04/2023, 04/25/2022, Additional history exists Alcohol/Substance Use Screening 2025 2024 SDOH Screening 2025 2024 Depression Screening 10/03/2025 10/03/2024, 10/04/19 25 Disability Screening 03/31/2026 03/31/2025 Tobacco Screening 03/31/2026 03/31/2025 Zoster Vaccines (1 of 2) 2026 Mammogram 04/14/2027 04/14/2025, 04/03, 04/08/2023, Additional history exists Cervical Cancer Screening 11/20/2027 HPV/Cotest 11/20/2027 11/19/2022, [...] 1:00 PM EDT) No Puia, Milagros, PharmD Procedures Procedure Name Priority Date/Time Associated Diagnosis Comments BI US BREAST LIMITED BILATERAL Routine 04/14/2025 10:08 AM EDT BI MAMMOGRAM DIAGNOSTIC TOMOSYNTHESIS BILATERAL Routine 04/14/2025 9:35 AM EDT Discharge from nipple POCT DEN-14 URINE DRUG SCREEN Routine 03/28/2025 11:33 AM EDT Long-term current use of opiate analgesic LIPID PANEL, STANDARD Routine 11/04/2023 10:27 AM EDT Coronary artery disease involving [place] coronary artery of [place] heart without angina pectoris Systolic congestive heart failure, unspecified HF chronicity (CMS/HCC) Tobacco dependence syndrome Screen for colon cancer HM PAP/HPV Routine 11/19/2022 12:00 AM EDT from Last 3 Months or Most Recently Relevant to Health Maintenance Results * BI US Breast Limited Bilateral (04/14/2025 10:08 AM EDT) Anatomical Region Laterality Modality Breast Bilateral Ultrasound 04/14/2025 10:0 8 AM EDT Narrative 04/14/2025 1:28 PM EDT [facility] [address] [place] [address] Ultrasound Report Signed Patient: Laura Pruitt MR#: [id number] 913 : 1975 Acct:[id number] Age/Sex: 49 / F ADM Date: 04/14/25 Loc: HO.MAMMO Attending Dr: Vincenzo Fernandez MD Ordering Physician: Name,Vincenzo MYRICK Date of Service: 04/14/25 Procedure(s): US breast BI limited mamm only Accession Number(s): [id number] cc: Jim,Vincenzo MYRICK Reason for Exam: ROBBI NIPPLE DISCHARGE, LT SUBAREOLAR LUMP EXAMINATION: MM DIAGNOSTIC DIGITAL BREAST TOMOSYNTHESIS, BILATERAL Limited bilateral ultrasound. CLINICAL INFORMATION: Bilateral nipple discharge green clear brown for many years. Patient did not return for six-month follow-up recommended for a focal asymmetry in the right breast in 2022. COMPARISON: Mammography: Comparison is made with relevant prior exams. TECHNIQUE: Digital breast mammography with tomosynthesis is performed in both the craniocaudal and mediolateral oblique views along with computer-aided detection (CAD). FINDINGS: There are scattered areas of fibroglandular density (ACR BI-RADS breast composition Category b). Right: The previously seen focal asymmetry lower inner breast is no longer seen. No suspicious calcifications masses or other abnormal findings. Targeted color Doppler ultrasound scanning in the retroareolar region area of patient's discharge demonstrates normal fibroglandular breast tissue. There is no sonographic abnormal finding. Left: Focal asymmetry circumscribed oval mass upper inner breast anterior to middle depth. No suspicious calcifications or abnormal findings. Targeted color Doppler ultrasound scanning in the retroareolar region demonstrates normal fibroglandular breast tissue. There is no sonographic abnormal finding. Targeted color Doppler ultrasound scanning in the upper inner quadrant demonstrates normal fibronodular breast tissue. There is no sonographic abnormal finding to account for the circumscribed oval mass seen on mammography. US/US breast BI limited mamm only IMPRESSION: Right: No mammographic or sonographic abnormal finding to account for the nipple discharge. Recommend clinical evaluation and follow-up. Left: 1. Circumscribed oval mass upper inner breast anterior to middle depth without sonographic correlate. Recommend six-month follow-up mammography for further evaluation of stability. 2. No mammographic or sonographic abnormal finding to account for the nipple discharge. Recommend clinical evaluation follow-up. ASSESSMENT: BI-RADS BI-RADS 3 - Probably benign finding(s) - 6 month follow-up suggested RECOMMENDATION: 6 Month F/U This patient's information was entered into a reminder system with a target due date for their next mammogram. Electronically signed by: Dena Haq DO 04/14/2025 01:25 PM EDT RP Dictated By: Dena Haq DO Signed By: <Electronically signed by Dena Haq DO in OV> 04/14/25 1325 DD/ 1008 TD/TT: 04/14/25 1034 Spot Washer: Procedure Note Donotuseinterpreter, Image - 04/14/2025 [facility] [address] [place] [address] Ultrasound Report Signed Patient: Laura Pruitt [facility]#: [id number] 913 : 1975Acct:[id number] Age/Sex: 49 / FADM Date: 04/14/25 Loc: HO.MAMMO Attending Dr: Vincenzo Fernandez MD Ordering Physician: Vincenzo Fernandez MD Date of Service: 04/14/25 Procedure(s): US breast BI limited mamm only Accession Number(s): [id number] cc: Vincenzo Fernandez MD Reason for Exam: ROBBI NIPPLE DISCHARGE, LT SUBAREOLAR LUMP EXAMINATION: MM DIAGNOSTIC DIGITAL BREAST TOMOSYNTHESIS, BILATERAL Limited bilateral ultrasound. CLINICAL INFORMATION: Bilateral nipple discharge green clear brown for many years. Patient did not return for six-month follow-up recommended for a focal asymmetry in the right breast in 2022. COMPARISON: Mammography: Comparison is made with relevant prior exams. TECHNIQUE: Digital breast mammography with tomosynthesis is performed in both the craniocaudal and mediolateral oblique views along with computer-aided detection (CAD). FINDINGS: There are scattered areas of fibroglandular density (ACR BI-RADS breast composition Category b). Right: The previously seen focal asymmetry lower inner breast is no longer seen. No suspicious calcifications masses or other abnormal findings. Targeted color Doppler ultrasound scanning in the retroareolar region area of patient's discharge demonstrates normal fibroglandular breast tissue. There is no sonographic abnormal finding. Left: Focal asymmetry circumscribed oval mass upper inner breast anterior to middle depth. No suspicious calcifications or abnormal findings. Targeted color Doppler ultrasound scanning in the retroareolar region demonstrates normal fibroglandular breast tissue. There is no sonographic abnormal finding. Targeted color Doppler ultrasound scanning in the upper inner quadrant demonstrates normal fibronodular breast tissue. There is no sonographic abnormal finding to account for the circumscribed oval mass seen on mammography. US/US breast BI limited mamm only IMPRESSION: Right: No mammographic or sonographic abnormal finding to account for the nipple discharge. Recommend clinical evaluation and follow-up. Left: 1. Circumscribed oval mass upper inner breast anterior to middle depth without sonographic correlate. Recommend six-month follow-up mammography for further evaluation of stability. 2. No mammographic or sonographic abnormal finding to account for the nipple discharge. Recommend clinical evaluation follow-up. ASSESSMENT: BI-RADS BI-RADS 3 - Probably benign finding(s) - 6 month follow-up suggested RECOMMENDATION: 6 Month F/U This patient's information was entered into a reminder system with a target due date for their next mammogram. Electronically signed by: Dena Haq DO 04/14/2025 01:25 PM EDT Dictated By: Dena Haq DO Signed By: <Electronically signed by Dena Haq DO in OV> 04/14/25 1325 DD/ 1008 TD/TT: 04/14/25 1034 Spot Washer: Vincenzo Fernandez MD IMCecilio US PROCEDURES Final Result * BI Mammogram Diagnostic Tomosynthesis Bilateral (04/14/2025 9:35 AM EDT) Anatomical Region Laterality Modality Breast Bilateral Mammography 04/14/2025 9:35 AM EDT Narrative 04/14/2025 1:28 PM EDT [facility] [address] [place] [address] Dr[place], [place] [address] Mammography Report Signed Patient: Laura Pruitt MR#: [id number] 913 : 1975 Acct:[id number] Age/Sex: 49 / F ADM Date: 04/14/25 Loc: HO.MAMMO Attending Dr: Vincenzo Fernandez MD Ordering Physician: Vincenzo Fernandez MD Results: 3.6MProbab ly Benign Finding - Short 6 M F/U Suggested Date of Service: 04/14/25 Follow Up: 6 Month F/U Procedure(s): MM tomosynthesis diagnostic BI Accession Number(s): [id number] cc: Name,Vincenzo MYRICK Reason For Exam: ROBBI NIPPLE DISCHARGE, LT SUBAREOLAR LUMP EXAMINATION: MM DIAGNOSTIC DIGITAL BREAST TOMOSYNTHESIS, BILATERAL Limited bilateral ultrasound. CLINICAL INFORMATION: Bilateral nipple discharge green clear brown for many years. Patient did not return for six-month follow-up recommended for a focal asymmetry in the right breast in 2022. COMPARISON: Mammography: Comparison is made with relevant prior exams. TECHNIQUE: Digital breast mammography with tomosynthesis is performed in both the craniocaudal and mediolateral oblique views along with computer-aided detection (CAD). FINDINGS: There are scattered areas of fibroglandular density (ACR BI-RADS breast composition Category b). Right: The previously seen focal asymmetry lower inner breast is no longer seen. No suspicious calcifications masses or other abnormal findings. Targeted color Doppler ultrasound scanning in the retroareolar region area of patient's discharge demonstrates normal fibroglandular breast tissue. There is no sonographic abnormal finding. Left: Focal asymmetry circumscribed oval mass upper inner breast anterior to middle depth. No suspicious calcifications or abnormal findings. Targeted color Doppler ultrasound scanning in the retroareolar region demonstrates normal fibroglandular breast tissue. There is no sonographic abnormal finding. Targeted color Doppler ultrasound scanning in the upper inner quadrant demonstrates normal fibronodular breast tissue. There is no sonographic abnormal finding to account for the circumscribed oval mass seen on mammography. MM/MM tomosynthesis diagnostic BI IMPRESSION: Right: No mammographic or sonographic abnormal finding to account for the nipple discharge. Recommend clinical evaluation and follow-up. Left: 1. Circumscribed oval mass upper inner breast anterior to middle depth without sonographic correlate. Recommend six-month follow-up mammography for further evaluation of stability. 2. No mammographic or sonographic abnormal finding to account for the nipple discharge. Recommend clinical evaluation follow-up. ASSESSMENT: BI-RADS BI-RADS 3 - Probably benign finding(s) - 6 month follow-up suggested RECOMMENDATION: 6 Month F/U This patient's information was entered into a reminder system with a target due date for their next mammogram. Electronically signed by: Dena Haq DO 04/14/2025 01:25 PM EDT RP Dictated By: Dena Haq DO Signed By: <Electronically signed by Dena Haq DO in OV> 04/14/25 1325 DD/ 0935 TD/TT: 04/14/25 0952 Spot Washer: Procedure Note Donotuseinterpreter, Image - 04/14/2025 [place] [facility] [address] [place] [address] Mammography Report Signed Patient: Laura Pruitt [facility]#: [id number] 913 : 1975Acct:[id number] Age/Sex: 49 / FADM Date: 04/14/25 Loc: HO.MAMMO Attending Dr: Vincenzo Fernandez MD Ordering Physician: Vincenzo Fernandez MDResults: 3.6MProbab ly Benign Finding - Short 6 M F/U Suggested Date of Service: 04/14/25Follow Up: 6 Month F/U Procedure(s): MM tomosynthesis diagnostic BI Accession Number(s): [id number] cc: Vincenzo Fernandez MD Reason For Exam: ROBBI NIPPLE DISCHARGE, LT SUBAREOLAR LUMP EXAMINATION: MM DIAGNOSTIC DIGITAL BREAST TOMOSYNTHESIS, BILATERAL Limited bilateral ultrasound. CLINICAL INFORMATION: Bilateral nipple discharge green clear brown for many years. Patient did not return for six-month follow-up recommended for a focal asymmetry in the right breast in 2022. COMPARISON: Mammography: Comparison is made with relevant prior exams. TECHNIQUE: Digital breast mammography with tomosynthesis is performed in both the craniocaudal and mediolateral oblique views along with computer-aided detection (CAD). FINDINGS: There are scattered areas of fibroglandular density (ACR BI-RADS breast composition Category b). Right: The previously seen focal asymmetry lower inner breast is no longer seen. No suspicious calcifications masses or other abnormal findings. Targeted color Doppler ultrasound scanning in the retroareolar region area of patient's discharge demonstrates normal fibroglandular breast tissue. There is no sonographic abnormal finding. Left: Focal asymmetry circumscribed oval mass upper inner breast anterior to middle depth. No suspicious calcifications or abnormal findings. Targeted color Doppler ultrasound scanning in the retroareolar region demonstrates normal fibroglandular breast tissue. There is no sonographic abnormal finding. Targeted color Doppler ultrasound scanning in the upper inner quadrant demonstrates normal fibronodular breast tissue. There is no sonographic abnormal finding to account for the circumscribed oval mass seen on mammography. MM/MM tomosynthesis diagnostic BI IMPRESSION: Right: No mammographic or sonographic abnormal finding to account for the nipple discharge. Recommend clinical evaluation and follow-up. Left: 1. Circumscribed oval mass upper inner breast anterior to middle depth without sonographic correlate. Recommend six-month follow-up mammography for further evaluation of stability. 2. No mammographic or sonographic abnormal finding to account for the nipple discharge. Recommend clinical evaluation follow-up. ASSESSMENT: BI-RADS BI-RADS 3 - Probably benign finding(s) - 6 month follow-up suggested RECOMMENDATION: 6 Month F/U This patient's information was entered into a reminder system with a target due date for their next mammogram. Electronically signed by: Dena Haq DO 04/14/2025 01:25 PM EDT Dictated By: Dena Haq DO Signed By: <Electronically signed by Dena Haq DO in OV> 04/14/25 1325 DD/ 0935 TD/TT: 04/14/25 0952 Spot Washer: us Vincenzo Name MD SPARKS BI PROCEDURES Final Result * POCT DEN-14 Urine Drug Screen (03/28/2025 11:33 AM EDT) THC Negative Negative Cocaine Screen, Urine Negative [...] - 03/28/2025 11:33 AM EDT UTOX cup Lot#[id number] Exp. 05/09/26 Internal Pass Control Mariluz Cuellar [employer] POINT OF CARE TEST ENTER/EDIT ORDERABLES Final Result * (ABNORMAL) Lipid Panel, Standard (11/04/2023 10:27 AM EDT) Triglycerides 206(H) <150 mg/dL [facility] Comment:Desirable Triglyceri de: less than 150 mg/dLBorderline High Triglyceride 150-199 mg/dLHigh Triglyceride: 200-499 mg/dLVery High Triglyceride: greater than or equal to 5OO mg/dL Cholesterol 212(H) <200 mg/dL [facility] Comment:Desirable Cholestero l: less than 200 mg/dLBorderline High Cholesterol: 200-239 mg/dLHigh Cholesterol: greater than 239 mg/dL LDL Cholesterol Calculated 135(H) <100 mg/dL [facility] Comment:Desirable LDL: less than 100 mg/dLNear Optimal/Above Optimal LDL: 110- 129 mg/dLBorderline High LDL: 130-159 mg/dLHigh LDL: 160-189 mg/dLVery High LDL: greater than or equal to 190 mg/dL HDL Cholesterol 36(L) >40 mg/dL [facility] Comment:Desirable HDL: great er than 40 mg/dL Note: This HDL assay may give artificially low results in patients with liver disease. Blood Venous blood specimen / Unknown 11/04/2023 10:27 AM EDT 11/04/2023 11:14 AM EDT Vincenzo Fernandez MD LAB BLOOD ORDERABLES Final Resul t [facility] [address] [place] [address] [phone] * HM PAP/HPV (11/19/2022 12:00 AM EDT) Pap Smear 1. NILM 1. NILM HPV Not Detected Undetected, Indeterminat e, Quantitative , Not Detected us Historical Provider HEALTH MAINTENANCE Edited Result - Final from Last 3 Months or Most Recently Relevant to Health Maintenance Insurance STANDARD MEDICARE Care Teams Geophysical Support Specialist Relationship Specialty Start Date End Date Name, MD Vincenzo [address] [place] [phone] PCP - General Family Medicine 08/03/18
--- OUTSIDE RECORDS SUMMARY | 2025-05-08 12:31 | XMS_ITS | Encounter Summary ---
Author Organization [employer] Address [address] [facility] 7t [place] [address] Care Team Providers Care Reversal Print Inspector Name Role Phone Vincenzo Fernandez MD Primary Care Provider [phone] Milagros Rawls PharmD Unavailable [phone] Reason for Visit * Reason Comments Med Refill Encounter Details Date Type Department Care Team (Late st Contact Info) Description 06/29/2023 Refill [facility] [address] [place], [place] [phone] Name, MD Vinecnzo [address] [place] [address] ST elevation myocardial infarction (STEMI), unspecified artery [...] Description 05/30/2025 11:00 AM EDT Office Visit [address] [address] 06/26/2025 2:30 PM EST Office Visit [address] [address] Name, MD Vincenzo [address] [place] [address] documented as of this encounter Visit Diagnoses Diagnosis ST elevation myocardial infarction (STEMI), unspecified artery (HCC) Acute systolic congestive heart failure (HCC) Musculoskeletal chest pain Other chest pain documented in this encounter Additional Health Concerns Assessment Noted Time PHQ-9 Depression Total Score: 0 12/24/19 23 10:58 AM EDT documented as of this encounter Care Teams Reversal Print Inspector Relationship Specialty Start Date End Date Name, MD Vincenzo [address] [place] [phone] PCP - General Family Medicine 08/03/18 Milagros Rawls PharmD [address] [place] [phone] Pharmacist Internal Medicine 12/02/23 06/27/24 documented as of this encounter
--- OUTSIDE RECORDS SUMMARY | 2025-05-08 12:31 | XMS_ITS | Encounter Summary ---
Author Organization [employer] Address [address] [facility] [address] [place] [address] Care Team Providers Care Sales Executive Insurance Name Role Phone Name, Vincenzo MYRICK Primary Care Provider [phone] Reason for Visit * Reason Onset Date Comments Nurse Triage 08/15/2024 Encounter Details Date Type Department Care Team ([facility] st Contact Info) Description 08/15/2024 Telephone [facility] [address] [place], [place] [phone] Name, MD Vincenzo [address] [place] [address] Nurse Triage Social History Tobacco Use Types [...] Description 05/30/2025 11:00 AM EDT Office Visit [address] [address] 06/26/2025 2:30 PM EST Office Visit [address] [address] Name, MD Vincenzo [address] [place] [phone] documented as of this encounter Goals Goal [...] documented as of this encounter Care Teams Sales Executive Insurance Relationship Specialty Start Date End Date Vincenzo Fernandez MD [address] [place] [address] PCP - General Family Medicine 08/03/18 documented as of this encounter
--- OUTSIDE RECORDS SUMMARY | 2025-05-08 12:31 | XMS_ITS | Encounter Summary ---
Author Organization [employer] Address 75 [facility] 7t [place] [address] Care Team Providers Care Armed Security Professional Name Role Phone Name, Vincenzo MYRICK Primary Care Provider [phone] Reason for Visit * Reason Onset Date Comments Appointment Request 08/16/2024 Encounter Details Date Type Department Care Team ([facility] st Contact Info) Description 08/16/2024 Telephone [facility] [address] [place] [address] Name, MD Vincenzo [address] [place] [address] Appointment Request Social History Tobacco Use Types [...] Description 05/30/2025 11:00 AM EDT Office Visit [facility] [address] [place] [phone] 06/26/2025 2:30 PM EST Office Visit [facility] [address] [place] [phone] Vincenzo Fernandez MD [address] [place] [phone] documented as of this encounter Goals Goal [...] documented as of this encounter Care Teams Armed Security Professional Relationship Specialty Start Date End Date Vincenzo Fernandez MD [address] [place] [address] PCP - General Family Medicine 08/03/18 documented as of this encounter
--- OUTSIDE RECORDS SUMMARY | 2025-05-08 12:31 | XMS_ITS | Encounter Summary ---
Author Organization [employer] Address 75 [facility] 7[address] [place] [address] Care Team Providers Care Procurement Officer Name Role Phone NameVincenzo MD Primary Care Provider Milagros Rawls PharmD Unavailable Reason for Visit * Reason Comments Med Refill Encounter Details Date Type Department Care Team ([facility] Contact Info) Description 03/21/2023 Refill [facility] [address] [place] [address] [phone] Name, MD Vincenzo [address] [place] [phone] Social History Tobacco Use Types Packs/Day Years [...] Description 05/30/2025 11:00 AM EDT Office Visit [facility] [address] [place] [address] [phone] 06/26/2025 2:30 PM EST Office Visit [facility] [address] [place] [address] Name, MD Vincenzo [address] [place] [address] documented as of this encounter Visit Diagnoses Not on filedocumented in this encounter Additional Health Concerns Assessment Noted Time PHQ-9 Depression Total Score: 0 12/24/19 10:58 AM EDT documented as of this encounter Care Teams Procurement Officer Relationship Specialty Start Date End Date Name, MD Vincenzo [address] [place] [address] PCP - General Family Medicine 08/03/18 Milagros Rawls, Dai [address] [place] [phone] Pharmacist Internal Medicine 12/02/23 06/27/24 documented as of this encounter
--- OUTSIDE RECORDS SUMMARY | 2025-05-08 12:31 | XMS_ITS | Encounter Summary ---
Author Organization [employer] Address 75 [facility] 7t [place] [address] Care Team Providers Care Store Loss Prevention Manager Name Role Phone NameVincenzo MD Primary Care Provider [phone] Reason for Visit * Reason Onset Date Comments Appointment Request 02/27/2025 Encounter Details Date Type Department Care Team ([facility] st Contact Info) Description 02/27/2025 Telephone [facility] [address] [place] [address] Name, MD Vincenzo [address] [place] [address] Appointment Request Social History Tobacco Use Types [...] up date with PCP. Contact pt at [phone] documented in this encounter Plan of Treatment Upcoming Encounters Date Type Department Care Team (Late st Contact Info) Description 05/30/2025 11:00 AM EDT Office Visit [facility] [address] [place] [phone] 06/26/2025 2:30 PM EST Office Visit [address] [address] Name, MD Vincenzo [address] [place] [phone] documented as of this encounter Goals Goal [...] documented as of this encounter Care Teams Store Loss Prevention Manager Relationship Specialty Start Date End Date Name, MD Vincenzo [address] [place] [address] PCP - General Family Medicine 08/03/18 documented as of this encounter
--- OUTSIDE RECORDS SUMMARY | 2025-05-08 12:31 | XMS_ITS | Encounter Summary ---
Author Organization [employer] Address 75 [facility] 7t [place] [address] Care Team Providers Care Vest Presser Name Role Phone Vincenzo Fernandez MD Primary Care Provider Milagros Rawls PharmD Unavailable Reason for Visit * Reason Onset Date Comments Med Refill 02/04/2023 Encounter Details Date Type Department Care Team ([facility] st Contact Info) Description 02/04/2023 Telephone [facility] MEDICINE [address] [place], [place] [phone] Name, MD Vincenzo [address] [place] [address] Med Refill Social History Tobacco Use Types [...] Description 05/30/2025 11:00 AM EDT Office Visit [facility] [address] [place] [phone] 06/26/2025 2:30 PM EST Office Visit [address] [address] Name, MD Vincenzo [address] [place] [phone] documented as of this encounter Visit Diagnoses Not on filedocumented in this encounter Additional Health Concerns Assessment Noted Time PHQ-9 Depression Total Score: 0 12/24/19 10:58 AM EDT documented as of this encounter Care Teams Vest Presser Relationship Specialty Start Date End Date Name, MD Vincenzo [address] [place] [phone] PCP - General Family Medicine 08/03/18 Milagros Rawls PharmD [address] [place] [phone] Pharmacist Internal Medicine 12/02/23 06/27/24 documented as of this encounter
--- OUTSIDE RECORDS SUMMARY | 2025-05-08 12:31 | XMS_ITS | Clinical Summary ---
Author Organization [facility] Address [id number] [place] [phone] Care Team Providers Care Circus Performer Name Role Phone Name, Vincenzo MYRICK Primary Care Provider [phone] Surgical History Surgery Date Site/Laterality Comments OTHER [...] 2025 5, 06/28/2014, 06/23/2013, Additional history exists RSV Immunization Adult Patients (1 - 1-dose 75+ series) 2051 HIB Vaccines Aged Out No longer eligi [...] age to complete this topic Care Teams Circus Performer Relationship Specialty Start Date End Date Name, MD Vincenzo [address] [place], [place] PCP - General Internal Medicine 06/06/08
== END 2025-05-08 11:08 | disposition home or self-care (01) ==
LOC: HO.HGS 10:34
PROVIDERS: PCP Internal Medicine Geriatric Medicine; Visit Provider Surgery
DX: N64.52 Nipple discharge (principal)
CPT/HCPCS: 99214

== ENCOUNTER → 2025-05-08 10:33 | Outpatient (BNVA) | payer MEDICARE, MEDICAID, SELFPAY | PROVIDERS: PCP Internal Medicine Geriatric Medicine; Visit Provider Surgery | DX: N64.52 Nipple discharge (principal) | CPT/HCPCS: 99212 ==

== ENCOUNTER 2025-05-31 07:54 | Day surgery (SDC) | payer MEDICARE, MEDICAID, SELFPAY ==
--- NOTE | 2025-05-29 10:25 | HO.ANESPROP2 ---
HPI - Anesthesia Eval Consult details Narrative: 49yo F for Left Excision Lactiferous Duct Mass Cardiac optimized. Follows [facility] Cardiology for: CAD , VFib arrest & STEMI in 2022 (s/p PCI with angioplasty & stent placement), ischemic CMP Anesthesia Pre-Procedure Meds Is the patient on any of the following meds?: SGLT2 Inhib PMFSH Active Problems Active Problems: All Active Problems Leukocytosis (Chronic) Type 2 diabetes mellitus (Chronic) Hyperlipidemia (Chronic) Essential hypertension (Acute) Chest pain (Acute) Breast abscess (Acute) Discharge from left nipple (Acute) Tubo-ovarian abscess (Acute) Ovarian abscess (Acute) Constipation (Acute) Colonic diverticular abscess (Acute) Abdominal pain (Acute) Past Medical History Medical History STEMI (ST elevation myocardial infarction) (~2022) CAD (coronary artery disease) (~2022) Leukocytosis Hyperlipidemia Essential hypertension Diverticulitis Abdominal pain HTN (hypertension) Family History Family History Father Prostate cancer Surgical History Surgical History H/O heart artery stent Hx of carpal tunnel repair History of tubal ligation H/O hemorrhoidectomy Social History Social History Household Members: Family Household Members Other:: 3 Housing: Apartment Do you presently have visiting nurse or other home services: No Alcohol intake: current Alcohol intake frequency: holidays/special occasions only Alcohol type: beer Patient Tobacco Use Status: Current everyday Tobacco user Tobacco use type: Cigarette Cigarettes Per Day: 6 e-Cigarette/Vaping Use: Former Use Second Hand Smoke Exposure: No service: No Current occupational status: unemployed Meds Allergies Allergy/AdvReac Type Severity Reaction Status Date / Time amoxicillin (From AUGMENTIN) Allergy Intermediate FACIAL Verified 03/03/25 21:06 SWELLING, HIVES clavulanic acid (From Allergy Intermediate FACIAL Verified 03/03/25 21:06 AUGMENTIN) SWELLING, HIVES Iodinated Contrast Media (IV Allergy Intermediate ITCHING, Verified 03/03/25 21:06 CONTRAST) FACIAL SWELLING, HIVES oral contrast Allergy Intermediate facial Uncoded 05/29/25 14:06 swellling Home Medications ?Medication ?Instructions ?Recorded ?Confirmed ?Last Taken ?Type albuterol sulfate 90 mcg/actuation 2 puff inhalation Q6H PRN Wheezing 07/02/20 05/29/25 Unknown History aerosol inhaler fluticasone propionate 50 1 spray intranasal TID PRN Allergy 01/15/22 05/29/25 01/14/22 History mcg/actuation nasal Symptoms spray,suspension blood pressure test kit-large #1 ea 01/21/22 05/08/25 Unknown History amlodipine 2.5 mg tablet 2.5 mg PO DAILY 10/07/24 05/29/25 05/31/25 History aspirin 81 mg tablet,delayed 81 mg PO DAILY 10/07/24 05/29/25 05/29/25 History release atorvastatin 80 mg tablet 80 mg PO BEDTIME 10/07/24 05/29/25 05/30/25 History empagliflozin 10 mg tablet 10 mg PO DAILY 10/07/24 05/29/25 05/27/25 History (Jardiance) ezetimibe 10 mg tablet 10 mg PO DAILY 10/07/24 05/29/25 10/06/24 History losartan 100 mg tablet 100 mg PO DAILY 10/07/24 05/29/25 05/30/25 History oxycodone-acetaminophen 5 mg-325 1 tab PO Q12H PRN severe pain 10/07/24 05/31/25 Unknown History mg tablet Exam Pertinent Lab Results Pertinent Lab Results: Laboratory Tests 10/07/24 05:53 WBC 12.4 H Hgb 14.9 Hct 43.5 Plt Count 226 Sodium 136 Potassium 3.9 Chloride 109 H Carbon Dioxide 19 L BUN 13 Creatinine 0.66 Narrative Narrative: EKG 05/2025 SR with borderline LVH Q waves in I, aVL ST abn in V4-6 Similar to prior ECHO 08/2024 1. LV size nml. LV wall thickness nml. Overall OV sys function mildly impaired with EF 40-50%. +WMA: mid to apical anterior, ateroseptal burgess are akinetic. Apical inferseptal wall is akinetic. Apix is akinetic to dyskinetic. Indeterminate diastolic function. 2. RV nml in size and function 3. No evidence of aortic stenosis 4. No evidence of pulmo htn 5. No pericardial effusion Assessment and Plan Assessment Anesthesia Assessment: Chart Reviewed
[2025-05-29 14:08] VITALS: BMI 28.1
[2025-05-31 08:47] VITALS: BMI 29.6
[2025-05-31 08:49] VITALS: BP 131/97; PULSE 80; RESP 16; TEMP 36.7; O2SAT 95
[2025-05-31] MEDS: Lactated Ringers 1,000 ML 100 ML IVCONT (09:03)
--- NOTE | 2025-05-31 09:03 | MHC.SHP ---
Pre-Procedural Eval Section A - 24 Hr Update-Section A only Date of Service: 05/31/25 The patient is an INPATIENT: No Changes since office visit: Yes Patient answered all questions; No Cold of Flu in the past 2 weeks, No New Medical Problems and No Changes in Medication The patient has been examined within 24 hours of the surgical procedure. The History & Physical has been completed within 30 days and I have reviewed it.: Yes Section B - Complete if H&P > 30 days Chief Complaint: Nipple discharge Allergies: Allergies Allergy/AdvReac Type Severity Reaction Status Date / Time amoxicillin (From AUGMENTIN) Allergy Intermediate FACIAL Verified 03/03/25 21:06 SWELLING, HIVES clavulanic acid (From Allergy Intermediate FACIAL Verified 03/03/25 21:06 AUGMENTIN) SWELLING, HIVES Iodinated Contrast Media (IV Allergy Intermediate ITCHING, Verified 03/03/25 21:06 CONTRAST) FACIAL SWELLING, HIVES oral contrast Allergy Intermediate facial Uncoded 05/29/25 14:06 swellling Plan Diagnosis/Plan: Unchanged I have reviewed the history and physical and performed a pertinent physical examination on my patient. No changes have occurred unless specified. Time Spent With Patient Time: Total time managing care of this patient today ____ minutes.
--- NOTE | 2025-05-31 10:07 | P.OP_ITS ---
Operative Note Operative Note Date of Service: 05/31/25 Narrative: Preoperative diagnosis: Left breast galactorrhea Postoperative diagnosis: Same Procedure: Excision left breast lactiferous duct Surgeon: Kp Guzman MD Gold Wheel Blocker And Polisher: Beckie Ross PA-C Anesthesia: General LMA Indications for procedure: 41-year-old female patient presenting with occasional bloody discharge from the left nipple which is spontaneous from the upper inner quadrant. She presents today for left breast lactiferous duct excision. Operative findings: Large dilated lactiferous duct upper inner quadrant Specimen: Left breast lactiferous duct excision Estimated blood loss: 5 mL Complications: None Procedure details: Patient was brought to the OR and placed in a supine position. After administering general anesthesia the patient's left breast was prepped with ChloraPrep and draped in a sterile fashion. A surgical time-out was called the consent confirmed. Patient received preoperative antibiotics and Venodyne boots were in place. Local anesthesia consisting of 0.5% Sensorcaine with epinephrine was then infiltrated in a curvilinear fashion at the upper inner quadrant. A 3-0 lacrimal probe was then inserted into the offending/leaking milk duct. Curvilinear incision was then made with a scalpel in the upper outer quadrant along the areolar complex. This was carried out through subcutaneous tissue. Dissection was then continued below the areola towards the nipple. Dissection was continued to the palpable lacrimal probe. Hemostat was then used to dissect around the terminal ducts below the nipple. This was then grasped with a hemostat while removing the lacrimal probe. The ducts were then divided between hemostats and ligated using a 3-0 Polysorb suture. The distal portion of the duct was then dissected using electrocautery laterally. Several large dilated ducts were identified extending from this transected duct and were excised using electrocautery. When this was completely excised and was passed off the table and sent to pathology for further examination. Wounds were then checked for hemostasis. Wounds were irrigated with saline solution and suctioned dry. Deep breast tissue was then reapproximated using interrupted 3-0 Polysorb sutu res. Dermis was reapproximated using interrupted 3-0 Polysorb sutures. Skin was closed using a running subcuticular 4-0 Polysorb suture. Sterile dressings consisting of Steri-Strips, 4 x 4 gauze and Tegaderm were then applied. The patient tolerated the procedure well. Sponge, instrument, and needle counts reported as correct. The patient was transferred to PACU in stable condition.
[2025-05-31 10:10] VITALS: BP 152/86; PULSE 87; RESP 10; TEMP 37; O2SAT 93
[2025-05-31 10:15] VITALS: BP 151/95; PULSE 82; RESP 12; O2SAT 95
[2025-05-31 10:20] VITALS: BP 139/81; PULSE 82; RESP 14; O2SAT 98
[2025-05-31 10:25] VITALS: BP 142/72; PULSE 75; RESP 15; O2SAT 97
[2025-05-31 10:40] VITALS: BP 136/68; PULSE 68; RESP 16; TEMP 37.1; O2SAT 99
== END 2025-05-31 11:09 | disposition home or self-care (01) ==
PROVIDERS: PCP Internal Medicine Geriatric Medicine; Visit Provider Surgery
PROC: (CPT 19112; principal; 2025-05-31 10:00)
DX: N64.52 Nipple discharge (principal); N60.42 Mammary duct ectasia of left breast; N60.82 Other benign mammary dysplasias of left breast; I10 Essential (primary) hypertension; E78.5 Hyperlipidemia, unspecified; E11.9 Type 2 diabetes mellitus without complications; D72.829 Elevated white blood cell count, unspecified; Z87.19 Personal history of other diseases of the digestive system; Z79.82 Long term (current) use of aspirin; Z79.899 Other long term (current) drug therapy; Z79.84 Long term (current) use of oral hypoglycemic drugs; Z79.51 Long term (current) use of inhaled steroids; Z88.1 Allergy status to other antibiotic agents; Z91.041 Radiographic dye allergy status; Z98.51 Tubal ligation status; Z98.890 Other specified postprocedural states; Z56.0 Unemployment, unspecified
CPT/HCPCS: 19112; 88307; J0131; J1100; J1885; J2003; J2250; J2371; J2405; J2704; J3010; J3374

== ENCOUNTER → 2025-05-31 07:54 | Outpatient (BNV) | payer MEDICARE, MEDICAID, SELFPAY | PROVIDERS: PCP Internal Medicine Geriatric Medicine; Visit Provider Surgery | DX: N64.3 Galactorrhea not associated with childbirth (principal) | CPT/HCPCS: 19110 ==

== ENCOUNTER 2025-06-23 11:07 | Outpatient (AMB) | payer MEDICARE, MEDICAID, SELFPAY ==
--- NOTE | 2025-06-23 11:12 | A.OFFVIS_ITS ---
Vital Signs 06/23/25 11:14 Height 5 ft 7 in Weight 191 lb BMI 29.9 BP 125/67 Blood Pressure Location Lt brachial Position Sitting Pulse 88 Intake Visit Reasons: s/p excision Lt lactiferous duct Intake Note: Patient is seen in office for post op assessment post excision of left lactiferouos duct. Pt c/o: denies any concerns Senior Dentist Required: No Accompanied by: Self / Same As Patient Allergies amoxicillin (From AUGMENTIN) Allergy (Intermediate, Verified 06/23/25 11:25) FACIAL SWELLING, HIVES clavulanic acid (From AUGMENTIN) Allergy (Intermediate, Verified 06/23/25 11:25) FACIAL SWELLING, HIVES Iodinated Contrast Media (IV CONTRAST) Allergy (Intermediate, Verified 06/23/25 11:25) ITCHING, FACIAL SWELLING, HIVES oral contrast Allergy (Intermediate, Uncoded 06/23/25 11:) facial swellling HPI HPI s/p excision Lt lactiferous duct: Details: 49 year old female presenting today for wound check and follow up after undergoing excision left breast lactiferous duct on 05/31/[address] Guzman for left breast galactorrhea. She tolerated the procedure well. She took per cocet for a few days following the procedure. She currently denies any pain at the excision site but does report it is sensitive and has occasional discomfort. She denies any further drainage from the left nipple. She has no breast related concerns. She is eating ok and moving her bowels regularly. She denies fevers, chills, nausea, vomiting, diarrhea, constipation. [facility] Medical History STEMI (ST elevation myocardial infarction) (~2022) CAD (coronary artery disease) (~2022) Leukocytosis Hyperlipidemia Essential hypertension Diverticulitis Abdominal pain HTN (hypertension) Surgical History Hx of surgical procedure (05/31/25) H/O heart artery stent Hx of carpal tunnel repair History of tubal ligation H/O hemorrhoidectomy Family History Father Prostate cancer Social History Household Members: Family Household Members Other:: 3 Housing: Apartment Do you presently have visiting nurse or other home services: No Alcohol intake: current Alcohol intake frequency: holidays/special occasions only Alcohol type: beer Patient Tobacco Use Status: Current everyday Tobacco user Tobacco use type: Cigarette Cigarettes Per Day: 6 e-Cigarette/Vaping Use: Former Use Second Hand Smoke Exposure: No service: No Current occupational status: unemployed Review of Systems Const All systems reviewed & are unremarkable except as noted in HPI and below Physical Exam Vital Signs: Last Vital Signs Pulse 88 06/23/25 11:14 BP 125/67 06/23/25 11:14 BMI result Body Mass Index 29.9 Const General: comfortable, no acute distress, well developed and alert Orientation/consciousness: patient oriented x3 Chest Other: left breast excision site upper inner quadrant well healed incision, no drainage noted from nipple, no skin changes, very mild induration underlying incision itself, no palpable masses Resp Effort & Inspection: normal respiratory effort Skin General skin exam: no rashes or lesions noted Neuro General: patient oriented x3 and moves all extremities Results Reviewed Results Reviewed: Breast, left, excision: Benign breast tissue with large dilated lactiferous ducts, mild usual ductal hyperplasia and apocrine metaplasia; negative for malignancy Assessment & Plan Assessment & Plan (1) 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 She tolerated the procedure well. She has had no further nipple discharge. Her incision site is well healed without evidence of infection. Pathology reviewed with the patient, nothing further needed. She can follow up as needed if she develops concerns. All questions answered. 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
[2025-06-23 11:14] VITALS: BP 125/67; PULSE 88; BMI 29.9
--- OUTSIDE RECORDS SUMMARY | 2025-06-23 11:59 | XMS_ITS | Encounter Summary ---
Author Organization [employer] Address 75 [facility] 7t [place] [address] Care Team Providers Care Reheat Furnace Operator Name Role Phone Name, Vincenzo MYRICK Primary Care Provider [phone] Reason for Visit * Reason Comments Med Refill Encounter Details Date Type Department Care Team (Late st Contact Info) Description 06/20/2025 Refill [facility] MEDICINE [address] [place] [address] Mariluz Cuellar FNP [address] [place] [address] Coronary artery disease involving wainwright heart with angina pectoris, unspecified vessel or lesion type Social History Tobacco Use Types Packs/Day Years [...] Care Team (Late st Contact Info) Description 06/26/2025 2:30 PM EST Office Visit [address] [address] NameVincenzo MD [address] [place] [address] 07/25/2025 11:00 AM EST Office Visit [address] [address] documented as of this encounter Goals Goal Patient Goal Type Associated Problems Recent Progress Patient-Stated? Author Record your blood pressure once per day Blood Pressure No PuiaHamiltonMilagros, PharmD Blood Pressure < 140/90 Blood Pressure 142/82( 025 1:00 PM EDT) No Puia, Milagros, PharmD documented as of this encounter Visit Diagnoses Diagnosis Coronary artery disease involving wainwright heart with angina pectoris, unspecified vessel or lesion type documented in this encounter Additional Health Concerns Assessment Noted Time PHQ-9 Depression Total Score: 8 10/04/19 25 3:21 PM EST documented as of this encounter Care Teams Reheat Furnace Operator Relationship Specialty Start Date End Date Vincenzo Fernandez MD [address] [place] [phone] PCP - General Family Medicine 08/03/18 documented as of this encounter
--- OUTSIDE RECORDS SUMMARY | 2025-06-23 11:59 | XMS_ITS | Clinical Summary ---
Author Organization [employer] Address [address] [facility] 7t [place] [address] Care Team Providers Care Inspector Printed Circuit Boards Name Role Phone Name, Vincenzo MYRICK Primary Care Provider [phone] Allergies Active Allergy Reactions Criticality Noted Date [...] DAY FOR 90 DAYS 01/28/20 24 Active ezetimibe (Zetia) 10 MG tablet [...] /ASTHMA 75 mL 1 01/12/20 25 Active amLODIPine (Norvasc) 5 MG tablet Take 1 tablet by mouth Once per day. 02/10/20 25 Active oxyCODONE-acet aminophen (Percocet) 5-325 MG tabletIndicati ons:Chronic pain syndrome Take 1 tablet by mouth every 12 (twelve) hours if needed for severe pain for up to 28 days. 56 tablet 06/08/20 25 025 Active mometasone (Elocon) 0.1 % ointment APPLY TOPICALLY IN THE MORNING 45 g 06/21/20 25 Active nitroglycerin (Nitrostat) 0.4 MG SL tabletIndicati ons:Coronary artery disease involving [place] heart with angina pectoris, unspecified vessel or lesion type PLACE 1 TABLET UNDER THE TONGUE EVERY 5 MINUTES IF NEEDED FOR CHEST PAIN. MAY ADMINISTER UP TO 3 TABLETS IN 15-MINUTE PERIOD. PROCEED TO ED FOR CHEST PAIN. 25 tablet 06/21/20 25 Active mometasone (Elocon) 0.1 % ointment APPLY TOPICALLY IN THE MORNING 45 g 07/19/20 24 025 Discontinued nitroglycerin (Nitrostat) 0.4 MG SL tabletIndicati ons:Coronary artery disease involving [place] heart with angina pectoris, unspecified vessel or lesion type Place 1 tablet (0.4 mg) under the tongue every 5 (five) minutes if needed for chest pain. May administer up to 3 tablets in 15-minute period. Proceed to ED for chest pain. 30 tablet 01/25/20 25 025 Discontinued oxyCODONE-acet aminophen (Percocet) 5-325 MG tabletIndicati ons:Chronic pain syndrome Take 1 tablet by mouth every 12 (twelve) hours if needed for severe pain for up to 28 days. 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 Also had successful balloon angioplasty at [facility]. Echocardiogram showed LVEF 25 - 30%. Systolic [...] discharge -Similar presentation and initial evaluation in [phone]. Breast MRI had been ordered through [facility] Surgery dept, although does not appear was [...] as expected, pill count 1 short. See program support assistant. Assessment & Plan (10/02/2024 8:30 PM EST): [...] Encounters Date Type Department Care Team Description 06/23/2025 Telephone [facility] [address] [place] [address] Vincenzo Fernandez MD CHARTPREP 06/20/2025 Refill [facility] [address] [place] [address] Mariluz Cuellar FNP Coronary artery disease involving [place] heart with angina pectoris, unspecified vessel or lesion type 06/20/2025 Refill [facility] [address] [place] [address] Vincenzo Fernandez MD 06/08/2025 Refill [facility] [address] [place] [address] Vincenzo Fernandez MD Chronic pain syndrome 05/30/2025 11:00 AM EDT Clinical Support [facility] [address] [place] [address] Erika Krishna RN Long-term current use of opiate analgesic (Primary Dx) 05/30/2025 Travel 05/11/2025 Refill [facility] [address] [place] [address] Vincenzo Fernandez MD Chronic pain syndrome 04/12/[address] [address] Vincenzo Fernandez MD Chronic pain syndrome 03/31/2025 1:00 PM EDT Office Visit [address] [address] Vincenzo Fernandez MD Discharge from nipple (Primary Dx); Subareolar mass of left breast; Coronary artery disease involving [place] coronary artery of [place] heart without angina pectoris; Tobacco dependence syndrome; Screen for colon cancer 03/31/2025 Travel 03/30/[address] [address] Valencia Suarez [place] CHARTPREP 03/28/2025 11:00 AM EDT Office Visit [address] [address] Mariluz Cuellar FNP Lumbar spondylosis (Primary Dx); Long-term current use of opiate analgesic 03/28/[address] [address] Erika Krishna, JEANNIE BPI Scoring 03/28/2025 Travel from Last 3 Months Immunizations Immunization Administration Dates Next Due Influenza injectable quadriv alent IIV4 with preservative 05/20/2016,05/30/2015,06/28/2014,2012,04/10/2011,06/07/2010,05/01/2009,1 08/27/2007 Influenza injectable quadriv alent preservative free 05/04/2023,04/25/2022 Influenza, IIV3, injectable 05/20/2016,1 ,06/28/2014,2012,04/10/2011,06/07/2010,05/01/2009,1 08/27/2007 Influenza, seasonal, injecta ble, preservative free 04/26/2024 Novel [id number], preservative-free 07/16/2009 Pneumococcal Conjugate PCV 20 11/04/2023 [...] Description 06/26/2025 2:30 PM EST Office Visit [facility] [address] [place] [address] Name, MD Vincenzo [address] [place] [address] 07/25/2025 11:00 AM EST Office Visit [facility] [address] [place] [address] Health Maintenance Due Date Last Done Comments [...] per day Blood Pressure No Milagros Rawls, PharmZakiya Blood Pressure < 140/90 Blood Pressure 142/82( 025 1:00 PM EDT) No Milagros Rawls PharmD Procedures Procedure Name Priority Date/Time Associated Diagnosis Comments GROSS AND MICROSCOPIC LEVEL 5 Routine 05/31/2025 9:57 AM EDT POCT DEN-14 URINE DRUG SCREEN Routine 05/30/2025 11:17 AM EDT Long-term current use of opiate analgesic BI US BREAST LIMITED BILATERAL Routine 04/14/2025 10:08 AM EDT BI MAMMOGRAM DIAGNOSTIC TOMOSYNTHESIS BILATERAL Routine 04/14/2025 9:35 AM EDT Discharge from nipple POCT DEN-14 URINE DRUG SCREEN Routine 03/28/2025 11:33 AM EDT Long-term current use of opiate analgesic LIPID PANEL, STANDARD Routine 11/04/2023 10:27 AM EDT Coronary artery disease involving [place] coronary artery of [place] heart without angina pectoris Systolic congestive heart failure, unspecified HF chronicity (CMS/HCC) Tobacco dependence syndrome Screen for colon cancer HM PAP/HPV Routine 11/19/2022 12:00 AM EDT from Last 3 Months or Most Recently Relevant to Health Maintenance Results * Gross and Microscopic Level 5 (05/31/2025 9:57 AM EDT) 05/31/2025 9:57 AM EDT 05/31/2025 1:26 PM EDT [facility] - 06/02/2025 9:08 AM EDT ----- ------- Name: Laura Pruitt Luis Felipe Age/Sex: 49/F : 1975 Unit#: [id number] Attend Dr: Kp Guzman MD Re05/31/25 Status: [facility] Location: [place] Disch: ----- ------- SPEC : [id number] RECD: 05/31/25 STATUS: JENNIFER HOLLINS NUM: [id number] AFSHIN: 05/31/2557 [facility] [address]: Kp Guzman MD ENTERED: 05/31/25 SP TYPE: Surgical OTHR DR: Vincenzo Fernnadez MD ORDERED: Gross Micro L5 Diagnosis Breast, left, excision: Benign breast tissue with large dilated lactiferous ducts, mild usual ductal hyperplasia and apocrine metaplasia; negative for malignancy. Clinical History Nipple discharge Microscopic Description Microscopic sections reviewed. Material Received Left breast lactiferous Gross Description Received in formalin is an unoriented 4.0 x 2.8 x 1.8 cm portion of fibrofatty breast parenchyma, sectioned perpendicular to the external fibromembranous lining to reveal grossly unremarkable fibrofatty parenchyma without evidence of discrete lesion. Grain Broker And Market Operator sections are submitted in cassettes A1-4. (DTL) IHC S/NG Disclaimer NOTE: Unless otherwise stated, all tissue is formalin-fixed and paraffin-embedded. Some or all of the immunohistochemical tests reported herein may have been developed and their performance characteristics determined by [facility]. They have not been cleared or approved by the U.S. Food and Drug Administration (FDA). However, the FDA has determined that such clearance or approval is not necessary. This laboratory is certified under the Clinical Laboratory Improvement Amendments of 1988 (CLIA) as qualified to perform high complexity clinical laboratory testing. Copies To: Kp Guzman MD [facility] General Surgeons [address] [place] [phone] CONTINUED ON NEXT PAGE ----- ------- Name: Laura Pruitt Age/Sex: 49/F : 1975 Unit#: [id number] Attend Dr: Kp Guzman MD Re05/31/25 Status: [facility] Location: [facility] Disch: ----- ------- SPEC : [id number] RECD: 05/31/25 STATUS: JENNIFER HOLLINS NUM: [id number] AFSHIN: 05/31/[address] [facility] [address]: Kp Guzman MD ENTERED: 05/31/25 SP TYPE: Surgical OTHR DR: Vincenzo Fernandez MD ORDERED: Gross Micro L5 Copies To: (Continued) Vincenzo Fernandez MD [address] [address] ----- ------- Signed (signature on file) Manju Gee MD 06/02/25907 ----- ------- END OF REPORT us Generic External Data Provider LAB BLOOD ORDERAB LES Final Result [facility] [address] [place] [address] [phone] * (ABNORMAL) POCT DEN-14 Urine Drug Screen (05/30/2025 11:17 AM EDT) Only the most recent of2 [...] Urine Negative Negative ng/mL Oxycodone Screen, Urine Positive(A) Negative Comment:CENTRAL PROCESSING TECH pt on Percocet Phencyclidine (PCP), Urine Negative Negative Propoxyphene, Urine Negative Negative Fentanyl, Urine Negative Negative Urine Urine specimen obtained by clean catch procedure / Unknown 05/30/2025 11:17 AM EDT Erika Choi RN - 05/30/2025 11:17 AM EDT UTOX cup Lot#[id number] Exp. 05/09/26 Internal Pass Control us Vincenzo Fernandez MD POINT OF CARE TEST ENTER/EDIT OR DERABLES Final Result * BI US Breast Limited Bilateral (04/14/2025 10:08 AM EDT) Anatomical Region Laterality Modality Breast Bilateral Ultrasound 04/14/2025 10:0 8 AM EDT Narrative 04/14/2025 1:28 PM EDT [facility] [address] [place] [address] Ultrasound Report Signed Patient: Laura Pruitt MR#: [id number] 913 : 1975 Acct:[id number] Age/Sex: 49 / F ADM Date: 04/14/25 Loc: [facility] Attending Dr: Vincenzo Fernandez MD Ordering Physician: Vincenzo Fernandez MD Date of Service: 04/14/25 Procedure(s): US breast BI limited mamm only Accession Number(s): [id number] cc: Vincenzo Fernandez MD Reason for Exam: [...] 04/14/25 1325 DD/ 1008 TD/TT: 04/14/25 1034 Member Of The Legislative Assembly: Procedure Note Donotuseinterpreter, Image - 04/14/2025 [facility] [address] [place], [place] [address] Ultrasound Report Signed Patient: Laura Pruitt MMR#: [id number] 913 : 1975Acct:[id number] Age/Sex: 49 / FADM Date: 04/14/25 Loc: HO.MAMMO Attending Dr: Vincenzo Fernandez MD Ordering Physician: Vincenzo Fernandez MD Date of Service: 04/14/25 Procedure(s): US breast BI limited mamm only Accession Number(s): [id number] cc: Name,Vincenzo MYRICK Reason for Exam: ROBBI NIPPLE DISCHARGE, [...] 04/14/25 1325 DD/ 1008 TD/TT: 04/14/25 1034 Member Of [place] Legislative Assembly: us Vincenzo Fernandez MD IMG US PROCEDURES Final Result * BI Mammogram Diagnostic Tomosynthesis Bilateral (04/14/2025 9:35 AM EDT) Anatomical Region Laterality Modality Breast Bilateral Mammography 04/14/2025 9:3 5 AM EDT Narrative 04/14/2025 1:28 PM EDT [facility] [address] [place] [address] Mammography Report Signed Patient: Laura Pruitt MR#: [id number] 913 : 1975 Acct:[id number] Age/Sex: 49 / F ADM Date: 04/14/25 Loc: HO.MAMMO Attending Dr: Vincenzo Fernandez MD Ordering Physician: Vincenzo Fernandez MD Results: 3.6MProbab ly Benign Finding - Short 6 M F/U Suggested Date of Service: 04/14/25 Follow Up: 6 Month F/U Procedure(s): MM tomosynthesis diagnostic BI Accession Number(s): [id number] cc: Vincenzo Fernandez MD Reason For Exam: [...] 04/14/25 1325 DD/ 0935 TD/TT: 04/14/25 0952 Member Of [employer] Legislative Assembly: Procedure Note Donotuseinterpreter, Image - 04/14/2025 [facility] [address] [place] [address] [place] [address] Mammography Report Signed Patient: Laura Pruitt MMR#: [id number] 913 : 1975Acct:[id number] Age/Sex: 49 / FADM Date: 04/14/25 Loc: HO.MAMMO Attending Dr: Vincenzo Fernandez MD Ordering Physician: Vincenzo Fernandez MDResults: 3.6MProbab ly Benign Finding - Short 6 M F/U Suggested Date of Service: 04/14/25Follow Up: 6 Month F/U Procedure(s): MM tomosynthesis diagnostic BI Accession Number(s): [id number] cc: Jim,Vincenzo MYRICK Reason For Exam: ROBBI NIPPLE DISCHARGE, [...] Haq DO in OV> 04/14/25 1325 DD/ TD/TT: 04/14/25 0952 Member Of The Legislative Assembly: us Vincenzo Name MD SPARKS BI PROCEDURES Final Result * (ABNORMAL) Lipid Panel, Standard (11/04/2023 10:27 AM EDT) Triglycerides 206(H) <150 mg/dL [facility] Comment:Desirable Triglyceri de: less than 150 mg/dLBorderline High Triglyceride 150-199 mg/dLHigh Triglyceride: 200-499 mg/dLVery High Triglyceride: greater than or equal to 5OO mg/dL Cholesterol 212(H) <200 mg/dL [facility] Comment:Desirable Cholestero l: less than 200 mg/dLBorderline High Cholesterol: 200-239 mg/dLHigh Cholesterol: greater than 239 mg/dL LDL Cholesterol Calculated 135(H) <100 mg/dL [facility] Comment:Desirable LDL: less than 100 mg/dLNear Optimal/Above Optimal LDL: 110- 129 mg/dLBorderline High LDL: 130-159 mg/dLHigh LDL: 160-189 mg/dLVery High LDL: greater than or equal to 190 mg/dL HDL Cholesterol 36(L) >40 mg/dL [facility] Comment:Desirable HDL: great er than 40 mg/dL Note: This HDL assay may give artificially low results in patients with liver disease. Blood Venous blood specimen / Unknown 11/04/2023 10:27 AM EDT 11/04/2023 11:14 AM EDT Vincenzo Jim MYRICK LAB BLOOD ORDERABLES Final Resul t [facility] [address] [place] [address] [phone] * HM PAP/HPV (11/19/2022 12:00 AM EDT) Pap Smear 1. NILM 1. NILM HPV Not Detected Undetected, Indeterminat e, Quantitative , Not Detected Historical Provider HEALTH MAINTENANCE Edited Result - Final from Last 3 Months or Most Recently Relevant to Health Maintenance Insurance STANDARD [place] [address] [place] [phone] Care Teams Inspector Printed Circuit Boards Relationship Specialty Start Date End Date Name, MD Vincenzo [address] [place] [address] PCP - General Family Medicine 08/03/18
--- OUTSIDE RECORDS SUMMARY | 2025-06-23 11:59 | XMS_ITS | Encounter Summary ---
Author Organization [employer] Address [address] [facility] 7t [place] [address] Care Team Providers Care Swatch Maker Name Role Phone Name, Vincenzo MYRICK Primary Care Provider [phone] Reason for Visit * Reason Onset Date Comments CHARTPREP 06/23/2025 Encounter Details Date Type Department Care Team ([facility] st Contact Info) Description 06/23/2025 Telephone [facility] [address] [place], [place] [phone] Name, MD Vincenzo [address] [place] [address] CHARTPREP Social History Tobacco Use Types Packs/Day Years [...] encounter Miscellaneous Notes * Telephone Encounter - Valencia Suarez [place] - 06/23/2025 11:37 AM EST Chart Prep Labs: done except prolactin,lipid panel Images: done Referrals: complete Vaccines due: Covid, Flu, and Hep B Screenings: colonoscopy hep c screening,family planning,HIV screening,alcohol/substance use screening Overdue care gaps: Not applicable documented in this encounter Plan of Treatment Upcoming Encounters Date Type Department Care Team (Late st Contact Info) Description 06/26/2025 2:30 PM EST Office Visit [facility] [address] [place] [address] Name, MD Vincenzo [address] [place] [address] 07/25/2025 11:00 AM EST Office Visit [address] [address] documented as of this encounter Goals Goal Patient Goal Type Associated Problems Recent Progress Patient-Stated? Author Record your blood pressure once per day Blood Pressure No Milagros Rawls, PharmD Blood Pressure < 140/90 Blood Pressure 142/82( 025 1:00 PM EDT) No Milagros Rawls, PharmD documented as of this encounter Visit Diagnoses Not on filedocumented in this encounter Additional Health Concerns Assessment Noted Time PHQ-9 Depression Total Score: 8 10/04/19 25 3:21 PM EST documented as of this encounter Care Teams Swatch Maker Relationship Specialty Start Date End Date Name, MD Vincenzo [address] [place] [address] PCP - General Family Medicine 08/03/18 documented as of this encounter
--- OUTSIDE RECORDS SUMMARY | 2025-06-23 11:59 | XMS_ITS | Encounter Summary ---
Author Organization [employer] Address [address] [facility] 7t [place] [address] Care Team Providers Care Onion Farmer Name Role Phone Name, Vincenzo MYRICK Primary Care Provider [phone] Reason for Visit * Reason Onset Date Comments Appointment Request 08/16/2024 Encounter Details Date Type Department Care Team ([facility] st Contact Info) Description 08/16/2024 Telephone [facility] [address] [place] [address] Name, MD Vincenzo [address] [place] [address] Appointment Request Social History Tobacco Use Types [...] Description 06/26/2025 2:30 PM EST Office Visit [address] [address] NameVincenzo MD [address] [place] [address] 07/25/2025 11:00 AM EST Office Visit [address] [address] documented as of this encounter Goals Goal [...] documented as of this encounter Care Teams Onion Farmer Relationship Specialty Start Date End Date NameVincenzo MD [address] [place] [address] PCP - General Family Medicine 08/03/18 documented as of this encounter
--- OUTSIDE RECORDS SUMMARY | 2025-06-23 11:59 | XMS_ITS | Encounter Summary ---
Author Organization [employer] Address [address] [facility] 7t [place] [address] Care Team Providers Care Director Of Pulmonary Unit Name Role Phone Name, Vincenzo MYRICK Primary Care Provider [phone] Reason for Visit * Reason Onset Date Comments Nurse Triage 08/15/2024 Encounter Details Date Type Department Care Team ([facility] st Contact Info) Description 08/15/2024 Telephone [facility] [address] [place], [place] [phone] Name, MD Vincenzo [address] [place] [address] Nurse Triage Social History Tobacco Use Types [...] Description 06/26/2025 2:30 PM EST Office Visit [address] [address] Name, MD Vincenzo [address] [place] [address] 07/25/2025 11:00 AM EST Office Visit [address] [address] documented as of this encounter Goals Goal [...] documented as of this encounter Care Teams Director Of Pulmonary Unit Relationship Specialty Start Date End Date Vincenzo Fernandez MD [address] [place] [address] PCP - General Family Medicine 08/03/18 documented as of this encounter
--- OUTSIDE RECORDS SUMMARY | 2025-06-23 11:59 | XMS_ITS | Encounter Summary ---
Author Organization [employer] Address [address] [facility] 7t [place] [address] Care Team Providers Care Journeyman Painter Name Role Phone Name, Vincenzo MYRICK Primary Care Provider [phone] Reason for Visit * Reason Comments Med Refill Encounter Details Date Type Department Care Team ([facility] st Contact Info) Description 06/20/[address] [facility] [address] [place] [address] Name, MD Vincenzo [address] [place], [place] [phone] Social History Tobacco Use Types Packs/Day Years [...] Description 06/26/2025 2:30 PM EST Office Visit [address] [address] NameVincenzo MD [address] [place] [address] 07/25/2025 11:00 AM EST Office Visit [address] [address] documented as of this encounter Goals Goal [...] documented as of this encounter Care Teams Journeyman Painter Relationship Specialty Start Date End Date Vincenzo Fernandez MD [address] [place] [address] PCP - General Family Medicine 08/03/18 documented as of this encounter
--- OUTSIDE RECORDS SUMMARY | 2025-06-23 12:00 | XMS_ITS | Clinical Summary ---
Author Organization [facility] Address [address] [place] [phone] Care Team Providers Care Medical Office Assistant Name Role Phone Name, Vincenzo MYRICK Primary Care Provider [phone] Surgical History Surgery Date Site/Laterality Comments OTHER [...] 1995 Cervical Cancer Screening: Pap Smear 1997 Depression Screening 08/03/2024 COVID-19 Vaccine ( - 2024- season) 2025 Influenza Vaccine (#1) 2025 , 05/04/2023, 04/25/2022, Additional history exists DTaP,Tdap,and Td Vaccines (3 - Td or Tdap) 05/04/2033 05/04/2023, 02/01/2013 RSV Immunization Adult Patients (1 - 1-dose 75+ series) 2051 Pneumococcal Vaccine: Pediatrics (0 to 5 Years) and At-Risk Patients (6 to 49 Years) Aged Out 11/04/2023 No longer eligible based on patient's age to complete this topic HIB Vaccines Aged Out No longer eligi [...] age to complete this topic Care Teams Medical Office Assistant Relationship Specialty Start Date End Date Name, MD Vincenzo [address] [place] [address] PCP - General Internal Medicine 06/06/08
--- OUTSIDE RECORDS SUMMARY | 2025-06-23 12:00 | XMS_ITS | Encounter Summary ---
Author Organization [employer] Address 75 [facility] 7t [place] [address] Care Team Providers Care Grief Counselor Name Role Phone NameVincenzo MD Primary Care Provider [phone] Reason for Visit * Reason Onset Date Comments Appointment Request 02/27/2025 Encounter Details Date Type Department Care Team ([facility] st Contact Info) Description 02/27/2025 Telephone [facility] [address] [place] [address] Name, MD Vincenzo [address] [place] [address] Appointment Request Social History Tobacco Use Types [...] up date with PCP. Contact pt at [phone] documented in this encounter Plan of Treatment Upcoming Encounters Date Type Department Care Team (Late st Contact Info) Description 06/26/2025 2:30 PM EST Office Visit [address] [address] Name, MD Vincenzo [address] [place] [address] 07/25/2025 11:00 AM EST Office Visit [address] [address] documented as of this encounter Goals Goal [...] documented as of this encounter Care Teams Grief Counselor Relationship Specialty Start Date End Date Name, MD Vincenzo [address] [place] [address] PCP - General Family Medicine 08/03/18 documented as of this encounter
--- OUTSIDE RECORDS SUMMARY | 2025-06-23 12:00 | XMS_ITS | Encounter Summary ---
Author Organization [employer] Address [address] [facility] 7t [place] [address] Care Team Providers Care It Security Architect Name Role Phone Vincenzo Fernandez MD Primary Care Provider [phone] Milagros Rawls PharmD Unavailable [phone] Reason for Visit * Reason Comments Med Refill Encounter Details Date Type Department Care Team (Late st Contact Info) Description 06/29/2023 Refill [facility] [address] [place], [place] [phone] Name, MD Vincenzo [address] [place] [address] ST elevation myocardial infarction (STEMI), unspecified artery [...] Description 06/26/2025 2:30 PM EST Office Visit [address] [address] Name, MD Vincenzo [address] [place] [phone] 07/25/2025 11:00 AM EST Office Visit [address] [address] documented as of this encounter Visit Diagnoses Diagnosis ST elevation myocardial infarction (STEMI), unspecified artery (HCC) Acute systolic congestive heart failure (HCC) Musculoskeletal chest pain Other chest pain documented in this encounter Additional Health Concerns Assessment Noted Time PHQ-9 Depression Total Score: 0 12/24/19 23 10:58 AM EDT documented as of this encounter Care Teams It Security Architect Relationship Specialty Start Date End Date Name, MD Vincenzo [address] [place] [id number] PCP - General Family Medicine 08/03/18 Milagros Rawls PharmD [address] [place] [id number] Pharmacist Internal Medicine 12/02/23 06/27/24 documented as of this encounter
--- OUTSIDE RECORDS SUMMARY | 2025-06-23 12:00 | XMS_ITS | Encounter Summary ---
Author Organization [employer] Address [address] [facility] 7[address] [place] [address] Care Team Providers Care Medical Billing Service Name Role Phone Name, Vincenzo MYRICK Primary Care Provider Milagros Rawls PharmD Unavailable [phone] Reason for Visit * Reason Comments Med Refill Encounter Details Date Type Department Care Team (Late st Contact Info) Description 03/21/2023 Refill [facility] [address] [place] [phone] Gregoria Hardin MD [address] [place] [address] ST elevation myocardial infarction (STEMI), unspecified artery [...] Description 06/26/2025 2:30 PM EST Office Visit [facility] [place] [address] Name, [place] [address] 07/25/2025 11:00 AM EST Office Visit [facility] [place] [address] documented as of this encounter Visit Diagnoses Diagnosis ST elevation myocardial infarction (STEMI), unspecified artery (HCC) Acute systolic congestive heart failure (HCC) Musculoskeletal chest pain Other chest pain documented in this encounter Additional Health Concerns Assessment Noted Time PHQ-9 Depression Total Score: 0 12/24/19 10:58 AM EDT documented as of this encounter Care Teams Medical Billing Service Relationship Specialty Start Date End Date Name, [place] [address] PCP - General Family Medicine 08/03/18 [place] [address] Pharmacist Internal Medicine 12/02/23 06/27/24 documented as of this encounter
--- OUTSIDE RECORDS SUMMARY | 2025-06-23 12:00 | XMS_ITS | Encounter Summary ---
Author Organization [employer] Address [address] [facility] 7t [place] [address] Care Team Providers Care Puddler Helper Name Role Phone Vincenzo Fernandez MD Primary Care Provider Milagros Rawls PharmD Unavailable [phone] Reason for Visit * Reason Onset Date Comments Med Refill 02/04/2023 Encounter Details Date Type Department Care Team ([facility] st Contact Info) Description 02/04/2023 Telephone [facility] [address] [place], [place] [phone] Name, MD Vincenzo [address] [place] [address] Med Refill Social History Tobacco Use Types [...] Description 06/26/2025 2:30 PM EST Office [facility] [place] [address] Name, MD Vincenzo [facility] [place] [address] 07/25/2025 11:00 AM EST Office Visit [facility] [place] [address] documented as of this encounter Visit Diagnoses Not on filedocumented in this encounter Additional Health Concerns Assessment Noted Time PHQ-9 Depression Total Score: 0 12/24/19 10:58 AM EDT documented as of this encounter Care Teams Puddler Helper Relationship Specialty Start Date End Date Name, MD Vincenzo [facility] [place] [address] PCP - General Family Medicine 08/03/18 Milagros Rawls, Miguel AD [facility] [place] [address] Pharmacist Internal Medicine 12/02/23 06/27/24 documented as of this encounter
--- OUTSIDE RECORDS SUMMARY | 2025-06-23 12:00 | XMS_ITS | Encounter Summary ---
Author Organization [employer] Address [address] [facility] [address] [place] [address] Care Team Providers Care Gluer Machine Operator Name Role Phone NameVincenzo MD Primary Care Provider Milagros Rawls PharmD Unavailable [phone] Reason for Visit * Reason Comments Med Refill Encounter Details Date Type Department Care Team ([facility] Contact Info) Description 03/21/2023 Refill [facility] [address] [place] [address] [phone] NameVincenzo MD [address] [place] [phone] Social History Tobacco Use Types Packs/Day Years [...] Department Care Team (Late Contact Info) Description 06/26/2025 2:30 PM EST Office Visit [facility] [address] [place] [address] [phone] Vincenzo Fernandez MD [address] [place] [address] [phone] 07/25/2025 11:00 AM EST Office Visit [facility] [address] [place] [address] documented as of this encounter Visit Diagnoses Not on filedocumented in this encounter Additional Health Concerns Assessment Noted Time PHQ-9 Depression Total Score: 0 12/24/19 10:58 AM EDT documented as of this encounter Care Teams Gluer Machine Operator Relationship Specialty Start Date End Date Name, [place] [address] PCP - General Family Medicine 08/03/18 Milagros Rawls PharmD [address] [place] [phone] Pharmacist Internal Medicine 12/02/23 06/27/24 documented as of this encounter
== END 2025-06-23 11:58 | disposition home or self-care (01) ==
LOC: HO.HGS 11:07
PROVIDERS: PCP Internal Medicine Geriatric Medicine; Visit Provider Physician Assistant Surgical
DX: N60.92 Unspecified benign mammary dysplasia of left breast (principal)
CPT/HCPCS: 99024

== ENCOUNTER → 2025-06-23 11:07 | Outpatient (BNVA) | payer MEDICARE, MEDICAID, SELFPAY | PROVIDERS: PCP Internal Medicine Geriatric Medicine; Visit Provider Physician Assistant Surgical | DX: N60.92 Unspecified benign mammary dysplasia of left breast (principal); Z72.0 Tobacco use | CPT/HCPCS: 99212 ==